=== PATIENT | female | born 1955 | race American Indian/Alaskan Native ===

== ENCOUNTER 2020-07-18 18:51 | Observation (INO) | payer MEDICARE ==
--- NOTE | 2020-07-18 21:24 | Emergency Department Report ---
HPI - General Time Seen by Provider: 07/18/20 21:20 - HPI HPI: This is a 64-year-old -[place] female presents to the emergency department via EMS from her [facility] facility with the complaint of generalized weakness and altered mental status. EMS says that [facility] has concerned that she has a urinary tract infection. The patient has a past medical history listed of hypertension, GERD, uro-vfwqqrk-hecrxdmox diabetes, encephalopathy, previous CVA with residual right-sided hemiplegia, and has a left BKA. Patient is currently nonverbal, although EMS says that she was talking a lot when they picked her up, and she is a poor historian. She does not appear to have been at our facility previously. The patient has a right upper extremity PICC in place for which the patient is getting 1 g of Rocephin every 24 hours for a recently diagnosed UTI. ED Review of Systems ROS: Stated complaint: AMS/POSSIBLE UTI Other details as noted in HPI Comment: Unobtainable due to pts medical conditions Physical Exam - Physical Exam Physical Exam: GENERAL: The patient is ill-appearing. HENT: Normocephalic. Atraumatic. Patient has moist mucous membranes. EYES: Extraocular motions are intact. NECK: Supple. Trachea is midline. CHEST/LUNGS: Clear to auscultation. There is no respiratory distress noted. HEART/CARDIOVASCULAR: Regular. There is no tachycardia. There is no murmur. ABDOMEN: Abdomen is soft, nontender. Patient has normal bowel sounds. SKIN: Skin is warm and dry. NEURO: The patient is awake but nonverbal. Follows some, but not all, commands. MUSCULOSKELETAL: There is no tenderness or deformity. Left BKA. ED Medical Decision Making - Lab Data Result diagrams: 07/18/20 21:31 07/18/20 21:31 Lab Results 07/18/20 07/18/20 07/18/20 Range/Units 21:31 21:31 21:31 WBC 12.0 H (4.5-11.0) K/mm3 RBC 3.17 L (3.65-5.03) M/mm3 Hgb 8.9 L (10.1-14.3) gm/dl Hct 26.8 L (30.3-42.9) % MCV 85 (79-97) fl MCH 28 (28-32) pg MCHC 33 (30-34) % RDW 17.1 H (13.2-15.2) % Plt Count 369 (140-440) K/mm3 Lymph % (Auto) 16.8 (13.4-35.0) % [place] % (Auto) 7.5 H (0.0-7.3) % Eos % (Auto) 0.9 (0.0-4.3) % Baso % (Auto) 1.0 (0.0-1.8) % Lymph # (Auto) 2.0 (1.2-5.4) K/mm3 [place] # (Auto) 0.9 H (0.0-0.8) K/mm3 Eos # (Auto) 0.1 (0.0-0.4) K/mm3 Baso # (Auto) 0.1 (0.0-0.1) K/mm3 Seg Neutrophils % 73.8 H (40.0-70.0) % Seg Neutrophils # 8.8 H (1.8-7.7) K/mm3 PT 14.8 (12.2-14.9) Sec. INR 1.16 H (0.87-1.13) Sodium 134 L (137-145) mmol/L Potassium 3.9 (3.6-5.0) mmol/L Chloride 92.7 L (98-107) mmol/L Carbon Dioxide 28 (22-30) mmol/L Anion Gap 17 mmol/L BUN 29 H (7-17) mg/dL Creatinine 1.8 H (0.6-1.2) mg/dL Estimated GFR 34 ml/min BUN/Creatinine Ratio 16 % Glucose 172 H (65-100) mg/dL Calcium 8.3 L (8.4-10.2) mg/dL Total Bilirubin 0.30 (0.1-1.2) mg/dL AST 18 (5-40) units/L ALT 10 (7-56) units/L Alkaline Phosphatase 111 (35-129) units/L Ammonia (25-60) umol/L Troponin T < 0.010 (0.00-0.029) ng/mL Total Protein 7.9 (6.3-8.2) g/dL Albumin 3.2 L (3.9-5) g/dL Albumin/Globulin Ratio 0.7 % TSH (0.270-4.200) mlU/mL 03/02/21 03/02/21 Range/Units 21:31 21:31 WBC (4.5-11.0) K/mm3 RBC (3.65-5.03) M/mm3 Hgb (10.1-14.3) gm/dl Hct (30.3-42.9) % MCV (79-97) fl MCH (28-32) pg MCHC (30-34) % RDW (13.2-15.2) % Plt Count (140-440) K/mm3 Lymph % (Auto) (13.4-35.0) % [place] % (Auto) (0.0-7.3) % Eos % (Auto) (0.0-4.3) % Baso % (Auto) (0.0-1.8) % Lymph # (Auto) (1.2-5.4) K/mm3 [place] # (Auto) (0.0-0.8) K/mm3 Eos # (Auto) (0.0-0.4) K/mm3 Baso # (Auto) (0.0-0.1) K/mm3 Seg Neutrophils % (40.0-70.0) % Seg Neutrophils # (1.8-7.7) K/mm3 PT (12.2-14.9) Sec. INR (0.87-1.13) Sodium (137-145) mmol/L Potassium (3.6-5.0) mmol/L Chloride (98-107) mmol/L Carbon Dioxide (22-30) mmol/L Anion Gap mmol/L BUN (7-17) mg/dL Creatinine (0.6-1.2) mg/dL Estimated GFR ml/min BUN/Creatinine Ratio % Glucose (65-100) mg/dL Calcium (8.4-10.2) mg/dL Total Bilirubin (0.1-1.2) mg/dL AST (5-40) units/L ALT (7-56) units/L Alkaline Phosphatase (35-129) units/L Ammonia 23.0 L (25-60) umol/L Troponin T (0.00-0.029) ng/mL Total Protein (6.3-8.2) g/dL Albumin (3.9-5) g/dL Albumin/Globulin Ratio % TSH 4.340 H (0.270-4.200) mlU/mL - EKG Data -: EKG Interpreted by Me EKG shows normal: sinus rhythm, axis, intervals, QRS complexes, ST-T waves Rate: normal - EKG Data When compared to previous EKG there are: previous EKG unavailable Interpretation: normal EKG - Radiology Data Radiology results: report reviewed CT HEAD WITHOUT CONTRAST INDICATION / CLINICAL INFORMATION: Altered Mental Status. TECHNIQUE: All CT scans at this location are performed using CT dose reduction for ALARA by means of automated exposure control. COMPARISON: 09/26/2019 FINDINGS: HEMORRHAGE: None. EXTRA-AXIAL SPACES: Normal in size and morphology for the patient's age. VENTRICULAR SYSTEM: Mild ex vacuo dilatation of the ventricular system stable since prior exam. CEREBRAL PARENCHYMA: Old lacunar infarct left basal ganglia is stable since prior exam. Chronic microvascular changes in the periventricular subcortical white matter are similar. No large territory acute infarction is noted. MIDLINE SHIFT OR HERNIATION: None. CEREBELLUM / BRAINSTEM: Previously noted old infarctions in the right cerebellum and silvia are unchanged from prior exam. ORBITS: Bilateral intraocular lens replacement are noted. SOFT TISSUES of HEAD: No significant abnormality. CALVARIUM: No significant abnormality. PARANASAL SINUSES / MASTOID AIR CELLS: Normal as visualized. ADDITIONAL FINDINGS: Vascular calcifications of the vertebrobasilar system again noted IMPRESSION: 1. No acute intracranial abnormality. No significant interval change since 09/26/2019. 2. Previously noted old lacunar infarct left basal ganglia as well as scattered areas of old infarction in the right cerebellum and silvia have not significantly changed - Medical Decision Making This patient was sent in from her [facility] facility with the complaint of altered mental status. At the time of my examination the patient is mostly nonverbal. Sometimes she will mouth something but it is not audible. She follows some, but not all, commands. CT scan of the head did not show any hemorrhage, large vessel occlusion, or any other acute process. Her vital signs have been reassuring thus far including being afebrile. Labs shows renal insufficiency with a GFR of about 35, and the patient has a significant urinary tract infection with some hematuria. I spoke to the patient's daughter who says that she does not have any history of any renal insufficiency. This may be secondary to some recent decreased oral intake and/or dehydration. Urine cultures has been sent and the patient has been started on IV antibiotics. She will be admitted to the hospital for further evaluation and treatment and was accepted for admission by the hospitalist, Dr. Monge. Critical Care Time: No Critical care attestation.: If time is entered above; I have spent that time in minutes in the direct care of this critically ill patient, excluding procedure time. ED Disposition Clinical Impression: Encephalopathy Acute renal failure (ARF) Qualifiers: Acute renal failure type: unspecified Qualified Code(s): N17.9 - Acute kidney failure, unspecified UTI (urinary tract infection) Qualifiers: Urinary tract infection type: acute cystitis Hematuria presence: with hematuria Qualified Code(s): N30.01 - Acute cystitis with hematuria Disposition: OP ADMIT IP TO THIS HOSP Is pt being admited?: Yes Condition: Serious Time of Disposition: 00:10
[2020-07-18 21:43] LABS: Basophils # (Auto) 0.1 K/mm3 (0.0-0.1); Eosinophils # (Auto) 0.1 K/mm3 (0.0-0.4); Eosinophils % (Auto) 0.9 % (0.0-4.3); Hematocrit 26.8 % (30.3-42.9); Hemoglobin 8.9 gm/dl (10.1-14.3); Lymphocytes % (Auto) 16.8 % (13.4-35.0); Mean Corpuscular HGB Conc 33 % (30-34); Mean Corpuscular Volume 85 fl (79-97); Monocytes # (Auto) 0.9 K/mm3 (0.0-0.8); Monocytes % (Auto) 7.5 % (0.0-7.3); Platelet Count 369 K/mm3 (140-440); Red Blood Count 3.17 M/mm3 (3.65-5.03); Red Cell Distribution Width 17.1 % (13.2-15.2)
[2020-07-18 21:58] LABS: INR 1.16 (0.87-1.13)
[2020-07-18 22:14] LABS: Alanine Aminotransferase 10 units/L (7-56); Albumin 3.2 g/dL (3.9-5); BUN/Creatinine Ratio 16; Blood Urea Nitrogen 29 mg/dL (7-17); Calcium 8.3 mg/dL (8.4-10.2); Hemolysis Index 4
--- NOTE | 2020-07-18 22:50 | Cat Scan Report ---
CT HEAD WITHOUT CONTRAST INDICATION / CLINICAL INFORMATION: Altered Mental Status. TECHNIQUE: All CT scans at this location are performed using CT dose reduction for ALARA by means of automated e xposure control. COMPARISON: 09/26/2019 FINDINGS: HEMORRHAGE: None. EXTRA-AXIAL SPACES: Normal in size and morphology for the patient's age. VENTRICULAR SYSTEM: Mild ex vacuo dilatation of the ventricular system stable since prior exam. CEREBRAL PARENCHYMA: Old lacunar infarct left basal ganglia is stable since prior exam. Chronic micro vascular changes in the periventricular subcortical white matter are similar. No large territory acut e infarction is noted. MIDLINE SHIFT OR HERNIATION: None. CEREBELLUM / BRAINSTEM: Previously noted old infarctions in the right cerebellum and silvia are unchang ed from prior exam. ORBITS: Bilateral intraocular lens replacement are noted. SOFT TISSUES of HEAD: No significant abnormality. CALVARIUM: No significant abnormality. PARANASAL SINUSES / MASTOID AIR CELLS: Normal as visualized. ADDITIONAL FINDINGS: Vascular calcifications of the vertebrobasilar system again noted IMPRESSION: 1. No acute intracranial abnormality. No significant interval change since 09/26/2019. 2. Previously noted old lacunar infarct left basal ganglia as well as scattered areas of old infarcti on in the right cerebellum and silvia have not significantly changed Signer Name: Wiley King MD Signed: 07/18/2020 10:45 PM Workstation Name: [id number]
[2020-07-18] MEDS ORDERED: SODIUM CHLORIDE 0.9% 1000 ML 1,000 ML IV ONE (23:21)
[2020-07-19 01:27] LABS: Bacteria,Urine 4+ /HPF (Negative)
[2020-07-19 01:31] LABS: Bilirubin,Urine NEG (Negative); Blood,Urine MOD (Negative); Color,Urine Yellow (Yellow); Urobilinogen,Urine < 2.0 mg/dL (<2.0)
[2020-07-19 01:34] LABS: WBC,Urine > 182.0 /HPF (0.0-6.0)
[2020-07-19] MEDS ORDERED: cefTRIAXone/NS 1 GM/50 ML 1 GM/50 ML BAG IV ONE ×2 (01:38→10:00)
[2020-07-19] MEDS ORDERED: MAGNESIUM HYDROXIDE (MOM) ORAL LIQD UDC PO PRN (02:07)
[2020-07-19] MEDS ORDERED: ACETAMINOPHEN 325 MG TAB PO PRN (02:07)
[2020-07-19] MEDS ORDERED: MORPHINE 2 MG/1 ML INJ IV PRN (02:07)
[2020-07-19] MEDS ORDERED: ONDANSETRON 4 MG/2 ML INJ IV PRN (02:07)
--- NOTE | 2020-07-19 02:21 | History and Physical Report ---
History of Present Illness Date of examination: 07/19/20 Date of admission: 07/19/20 00:10 Chief complaint: Altered mental Status Generalized weakness History of present illness: 64-year-old -Italian female with known history of CVA, diabetes mellitus, hypertension GERD and left AKA Resident of [facility] sent to the emergency room today with complaints of generalized weakness and altered mental status. [facility] were concerned that patient may have had a UTI. She was recently diagnosed with UTI and has been on IV Rocephin every 24 hours through a PICC line which is in place. Patient is currently nonverbal and most of the history was gotten from the ER staff. Work-up in the emergency room today reveals WBC of 12., Chemistry was significant for elevated BUN and creatinine. Urinalysis was significant for UTI. Patient admitted with encephalopathy, acute kidney injury and UTI. Past History Past Medical History: renal failure Past Surgical History: Other (Left AKA) Social history: other (Resident of a Longterm) Medications and Allergies Allergies Allergy/AdvReac Type Severity Reaction Status Date / Time Unable to Assess Allergy Unverified 07/19/20 00:47 Active Meds: Active Medications Acetaminophen (Acetaminophen 325 Mg Tab) 650 mg PO Q4H PRN PRN Reason: Pain MILD(1-3)/Fever >100.5/SMALLS Sodium Chloride (Nacl 0.9% 1000 Ml) 1,000 mls @ 125 mls/hr IV ONCE ONE Stop: 07/19/20 07:20 Last Admin: 07/19/20 00:58 Dose: 125 mls/hr Documented by: Sodium Chloride (Nacl 0.9% 1000 Ml) 1,000 mls @ 125 mls/hr IV DIRECT ADOLFO Magnesium Hydroxide (Magnesium Hydroxide (Mom) Oral Liqd Udc) 30 ml PO Q4H PRN PRN Reason: Constipation Morphine Sulfate (Morphine 2 Mg/1 Ml Inj) 2 mg IV Q4H PRN PRN Reason: Pain, Moderate (4-6) Ondansetron HCl (Ondansetron 4 Mg/2 Ml Inj) 4 mg IV Q8H PRN PRN Reason: Nausea And Vomiting Sodium Chloride (Sodium Chloride 0.9% 10 Ml Flush Syringe) 10 ml IV BID ADOLFO Sodium Chloride (Sodium Chloride 0.9% 10 Ml Flush Syringe) 10 ml IV PRN PRN PRN Reason: LINE FLUSH Review of Systems ROS unobtainable: due to mental status Exam - Constitutional Vitals: Temp Pulse Resp BP Pulse Ox 98.1 F 81 18 120/68 100 07/18/20 21:25 07/19/20 01:30 07/19/20 01:30 07/19/20 01:30 07/19/20 01:30 General appearance: Present: no acute distress, well-nourished - EENT Eyes: Present: PERRL, EOM intact. Absent: scleral icterus ENT: hearing intact, clear oral mucosa, dentition normal - Neck Neck: Present: supple, normal ROM - Respiratory Respiratory effort: normal Respiratory: bilateral: CTA - Cardiovascular Rhythm: regular Heart Sounds: Present: S1 & S2. Absent: gallop, systolic murmur, diastolic murmur, rub, click - Extremities Extremities: no ischemia, pulses intact, pulses symmetrical, No edema, normal temperature, normal color, Full ROM Extremity abnormal: other (Left AKA) Peripheral Pulses: within normal limits - Abdominal General gastrointestinal: Present: soft, non-tender, non-distended, normal bowel sounds. Absent: mass - Integumentary Integumentary: Present: clear, warm, dry. Absent: rash - Musculoskeletal Musculoskeletal: strength equal bilaterally - Psychiatric Psychiatric: cooperative - Neurologic Neurologic: CNII-XII intact, no focal deficits, moves all extremities HEART Score - HEART Score Troponin: Troponin T < 0.010 ng/mL (0.00-0.029) 07/18/20 21:31 Results - Labs CBC & Chem 7: 07/18/20 21:31 07/18/20 21:31 Labs: Abnormal lab results 07/18/20 07/18/20 07/18/20 Range/Units 21:31 21:31 21:31 WBC 12.0 H (4.5-11.0) K/mm3 RBC 3.17 L (3.65-5.03) M/mm3 Hgb 8.9 L (10.1-14.3) gm/dl Hct 26.8 L (30.3-42.9) % RDW 17.1 H (13.2-15.2) % [place] % (Auto) 7.5 H (0.0-7.3) % [place] # (Auto) 0.9 H (0.0-0.8) K/mm3 Seg Neutrophils % 73.8 H (40.0-70.0) % Seg Neutrophils # 8.8 H (1.8-7.7) K/mm3 INR 1.16 H (0.87-1.13) Sodium 134 L (137-145) mmol/L Chloride 92.7 L (98-107) mmol/L BUN 29 H (7-17) mg/dL Creatinine 1.8 H (0.6-1.2) mg/dL Glucose 172 H (65-100) mg/dL Calcium 8.3 L (8.4-10.2) mg/dL Ammonia (25-60) umol/L Albumin 3.2 L (3.9-5) g/dL TSH (0.270-4.200) mlU/mL Urine WBC (Auto) (0.0-6.0) /HPF U Epithel Cells (Auto) (0-13.0) /HPF 07/18/20 07/18/20 07/19/20 Range/Units 21:31 21:31 00:43 WBC (4.5-11.0) K/mm3 RBC (3.65-5.03) M/mm3 Hgb (10.1-14.3) gm/dl Hct (30.3-42.9) % RDW (13.2-15.2) % [place] % (Auto) (0.0-7.3) % [place] # (Auto) (0.0-0.8) K/mm3 Seg Neutrophils % (40.0-70.0) % Seg Neutrophils # (1.8-7.7) K/mm3 INR (0.87-1.13) Sodium (137-145) mmol/L Chloride (98-107) mmol/L BUN (7-17) mg/dL Creatinine (0.6-1.2) mg/dL Glucose (65-100) mg/dL Calcium (8.4-10.2) mg/dL Ammonia 23.0 L (25-60) umol/L Albumin (3.9-5) g/dL TSH 4.340 H (0.270-4.200) mlU/mL Urine WBC (Auto) > 182.0 H (0.0-6.0) /HPF U Epithel Cells (Auto) 22.0 H (0-13.0) /HPF Assessment and Plan - Patient Problems (1) Encephalopathy Current Visit: Yes Status: Acute Plan to address problem: Possibly secondary to the underlying infection and MAILE. We will continue to monitor mental status. (2) UTI (urinary tract infection) Current Visit: Yes Status: Acute Qualifiers: Urinary tract infection type: acute cystitis Hematuria presence: with hematuria Qualified Code(s): N30.01 - Acute cystitis with hematuria Plan to address problem: Patient placed on empiric IV antibiotics. Will await culture results. (3) Acute renal failure (ARF) Current Visit: Yes Status: Acute Qualifiers: Acute renal failure type: unspecified Qualified Code(s): N17.9 - Acute kidney failure, unspecified Plan to address problem: Patient placed on IV fluid. Will monitor BUN and creatinine. Consult placed to nephrology for evaluation. (4) DVT prophylaxis Current Visit: Yes Status: Acute Plan to address problem: Patient on subcutaneous heparin. (5) Full code status Current Visit: Yes Status: Acute Plan to address problem: Patient is a full code.
--- NOTE | 2020-07-19 08:41 | Consultation ---
History of Present Illness - History of Present Illness Thank you for the consultation Patient was evaluated today My assessment and plan are as follows #Renal failure in a patient who 64-year-old with multiple risk factors for underlying chronic kidney disease however there is no documented history of prior chronic kidney disease, likely this could be acute kidney injury resulting from volume depletion, rule out urinary tract infection rule out obstruction etc. we will monitor for recovery of renal function, all renal ultrasonogram as well as basic labs currently she is being treated for urinary tract infection There is no acute or urgent indication for renal placement therapy Continue gentle hydration follow-up on renal function, #Leukocytosis and concerns have been raised about urinary tract infection currently she is on antibiotic, will do a bladder ultrasonogram as well as a renal ultrasonogram for now #Mild hyponatremia present on admission sodium was around 134 in the setting of volume depletion we will check osmolality as well as uric acid to guide the fluid therapy #anemia this could be multifactorial at this time #Multiple comorbidities for underlying chronic kidney disease, including diabetes hypertension, prior history of CVA, below-knee amputation which also makes her high risk for renovascular disease underlying #Possible urinary tract infection urine appears to have more than 182 white blood cells 54 red blood cells moderate amount of blood 100 mg protein and 3+ WBC and 4+ bacteria, Roulette pyelonephritis Overall renal prognosis remains guarded at this time Author: Art Wooten M.D. [facility], [facility], [address] [place] [address] Tel; [phone] Source of information: From the current chart History of present illness Patient is a 4-year-old female who was brought in from the [facility] with generalized weakness and altered mental status. She has multiple complex health issues including but not limited to diabetes mellitus type 2, prior history of CVA with residual hemiplegia left BKA gastroesophageal reflux disorder as well as hypertension. It has been noted to the patient is a very poor historian there is some concern about possible urinary tract infection Upon evaluation in the ER patient's creatinine was 1.8 with a BUN of [address] scan obtained did not show any evidence of acute p rocess, urinalysis showed evidence of hematuria. It has been noted that patient was eating and drinking poorly Past medical history: CVA Diabetes Hypertension Gastroesophageal reflux disorder Above knee amputation Hemiplegia Current allergies: Reviewed from the current chart Social history: Reviewed from the current chart Family history: Reviewed from the current chart Review of system: Limited as patient was admitted with encephalopathy And does have history of prior CVA with residual hemiplegia All other review of systems negative Physical examination Vitals: Reviewed General: No acute distress HEENT: Oral mucosa dry no pallor or icterus Neck: Supple without any JVD thyromegaly or nodular mass Chest: Clear to auscultation Heart: Regular rate and rhythm S1-S2 heard no S3-S4 Abdomen: Soft nontender, bowel sounds present no renal bruit no suprapubic masses no CVA tenderness noted Extremity: Minimal edema dry skin no peripheral cyanosis Above knee amputation skin turgor appears to be reduced Endocrine: Thyroid not enlarged Psychiatric: No agitation and aggression noted Musculoskeletal: No joint effusion noted Labs and x-rays: Reviewed from this admission Past History Past Medical History: renal failure Past Surgical History: Other (Left AKA) Social history: other (Resident of a Detention) Medications and Allergies Allergies Allergy/AdvReac Type Severity Reaction Status Date / Time Unable to Assess Allergy Unverified 07/19/20 00:47 Active Meds: Active Medications Acetaminophen (Acetaminophen 325 Mg Tab) 650 mg PO Q4H PRN PRN Reason: Pain MILD(1-3)/Fever >100.5/SMALLS Sodium Chloride (Nacl 0.9% 1000 Ml) 1,000 mls @ 125 mls/hr IV DIRECT ADOLFO Magnesium Hydroxide (Magnesium Hydroxide (Mom) Oral Liqd Udc) 30 ml PO Q4H PRN PRN Reason: Constipation Morphine Sulfate (Morphine 2 Mg/1 Ml Inj) 2 mg IV Q4H PRN PRN Reason: Pain, Moderate (4-6) Ondansetron HCl (Ondansetron 4 Mg/2 Ml Inj) 4 mg IV Q8H PRN PRN Reason: Nausea And Vomiting Sodium Chloride (Sodium Chloride 0.9% 10 Ml Flush Syringe) 10 ml IV BID ADOLFO Sodium Chloride (Sodium Chloride 0.9% 10 Ml Flush Syringe) 10 ml IV PRN PRN PRN Reason: LINE FLUSH Exam - Vital Signs Vital signs: Vital Signs Temp Pulse Resp BP Pulse Ox 98.1 F 86 20 130/69 100 07/18/20 21:25 07/18/20 21:25 07/18/20 21:25 07/18/20 21:25 07/18/20 21:25 Results - Lab Results 07/18/20 21:31 07/18/20 21:31 Most recent lab results Calcium 8.3 mg/dL (8.4-10.2) L 07/18/20 21:31
--- NOTE | 2020-07-19 09:56 | Event Note ---
Date: 07/19/20 Patient seen and examined resting comfortably. Mental status improving. Will await urine culture continue antibiotic therapy. Patient has a left AKA will need continued fall precaution, oral hygiene. Nephrology input is noted and appreciated. We will request home medication list to be able to reconcile.
[2020-07-19] MEDS: SODIUM CHLORIDE 0.9% 1000 ML 1,000 ML IV SCH ×2 (10:04→17:30)
[2020-07-19] MEDS: cefTRIAXone/NS 1 GM/50 ML 1 GM/50 ML BAG IV SCH (22:29)
[2020-07-20] MEDS: SODIUM CHLORIDE 0.9% 1000 ML 1,000 ML IV SCH ×2 (05:18→22:35)
[2020-07-20 06:00] LABS: Basophils # (Auto) 0.1 K/mm3 (0.0-0.1); Basophils % (Auto) 0.8 % (0.0-1.8); Eosinophils # (Auto) 0.3 K/mm3 (0.0-0.4); Eosinophils % (Auto) 2.9 % (0.0-4.3); Hematocrit 25.9 % (30.3-42.9); Hemoglobin 8.4 gm/dl (10.1-14.3); Lymphocytes # (Auto) 2.5 K/mm3 (1.2-5.4); Lymphocytes % (Auto) 22.8 % (13.4-35.0); Mean Corpuscular HGB Conc 32 % (30-34); Mean Corpuscular Volume 82 fl (79-97); Monocytes # (Auto) 0.8 K/mm3 (0.0-0.8); Monocytes % (Auto) 6.9 % (0.0-7.3); Platelet Count 421 K/mm3 (140-440); Red Blood Count 3.15 M/mm3 (3.65-5.03); Red Cell Distribution Width 16.6 % (13.2-15.2)
[2020-07-20 06:11] LABS: INR 1.15 (0.87-1.13)
[2020-07-20 06:16] LABS: Calcium 8.4 mg/dL (8.4-10.2)
--- NOTE | 2020-07-20 08:47 | Progress Note ---
Subjective Interval history: Patient was seen today for follow-up of multiple renal related issues No complaints of any chest pain pressure or shortness of breath she is resting comfortably Mentation-kevin she appears to be slightly better today Interdisciplinary notes that also reviewed Events of 24 hours vitals labs intake output medications were reviewed Past medical history: Reviewed Family history: Reviewed Social history: Reviewed Allergies: Reviewed Physical examination: Vitals: Reviewed HEENT: No pallor or icterus oral mucosa moist Neck: Supple no JVD no thyromegaly Chest: Bilateral clear to auscultation anteriorly Heart: Regular rate and rhythm S1-S2 heard no S3-S4 Abdomen: Soft nontender no voluntary guarding rigidity rebound Extremity: Dry skin no swelling Psychiatric: No evidence of agitation and aggression noted Dermatology: No petechial rashes Labs and x-rays: Reviewed from today Assessment and plan #Acute kidney injury, patient is creatinine has markedly improved with hydration alone hence appears to be prerenal there is no evidence to suggest acute tubular necrosis #Mild hyponatremia: Appears to have improved current sodium is 141 #Significant pyuria and hematuria likely due to urinary tract infection, she needs urine culture currently on empiric antibiotic #Mild alkalosis which could be due to volume issues will need to monitor and follow #Overall patient is doing much better from renal standpoint #Altered mental status, with prior history of CVA, patient may have underlying cognitive impairment, her encephalopathy appears to be slightly better today #custodial resident with many comorbidities including CVA diabetes hypertension left above-knee amputation currently a resident of [facility] All questions were answered and simple Cymraes We'll continue to follow and make recommendation for renal standpoint Objective - Vital Signs Vital signs: Vital Signs - 12hr 07/20/20 07/20/20 07/20/20 00:34 04:50 07:44 Temperature 97.8 F 98.2 F 98.4 F Pulse Rate 69 74 78 Respiratory 18 18 18 Rate Blood Pressure 117/62 115/68 178/83 O2 Sat by Pulse 99 99 100 Oximetry - Lab 07/20/20 05:29 07/20/20 05:29 Most recent lab results Calcium 8.4 mg/dL (8.4-10.2) 07/20/20 05:29 Medications & Allergies - Medications Allergies/Adverse Reactions: Allergies Unable to Assess Allergy (Unverified 07/19/20 00:47) UNABLE TO OBTAIN Active Medications: Generic Name Dose Route Start Last Admin Trade Name Freq PRN Reason Stop Dose Admin Acetaminophen 650 mg 07/19/20 02:07 Acetaminophen 325 Mg Tab PO Q4H PRN Pain MILD(1-3)/Fever >100.5/SMALLS Sodium Chloride 1,000 mls @ 125 mls/hr 07/19/20 02:15 07/20/20 05:18 Nacl 0.9% 1000 Ml IV 125 mls/hr DIRECT ADOLFO Administration Ceftriaxone Sodium 1 gm in 50 mls @ 100 mls/hr 07/19/20 22:00 07/19/20 22:29 Rocephin/Ns 1 Gm/50 Ml IV 100 mls/hr Q24HR@2200 ADOLFO Administration Protocol Magnesium Hydroxide 30 ml 07/19/20 02:07 Magnesium Hydroxide (Mom) Oral Liqd Udc PO Q4H PRN Constipation Morphine Sulfate 2 mg 07/19/20 02:07 Morphine 2 Mg/1 Ml Inj IV Q4H PRN Pain, Moderate (4-6) Ondansetron HCl 4 mg 07/19/20 02:07 Ondansetron 4 Mg/2 Ml Inj IV Q8H PRN Nausea And Vomiting Sodium Chloride 10 ml 07/19/20 10:00 07/19/20 22:30 Sodium Chloride 0.9% 10 Ml Flush Syringe IV 10 ml BID ADOLFO Administration Sodium Chloride 10 ml 07/19/20 02:07 Sodium Chloride 0.9% 10 Ml Flush Syringe IV PRN PRN LINE FLUSH
--- NOTE | 2020-07-20 11:11 | Progress Note ---
Assessment and Plan Assessment and plan: 64-year-old -Togolese female with known history of CVA, diabetes mellitus, hypertension GERD and left AKA Resident of [facility] sent to the emergency room today with complaints of generalized weakness and altered mental status. Staff at the care home were concerned that patient may have had a UTI. She was recently diagnosed with UTI and has been on IV Rocephin every 24 hours through a PICC line which is in place. Patient is currently nonverbal and most of the history was gotten from the ER staff. Work-up in the emergency room today reveals WBC of 12., Chemistry was signif icant for elevated BUN and creatinine. Urinalysis was significant for UTI. Patient admitted with encephalopathy, acute kidney injury and UTI. 3/4: Continue supportive care patient improving with the treatment of acute urinary tract infection. Renal function is improved. Will await for culture r esults and anticipate discharge in a.m. Continue fall precaution. Replace K. Will obtain a predischarge Covid test (1) Encephalopathy Current Visit: Yes Status: Acute Metabolic Plan to address problem: Possibly secondary to the underlying infection and MAILE. We will continue to monitor mental status. (2) Acute Cystitis Current Visit: Yes Status: Acute Qualifiers: Urinary tract infection type: acute cystitis Hematuria presence: with hematuria Qualified Code(s): N30.01 - Acute cystitis with hematuria Plan to address problem: Patient placed on empiric IV antibiotics. Will await culture results. (3) Acute renal failure (ARF) secondary to vasomotor nephropathy Current Visit: Yes Status: Acute Qualifiers: Acute renal failure type: unspecified Qualified Code(s): N17.9 - Acute kidney failure, unspecified Plan to address problem: Patient placed on IV fluid. Will monitor BUN and creatinine. Consult placed to nephrology for evaluation. (4) mild hyponatremia (5) Mild alkalosis (6) Left AKA (7) Anemia of chronic disease (8) Hypokalemia (9) residential resident DVT prophylaxis Current Visit: Yes Status: Acute Plan to address problem: Patient on subcutaneous heparin. (10) Full code status Current Visit: Yes Status: Acute Plan to address problem: Patient is a full code. History Interval history: Patient seen and examined this morning resting comfortably no new complaints. While she is verbal this morning she did not speak but nodded to questions which she also did yesterday apart from that and when she spoke briefly. Hospitalist Physical - Physical exam Narrative exam: VITAL SIGNS: Reviewed. GENERAL: The patient appears normally developed, Vital signs as documented. HEAD: No signs of head trauma. EYES: Pupils are equal. Extraocular motions intact. EARS: Hearing grossly intact. MOUTH: Oropharynx is normal. NECK: No adenopathy, no JVD. CHEST: Chest with clear breath sounds bilaterally. No wheezes, rales, or rhonchi. CARDIAC: Regular rate and rhythm. S1 and S2, without murmurs, gallops, or rubs. VASCULAR: No Edema. Peripheral pulses normal and equal in all extremities. ABDOMEN: Soft, non tender and non distended. No rebound or guarding, and no masses palpated. Bowel Sounds normal. MUSCULOSKELETAL: left AKA NEUROLOGIC EXAM: awake, still some lethargy and oriented x 3 No focal sensory or strength deficits. Follows commands. PSYCHIATRIC: Mood normal. SKIN: detail exam as documented in skin assessment - Constitutional Vitals: Temp Pulse Resp BP Pulse Ox 98.4 F 78 18 178/83 100 07/20/20 07:44 07/20/20 07:44 07/20/20 07:44 07/20/20 07:44 07/20/20 07:44 General appearance: Present: no acute distress, well-nourished HEART Score - HEART Score Troponin: Troponin T < 0.010 ng/mL (0.00-0.029) 07/18/20 21:31 Results - Labs CBC & Chem 7: 07/20/20 05:29 07/20/20 05:29 Labs: Laboratory Last Values WBC 11.0 K/mm3 (4.5-11.0) 07/20/20 05:29 RBC 3.15 M/mm3 (3.65-5.03) L 07/20/20 05:29 Hgb 8.4 gm/dl (10.1-14.3) L 07/20/20 05:29 Hct 25.9 % (30.3-42.9) L 07/20/20 05:29 MCV 82 fl (79-97) 07/20/20 05:29 MCH 27 pg (28-32) L 07/20/20 05: MCHC 32 % (30-34) 07/20/20 05:29 RDW 16.6 % (13.2-15.2) H 07/20/20 05:29 Plt Count 421 K/mm3 (140-440) 07/20/20 05:29 Lymph % (Auto) 22.8 % (13.4-35.0) 07/20/20 05:29 [place] % (Auto) 6.9 % (0.0-7.3) 07/20/20 05:29 Eos % (Auto) 2.9 % (0.0-4.3) 07/20/20 05:29 Baso % (Auto) 0.8 % (0.0-1.8) 07/20/20 05:29 Lymph # (Auto) 2.5 K/mm3 (1.2-5.4) 07/20/20 05:29 [place] # (Auto) 0.8 K/mm3 (0.0-0.8) 07/20/20 05:29 Eos # (Auto) 0.3 K/mm3 (0.0-0.4) 07/20/20 05:29 Baso # (Auto) 0.1 K/mm3 (0.0-0.1) 07/20/20 05:29 Seg Neutrophils % 66.6 % (40.0-70.0) 07/20/20 05:29 Seg Neutrophils # 7.4 K/mm3 (1.8-7.7) 07/20/20 05:29 PT 14.7 Sec. (12.2-14.9) 07/20/20 05:29 INR 1.15 (0.87-1.13) H 07/20/20 05:29 Sodium 141 mmol/L (137-145) D 07/20/20 05:29 Potassium 3.5 mmol/L (3.6-5.0) L 07/20/20 05:29 Chloride 103.1 mmol/L (98-107) 07/20/20 05:29 Carbon Dioxide 31 mmol/L (22-30) H 07/20/20 05:29 Anion Gap 10 mmol/L 07/20/20 05:29 BUN 22 mg/dL (7-17) H 07/20/20 05:29 Creatinine 1.2 mg/dL (0.6-1.2) 07/20/20 05:29 Estimated GFR 55 ml/min 07/20/20 05:29 BUN/Creatinine Ratio 18 % 07/20/20 05:29 Glucose 171 mg/dL (65-100) H 07/20/20 05:29 POC Glucose 147 mg/dL (70-105) H 07/20/20 07:43 Calcium 8.4 mg/dL (8.4-10.2) 07/20/20 05:29 Total Bilirubin 0.30 mg/dL (0.1-1.2) 07/18/20 21:31 AST 18 units/L (5-40) 07/18/20 21:31 ALT 10 units/L (7-56) 07/18/20 21:31 Alkaline Phosphatase 111 units/L (35-129) 07/18/20 21:31 Ammonia 23.0 umol/L (25-60) L 07/18/20 21:31 Troponin T < 0.010 ng/mL (0.00-0.029) 07/18/20 21:31 Total Protein 7.9 g/dL (6.3-8.2) 07/18/20 21:31 Albumin 3.2 g/dL (3.9-5) L 07/18/20 21:31 Albumin/Globulin Ratio 0.7 % 07/18/20 21:31 TSH 4.340 mlU/mL (0.270-4.200) H 07/18/20 21:31 Urine Color Yellow (Yellow) 07/19/20 00:43 Urine Turbidity Turbid (Clear) 07/19/20 00:43 Urine pH 5.0 (5.0-7.0) 07/19/20 00:43 Ur Specific [place] 1.012 (1.003-1.030) 07/19/20 00:43 Urine Protein 100 mg/dl mg/dL (Negative) 07/19/20 00:43 Urine Glucose (UA) Neg mg/dL (Negative) 07/19/20 00:43 Urine Ketones Tr mg/dL (Negative) 07/19/20 00:43 Urine Blood Mod (Negative) 07/19/20 00:43 Urine Nitrite Neg (Negative) 07/19/20 00:43 Urine Bilirubin Neg (Negative) 07/19/20 00:43 Urine Urobilinogen < 2.0 mg/dL (<2.0) 07/19/20 00:43 Ur Leukocyte Esterase Mod (Negative) 07/19/20 00:43 Urine WBC (Auto) > 182.0 /HPF (0.0-6.0) H 07/19/20 00:43 Urine RBC (Auto) 54.0 /HPF (0.0-6.0) 07/19/20 00:43 U Epithel Cells (Auto) 22.0 /HPF (0-13.0) H 07/19/20 00:43 Urine Bacteria (Auto) 4+ /HPF (Negative) 07/19/20 00:43 Urine WBC Clumps 3+ /HPF 07/19/20 00:43 [place]cl[place]/IV: Voiding Method Diaper Active Medications - Current Medications Current Medications: Generic Name Dose Route Start Last Admin Trade Name Freq PRN Reason Stop Dose Admin Acetaminophen 650 mg 07/19/20 02:07 Acetaminophen 325 Mg Tab PO Q4H PRN Pain MILD(1-3)/Fever >100.5/SMALLS Sodium Chloride 1,000 mls @ 125 mls/hr 07/19/20 02:15 07/20/20 05:18 Nacl 0.9% 1000 Ml IV 125 mls/hr DIRECT ADOLFO Administration Ceftriaxone Sodium 1 gm in 50 mls @ 100 mls/hr 07/19/20 22:00 07/19/20 22:29 Rocephin/Ns 1 Gm/50 Ml IV 100 mls/hr Q24HR@2200 ADOLFO Administration Protocol Magnesium Hydroxide 30 ml 07/19/20 02:07 Magnesium Hydroxide (Mom) Oral Liqd Udc PO Q4H PRN Constipation Morphine Sulfate 2 mg 07/19/20 02:07 Morphine 2 Mg/1 Ml Inj IV Q4H PRN Pain, Moderate (4-6) Ondansetron HCl 4 mg 07/19/20 02:07 Ondansetron 4 Mg/2 Ml Inj IV Q8H PRN Nausea And Vomiting Sodium Chloride 10 ml 07/19/20 10:00 07/19/20 22:30 Sodium Chloride 0.9% 10 Ml Flush Syringe IV 10 ml BID ADOLFO Administration Sodium Chloride 10 ml 07/19/20 02:07 Sodium Chloride 0.9% 10 Ml Flush Syringe IV PRN PRN LINE FLUSH
[2020-07-20] MEDS: cefTRIAXone/NS 1 GM/50 ML 1 GM/50 ML BAG IV SCH (22:30)
[2020-07-21] MEDS: hydrALAZINE 20 MG/1 ML INJ IV PRN (02:46)
[2020-07-21] MEDS: SODIUM CHLORIDE 0.9% 1000 ML 1,000 ML IV SCH ×2 (07:34→22:43)
--- NOTE | 2020-07-21 08:35 | Progress Note ---
Subjective Interval history: Patient was seen today for follow-up of multiple renal related issues she is resting comfortably in bed no acute distress Remarkable improvement in kidney function Interdisciplinary notes that also reviewed Events of 24 hours vitals labs intake output medications were reviewed Past medical history: Reviewed Family history: Reviewed Social history: Reviewed Allergies: Reviewed Physical examination: Vitals: Reviewed HEENT: No pallor or icterus oral mucosa moist Neck: Supple no JVD no thyromegaly Chest: Bilateral clear to auscultation anteriorly Heart: Regular rate and rhythm S1-S2 heard no S3-S4 Abdomen: Soft nontender no voluntary guarding rigidity rebound Extremity: Dry skin no swelling Psychiatric: No evidence of agitation and aggression noted Dermatology: No petechial rashes Labs and x-rays: Reviewed from today Assessment and plan #Acute kidney injury, patient is creatinine has markedly improved with hydration alone hence appears to be prerenal there is no evidence to suggest acute tubular necrosis, renal function markedly improved, please give her potassium replacement for at least 3-5 days 20 [place] every each day she will need a follow- up 1 basic metabolic profile next week #Mild hyponatremia: Appears to have improved current sodium is 141 #Significant pyuria and hematuria likely due to urinary tract infection, being followed by hospital medicine #Mild alkalosis doing much better #Overall patient is doing much better from renal standpoint #Altered mental status, with prior history of CVA, patient may have underlying cognitive impairment, her encephalopathy appears to be slightly better today #care home resident with many comorbidities including CVA diabetes hypertension left above-knee amputation currently a resident of [facility] overall stable for discharge from renal standpoint She can follow-up in the office in approximately 4-6 weeks Objective - Vital Signs Vital signs: Vital Signs - 12hr 07/21/20 07/21/20 07/21/20 00:45 04:03 07:00 Temperature 97.6 F 97.6 F 98 F Pulse Rate 74 76 75 Respiratory 18 18 20 Rate Blood Pressure 163/89 Blood Pressure 146/88 136/72 [Left] O2 Sat by Pulse 99 100 99 Oximetry - Lab 07/20/20 05:29 07/20/20 05:29 Most recent lab results Calcium 8.4 mg/dL (8.4-10.2) 07/20/20 05:29 Medications & Allergies - Medications Allergies/Adverse Reactions: Allergies Unable to Assess Allergy (Unverified 07/19/20 00:47) UNABLE TO OBTAIN Home Medications: Home Medications Medication Instructions Recorded Confirmed Last Taken Type Acetaminophen [Aphen] 325 mg PO Q4H PRN 07/21/20 07/21/20 Unknown History Aspirin [Adult Aspirin] 81 mg PO DAILY 07/21/20 07/21/20 Unknown History AtorvaSTATin [Lipitor] 40 mg PO DAILY 07/21/20 07/21/20 Unknown History Citalopram [Celexa] 20 mg PO DAILY 07/21/20 07/21/20 Unknown History Docusate Sodium [Colace CAP] 100 mg PO BID 07/21/20 07/21/20 Unknown History Insulin Aspart (Nf) [NovoLOG 100 0 unit SQ AC 07/21/20 07/21/20 Unknown History UNITS/ML VIAL] Insulin Glargine [Lantus VIAL] 20 units SQ BID 07/21/20 07/21/20 Unknown History Insulin Lispro [Admelog] 5 unit SQ ACHS 07/21/20 07/21/20 Unknown History Multivitamin [One-Daily 1 tab PO DAILY 07/21/20 07/21/20 Unknown History Multi-Vitamin] Norvasc 10 mg PO DAILY 07/21/20 07/21/20 Unknown History Nystatin [Nystatin SUSP] 100,000 ml PO QID 07/21/20 07/21/20 Unknown History Ondansetron HCl [Zofran] 4 mg PO Q8H 07/21/20 07/21/20 Unknown History Oxybutynin [Ditropan] 5 mg PO DAILY 07/21/20 07/21/20 Unknown History Pantoprazole [Protonix TAB] 40 mg PO QDAY 07/21/20 07/21/20 Unknown History Potassium 10 meq PO QAM 07/21/20 07/21/20 Unknown History Sennosides [Senna] 1 tab PO BID 07/21/20 07/21/20 Unknown History bisacodyL [Dulcolax suppos] 10 mg LA DAILY 07/21/20 07/21/20 Unknown History cephALEXin [Keflex] 250 mg PO Q6HR #10 capsule 07/21/20 Unknown Rx diphenhydrAMINE [Benadryl CAP] 25 mg PO Q6H PRN 07/21/20 07/21/20 Unknown History Active Medications: Generic Name Dose Route Start Last Admin Trade Name Zainab PRN Reason Stop Dose Admin Acetaminophen 650 mg 07/19/20 02:07 Acetaminophen 325 Mg Tab PO Q4H PRN Pain MILD(1-3)/Fever >100.5/SMALLS Hydralazine HCl 10 mg 07/21/20 02:30 07/21/20 02:46 Hydralazine 20 Mg/1 Ml Inj IV 10 mg Q6H PRN Administration SBP greater than 160 Sodium Chloride 1,000 mls @ 125 mls/hr 07/19/20 02:15 07/21/20 07:34 Nacl 0.9% 1000 Ml IV 125 mls/hr DIRECT ADOLFO Administration Ceftriaxone Sodium 1 gm in 50 mls @ 100 mls/hr 07/19/20 22:00 07/20/20 22:30 Rocephin/Ns 1 Gm/50 Ml IV 100 mls/hr Q24HR@2200 ADOLFO Administration Protocol Magnesium Hydroxide 30 ml 07/19/20 02:07 Magnesium Hydroxide (Mom) Oral Liqd Udc PO Q4H PRN Constipation Morphine Sulfate 2 mg 07/19/20 02:07 Morphine 2 Mg/1 Ml Inj IV Q4H PRN Pain, Moderate (4-6) Ondansetron HCl 4 mg 07/19/20 02:07 Ondansetron 4 Mg/2 Ml Inj IV Q8H PRN Nausea And Vomiting Sodium Chloride 10 ml 07/19/20 10:00 07/20/20 22:31 Sodium Chloride 0.9% 10 Ml Flush Syringe IV 10 ml BID ADOLFO Administration Sodium Chloride 10 ml 07/19/20 02:07 Sodium Chloride 0.9% 10 Ml Flush Syringe IV PRN PRN LINE FLUSH
--- NOTE | 2020-07-21 09:37 | Discharge Summary ---
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 Staff at the assisted were concerned that patient may have had a UTI. She was recently diagnosed with UTI and has been on IV Rocephin every 24 hours through a PICC line which is in place. Patient is currently nonverbal and most of the history was gotten from the ER staff. Work-up in the emergency room today reveals WBC of 12., Chemistry was significant for elevated BUN and creatinine. Urinalysis was significant for UTI. Patient admitted with encephalopathy, acute kidney injury and UTI. 3: Continue supportive care patient improving with the treatment of acute urinary tract infection. Renal function is improved. Will await for culture results and anticipate discharge in a.m. Continue fall precaution. Replace K. Will obtain a predischarge Covid test 5: Patient clinically stable, tolerating diet, mental status improved. stable for discharge. unsure why urine culture was never sent. Renal function improved. No evidence of sepsis (1) Encephalopathy Current Visit: Yes Status: Acute Metabolic Plan to address problem: Possibly secondary to the underlying infection and MAILE. We will continue to monitor mental status. (2) Acute Cystitis Current Visit: Yes Status: Acute Qualifiers: Urinary tract infection type: acute cystitis Hematuria presence: with hematuria Qualified Code(s): N30.01 - Acute cystitis with hematuria Plan to address problem: Patient placed on empiric IV antibiotics. Will await culture results. (3) Acute renal failure (ARF) secondary to vasomotor nephropathy Current Visit: Yes Status: Acute Qualifiers: Acute renal failure type: unspecified Qualified Code(s): N17.9 - Acute kidney failure, unspecified Plan to address problem: Patient placed on IV fluid. Will monitor BUN and creatinine. Consult placed to nephrology for evaluation. (4) mild hyponatremia (5) Mild alkalosis (6) Left AKA (7) Anemia of chronic disease (8) Hypokalemia (9) residential resident Disposition: [place]-03 SNF [facility] C[facility] Time spent for discharge: 35 MINS Core Measure Documentation - Palliative Care Palliative Care/ Comfort Measures: Not Applicable - Core Measures Any of the following diagnoses?: none Exam - Physical Exam Narrative exam: VITAL SIGNS: Reviewed. GENERAL: The patient appears normally developed, Vital signs as documented. HEAD: No signs of head trauma. EYES: Pupils are equal. Extraocular motions intact. EARS: Hearing grossly intact. MOUTH: Oropharynx is normal. NECK: No adenopathy, no JVD. CHEST: Chest with clear breath sounds bilaterally. No wheezes, rales, or rhonchi. CARDIAC: Regular rate and rhythm. S1 and S2, without murmurs, gallops, or rubs. VASCULAR: No Edema. Peripheral pulses normal and equal in all extremities. ABDOMEN: Soft, non tender and non distended. No rebound or guarding, and no masses palpated. Bowel Sounds normal. MUSCULOSKELETAL: left AKA NEUROLOGIC EXAM: awake, still some lethargy and oriented x 3 No focal sensory or strength deficits. Follows commands. PSYCHIATRIC: Mood normal. SKIN: detail exam as documented in skin assessment - Constitutional Vitals: Temp Pulse Resp BP Pulse Ox 98 F 75 20 136/72 99 07/21/20 07:00 07/21/20 07:00 07/21/20 07:00 07/21/20 07:00 07/21/20 07:00 Plan Activity: advance as tolerated, fall precautions Diet: per dietitian instruction Special Instructions: record daily BP diary, record blood sugar diary Follow up with: PRIMARY CARE, [Primary Care Provider] - 7 Days Prescriptions: cephALEXin [Keflex] 250 mg PO Q6HR #10 capsule
[2020-07-21] MEDS: cefTRIAXone/NS 1 GM/50 ML 1 GM/50 ML BAG IV SCH (22:39)
[2020-07-22] MEDS: SODIUM CHLORIDE 0.9% 1000 ML 1,000 ML IV SCH ×2 (10:37→21:32)
--- NOTE | 2020-07-22 12:01 | Discharge Summary ---
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 Hospitalization Reason for admission: ams Condition: Serious Hospital course: GNR on urine culture Original Note: 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 Staff at the [facility] were concerned that patient may have had a UTI. She was recently diagnosed with UTI and has been on IV Rocephin every 24 hours through a PICC line which is in place. Patient is currently nonverbal and most of the history was gotten from the ER staff. Work-up in the emergency room today reveals WBC of 12., Chemistry was significant for elevated BUN and creatinine. Urinalysis was significant for UTI. Patient admitted with encephalopathy, acute kidney injury and UTI. 07/20: Continue supportive care patient improving with the treatment of acute urinary tract infection. Renal function is improved. Will await for culture results and anticipate discharge in a.m. Continue fall precaution. Replace K. Will obtain a predischarge Covid test 07/21: Patient clinically stable, tolerating diet, mental status improved. stable for discharge. unsure why urine culture was never sent. Renal function improved. No evidence of sepsis 07/22: Covid test INCONCLUSIVE resulting in patient staying an extra day. Repeat testing today, Patient with poor po intake and according to daughter was on Tube feeds in the past but now out, the other day the nurse reported the patient ate. Will add appetite stimulant. No contact info to call and discuss with daughter. Nurse will inform daughter when she calls again of recommendation to be evaluate to replacement PEG outpatient. (1) Encephalopathy Current Visit: Yes Status: Acute Metabolic Plan to address problem: Possibly secondary to the underlying infection and MAILE. We will continue to monitor mental status. (2) Acute Cystitis Current Visit: Yes Status: Acute Qualifiers: Urinary tract infection type: acute cystitis Hematuria presence: with hematuria Qualified Code(s): N30.01 - Acute cystitis with hematuria Plan to address problem: Patient placed on empiric IV antibiotics. GNR (3) Acute renal failure (ARF) secondary to vasomotor nephropathy Current Visit: Yes Status: Acute Qualifiers: Acute renal failure type: unspecified Qualified Code(s): N17.9 - Acute kidney failure, unspecified Plan to address problem: Patient placed on IV fluid. Will monitor BUN and creatinine. Consult placed to nephrology for evaluation. (4) mild hyponatremia (5) Mild alkalosis (6) Left AKA (7) Anemia of chronic disease (8) Hypokalemia (9) alf resident Disposition: [place]-03 SNF [facility] CERT Time spent for discharge: 35 Core Measure Documentation - Palliative Care Palliative Care/ Comfort Measures: Not Applicable - Core Measures Any of the following diagnoses?: none Exam - Physical Exam Narrative exam: VITAL SIGNS: Reviewed. GENERAL: The patient appears normally developed, Vital signs as documented. HEAD: No signs of head trauma. EYES: Pupils are equal. Extraocular motions intact. EARS: Hearing grossly intact. MOUTH: Oropharynx is normal. NECK: No adenopathy, no JVD. CHEST: Chest with clear breath sounds bilaterally. No wheezes, rales, or rhonchi. CARDIAC: Regular rate and rhythm. S1 and S2, without murmurs, gallops, or rubs. VASCULAR: No Edema. Peripheral pulses normal and equal in all extremities. ABDOMEN: Soft, non tender and non distended. No rebound or guarding, and no masses palpated. Bowel Sounds normal. MUSCULOSKELETAL: left AKA NEUROLOGIC EXAM: awake, still some lethargy and oriented x 3 No focal sensory or strength deficits. Follows commands. PSYCHIATRIC: Mood normal. SKIN: detail exam as documented in skin assessment - Constitutional Vitals: Temp Pulse Resp BP Pulse Ox 98.6 F 80 18 148/84 100 07/22/20 05:25 07/22/20 05:25 07/22/20 05:25 07/22/20 05:25 07/22/20 05:25 Plan Activity: advance as tolerated, fall precautions Diet: low fat Special Instructions: record daily weights, record daily BP diary Additional Instructions: IF POOR PO INTAKE PERSIST AND IF OK WITH FAMILY, THEN FOLLOW WITH ANIMAL ECOLOGIST FOR PEG PLACEMENT Follow up with: PRIMARY CAREMD [Primary Care Provider] - 7 Days KALEN RUIZ MD [Staff Physician] - 7 Days Prescriptions: cephALEXin [Keflex] 250 mg PO Q6HR #10 capsule megestroL [Megace] 40 mg PO DAILY #30 tablet
[2020-07-22] MEDS: cefTRIAXone/NS 1 GM/50 ML 1 GM/50 ML BAG IV SCH (21:32)
[2020-07-23] MEDS: SODIUM CHLORIDE 0.9% 1000 ML 1,000 ML IV SCH (05:57)
[2020-07-23] MEDS: hydrALAZINE 20 MG/1 ML INJ IV PRN (08:01)
--- NOTE | 2020-07-23 12:20 | Progress Note ---
Assessment and Plan Assessment and plan: [id number] -[place] female with known history of CVA, diabetes mellitus, hypertension GERD and left AKA Resident of [facility] sent to the emergency room today with complaints of generalized weakness and altered mental status. Staff at the care home were concerned that patient may have had a UTI. She was recently diagnosed with UTI and has been on IV Rocephin every 24 hours through a PICC line which is in place. Patient is currently nonverbal and most of the history was gotten from the ER staff. Work-up in the emergency room today reveals WBC of 12., Chemistry was signi ficant for elevated BUN and creatinine. Urinalysis was significant for UTI. Patient admitted with encephalopathy, acute kidney injury and UTI. 07/20: Continue supportive care patient improving with the treatment of acute urinary tract infection. Renal function is improved. Will await for culture results and anticipate discharge in a.m. Continue fall precaution. Replace K. Will obtain a predischarge Covid test 07/21: Patient clinically stable, tolerating diet, mental status improved. stable for discharge. unsure why urine culture was never sent. Renal function improved. No evidence of sepsis 07/22: Covid test INCONCLUSIVE resulting in patient staying an extra day. Repeat testing today, Patient with poor po intake and according to daughter was on Tube feeds in the past but now out, the other day the nurse reported the patient ate. Will add appetite stimulant. No contact info to call and discuss with daughter. Nurse will inform daughter when she calls again of recommendation to be evaluate to replacement PEG outpatient. 07/23: Patient remains in the hospital due to awaiting authorization for placement back to the care home. Will start Megace while still in house. Mental status is improved back to baseline. Anticipate discharge in a.m. plan discussed with nursing staff (1) Encephalopathy Current Visit: Yes Status: Acute Metabolic Plan to address problem: Possibly secondary to the underlying infection and MAILE. We will continue to monitor mental status. (2) Acute Cystitis Current Visit: Yes Status: Acute Qualifiers: Urinary tract infection type: acute cystitis Hematuria presence: with hematuria Qualified Code(s): N30.01 - Acute cystitis with hematuria Plan to address problem: Patient placed on empiric IV antibiotics. GNR (3) Acute renal failure (ARF) secondary to vasomotor nephropathy Current Visit: Yes Status: Acute Qualifiers: Acute renal failure type: unspecified Qualified Code(s): N17.9 - Acute kidney failure, unspecified Plan to address problem: Patient placed on IV fluid. Will monitor BUN and creatinine. Consult placed to nephrology for evaluation. (4) mild hyponatremia (5) Mild alkalosis (6) Left AKA (7) Anemia of chronic disease (8) Hypokalemia (9) [facility] resident History Interval history: Patient seen and examined this morning resting comfortably no new complaints. Hospitalist Physical - Physical exam Narrative exam: VITAL SIGNS: Reviewed. GENERAL: The patient appears normally developed, Vital signs as documented. HEAD: No signs of head trauma. EYES: Pupils are equal. Extraocular motions intact. EARS: Hearing grossly intact. MOUTH: Oropharynx is normal. NECK: No adenopathy, no JVD. CHEST: Chest with clear breath sounds bilaterally. No wheezes, rales, or rhonchi. CARDIAC: Regular rate and rhythm. S1 and S2, without murmurs, gallops, or rubs. VASCULAR: No Edema. Peripheral pulses normal and equal in all extremities. ABDOMEN: Soft, non tender and non distended. No rebound or guarding, and no masses palpated. Bowel Sounds normal. MUSCULOSKELETAL: left AKA NEUROLOGIC EXAM: awake, still some lethargy and oriented x 3 No focal sensory or strength deficits. Follows commands. PSYCHIATRIC: Mood normal. SKIN: detail exam as documented in skin assessment - Constitutional Vitals: Temp Pulse Resp BP Pulse Ox 98.9 F 90 18 179/96 100 07/23/20 03:41 07/23/20 08:01 07/23/20 10:22 07/23/20 08:01 07/23/20 03:41 General appearance: Present: no acute distress, well-nourished HEART Score - HEART Score Troponin: Troponin T < 0.010 ng/mL (0.00-0.029) 07/18/20 21:31 Results - Labs CBC & Chem 7: 07/20/20 05:29 07/20/20 05:29 Labs: Laboratory Last Values WBC 11.0 K/mm3 (4.5-11.0) 07/20/20 05:29 RBC 3.15 M/mm3 (3.65-5.03) L 07/20/20 05:29 Hgb 8.4 gm/dl (10.1-14.3) L 07/20/20 05:29 Hct 25.9 % (30.3-42.9) L 07/20/20 05:29 MCV 82 fl (79-97) 07/20/20 05:29 MCH 27 pg (28-32) L 07/20/20 05:29 MCHC 32 % (30-34) 07/20/20 05:29 RDW 16.6 % (13.2-15.2) H 07/20/20 05:29 Plt Count 421 K/mm3 (140-440) 07/20/20 05:29 Lymph % (Auto) 22.8 % (13.4-35.0) 07/20/20 05:29 [place] % (Auto) 6.9 % (0.0-7.3) 07/20/20 05:29 Eos % (Auto) 2.9 % (0.0-4.3) 07/20/20 05:29 Baso % (Auto) 0.8 % (0.0-1.8) 07/20/20 05:29 Lymph # (Auto) 2.5 K/mm3 (1.2-5.4) 07/20/20 05:29 [place] # (Auto) 0.8 K/mm3 (0.0-0.8) 07/20/20 05:29 Eos # (Auto) 0.3 K/mm3 (0.0-0.4) 07/20/20 05:29 Baso # (Auto) 0.1 K/mm3 (0.0-0.1) 07/20/20 05:29 Seg Neutrophils % 66.6 % (40.0-70.0) 07/20/20 05:29 Seg Neutrophils # 7.4 K/mm3 (1.8-7.7) 07/20/20 05:29 PT 14.7 Sec. (12.2-14.9) 07/20/20 05:29 INR 1.15 (0.87-1.13) H 07/20/20 05:29 Sodium 141 mmol/L (137-145) D 07/20/20 05:29 Potassium 3.5 mmol/L (3.6-5.0) L 07/20/20 05:29 Chloride 103.1 mmol/L (98-107) 07/20/20 05:29 Carbon Dioxide 31 mmol/L (22-30) H 07/20/20 05:29 Anion Gap 10 mmol/L 07/20/20 05:29 BUN 22 mg/dL (7-17) H 07/20/20 05:29 Creatinine 1.2 mg/dL (0.6-1.2) 07/20/20 05:29 Estimated GFR 55 ml/min 07/20/20 05:29 BUN/Creatinine Ratio 18 % 07/20/20 05:29 Glucose 171 mg/dL (65-100) H 07/20/20 05:29 POC Glucose 170 mg/dL (70-105) H 07/23/20 11:10 Calcium 8.4 mg/dL (8.4-10.2) 07/20/20 05:29 Total Bilirubin 0.30 mg/dL (0.1-1.2) 07/18/20 21:31 AST 18 units/L (5-40) 07/18/20 21:31 ALT 10 units/L (7-56) 07/18/20 21:31 Alkaline Phosphatase 111 units/L (35-129) 07/18/20 21:31 Ammonia 23.0 umol/L (25-60) L 07/18/20 21:31 Troponin T < 0.010 ng/mL (0.00-0.029) 07/18/20 21:31 Total Protein 7.9 g/dL (6.3-8.2) 07/18/20 21:31 Albumin 3.2 g/dL (3.9-5) L 07/18/20 21:31 Albumin/Globulin Ratio 0.7 % 07/18/20 21:31 TSH 4.340 mlU/mL (0.270-4.200) H 07/18/20 21:31 Urine Color Yellow (Yellow) 07/19/20 00:43 Urine Turbidity Turbid (Clear) 07/19/20 00:43 Urine pH 5.0 (5.0-7.0) 07/19/20 00:43 Ur Specific [place] 1.012 (1.003-1.030) 07/19/20 00:43 Urine Protein 100 mg/dl mg/dL (Negative) 07/19/20 00:43 Urine Glucose (UA) Neg mg/dL (Negative) 07/19/20 00:43 Urine Ketones Tr mg/dL (Negative) 07/19/20 00:43 Urine Blood Mod (Negative) 07/19/20 00:43 Urine Nitrite Neg (Negative) 07/19/20 00:43 Urine Bilirubin Neg (Negative) 07/19/20 00:43 Urine Urobilinogen < 2.0 mg/dL (<2.0) 07/19/20 00:43 Ur Leukocyte Esterase Mod (Negative) 07/19/20 00:43 Urine WBC (Auto) > 182.0 /HPF (0.0-6.0) H 07/19/20 00:43 Urine RBC (Auto) 54.0 /HPF (0.0-6.0) 07/19/20 00:43 U Epithel Cells (Auto) 22.0 /HPF (0-13.0) H 07/19/20 00:43 Urine Bacteria (Auto) 4+ /HPF (Negative) 07/19/20 00:43 Urine WBC Clumps 3+ /HPF 07/19/20 00:43 Coronavirus (PCR) Negative (Negative) 07/21/20 Unknown Microbiology: Microbiology 07/19/20 01:53 Urine,Catheterized - Straight Catheter Urine Culture - Final Klebsiella Pneumoniae Mcclure/IV: Voiding Method External Female Catheter Active Medications - Current Medications Current Medications: Generic Name Dose Route Start Last Admin Trade Name Freq PRN Reason Stop Dose Admin Acetaminophen 650 mg 07/19/20 02:07 Acetaminophen 325 Mg Tab PO Q4H PRN Pain MILD(1-3)/Fever >100.5/SMALLS Hydralazine HCl 10 mg 07/21/20 02:30 07/23/20 08:01 Hydralazine 20 Mg/1 Ml Inj IV 10 mg Q6H PRN Administration SBP greater than 160 Sodium Chloride 1,000 mls @ 125 mls/hr 07/19/20 02:15 07/23/20 05:57 Nacl 0.9% 1000 Ml IV 125 mls/hr DIRECT ADOLFO Administration Ceftriaxone Sodium 1 gm in 50 mls @ 100 mls/hr 07/19/20 22:00 07/22/20 21:32 Rocephin/Ns 1 Gm/50 Ml IV 07/25/20 22:29 100 mls/hr Q24HR@2200 ADOLFO Administration Protocol Magnesium Hydroxide 30 ml 07/19/20 02:07 Magnesium Hydroxide (Mom) Oral Liqd Udc PO Q4H PRN Constipation Megestrol Acetate 400 mg 07/23/20 11:00 Megestrol 400 Mg/10 Ml Oral Liqd PO QDAY ADOLFO Morphine Sulfate 2 mg 07/19/20 02:07 Morphine 2 Mg/1 Ml Inj IV Q4H PRN Pain, Moderate (4-6) Ondansetron HCl 4 mg 07/19/20 02:07 Ondansetron 4 Mg/2 Ml Inj IV Q8H PRN Nausea And Vomiting Sodium Chloride 10 ml 07/19/20 10:00 07/23/20 09:26 Sodium Chloride 0.9% 10 Ml Flush Syringe IV 10 ml BID ADOLFO Administration Sodium Chloride 10 ml 07/19/20 02:07 Sodium Chloride 0.9% 10 Ml Flush Syringe IV PRN PRN LINE FLUSH Nutrition/Malnutrition Assess - Dietary Evaluation Nutrition/Malnutrition Findings: Nutrition Notes Start: 07/20/20 13:57 Freq: Status: Active Protocol: Document 07/20/20 13:57 AL (Rec: 07/20/20 14:09 AL [id number]) Co-Sign 07/20/20 13:57 LP Nutrition Notes Need for 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 Pt has AMS and unable to answer questions. Pt needs feeding assistance and tolerated 25% of Cardiac diet meals. Diet recently downgraded to pureed Cardiac/ Consistent CHO. 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 No Is Patient Ambulatory and/or Out of Bed No REE-([facility]-confined to bed) 1291.224 Kcal/Kg value to use for calculation 25 Approximate Energy Requirements Using 1500 kcal/Kg Calculation Used for Recommendations Kcal/kg Additional Notes Protein 72-90 g (1.2-1.5 g/kg) Fluid: 1 ml/kcal Nutrition Intervention Change Diet Order: Current diet as ordered Add Supplement/Snack (indicate name/kcal Glucerna BID /protein ) Provides kCal: 440 Provides Protein (gm) 20 Goal #1 Meet at least 75% estimated energy needs via PO Goal #2 ONS tolerance Anticipated Discharge Needs: Pureed Cardiac/Consistent CHO diet Follow-Up By: 07/24/20 Additional Comments FU for intakes and ONS tolerance
[2020-07-23] MEDS: MEGESTROL 400 MG/10 ML ORAL LIQD PO SCH (13:43)
[2020-07-23] MEDS: cefTRIAXone/NS 1 GM/50 ML 1 GM/50 ML BAG IV SCH (21:44)
[2020-07-24] MEDS ORDERED: DEXTROSE 50% IN WATER (25GM) 50 ML SYRINGE IV PRN (00:04)
[2020-07-24] MEDS: SODIUM CHLORIDE 0.9% 1000 ML 1,000 ML IV SCH (04:09)
[2020-07-24] MEDS: INSULIN LISPRO 100 UNIT/ML SUB-Q SCH ×3 (08:00→17:00)
--- NOTE | 2020-07-24 11:22 | Progress Note ---
Assessment and Plan Assessment and plan: [id number] -[place] female with known history of CVA, diabetes mellitus, hypertension GERD and left AKA Resident of [facility] sent to the emergency room today with complaints of generalized weakness and altered mental status. Staff at the [facility] were concerned that patient may have had a UTI. She was recently diagnosed with UTI and has been on IV Rocephin every 24 hours through a PICC line which is in place. Patient is currently nonverbal and most of the history was gotten from the ER staff. Work-up in the emergency room today reveals WBC of 12., Chemistry was signi ficant for elevated BUN and creatinine. Urinalysis was significant for UTI. Patient admitted with encephalopathy, acute kidney injury and UTI. 07/20: Continue supportive care patient improving with the treatment of acute urinary tract infection. Renal function is improved. Will await for culture results and anticipate discharge in a.m. Continue fall precaution. Replace K. Will obtain a predischarge Covid test 07/21: Patient clinically stable, tolerating diet, mental status improved. stable for discharge. unsure why urine culture was never sent. Renal function improved. No evidence of sepsis 07/22: Covid test INCONCLUSIVE resulting in patient staying an extra day. Repeat testing today, Patient with poor po intake and according to daughter was on Tube feeds in the past but now out, the other day the nurse reported the patient ate. Will add appetite stimulant. No contact info to call and discuss with daughter. Nurse will inform daughter when she calls again of recommendation to be evaluate to replacement PEG outpatient. 07/23: Patient remains in the hospital due to awaiting authorization for [facility] to the [facility]. Will start Megace while still in house. Mental status is improved back to baseline. Anticipate discharge in a.m. plan discussed with nursing staff 07/24: Discussed with daughter to ensure continued monitoring her diet, Urine cultures, reported noted, will transition to oral antibiotics and continue to monitor at the [facility]. (1) Encephalopathy Current Visit: Yes Status: Acute Metabolic Plan to address problem: Possibly secondary to the underlying infection and MAILE. We will continue to monitor mental status. (2) Acute Cystitis Current Visit: Yes Status: Acute Qualifiers: Urinary tract infection type: acute cystitis Hematuria presence: with hematuria Qualified Code(s): N30.01 - Acute cystitis with hematuria Plan to address problem: Patient placed on empiric IV antibiotics. GNR-KPneumonia- meza sensitivity (3) Acute renal failure (ARF) secondary to vasomotor nephropathy Current Visit: Yes Status: Acute Qualifiers: Acute renal failure type: unspecified Qualified Code(s): N17.9 - Acute kidney failure, unspecified Plan to address problem: Patient placed on IV fluid. Will monitor BUN and creatinine. Consult placed to nephrology for evaluation. (4) mild hyponatremia (5) Mild alkalosis (6) Left AKA (7) Anemia of chronic disease (8) Hypokalemia (9) [facility] resident History Interval history: Patient seen and examined this morning resting comfortably no new complaints. Hospitalist Physical - Physical exam Narrative exam: VITAL SIGNS: Reviewed. GENERAL: The patient appears normally developed, Vital signs as documented. HEAD: No signs of head trauma. EYES: Pupils are equal. Extraocular motions intact. EARS: Hearing grossly intact. MOUTH: Oropharynx is normal. NECK: No adenopathy, no JVD. CHEST: Chest with clear breath sounds bilaterally. No wheezes, rales, or rhonchi. CARDIAC: Regular rate and rhythm. S1 and S2, without murmurs, gallops, or rubs. VASCULAR: No Edema. Peripheral pulses normal and equal in all extremities. ABDOMEN: Soft, non tender and non distended. No rebound or guarding, and no masses palpated. Bowel Sounds normal. MUSCULOSKELETAL: left AKA NEUROLOGIC EXAM: awake, still some lethargy and oriented x 3 No focal sensory or strength deficits. Follows commands. PSYCHIATRIC: Mood normal. SKIN: detail exam as documented in skin assessment - Constitutional Vitals: Temp Pulse Resp BP Pulse Ox 98.1 F 79 18 167/93 100 07/24/20 07:57 07/24/20 07:57 07/24/20 07:57 07/24/20 07:57 07/24/20 07:57 General appearance: Present: no acute distress, well-nourished HEART Score - HEART Score Troponin: Troponin T < 0.010 ng/mL (0.00-0.029) 07/18/20 21:31 Results - Labs CBC & Chem 7: 07/20/20 05:29 07/20/20 05:29 Labs: Laboratory Last Values WBC 11.0 K/mm3 (4.5-11.0) 07/20/20 05:29 RBC 3.15 M/mm3 (3.65-5.03) L 07/20/20 05:29 Hgb 8.4 gm/dl (10.1-14.3) L 07/20/20 05:29 Hct 25.9 % (30.3-42.9) L 07/20/20 05:29 MCV 82 fl (79-97) 07/20/20 05:29 MCH 27 pg (28-32) L 07/20/20 05:29 MCHC 32 % (30-34) 07/20/20 05:29 RDW 16.6 % (13.2-15.2) H 07/20/20 05:29 Plt Count 421 K/mm3 (140-440) 07/20/20 05:29 Lymph % (Auto) 22.8 % (13.4-35.0) 07/20/20 05:29 [place] % (Auto) 6.9 % (0.0-7.3) 07/20/20 05:29 Eos % (Auto) 2.9 % (0.0-4.3) 07/20/20 05:29 Baso % (Auto) 0.8 % (0.0-1.8) 07/20/20 05:29 Lymph # (Auto) 2.5 K/mm3 (1.2-5.4) 07/20/20 05:29 [place] # (Auto) 0.8 K/mm3 (0.0-0.8) 07/20/20 05:29 Eos # (Auto) 0.3 K/mm3 (0.0-0.4) 07/20/20 05:29 Baso # (Auto) 0.1 K/mm3 (0.0-0.1) 07/20/20 05:29 Seg Neutrophils % 66.6 % (40.0-70.0) 07/20/20 05:29 Seg Neutrophils # 7.4 K/mm3 (1.8-7.7) 07/20/20 05:29 PT 14.7 Sec. (12.2-14.9) 07/20/20 05:29 INR 1.15 (0.87-1.13) H 07/20/20 05:29 Sodium 141 mmol/L (137-145) D 07/20/20 05:29 Potassium 3.5 mmol/L (3.6-5.0) L 07/20/20 05:29 Chloride 103.1 mmol/L (98-107) 07/20/20 05:29 Carbon Dioxide 31 mmol/L (22-30) H 07/20/20 05:29 Anion Gap 10 mmol/L 07/20/20 05:29 BUN 22 mg/dL (7-17) H 07/20/20 05:29 Creatinine 1.2 mg/dL (0.6-1.2) 07/20/20 05:29 Estimated GFR 55 ml/min 07/20/20 05:29 BUN/Creatinine Ratio 18 % 07/20/20 05:29 Glucose 171 mg/dL (65-100) H 07/20/20 05:29 POC Glucose 198 mg/dL (70-105) H 07/24/20 07:58 Calcium 8.4 mg/dL (8.4-10.2) 07/20/20 05:29 Total Bilirubin 0.30 mg/dL (0.1-1.2) 07/18/20 21:31 AST 18 units/L (5-40) 07/18/20 21:31 ALT 10 units/L (7-56) 07/18/20 21:31 Alkaline Phosphatase 111 units/L (35-129) 07/18/20 21:31 Ammonia 23.0 umol/L (25-60) L 07/18/20 21:31 Troponin T < 0.010 ng/mL (0.00-0.029) 07/18/20 21:31 Total Protein 7.9 g/dL (6.3-8.2) 07/18/20 21:31 Albumin 3.2 g/dL (3.9-5) L 07/18/20 21:31 Albumin/Globulin Ratio 0.7 % 07/18/20 21:31 TSH 4.340 mlU/mL (0.270-4.200) H 07/18/20 21:31 Urine Color Yellow (Yellow) 07/19/20 00:43 Urine Turbidity Turbid (Clear) 07/19/20 00:43 Urine pH 5.0 (5.0-7.0) 07/19/20 00:43 Ur Specific [place] 1.012 (1.003-1.030) 07/19/20 00:43 Urine Protein 100 mg/dl mg/dL (Negative) 07/19/20 00:43 Urine Glucose (UA) Neg mg/dL (Negative) 07/19/20 00:43 Urine Ketones Tr mg/dL (Negative) 07/19/20 00:43 Urine Blood Mod (Negative) 07/19/20 00:43 Urine Nitrite Neg (Negative) 07/19/20 00:43 Urine Bilirubin Neg (Negative) 07/19/20 00:43 Urine Urobilinogen < 2.0 mg/dL (<2.0) 07/19/20 00:43 Ur Leukocyte Esterase Mod (Negative) 07/19/20 00:43 Urine WBC (Auto) > 182.0 /HPF (0.0-6.0) H 07/19/20 00:43 Urine RBC (Auto) 54.0 /HPF (0.0-6.0) 07/19/20 00:43 U Epithel Cells (Auto) 22.0 /HPF (0-13.0) H 07/19/20 00:43 Urine Bacteria (Auto) 4+ /HPF (Negative) 07/19/20 00:43 Urine WBC Clumps 3+ /HPF 07/19/20 00:43 Coronavirus (PCR) Negative (Negative) 07/21/20 Unknown Mcclure/IV: Voiding Method External Female Catheter Active Medications - Current Medications Current Medications: Generic Name Dose Route Start Last Admin Trade Name Freq PRN Reason Stop Dose Admin Acetaminophen 650 mg 07/19/20 02:07 Acetaminophen 325 Mg Tab PO Q4H PRN Pain MILD(1-3)/Fever >100.5/SMALLS Dextrose 0 ml 07/24/20 00:04 Dextrose 50% In Water (25gm) 50 Ml Syringe IV Q30MIN PRN Hypoglycemia Protocol Hydralazine HCl 10 mg 07/21/20 02:30 07/23/20 08:01 Hydralazine 20 Mg/1 Ml Inj IV 10 mg Q6H PRN Administration SBP greater than 160 Sodium Chloride 1,000 mls @ 125 mls/hr 07/19/20 02:15 07/24/20 04:09 Nacl 0.9% 1000 Ml IV 125 mls/hr DIRECT ADOLFO Administration Ceftriaxone Sodium 1 gm in 50 mls @ 100 mls/hr 07/19/20 22:00 07/23/20 21:44 Rocephin/Ns 1 Gm/50 Ml IV 07/25/20 22:29 100 mls/hr Q24HR@2200 ADOLFO Administration Protocol Insulin Human Lispro 0 unit 07/24/20 07:30 Insulin Lispro 100 Unit/Ml SUB-Q ACHS [facility] Protocol Magnesium Hydroxide 30 ml 07/19/20 02:07 Magnesium Hydroxide (Mom) Oral Liqd Udc PO Q4H PRN Constipation Megestrol Acetate 400 mg 07/23/20 11:00 07/23/20 13:43 Megestrol 400 Mg/10 Ml Oral Liqd PO 400 mg QDAY ADOLFO Administration Morphine Sulfate 2 mg 07/19/20 02:07 Morphine 2 Mg/1 Ml Inj IV Q4H PRN Pain, Moderate (4-6) Ondansetron HCl 4 mg 07/19/20 02:07 Ondansetron 4 Mg/2 Ml Inj IV Q8H PRN Nausea And Vomiting Sodium Chloride 10 ml 07/19/20 10:00 07/23/20 21:46 Sodium Chloride 0.9% 10 Ml Flush Syringe IV 10 ml BID ADOLFO Administration Sodium Chloride 10 ml 07/19/20 02:07 Sodium Chloride 0.9% 10 Ml Flush Syringe IV PRN PRN LINE FLUSH Nutrition/Malnutrition Assess - Dietary Evaluation Nutrition/Malnutrition Findings: Nutrition Notes Start: 07/20/20 13:57 Freq: Status: Active Protocol: Document 07/20/20 13:57 AL (Rec: 07/20/20 14:09 AL [id number]) Co-Sign 07/20/20 13:57 LP Nutrition Notes 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 Pt has AMS and unable to answer questions. Pt needs feeding assistance and tolerated 25% of Cardiac diet meals. Diet recently downgraded to pureed Cardiac/ Consistent CHO. 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 No Is Patient Ambulatory and/or Out of Bed No REE-([facility]-confined to bed) 1291.224 Kcal/Kg value to use for calculation 25 Approximate Energy Requirements Using 1500 kcal/Kg Calculation Used for Recommendations Kcal/kg Additional Notes Protein 72-90 g (1.2-1.5 g/kg) Fluid: 1 ml/kcal Nutrition Intervention Change Diet Order: Current diet as ordered Add Supplement/Snack (indicate name/kcal Glucerna BID /protein ) Provides kCal: 440 Provides Protein (gm) 20 Goal #1 Meet at least 75% estimated energy needs via PO Goal #2 ONS tolerance Anticipated Discharge Needs: Pureed Cardiac/Consistent CHO diet Follow-Up By: 07/24/20 Additional Comments FU for intakes and ONS tolerance
--- NOTE | 2020-07-24 11:40 | Discharge Summary ---
Providers - Providers Date of Admission: 07/19/20 00:10 Attending physician: RUBIO CHANDRA MD 07/19/20 02:07 Consult to Physician [CONS] Routine Comment: Consulting Provider: MARCY JENNINGS Physician Instructions: Reason For Exam: ARF 07/20/20 00:30 Consult to Dietitian/Nutrition [CONS] Routine Physician Instructions: Reason For Exam: Reason for Consult: Malnutrition Occupational Therapy Evaluate and Treat [CONS] Routine Comment: Reason For Exam: evaluation Speech Therapy Evaluation and Treat [CONS] Routine Reason For Exam: evaluation 07/24/20 10:28 Physical Therapy Evaluation and Treat [CONS] Routine Comment: Reason For Exam: Debility Primary care physician: [employer] Hospitalization Reason for admission: ENCEPHALOPATHY Condition: Serious Hospital course: 64-year-old -Thai female with known history of CVA, diabetes mellitus, hypertension GERD and left AKA Resident of [facility] sent to the emergency room today with complaints of generalized weakness and altered mental status. Staff at the longterm were concerned that patient may have had a UTI. She was recently diagnosed with UTI and has been on IV Rocephin every 24 hours through a PICC line which is in place. Patient is currently nonverbal and most of the history was gotten from the ER staff. Work-up in the emergency room today reveals WBC of 12., Chemistry was significant for elevated BUN and creatinine. Urinalysis was significant for UTI. Patient admitted with encephalopathy, acute kidney injury and UTI. 07/20: Continue supportive care patient improving with the treatment of acute urinary tract infection. Renal function is improved. Will await for culture results and anticipate discharge in a.m. Continue fall precaution. Replace K. Will obtain a predischarge Covid test 07/21: Patient clinically stable, tolerating diet, mental status improved. stable for discharge. unsure why urine culture was never sent. Renal function improved. No evidence of sepsis 07/22: Covid test INCONCLUSIVE resulting in patient staying an extra day. Repeat testing today, Patient with poor po intake and according to daughter was on Tube feeds in the past but now out, the other day the nurse reported the patient ate. Will add appetite stimulant. No contact info to call and discuss with daughter. Nurse will inform daughter when she calls again of recommendation to be evaluate to replacement PEG outpatient. 07/23: Patient remains in the hospital due to awaiting authorization for placement back to the longterm. Will start Megace while still in house. Mental status is improved back to baseline. Anticipate discharge in a.m. plan discussed with nursing staff 07/24: Discussed with daughter to ensure continued monitoring her diet, Urine cultures, reported noted, will transition to oral antibiotics and continue to monitor at the longterm. (1) Encephalopathy Current Visit: Yes Status: Acute Metabolic Plan to address problem: Possibly secondary to the underlying infection and MAILE. We will continue to monitor mental status. (2) Acute Cystitis Current Visit: Yes Status: Acute Qualifiers: Urinary tract infection type: acute cystitis Hematuria presence: with hematuria Qualified Code(s): N30.01 - Acute cystitis with hematuria Plan to address problem: Patient placed on empiric IV antibiotics. GNR-KPneumonia- meza sensitivity (3) Acute renal failure (ARF) secondary to vasomotor nephropathy Current Visit: Yes Status: Acute Qualifiers: Acute renal failure type: unspecified Qualified Code(s): N17.9 - Acute kidney failure, unspecified Plan to address problem: Patient placed on IV fluid. Will monitor BUN and creatinine. Consult placed to nephrology for evaluation. (4) mild hyponatremia (5) Mild alkalosis (6) Left AKA (7) Anemia of chronic disease (8) Hypokalemia (9) [facility] resident Disposition: DC/[place]-[facility] Time spent for discharge: 35 MINS Core Measure Documentation - Palliative Care Palliative Care/ Comfort Measures: Not Applicable - Core Measures Any of the following diagnoses?: none Exam - Physical Exam Narrative exam: VITAL SIGNS: Reviewed. GENERAL: The patient appears normally developed, Vital signs as documented. HEAD: No signs of head trauma. EYES: Pupils are equal. Extraocular motions intact. EARS: Hearing grossly intact. MOUTH: Oropharynx is normal. NECK: No adenopathy, no JVD. CHEST: Chest with clear breath sounds bilaterally. No wheezes, rales, or rhonchi. CARDIAC: Regular rate and rhythm. S1 and S2, without murmurs, gallops, or rubs. VASCULAR: No Edema. Peripheral pulses normal and equal in all extremities. ABDOMEN: Soft, non tender and non distended. No rebound or guarding, and no masses palpated. Bowel Sounds normal. MUSCULOSKELETAL: left AKA NEUROLOGIC EXAM: awake, still some lethargy and oriented x 3 No focal sensory or strength deficits. Follows commands. PSYCHIATRIC: Mood normal. SKIN: detail exam as documented in skin assessment - Constitutional Vitals: Temp Pulse Resp BP Pulse Ox 98.1 F 79 18 167/93 100 07/24/20 07:57 07/24/20 07:57 07/24/20 07:57 07/24/20 07:57 07/24/20 07:57 Plan Activity: advance as tolerated, fall precautions Diet: low fat Special Instructions: record daily weights, record daily BP diary Follow up with: KALEN RUIZ MD [Staff Physician] - 7 Days PRIMARY CARE, [Primary Care Provider] - 7 Days Prescriptions: cephALEXin [Keflex] 250 mg PO Q6HR #10 capsule megestroL [Megace] 40 mg PO DAILY #30 tablet
[2020-07-24] MEDS: MEGESTROL 400 MG/10 ML ORAL LIQD PO SCH (12:00)
[2020-07-24 17:35] VITALS: BP 133/91
== END 2020-07-24 18:20 ==
LOC: ED 18:51 → 3B-SURG 07-19 00:10 → MERGE 07-19 00:10
PROVIDERS: ADMIT Internal Medicine Geriatric Medicine; ATTEND Internal Medicine
DX: N17.0 Acute kidney failure with tubular necrosis (principal); Z20.822 Contact with and (suspected) exposure to COVID-19; G93.40 Encephalopathy, unspecified; N30.00 Acute cystitis without hematuria; D72.829 Elevated white blood cell count, unspecified; I10 Essential (primary) hypertension; E11.9 Type 2 diabetes mellitus without complications; K21.9 Gastro-esophageal reflux disease without esophagitis; E87.1 Hypo-osmolality and hyponatremia; D64.9 Anemia, unspecified; G81.90 Hemiplegia, unspecified affecting unspecified side; E87.3 Alkalosis; D63.1 Anemia in chronic kidney disease; R41.82 Altered mental status, unspecified; Z98.890 Other specified postprocedural states; Z86.73 Personal history of transient ischemic attack (TIA), and cerebral infarction without residual deficits; Z79.4 Long term (current) use of insulin; Z79.82 Long term (current) use of aspirin; Z79.899 Other long term (current) drug therapy
CPT/HCPCS: 36415; 70450; 80048; 80053; 81001; 82140; 82962; 84443; 84484; 85025; 85610; 87076; 87086; 87186; 92610; 93005; 96361; 96365; 96366; 96375; 96376; 97162; 97165; 99285; G0378; J0360; J0696; J7030; U0003; J1815

== ENCOUNTER 2020-12-01 22:10 | Inpatient (IN) | payer MEDICARE ==
[2020-12-01] MEDS ORDERED: CEFEPIME/NS 2 GM/100 ML 2 GM/100 ML BAG IV ONE (22:20)
[2020-12-01] MEDS ORDERED: SODIUM CHLORIDE 0.9% 1000 ML 1,000 ML IV ONE (22:21)
--- NOTE | 2020-12-01 22:21 | Emergency Department Report ---
ED General Adult HPI - General Chief complaint: Recheck/Abnormal Lab/Rx Stated complaint: SEPSIS Time Seen by Provider: 12/01/20 22:16 Source: EMS Mode of arrival: Stretcher Limitations: Altered Mental Status, Physical Limitation - History of Present Illness Initial comments: Patient is a 65-year-old female she with abnormal blood pressure and heart rate and warm to touch. Patient brought in by EMS from a local [facility], [facility]. EMS was called. Patient had abnormal vital signs of hypotension and tachycardia. Patient was also warm to touch so the staff at the [facility] called EMS to bring the patient to the hospital to be evaluated. Patient has history of CVA and per EMS the patient is at her neurologic baseline. Patient patient was given 500 cc of fluids because EMS found the patient have a blood pressure of 80/50. Patient blood pressure improved to 109 patient heart rate was 130 and is now 120. -: Sudden Consistency: constant Improves with: none Worsens with: none - Related Data Home Medications Medication Instructions Recorded Confirmed Last Taken Acetaminophen [Aphen] 325 mg PO Q4H PRN 07/21/20 07/21/20 Unknown Aspirin [Adult Aspirin] 81 mg PO DAILY 07/21/20 07/21/20 Unknown AtorvaSTATin [Lipitor] 40 mg PO DAILY 07/21/20 07/21/20 Unknown Citalopram [Celexa] 20 mg PO DAILY 07/21/20 07/21/20 Unknown Docusate Sodium [Colace CAP] 100 mg PO BID 07/21/20 07/21/20 Unknown Insulin Aspart (Nf) [NovoLOG 100 0 unit SQ AC 07/21/20 07/21/20 Unknown UNITS/ML VIAL] Insulin Glargine [Lantus VIAL] 20 units SQ BID 07/21/20 07/21/20 Unknown Insulin Lispro [Admelog] 5 unit SQ ACHS 07/21/20 07/21/20 Unknown Multivitamin [One-Daily 1 tab PO DAILY 07/21/20 07/21/20 Unknown Multi-Vitamin] Norvasc 10 mg PO DAILY 07/21/20 07/21/20 Unknown Nystatin [Nystatin SUSP] 100,000 ml PO QID 07/21/20 07/21/20 Unknown Ondansetron HCl [Zofran] 4 mg PO Q8H 07/21/20 07/21/20 Unknown Oxybutynin [Ditropan] 5 mg PO DAILY 07/21/20 07/21/20 Unknown Pantoprazole [Protonix TAB] 40 mg PO QDAY 07/21/20 07/21/20 Unknown Potassium 10 meq PO QAM 07/21/20 07/21/20 Unknown Sennosides [Senna] 1 tab PO BID 07/21/20 07/21/20 Unknown bisacodyL [Dulcolax suppos] 10 mg [place] DAILY 07/21/20 07/21/20 Unknown diphenhydrAMINE [Benadryl CAP] 25 mg PO Q6H PRN 07/21/20 07/21/20 Unknown Previous Rx's Medication Instructions Recorded Last Taken Type Oxybutynin [Ditropan] 5 mg PO BID #60 tablet 09/28/19 Unknown Rx levoFLOXacin [Levaquin TAB] 500 mg PO QDAY #5 tablet 09/28/19 Unknown Rx cephALEXin [Keflex] 250 mg PO Q6HR #10 capsule 07/21/20 Unknown Rx megestroL [Megace] 40 mg PO DAILY #30 tablet 07/22/20 Unknown Rx Allergies Allergy/AdvReac Type Severity Reaction Status Date / Time No Known Allergies Allergy Unverified 07/23/20 12:16 ED Review of Systems ROS: Stated complaint: SEPSIS Other details as noted in HPI Comment: Unobtainable due to pts medical conditions ED Past Medical Hx - Past Medical History Previous Medical History?: Yes Hx Hypertension: Yes Hx CVA: Yes Hx Heart Attack/AMI: No Hx Congestive Heart Failure: No Hx Diabetes: Yes Hx Pulmonary Embolism: No Hx Liver Disease: No Hx Renal Disease: No Hx Arthritis: No Hx Kidney Stones: No Hx Psychiatric Treatment: Yes (Major depressive disorder) Hx Asthma: No Hx COPD: No Hx Dementia: Yes (vascular dementia) Additional medical history: GERD, encephalopathy - Surgical History Past Surgical History?: Yes Hx Coronary Stent: No Hx Pacemaker: No Additional Surgical History: AKA - Family History Family history: no significant - Social History Smoking Status: Never Smoker Substance Use Type: None - Medications Home Medications: Home Medications Medication Instructions Recorded Confirmed Last Taken Type Oxybutynin [Ditropan] 5 mg PO BID #60 tablet 09/28/19 Unknown Rx levoFLOXacin [Levaquin TAB] 500 mg PO QDAY #5 tablet 09/28/19 Unknown Rx Acetaminophen [Aphen] 325 mg PO Q4H PRN 07/21/20 07/21/20 Unknown History Aspirin [Adult Aspirin] 81 mg PO DAILY 07/21/20 07/21/20 Unknown History AtorvaSTATin [Lipitor] 40 mg PO DAILY 07/21/20 07/21/20 Unknown History Citalopram [Celexa] 20 mg PO DAILY 07/21/20 07/21/20 Unknown History Docusate Sodium [Colace CAP] 100 mg PO BID 07/21/20 07/21/20 Unknown History Insulin Aspart (Nf) [NovoLOG 100 0 unit SQ AC 07/21/20 07/21/20 Unknown History UNITS/ML VIAL] Insulin Glargine [Lantus VIAL] 20 units SQ BID 07/21/20 07/21/20 Unknown History Insulin Lispro [Admelog] 5 unit SQ ACHS 07/21/20 07/21/20 Unknown History Multivitamin [One-Daily 1 tab PO DAILY 07/21/20 07/21/20 Unknown History Multi-Vitamin] Norvasc 10 mg PO DAILY 07/21/20 07/21/20 Unknown History Nystatin [Nystatin SUSP] 100,000 ml PO QID 07/21/20 07/21/20 Unknown History Ondansetron HCl [Zofran] 4 mg PO Q8H 07/21/20 07/21/20 Unknown History Oxybutynin [Ditropan] 5 mg PO DAILY 07/21/20 07/21/20 Unknown History Pantoprazole [Protonix TAB] 40 mg PO QDAY 07/21/20 07/21/20 Unknown History Potassium 10 meq PO QAM 07/21/20 07/21/20 Unknown History Sennosides [Senna] 1 tab PO BID 07/21/20 07/21/20 Unknown History bisacodyL [Dulcolax suppos] 10 mg [place] DAILY 07/21/20 07/21/20 Unknown History cephALEXin [Keflex] 250 mg PO Q6HR #10 capsule 07/21/20 Unknown Rx diphenhydrAMINE [Benadryl CAP] 25 mg PO Q6H PRN 07/21/20 07/21/20 Unknown History megestroL [Megace] 40 mg PO DAILY #30 tablet 07/22/20 Unknown Rx ED Physical Exam - General Limitations: Altered Mental Status, Physical Limitation General appearance: in no apparent distress, obtunded - Head Head exam: Present: atraumatic, normocephalic - Eye Eye exam: Present: normal appearance, PERRL Pupils: Present: normal accommodation - ENT ENT exam: Present: mucous membranes dry - Neck Neck exam: Present: normal inspection - Respiratory Respiratory exam: Present: normal lung sounds bilaterally. Absent: respiratory distress, wheezes, rales - Cardiovascular Cardiovascular Exam: Present: regular rate, normal rhythm, tachycardia, normal heart sounds. Absent: systolic murmur, diastolic murmur, rubs, gallop - GI/Abdominal GI/Abdominal exam: Present: soft, normal bowel sounds. Absent: distended, tenderness, guarding - Extremities Exam Extremities exam: Present: normal inspection - Back Exam Back exam: Present: normal inspection - Neurological Exam Neurological exam: Present: altered (Patient is oriented x1.) - Skin Skin exam: Present: warm, dry, intact, normal color. Absent: rash ED Course Vital Signs 12/01/20 12/01/20 12/01/20 22:23 22:30 22:46 Temperature Pulse Rate 103 H 103 H Respiratory 22 21 Rate Blood Pressure 132/70 110/62 O2 Sat by Pulse 87 99 Oximetry 12/01/20 22:50 Temperature 99.6 F Pulse Rate Respiratory Rate Blood Pressure O2 Sat by Pulse Oximetry - Reevaluation(s) Reevaluation #1: Patient connected to the heart monitor. Patient's blood pressure is much better. Patient heart rate is improving. Patient with the receiving fluids. Patient have a Mcclure placed. Patient will continue to have a sepsis work-up done. 12/01/20 22:59 Reevaluation #2: Patient's blood pressure is stable. Patient heart rate is improving. 12/02/20 00:10 Reevaluation #3: Vital signs are improving. Patient to be admitted to the hospital service. Patient will have a trans-vaginal ultrasound done. 12/02/20 02:03 - Consultations Consultation #1: Hospitalist consulted for admission. Hospitalist to admit patient. 12/02/20 02:03 ED Medical Decision Making - Lab Data Result diagrams: 12/01/20 22:52 12/01/20 22:52 - Radiology Data Radiology results: report reviewed, image reviewed interpreted by me: Chest x-ray: No pneumonia, no pneumothorax, no foreign body, no osseous findings, no acute findings CHEST 1 VIEW 12/01/2020 10:17 PM INDICATION / CLINICAL INFORMATION: hypotension. COMPARISON: 09/26/2019 FINDINGS: Patient is rotated. SUPPORT DEVICES: None. HEART / MEDIASTINUM: No significant abnormality. LUNGS / PLEURA: No significant pulmonary or pleural abnormality. No pneumothorax. ADDITIONAL FINDINGS: No significant additional findings. IMPRESSION: 1. No acute findings. ULTRASOUND PELVIS INDICATION / CLINICAL INFORMATION: vaginal bleeding. TECHNIQUE: Transabdominal. Duplex Color Doppler used: Yes. COMPARISON: 09/27/2019 FINDINGS: UTERUS: Uterus measures 10 cm in length. Endometrial stripe is 1.3 mm. RIGHT ADNEXA: Ovary is not visualized. No adnexal masses seen. LEFT ADNEXA: Ovary is not visualized. No adnexal masses seen. URINARY BLADDER: There appears to be a mass in the posterior aspect of the urinary bladder. FREE FLUID: None. ADDITIONAL FINDINGS: None. IMPRESSION: 1. There appears to be a mass in the posterior aspect of the urinary bladder. This is concerning for a bladder neoplasm. 2. Uterus is unremarkable. Neither ovary is visualized. - Medical Decision Making Patient is a 65-year-old female that presents emergency room with hypotension and tachycardia. Patient was warm to touch. Patient has a history of sepsis due to UTI. Patient received fluids from EMS and after approximately 500 mils of fluid the patient's blood pressure normalized and the heart rate started to improve. Patient had continued normal saline boluses. Patient given early antibiotics. Patient also found to have vaginal bleeding. Patient had labs done which were significant for anemia, renal failure. Patient did not make any urine while in the ER. Patient had Mcclure placed. Patient given continued IV hydration ordered to try to get urine to verify the location of the infection. Patient had a chest x-ray which was negative for acute findings and showed no pneumonia. I personally reviewed the chest x-ray. Patient will have an ultrasound done. Patient admitted to the hospital service for further evaluation treatment. Patient was also typed and screened. Critical care time documented due to the multiple reassessments, prolonged time at the bedside, interpretation of diagnostics and labs. - Differential Diagnosis Sepsis, hypotension, vaginal bleeding, UTI, Critical Care Time: Yes Critical care time in (mins) excluding proc time.: 35 Critical care attestation.: If time is entered above; I have spent that time in minutes in the direct care of this critically ill patient, excluding procedure time. Critical Care Time: 35 minutes ED Disposition Clinical Impression: Encephalopathy, Vaginal bleeding Sepsis Qualifiers: Sepsis type: sepsis due to unspecified organism Sepsis acute organ dysfunction status: with acute organ dysfunction Severe sepsis acute organ dysfunction type: acute renal failure Acute renal failure type: unspecified Severe sepsis shock status: with septic shock Qualified Code(s): A41.9 - Sepsis, unspecified organism; R65.21 - Severe sepsis with septic shock; N17.9 - Acute kidney failure, unspecified Hypotension Qualifiers: Hypotension type: unspecified hypotension type Qualified Code(s): I95.9 - Hypotension, unspecified Acute renal failure (ARF) Qualifiers: Acute renal failure type: unspecified Qualified Code(s): N17.9 - Acute kidney failure, unspecified Anemia Qualifiers: Anemia type: unspecified type Qualified Code(s): D64.9 - Anemia, unspecified Urinary tract infection Qualifiers: Urinary tract infection type: acute cystitis Hematuria presence: with hematuria Qualified Code(s): N30.01 - Acute cystitis with hematuria Disposition: 09 OP ADMIT IP TO THIS HOSP Is pt being admited?: Yes Does the pt Need Aspirin: No Condition: Critical Time of Disposition: 02:03
[2020-12-01] MEDS: SODIUM CHLORIDE 0.9% 1000 ML 1,000 ML IV ONE (23:19)
[2020-12-01 23:23] LABS: Basophils # (Auto) 0.1 K/mm3 (0.0-0.1); Basophils % (Auto) 0.6 % (0.0-1.8); Eosinophils % (Auto) 0.1 % (0.0-4.3); Hemoglobin 7.8 gm/dl (10.1-14.3); Lymphocytes # (Auto) 1.7 K/mm3 (1.2-5.4); Lymphocytes % (Auto) 12.2 % (13.4-35.0); Mean Corpuscular HGB Conc 33 % (30-34); Mean Corpuscular Volume 83 fl (79-97); Monocytes # (Auto) 0.9 K/mm3 (0.0-0.8); Monocytes % (Auto) 6.3 % (0.0-7.3); Platelet Count 369 K/mm3 (140-440)
--- NOTE | 2020-12-01 23:28 | XRay Report ---
CHEST 1 VIEW 12/01/2020 10:17 PM INDICATION / CLINICAL INFORMATION: hypotension. COMPARISON: 09/26/2019 FINDINGS: Patient is rotated. SUPPORT DEVICES: None. HEART / MEDIASTINUM: No significant abnormality. LUNGS / PLEURA: No significant pulmonary or pleural abnormality. No pneumothorax. ADDITIONAL FINDINGS: No significant additional findings. IMPRESSION: 1. No acute findings. Signer Name: Mikhail Sellers MD Signed: 12/01/2020 11:23 PM Workstation Name: [id number]
[2020-12-01 23:33] LABS: BUN/Creatinine Ratio 19; Blood Urea Nitrogen 38 mg/dL (7-17); Calcium 7.8 mg/dL (8.4-10.2); Hemolysis Index 0
[2020-12-01 23:36] LABS: Alanine Aminotransferase < 5 units/L (7-56)
[2020-12-02] MEDS ORDERED: SODIUM CHLORIDE 0.9% 1000 ML 1,000 ML IV ONE ×2 (01:27→05:13)
[2020-12-02 03:27] LABS: INR 1.16 (0.87-1.13)
[2020-12-02 03:28] LABS: Partial Thromboplastin Time 37.7 Sec. (24.2-36.6)
--- NOTE | 2020-12-02 03:35 | Ultrasound Report ---
ULTRASOUND PELVIS INDICATION / CLINICAL INFORMATION: vaginal bleeding. TECHNIQUE: Transabdominal. Duplex Color Doppler used: Yes. COMPARISON: 09/27/2019 FINDINGS: UTERUS: Uterus measures 10 cm in length. Endometrial stripe is 1.3 mm. RIGHT ADNEXA: Ovary is not visualized. No adnexal masses seen. LEFT ADNEXA: Ovary is not visualized. No adnexal masses seen. URINARY BLADDER: There appears to be a mass in the posterior aspect of the urinary bladder. FREE FLUID: None. ADDITIONAL FINDINGS: None. IMPRESSION: 1. There appears to be a mass in the posterior aspect of the urinary bladder. This is concerning for a bladder neoplasm. 2. Uterus is unremarkable. Neither ovary is visualized. Signer Name: Mikhail Sellers MD Signed: 12/02/2020 3:30 AM Workstation Name: [id number]
[2020-12-02 04:15] LABS: Bacteria,Urine 1+ /HPF (Negative); Bilirubin,Urine NEG (Negative); Blood,Urine LG (Negative); Color,Urine Yellow (Yellow); RBC,Urine > 182.0 /HPF (0.0-6.0); Urobilinogen,Urine < 2.0 mg/dL (<2.0); WBC,Urine > 182.0 /HPF (0.0-6.0)
[2020-12-02] MEDS ORDERED: ONDANSETRON 4 MG/2 ML INJ IV PRN (05:24)
[2020-12-02] MEDS ORDERED: HYDROmorphone 1 MG/1 ML INJ IV PRN (05:24)
[2020-12-02] MEDS ORDERED: ALBUTEROL 2.5 MG/3 ML NEBU IH PRN (05:24)
--- NOTE | 2020-12-02 05:38 | History and Physical Report ---
History of Present Illness Date of examination: 12/02/20 Date of admission: 12/02/20 02:06 Chief complaint: Hypertension Tachycardia History of present illness: 65-year-old female with past medical history of hypertension, CVA, diabetes, dementia was brought to the emergency room because of hypotension and tachycardia. Patient blood pressure was 80/50 ,patient was warm to touch. Patient has a history of sepsis due to UTI. Patient received fluids from EMS and after approximately 500 mils of fluid the patient's blood pressure normalized and the heart rate started to improve. Patient had continued normal saline boluses. Patient given early antibiotics. Patient also found to have vaginal bleeding. In the emergency room patient is found to have hypotension, hemoglobin is 7.8 hematocrit 24.2, BUN of 38 creatinine 2.2 Past History Past Medical History: diabetes, GERD, hypertension, stroke, other (Depression, dementia GERD and supple of) Medications and Allergies Allergies Allergy/AdvReac Type Severity Reaction Status Date / Time No Known Allergies Allergy Unverified 07/23/20 12:16 Home Medications Medication Instructions Recorded Confirmed Last Taken Type Oxybutynin [Ditropan] 5 mg PO BID #60 tablet 09/28/19 Unknown Rx levoFLOXacin [Levaquin TAB] 500 mg PO QDAY #5 tablet 09/28/19 Unknown Rx Acetaminophen [Aphen] 325 mg PO Q4H PRN 07/21/20 07/21/20 Unknown History Aspirin [Adult Aspirin] 81 mg PO DAILY 07/21/20 07/21/20 Unknown History AtorvaSTATin [Lipitor] 40 mg PO DAILY 07/21/20 07/21/20 Unknown History Citalopram [Celexa] 20 mg PO DAILY 07/21/20 07/21/20 Unknown History Docusate Sodium [Colace CAP] 100 mg PO BID 07/21/20 07/21/20 Unknown History Insulin Aspart (Nf) [NovoLOG 100 0 unit SQ AC 07/21/20 07/21/20 Unknown History UNITS/ML VIAL] Insulin Glargine [Lantus VIAL] 20 units SQ BID 07/21/20 07/21/20 Unknown History Insulin Lispro [Admelog] 5 unit SQ ACHS 07/21/20 07/21/20 Unknown History Multivitamin [One-Daily 1 tab PO DAILY 07/21/20 07/21/20 Unknown History Multi-Vitamin] Norvasc 10 mg PO DAILY 07/21/20 07/21/20 Unknown History Nystatin [Nystatin SUSP] 100,000 ml PO QID 07/21/20 07/21/20 Unknown History Ondansetron HCl [Zofran] 4 mg PO Q8H 07/21/20 07/21/20 Unknown History Oxybutynin [Ditropan] 5 mg PO DAILY 07/21/20 07/21/20 Unknown History Pantoprazole [Protonix TAB] 40 mg PO QDAY 07/21/20 07/21/20 Unknown History Potassium 10 meq PO QAM 07/21/20 07/21/20 Unknown History Sennosides [Senna] 1 tab PO BID 07/21/20 07/21/20 Unknown History bisacodyL [Dulcolax suppos] 10 mg [place] DAILY 07/21/20 07/21/20 Unknown History cephALEXin [Keflex] 250 mg PO Q6HR #10 capsule 07/21/20 Unknown Rx diphenhydrAMINE [Benadryl CAP] 25 mg PO Q6H PRN 07/21/20 07/21/20 Unknown History megestroL [Megace] 40 mg PO DAILY #30 tablet 07/22/20 Unknown Rx Active Meds: Active Medications Acetaminophen (Acetaminophen 325 Mg Tab) 650 mg PO Q4H PRN PRN Reason: Pain MILD(1-3)/Fever >100.5/SMALLS Albuterol (Albuterol 2.5 Mg/3 Ml Nebu) 2.5 mg IH Q4HRT PRN PRN Reason: Shortness Of Breath Atorvastatin Calcium (Atorvastatin 40 Mg Tab) 40 mg PO DAILY [facility] Bisacodyl (Bisacodyl 10 Mg Rect Supp) 10 mg MD DAILY [facility] Citalopram Hydrobromide (Citalopram 20 Mg Tab) 20 mg PO DAILY [facility] Docusate Sodium (Docusate Sodium 100 Mg Cap) 100 mg PO BID [facility] Famotidine (Famotidine 20 Mg/2 Ml Inj) 20 mg IV BID [facility] Hydromorphone HCl (Hydromorphone 1 Mg/1 Ml Inj) 0.5 mg IV Q3H PRN PRN Reason: Pain , Severe (7-10) Sodium Chloride (Nacl 0.9% 1000 Ml) 1,000 mls @ 250 mls/hr IV ONCE ONE Stop: 12/02/20 09:12 Sodium Chloride (Nacl 0.9% 1000 Ml) 1,000 mls @ 125 mls/hr IV DIRECT [facility] Cefepime HCl (Cefepime/Ns 1 Gm/100 Ml) 1 gm in 100 mls @ 200 mls/hr IV Q8H AD[facility]; Protocol Insulin Glargine (Insulin Glargine 100 Units/Ml) 20 units SUB-Q BID [facility] Megestrol Acetate (Megestrol 20 Mg Tab) 40 mg PO DAILY [facility] Miscellaneous Medication (Multivitamin [One-Daily Multi-Vitamin]) 1 tab PO DAILY [facility] Miscellaneous Medication (Norvasc) 10 mg PO DAILY [facility] Nystatin (Nystatin 500,000 Unit/5 Ml Oral Liqd) unit PO QID [facility] Ondansetron HCl (Ondansetron 4 Mg/2 Ml Inj) 4 mg IV Q8H PRN PRN Reason: Nausea And Vomiting Sodium Chloride (Sodium Chloride 0.9% 10 Ml Flush Syringe) 10 ml IV BID [facility]OLFO Sodium Chloride (Sodium Chloride 0.9% 10 Ml Flush Syringe) 10 ml IV PRN PRN PRN Reason: LINE FLUSH Review of Systems Constitutional: other (Hypertension and warm to touch) Exam - Constitutional Vitals: Temp Pulse Resp BP Pulse Ox 99.6 F 103 H 21 110/62 99 12/01/20 22:50 12/01/20 22:46 12/01/20 22:46 12/01/20 22:46 12/01/20 22:30 General appearance: Present: mild distress, well-nourished - EENT Eyes: Present: PERRL ENT: hearing intact, clear oral mucosa - Neck Neck: Present: supple, normal ROM - Respiratory Respiratory effort: normal Respiratory: bilateral: diminished - Cardiovascular Heart Sounds: Present: S1 & S2. Absent: rub, click - Extremities Extremities: pulses symmetrical, No edema Peripheral Pulses: within normal limits - Abdominal General gastrointestinal: Present: soft, non-tender, non-distended, normal bowel sounds Female genitourinary: Present: normal - Integumentary Integumentary: Present: clear, warm, dry - Musculoskeletal Musculoskeletal: gait normal, strength equal bilaterally - Psychiatric Psychiatric: other (Patient is demented) - Neurologic Neurologic: CNII-XII intact, moves all extremities, other (Dementia) Results - Labs CBC & Chem 7: 12/01/20 22:52 12/01/20 22:52 Labs: Laboratory Last Values WBC 13.8 K/mm3 (4.5-11.0) H 12/01/20 22:52 RBC 2.90 M/mm3 (3.65-5.03) L 12/01/20 22:52 Hgb 7.8 gm/dl (10.1-14.3) L 12/01/20 22:52 Hct 24.0 % (30.3-42.9) L 12/01/20 22:52 MCV 83 fl (79-97) 12/01/20 22:52 MCH 27 pg (28-32) L 12/01/20 22:52 MCHC 33 % (30-34) 12/01/20 22:52 RDW 19.0 % (13.2-15.2) H 12/01/20 22:52 Plt Count 369 K/mm3 (140-440) 12/01/20 22:52 Lymph % (Auto) 12.2 % (13.4-35.0) L 12/01/20 22:52 [place] % (Auto) 6.3 % (0.0-7.3) 12/01/20 22:52 Eos % (Auto) 0.1 % (0.0-4.3) 12/01/20 22:52 Baso % (Auto) 0.6 % (0.0-1.8) 12/01/20 22:52 Lymph # (Auto) 1.7 K/mm3 (1.2-5.4) 12/01/20 22:52 [place] # (Auto) 0.9 K/mm3 (0.0-0.8) H 12/01/20 22:52 Eos # (Auto) 0.0 K/mm3 (0.0-0.4) 12/01/20 22:52 Baso # (Auto) 0.1 K/mm3 (0.0-0.1) 12/01/20 22:52 Seg Neutrophils % 80.8 % (40.0-70.0) H 12/01/20 22:52 Seg Neutrophils # 11.1 K/mm3 (1.8-7.7) H 12/01/20 22:52 PT 15.3 Sec. (12.2-14.9) H 12/02/20 02:53 INR 1.16 (0.87-1.13) H 12/02/20 02:53 APTT 37.7 Sec. (24.2-36.6) H 12/02/20 02:53 Sodium 135 mmol/L (137-145) L 12/01/20 22:52 Potassium 3.8 mmol/L (3.6-5.0) 12/01/20 22:52 Chloride 98.9 mmol/L (98-107) 12/01/20 22:52 Carbon Dioxide 24 mmol/L (22-30) 12/01/20 22:52 Anion Gap 16 mmol/L 12/01/20 22:52 BUN 38 mg/dL (7-17) H 12/01/20 22:52 Creatinine 2.0 mg/dL (0.6-1.2) H 12/01/20 22:52 Estimated GFR 30 ml/min 12/01/20 22:52 BUN/Creatinine Ratio 19 % 12/01/20 22:52 Glucose 196 mg/dL (65-100) H 12/01/20 22:52 Lactic Acid 0.60 mmol/L (0.7-2.0) L 12/02/20 01:30 Calcium 7.8 mg/dL (8.4-10.2) L 12/01/20 22:52 Total Bilirubin 0.20 mg/dL (0.1-1.2) 12/01/20 22:52 AST 11 units/L (5-40) 12/01/20 22:52 ALT < 5 units/L (7-56) L 12/01/20 22:52 Alkaline Phosphatase 99 units/L (35-129) 12/01/20 22:52 Total Protein 7.5 g/dL (6.3-8.2) 12/01/20 22:52 Albumin 3.0 g/dL (3.9-5) L 12/01/20 22:52 Albumin/Globulin Ratio 0.7 % 12/01/20 22:52 Urine Color Yellow (Yellow) 12/02/20 03:50 Urine Turbidity Turbid (Clear) 12/02/20 03:50 Urine pH 6.0 (5.0-7.0) 12/02/20 03:50 Ur Specific [place] 1.008 (1.003-1.030) 12/02/20 03:50 Urine Protein 100 mg/dl mg/dL (Negative) 12/02/20 03:50 Urine Glucose (UA) Neg mg/dL (Negative) 12/02/20 03:50 Urine Ketones Neg mg/dL (Negative) 12/02/20 03:50 Urine Blood Lg (Negative) 12/02/20 03:50 Urine Nitrite Neg (Negative) 12/02/20 03:50 Urine Bilirubin Neg (Negative) 12/02/20 03:50 Urine Urobilinogen < 2.0 mg/dL (<2.0) 12/02/20 03:50 Ur Leukocyte Esterase Lg (Negative) 12/02/20 03:50 Urine WBC (Auto) > 182.0 /HPF (0.0-6.0) H 12/02/20 03:50 Urine RBC (Auto) > 182.0 /HPF (0.0-6.0) 12/02/20 03:50 U Epithel Cells (Auto) 6.0 /HPF (0-13.0) 12/02/20 03:50 Urine Bacteria (Auto) 1+ /HPF (Negative) 12/02/20 03:50 Urine WBC Clumps 3+ /HPF 12/02/20 03:50 Blood Type O POSITIVE 12/02/20 02:05 Antibody Screen Negative 12/02/20 02:05 Microbiology: Microbiology 12/01/20 22:52 Peripheral/Venous Blood Culture - Preliminary Culture in Progress 12/01/20 23:35 Peripheral/Venous Blood Culture - Preliminary Culture in Progress - Imaging and Cardiology Chest x-ray: report reviewed Assessment and Plan VTE prophylaxis?: Mechanical Plan of care discussed with patient/family: Yes - Patient Problems (1) Sepsis Current Visit: Yes Status: Acute Qualifiers: Sepsis type: sepsis due to unspecified organism Sepsis acute organ dysfunction status: with acute organ dysfunction Severe sepsis acute organ dysfunction type: acute renal failure Acute renal failure type: unspecified Severe sepsis shock status: with septic shock Qualified Code(s): A41.9 - Sepsis, unspecified organism; R65.21 - Severe sepsis with septic shock; N17.9 - Acute kidney failure, unspecified Plan to address problem: Admit the patient to the IMCU. IV fluid normal saline at the rate of 125 cc/h. Cefepime 1 g IV every 8 hours. We do the blood culture urine culture. We recheck CBC CMP in the morning. We will consult critical care (2) Acute renal failure (ARF) Current Visit: Yes Status: Acute Qualifiers: Acute renal failure type: unspecified Qualified Code(s): N17.9 - Acute kidney failure, unspecified Plan to address problem: Avoid nephrotoxic drug. Normal saline at the rate of 125 cc/h. Renally dose medication. Nephrology consult. (3) Hypotension Current Visit: Yes Status: Acute Qualifiers: Hypotension type: unspecified hypotension type Qualified Code(s): I95.9 - Hypotension, unspecified Plan to address problem: Normal saline at the rate of 125 cc/h. We will monitor the blood pressure closely. (4) UTI (urinary tract infection) Current Visit: Yes Status: Acute Qualifiers: Urinary tract infection type: acute cystitis Hematuria presence: with hematuria Qualified Code(s): N30.01 - Acute cystitis with hematuria Plan to address problem: Cefepime 1 g IV every 8 hours. We will do the blood culture urine culture (5) Vaginal bleeding Current Visit: Yes Status: Acute Plan to address problem: We will consult NURSING INFORMATICS SPECIALIST for evaluation and further treatment recheck CBC in the morning (6) T2DM (type 2 diabetes mellitus) Current Visit: No Status: Chronic Qualifiers: Diabetes mellitus penitentiary insulin use: unspecified mail clerk insulin use status Plan to address problem: Insulin sliding scale Humalog coverage Accu-Chek before meals and at bedtime. Diabetic education. We will continue the home Lantus (7) DVT prophylaxis Current Visit: Yes Status: Acute Plan to address problem: SCD for DVT prophylaxis for vaginal bleeding. Pepcid 20 mg IV twice daily for GI prophylaxis. Patient is a full code
[2020-12-02] MEDS ORDERED: CEFEPIME/NS 1 GM/100 ML 1 GM/100 ML BAG IV SCH ×2 (06:00→22:00)
--- NOTE | 2020-12-02 07:18 | Event Note ---
Date: 12/02/20 Order for consult noted however I was not on ED call yesterday and not property utilization officer today. Dr. Everett mcginnis.
--- NOTE | 2020-12-02 09:27 | Consultation ---
History of Present Illness - Reason for Consult Consult date: 12/02/20 acute renal failure - History of Present Illness 65-year-old woman with past medical history of hypertension, CVA, diabetes, dementia brought to the emergency room because of hypotension and tachycardia. Noted to have blood pressure was 80/50. Patient given early antibiotics. Patient unable to provide more history due to medical condition. No known kidney disease from chart review Past History Past Medical History: diabetes, GERD, hypertension, stroke, other (Depression, dementia GERD and supple of) Medications and Allergies Allergies Allergy/AdvReac Type Severity Reaction Status Date / Time No Known Allergies Allergy Verified 12/02/20 16:58 Home Medications Medication Instructions Recorded Confirmed Last Taken Type Oxybutynin [Ditropan] 5 mg PO BID #60 tablet 09/28/19 12/02/20 Unknown Rx levoFLOXacin [Levaquin TAB] 500 mg PO QDAY #5 tablet 09/28/19 12/02/20 Unknown Rx Acetaminophen [Aphen] 325 mg PO Q4H PRN 07/21/20 12/02/20 Unknown History Aspirin [Adult Aspirin] 81 mg PO DAILY 07/21/20 12/02/20 Unknown History AtorvaSTATin [Lipitor] 40 mg PO DAILY 07/21/20 12/02/20 Unknown History Citalopram [Celexa] 20 mg PO DAILY 07/21/20 12/02/20 Unknown History Docusate Sodium [Colace CAP] 100 mg PO BID 07/21/20 12/02/20 Unknown History Insulin Aspart (Nf) [NovoLOG 100 0 unit SQ AC 07/21/20 12/02/20 Unknown History UNITS/ML VIAL] Insulin Glargine [Lantus VIAL] 20 units SQ BID 07/21/20 12/02/20 Unknown History Insulin Lispro [Admelog] 5 unit SQ ACHS 07/21/20 12/02/20 Unknown History Multivitamin [One-Daily 1 tab PO DAILY 07/21/20 12/02/20 Unknown History Multi-Vitamin] Norvasc 10 mg PO DAILY 07/21/20 12/02/20 Unknown History Nystatin [Nystatin SUSP] 100,000 ml PO QID 07/21/20 12/02/20 Unknown History Ondansetron HCl [Zofran] 4 mg PO Q8H 07/21/20 12/02/20 Unknown History Oxybutynin [Ditropan] 5 mg PO DAILY 07/21/20 12/02/20 Unknown History Pantoprazole [Protonix TAB] 40 mg PO QDAY 07/21/20 12/02/20 Unknown History Potassium 10 meq PO QAM 07/21/20 12/02/20 Unknown History Sennosides [Senna] 1 tab PO BID 07/21/20 12/02/20 Unknown History bisacodyL [Dulcolax suppos] 10 mg [place] DAILY 07/21/20 12/02/20 Unknown History cephALEXin [Keflex] 250 mg PO Q6HR #10 capsule 07/21/20 12/02/20 Unknown Rx diphenhydrAMINE [Benadryl CAP] 25 mg PO Q6H PRN 07/21/20 12/02/20 Unknown History megestroL [Megace] 40 mg PO DAILY #30 tablet 07/22/20 12/02/20 Unknown Rx Active Meds: Active Medications Acetaminophen (Acetaminophen 325 Mg Tab) 650 mg PO Q4H PRN PRN Reason: Pain MILD(1-3)/Fever >100.5/SMALLS Albuterol (Albuterol 2.5 Mg/3 Ml Nebu) 2.5 mg IH Q4HRT PRN PRN Reason: Shortness Of Breath Amlodipine Besylate (Amlodipine 10 Mg Tab) 10 mg PO DAILY [facility] Atorvastatin Calcium (Atorvastatin 40 Mg Tab) 40 mg PO DAILY [facility] Bisacodyl (Bisacodyl 10 Mg Rect Supp) 10 mg [place] DAILY [facility] Citalopram Hydrobromide (Citalopram 20 Mg Tab) 20 mg PO DAILY [facility] Docusate Sodium (Docusate Sodium 100 Mg Cap) 100 mg PO BID [facility] Famotidine (Famotidine 20 Mg/2 Ml Inj) 20 mg IV DAILY [facility] Hydromorphone HCl (Hydromorphone 1 Mg/1 Ml Inj) 0.5 mg IV Q3H PRN PRN Reason: Pain , Severe (7-10) Sodium Chloride (Nacl 0.9% 1000 Ml) 1,000 mls @ 125 mls/hr IV DIRECT [facility]OL[facility] Cefepime HCl (Cefepime/Ns 1 Gm/100 Ml) 1 gm in 100 mls @ 200 mls/hr IV Q24H ADOLFO; Protocol Insulin Glargine (Insulin Glargine 100 Units/Ml) 20 units SUB-Q BID [facility] Megestrol Acetate (Megestrol 40 Mg Tab) 40 mg PO DAILY [facility] Multivitamins (Multivitamins ,Therapeutic Tab) 1 each PO DAILY [facility] Nystatin (Nystatin 500,000 Unit/5 Ml Oral Liqd) 500,000 unit PO QID [facility] Ondansetron HCl (Ondansetron 4 Mg/2 Ml Inj) 4 mg IV Q8H PRN PRN Reason: Nausea And Vomiting Sodium Chloride (Sodium Chloride 0.9% 10 Ml Flush Syringe) 10 ml IV BID [facility] Sodium Chloride (Sodium Chloride 0.9% 10 Ml Flush Syringe) 10 ml IV PRN PRN PRN Reason: LINE FLUSH Review of Systems ROS unobtainable: due to mental status Exam - Vital Signs Vital signs: Vital Signs Pulse Ox 87 12/01/20 22:23 - Physical Exam Narrative exam: General appearance: Present: mild distress - EENT Eyes: Present: PERRL ENT: hearing intact, clear oral mucosa - Neck Neck: Present: supple, normal ROM - Respiratory Respiratory effort: normal Respiratory: bilateral: diminished - Cardiovascular Heart Sounds: Present: S1 & S2. Absent: rub, click - Extremities Extremities: pulses symmetrical, No edema Peripheral Pulses: within normal limits - Abdominal General gastrointestinal: Present: soft, non-tender, non-distended, normal bowel sounds Female genitourinary: Present: normal - Integumentary Integumentary: Present: clear, warm, dry - Musculoskeletal Musculoskeletal: gait normal, strength equal bilaterally - Psychiatric Psychiatric: confused - Neurologic Neurologic: CNII-XII intact, moves all extremities, other (Dementia) Results - Lab Results 12/01/20 22:52 12/01/20 22:52 Most recent lab results Calcium 7.8 mg/dL (8.4-10.2) L 12/01/20 22:52 Assessment and Plan # Acute Kidney Injury: last creatinine in 07/2020 was 1.2, 2.0 on arrival here. Suspect MAILE pre-renal + tubular injury in setting of sepsis, hypotension - aggressive IVF and supportive measures - maintain MAP >65 - urinalysis reviewed, more consistent with UTI - imaging reviewed-> bladder mass noted, also likely cause of hematuria, consider urology consult - defer further MAILE workup at this time unless function not improving with above - avoid nephrotoxins - renally dose meds - strict Is/Os # Sepsis, UTI, Hypotension: management per primary, cultures pending # Vaginal Bleeding: reviewed ultrasound, concern for bladder lesion as noted # DM
[2020-12-02] MEDS: SODIUM CHLORIDE 0.9% 1000 ML 1,000 ML IV SCH ×2 (09:41→16:19)
[2020-12-02] MEDS ORDERED: INSULIN GLARGINE 100 UNITS/ML SUB-Q SCH (10:00)
[2020-12-02] MEDS ORDERED: MULTIVITAMIN PO SCH (10:00)
[2020-12-02] MEDS ORDERED: amLODIPine 10 MG TAB PO SCH (10:00)
[2020-12-02] MEDS ORDERED: FAMOTIDINE 20 MG/2 ML INJ IV SCH (10:00)
[2020-12-02] MEDS ORDERED: NON-FORMULARY EACH (Norvasc 10 MG) PO SCH (10:00)
[2020-12-02] MEDS: CITALOPRAM 20 MG TAB PO SCH (11:03)
[2020-12-02] MEDS: DOCUSATE SODIUM 100 MG CAP PO SCH ×2 (11:04→22:32)
[2020-12-02] MEDS: MEGESTROL 40 MG TAB PO SCH (11:04)
[2020-12-02] MEDS: NYSTATIN 500,000 UNIT/5 ML ORAL LIQD PO SCH ×4 (11:04→22:33)
[2020-12-02] MEDS: MULTIVITAMINS ,THERAPEUTIC TAB PO SCH (11:05)
[2020-12-02] MEDS: FAMOTIDINE 20 MG/2 ML INJ IV SCH (11:10)
[2020-12-02] MEDS ORDERED: DEXTROSE 50% IN WATER (25GM) 50 ML SYRINGE IV PRN (11:18)
[2020-12-02] MEDS: INSULIN LISPRO 100 UNIT/ML SUB-Q SCH ×3 (13:23→22:32)
[2020-12-02] MEDS: SODIUM CHLORIDE 0.9% 1000 ML 1,000 ML IV ONE (13:23)
--- NOTE | 2020-12-02 17:46 | Event Note ---
History reviewed and patient examined. Labs and diagnostic data reviewed. 64-year-old female with PMH of dementia, CVA, left hemiplegia, DM, left AKA, dysphagia, hypokalemia, anemia, CKD 2, urine retention needing chronic indwelling Mcclure catheter was brought to ED for evaluation of AMS and possible vaginal bleeding. Patient was noted to be in septic shock with BP 80/60 and pyuria and hematuria. Mcclure catheter was exchanged in the. Patient was administered IV fluid boluses with improvement of hypotension and started on antibiotics after cultures. According to ED notes patient was given Dilaudid as she was moaning. Currently patient is is drowsy but arousable. She is nonverbal. Pupils normal. Face fairly symmetrical.. Neck supple. No JVD. No apparent respiratory distress but auscultation shows diffuse wheezes with expiratory rhonchi. Regular cardiac rhythm. Abdomen soft and nontender. Bowel sounds present. Indwelling Mcclure shows pinkish urine. On inspection, no vaginal bleeding noted. No edema in the right lower extremity with poor pedal pulses. Skin dry. No decubitus ulcers noted. Assessment: Septic shock, obvious etiology UTI with cannot rule out aspiration pneumonitis. Lactic acid normal. Chest x-ray no acute process. Pyuria with some hematuria. Pelvic ultrasound shows bladder mass. Currently material is mild with pinkish urine. History of urinary retention with indwelling chronic Mcclure catheter. Altered mental status likely from shock as well as from Dilaudid with history of dementia of unclear baseline mental status. History of CVA, left hemiparesis and dysphagia. Obviously patient taking p.o. meds and food intake. MAILE likely from shock with history of CKD stage II. No metabolic acidosis. Hypokalemia and potassium supplements Anemia with history of anemia Diabetes mellitus on insulin therapy Plan: Continue volume expansion with normal saline at 150 mL/h at present Monitor symptoms closely. Keep n.p.o. with aspiration precautions. Nephrology consulted and evaluating. Continue empiric antibiotic therapy pending cultures. Monitor hemoglobin Consider neurology consultation Attempted to call daughter CODE STATUS was to be sent in. Discussed with the ED nurse as well as IMCU nurse.
[2020-12-03 07:56] LABS: Basophils # (Auto) 0.1 K/mm3 (0.0-0.1); Basophils % (Auto) 0.6 % (0.0-1.8); Eosinophils # (Auto) 0.1 K/mm3 (0.0-0.4); Eosinophils % (Auto) 0.7 % (0.0-4.3); Hematocrit 20.8 % (30.3-42.9); Hemoglobin 6.8 gm/dl (10.1-14.3); Lymphocytes # (Auto) 2.5 K/mm3 (1.2-5.4); Lymphocytes % (Auto) 15.9 % (13.4-35.0); Mean Corpuscular HGB Conc 33 % (30-34); Mean Corpuscular Volume 84 fl (79-97); Monocytes % (Auto) 6.3 % (0.0-7.3); Platelet Count 324 K/mm3 (140-440); Red Cell Distribution Width 19.5 % (13.2-15.2)
[2020-12-03 08:12] LABS: BUN/Creatinine Ratio 17; Blood Urea Nitrogen 17 mg/dL (7-17); Calcium 8.4 mg/dL (8.4-10.2); Hemolysis Index 0
[2020-12-03] MEDS: SODIUM CHLORIDE 0.9% 1000 ML 1,000 ML IV SCH (08:45)
--- NOTE | 2020-12-03 09:28 | Progress Note ---
Assessment and Plan # Acute Kidney Injury: last creatinine in 07/2020 was 1.2, 2.0 on arrival here, now improved to 1.0 with IVF. Suspect MAILE pre-renal + tubular injury in setting of sepsis, hypotension - aggressive IVF prn and supportive measures - maintain MAP >65 - urinalysis reviewed, more consistent with UTI - imaging reviewed-> bladder mass noted, also likely cause of hematuria, consider urology consult - defer further MAILE workup at this time unless function not improving with above - avoid nephrotoxins - renally dose meds - strict Is/Os - replete K prn # Sepsis, UTI, Hypotension: management per primary, cultures NGTD # Vaginal Bleeding: reviewed ultrasound, concern for bladder lesion as noted # DM Nephrology will follow peripherally Subjective Date of service: 12/03/20 Interval history: Remains altered in IMCU Objective - Exam Narrative Exam: General appearance: Present: mild distress - EENT Eyes: Present: PERRL ENT: hearing intact, clear oral mucosa - Neck Neck: Present: supple, normal ROM - Respiratory Respiratory effort: normal Respiratory: bilateral: diminished - Cardiovascular Heart Sounds: Present: S1 & S2. Absent: rub, click - Extremities Extremities: pulses symmetrical, No edema Peripheral Pulses: within normal limits - Abdominal General gastrointestinal: Present: soft, non-tender, non-distended, normal bowel sounds Female genitourinary: Present: normal - Integumentary Integumentary: Present: clear, warm, dry - Musculoskeletal Musculoskeletal: gait normal, strength equal bilaterally - Psychiatric Psychiatric: confused - Neurologic Neurologic: CNII-XII intact, moves all extremities, other (Dementia) - Vital Signs Vital signs: Vital Signs - 12hr 12/02/20 12/03/20 23:45 03:36 Temperature 98.4 F 100.6 F H - Lab 12/03/20 07:15 12/03/20 07:15 Most recent lab results Calcium 8.4 mg/dL (8.4-10.2) 12/03/20 07:15 Medications & Allergies - Medications Allergies/Adverse Reactions: Allergies No Known Allergies Allergy (Verified 12/02/20 16:58) Home Medications: Home Medications Medication Instructions Recorded Confirmed Last Taken Type Oxybutynin [Ditropan] 5 mg PO BID #60 tablet 09/28/19 12/02/20 Unknown Rx levoFLOXacin [Levaquin TAB] 500 mg PO QDAY #5 tablet 09/28/19 12/02/20 Unknown Rx Acetaminophen [Aphen] 325 mg PO Q4H PRN 07/21/20 12/02/20 Unknown History Aspirin [Adult Aspirin] 81 mg PO DAILY 07/21/20 12/02/20 Unknown History AtorvaSTATin [Lipitor] 40 mg PO DAILY 07/21/20 12/02/20 Unknown History Citalopram [Celexa] 20 mg PO DAILY 07/21/20 12/02/20 Unknown History Docusate Sodium [Colace CAP] 100 mg PO BID 07/21/20 12/02/20 Unknown History Insulin Aspart (Nf) [NovoLOG 100 0 unit SQ AC 07/21/20 12/02/20 Unknown History UNITS/ML VIAL] Insulin Glargine [Lantus VIAL] 20 units SQ BID 07/21/20 12/02/20 Unknown History Insulin Lispro [Admelog] 5 unit SQ ACHS 07/21/20 12/02/20 Unknown History Multivitamin [One-Daily 1 tab PO DAILY 07/21/20 12/02/20 Unknown History Multi-Vitamin] Norvasc 10 mg PO DAILY 07/21/20 12/02/20 Unknown History Nystatin [Nystatin SUSP] 100,000 ml PO QID 07/21/20 12/02/20 Unknown History Ondansetron HCl [Zofran] 4 mg PO Q8H 07/21/20 12/02/20 Unknown History Oxybutynin [Ditropan] 5 mg PO DAILY 07/21/20 12/02/20 Unknown History Pantoprazole [Protonix TAB] 40 mg PO QDAY 07/21/20 12/02/20 Unknown History Potassium 10 meq PO QAM 07/21/20 12/02/20 Unknown History Sennosides [Senna] 1 tab PO BID 07/21/20 12/02/20 Unknown History bisacodyL [Dulcolax suppos] 10 mg [place] DAILY 07/21/20 12/02/20 Unknown History cephALEXin [Keflex] 250 mg PO Q6HR #10 capsule 07/21/20 12/02/20 Unknown Rx diphenhydrAMINE [Benadryl CAP] 25 mg PO Q6H PRN 07/21/20 12/02/20 Unknown History megestroL [Megace] 40 mg PO DAILY #30 tablet 07/22/20 12/02/20 Unknown Rx Active Medications: Generic Name Dose Route Start Last Admin Trade Name Zainab PRN Reason Stop Dose Admin Acetaminophen 650 mg 12/02/20 05:24 Acetaminophen 325 Mg Tab PO Q4H PRN Pain MILD(1-3)/Fever >100.5/SMALLS Albuterol 2.5 mg 12/02/20 05:24 Albuterol 2.5 Mg/3 Ml Nebu IH Q4HRT PRN Shortness Of Breath Atorvastatin Calcium 40 mg 12/02/20 10:00 12/02/20 11:04 Atorvastatin 40 Mg Tab PO Not Given DAILY ADOLFO Citalopram Hydrobromide 20 mg 12/02/20 10:00 12/02/20 11:03 Citalopram 20 Mg Tab PO Not Given DAILY ADOLFO Dextrose 50 ml 12/02/20 11:18 Dextrose 50% In Water (25gm) 50 Ml Syringe IV Q30MIN PRN Hypoglycemia Protocol Docusate Sodium 100 mg 12/02/20 10:00 12/02/20 22:32 Docusate Sodium 100 Mg Cap PO Not Given BID ADOLFO Famotidine 20 mg 12/02/20 10:00 12/02/20 11:10 Famotidine 20 Mg/2 Ml Inj IV 20 mg DAILY ADOLFO Administration Sodium Chloride 1,000 mls @ 125 mls/hr 12/02/20 05:30 12/03/20 08:45 Nacl 0.9% 1000 Ml IV 125 mls/hr DIRECT ADOLFO Administration Cefepime HCl 1 gm in 100 mls @ 200 mls/hr 12/02/20 22:00 12/02/20 22:33 Cefepime/Ns 1 Gm/100 Ml IV 200 mls/hr Q24H ADOLFO Administration Protocol Insulin Human Lispro 0 unit 12/02/20 11:30 12/02/20 22:32 Insulin Lispro 100 Unit/Ml SUB-Q Not Given ACHS ADOLFO Protocol Megestrol Acetate 40 mg 12/02/20 10:00 12/02/20 11:04 Megestrol 40 Mg Tab PO Not Given DAILY ADOLFO Multivitamins 1 each 12/02/20 10:00 12/02/20 11:05 Multivitamins ,Therapeutic Tab PO Not Given DAILY [facility] Nystatin 500,000 unit 12/02/20 10:00 12/02/20 22:33 Nystatin 500,000 Unit/5 Ml Oral Liqd PO 500,000 unit QID ADOLFO Administration Ondansetron HCl 4 mg 12/02/20 05:24 Ondansetron 4 Mg/2 Ml Inj IV Q8H PRN Nausea And Vomiting Sodium Chloride 10 ml 12/02/20 10:00 12/02/20 22:33 Sodium Chloride 0.9% 10 Ml Flush Syringe IV 10 ml BID ADOLFO Administration Sodium Chloride 10 ml 12/02/20 05:24 Sodium Chloride 0.9% 10 Ml Flush Syringe IV PRN PRN LINE FLUSH
[2020-12-03] MEDS ORDERED: SODIUM BICARBONATE 325 MG TAB FEEDTUBE PRN ×2 (10:22→11:51)
[2020-12-03] MEDS ORDERED: LIPASE 10,500/PROTEASE 25,000/AMYLASE 43,750 (UNITS) DR CAP FEEDTUBE PRN ×2 (10:22→11:51)
[2020-12-03] MEDS ORDERED: SIMPLE SYRUP 15 ML FEEDTUBE PRN ×4 (10:22→11:51)
[2020-12-03] MEDS: POTASSIUM CHLORIDE 10 MEQ 10 MEQ/100 ML BAG IV SCH ×4 (10:56→14:27)
[2020-12-03] MEDS: NACL 0.9%/KCL 40 MEQ 40 MEQ/1,000 ML BAG IV SCH (10:58)
[2020-12-03] MEDS ORDERED: SODIUM CHLORIDE 0.9% 500 ML 500 ML IV ONE (11:00)
[2020-12-03] MEDS: CEFEPIME/NS 2 GM/100 ML 2 GM/100 ML BAG IV SCH ×2 (12:21→23:09)
[2020-12-03] MEDS: INSULIN LISPRO 100 UNIT/ML SUB-Q SCH ×2 (13:21→18:23)
[2020-12-03] MEDS: FAMOTIDINE 20 MG/2 ML INJ IV SCH (13:23)
[2020-12-03] MEDS: NYSTATIN 500,000 UNIT/5 ML ORAL LIQD PO SCH ×4 (13:24→22:57)
--- NOTE | 2020-12-03 13:35 | XRay Report ---
Abdomen single view INDICATION: Abdominal pain IMPRESSION: The esophagogastric tube terminates within the distal stomach region. Signer Name: Bradly Weston MD Signed: 12/03/2020 1:30 PM Workstation Name: [id number]
[2020-12-03] MEDS: MEGESTROL 40 MG TAB PO SCH (14:26)
[2020-12-03] MEDS: CITALOPRAM 20 MG TAB PO SCH (14:26)
[2020-12-03] MEDS: MULTIVITAMINS ,THERAPEUTIC TAB PO SCH (14:27)
[2020-12-03] MEDS: DOCUSATE SODIUM 100 MG CAP PO SCH ×2 (14:27→22:57)
--- NOTE | 2020-12-03 16:06 | Progress Note ---
Assessment and Plan Assessment and plan: 64-year-old female with PMH of dementia, CVA, left hemiplegia, DM, left AKA, dysphagia, hypokalemia, anemia, CKD 2, urine retention needing chronic indwelling Mcclure catheter was brought to ED for evaluation of AMS and possible vaginal bleeding. Patient was noted to be in septic shock with BP 80/60 and pyuria and hematuria. Mcclure catheter was exchanged in the. Patient was administered IV fluid boluses with improvement of hypotension and started on antibiotics after cultures. According to ED notes patient was given Dilaudid as she was moaning. Currently patient is is drowsy but arousable. She is nonverbal. Pupils normal. Face fairly symmetrical.. Neck supple. No JVD. No apparent respiratory distress but auscultation shows diffuse wheezes with expiratory rhonchi. Regular cardiac rhythm. Abdomen soft and nontender. Bowel sounds present. Indwelling Mcclure shows pinkish urine. On inspection, no vaginal bleeding noted. No edema in the right lower extremity with poor pedal pulses. Skin dry. No decubitus ulcers noted. Assessment: Septic shock, obvious etiology UTI with cannot rule out aspiration pneumonitis. Lactic acid normal. Shock state resolved. Chest x-ray no acute process. Pyuria with some hematuria. Pelvic ultrasound shows bladder mass. Currently pinkish urine. History of urinary retention with chronic indwelling chronic Mcclure catheter. Altered mental status likely from shock as well as from Dilaudid with history of dementia of unclear baseline mental status. History of CVA, left hemiparesis and dysphagia. Obviously patient taking p.o. meds and food intake. MAILE likely from shock with history of CKD stage II. No metabolic acidosis. Resolved with hydration Hypokalemia and potassium supplements Anemia with history of anemia Diabetes mellitus on insulin therapy Plan: Shock state resolved. MAILE resolved. Mental status much improved. Poorly verbal likely from dementia. Continue to avoid narcotics. Patient has a low-grade fever, 100.6, leukocytosis slightly worse today 15, on cefepime Likely aspirated, scheduled nebs 3 times daily Reduce normal saline fusion 100 mL per hour. Start Glucerna tube feeds via NG tube, continue aspiration precautions. Nephrology consulted and evaluating. Continue empiric antibiotic therapy pending cultures. Hemoglobin dropped from 7.8-6.8, possibly just dilutional. Hematuria resolved, no vaginal bleeding. Will transfuse PRBC Consider urology consultation for evaluation of possible bladder tumor CODE STATUS full code Critical care time spent 35 minutes. History Interval history: Patient has now stable vital signs and hypertension resolved. Receiving normal saline 125 mill per hour. She spiked a fever of 100.6 today. Hemoglobin dropped to 6.8 and ordered PRBC transfusion. Hematuria actually resolved. No vaginal bleeding. Mental status improved, she is now awake awake but minimally verbalizes. She can occasionally give her name. She just mumbles. Not in acute distress. Large urine output and MAILE resolved. Hospitalist Physical - Constitutional Vitals: Temp Pulse Resp BP Pulse Ox 99 F 89 14 148/80 99 12/03/20 15:31 12/03/20 15:31 12/03/20 15:31 12/03/20 15:31 12/03/20 15:31 General appearance: Present: no acute distress, other (Debilitated) - EENT Eyes: Present: PERRL, EOM intact. Absent: scleral icterus ENT: other (Oral mucosa still somewhat dry. Face symmetrical.) - Neck Neck: Present: supple, other (No JVD) - Respiratory Respiratory effort: normal Respiratory: bilateral: diminished - Cardiovascular Rhythm: regular - Extremities Extremities: No edema Extremity abnormal: other (Right upper extremity flaccid. Left upper extremity is stiff from the previous stroke. Left AKA. Does not move right lower extremity freely.) - Abdominal General gastrointestinal: soft, non-tender, non-distended, normal bowel sounds - Integumentary Integumentary: Absent: rash - Psychiatric Psychiatric: other (No agitation.) - Neurologic Neurologic: other (More alert today. Awake. Minimally verbalizes. Left arm still from previous stroke. Right arm flaccid. Does not move right lower extremity freely. History of dementia.) Results - Labs CBC & Chem 7: 12/03/20 07:15 12/03/20 07:15 Labs: Laboratory Last Values WBC 15.5 K/mm3 (4.5-11.0) H 12/03/20 07:15 RBC 2.50 M/mm3 (3.65-5.03) L 12/03/20 07:15 Hgb 6.8 gm/dl (10.1-14.3) L 12/03/20 07:15 Hct 20.8 % (30.3-42.9) L 12/03/20 07:15 MCV 84 fl (79-97) 12/03/20 07:15 MCH 27 pg (28-32) L 12/03/20 07:15 MCHC 33 % (30-34) 12/03/20 07:15 RDW 19.5 % (13.2-15.2) H 12/03/20 07:15 Plt Count 324 K/mm3 (140-440) 12/03/20 07:15 Lymph % (Auto) 15.9 % (13.4-35.0) 12/03/20 07:15 Tripp % (Auto) 6.3 % (0.0-7.3) 12/03/20 07:15 Eos % (Auto) 0.7 % (0.0-4.3) 12/03/20 07:15 Baso % (Auto) 0.6 % (0.0-1.8) 12/03/20 07:15 Lymph # (Auto) 2.5 K/mm3 (1.2-5.4) 12/03/20 07:15 Tripp # (Auto) 1.0 K/mm3 (0.0-0.8) H 12/03/20 07:15 Eos # (Auto) 0.1 K/mm3 (0.0-0.4) 12/03/20 07:15 Baso # (Auto) 0.1 K/mm3 (0.0-0.1) 12/03/20 07:15 Seg Neutrophils % 76.5 % (40.0-70.0) H 12/03/20 07:15 Seg Neutrophils # 11.9 K/mm3 (1.8-7.7) H 12/03/20 07:15 PT 15.3 Sec. (12.2-14.9) H 12/02/20 02:53 INR 1.16 (0.87-1.13) H 12/02/20 02:53 APTT 37.7 Sec. (24.2-36.6) H 12/02/20 02:53 Sodium 143 mmol/L (137-145) D 12/03/20 07:15 Potassium 3.1 mmol/L (3.6-5.0) L 12/03/20 07:15 Chloride 109.5 mmol/L (98-107) H 12/03/20 07:15 Carbon Dioxide 26 mmol/L (22-30) 12/03/20 07:15 Anion Gap 11 mmol/L 12/03/20 07:15 BUN 17 mg/dL (7-17) 12/03/20 07:15 Creatinine 1.0 mg/dL (0.6-1.2) 12/03/20 07:15 Estimated GFR > 60 ml/min 12/03/20 07:15 BUN/Creatinine Ratio 17 % 12/03/20 07:15 Glucose 98 mg/dL (65-100) 12/03/20 07:15 POC Glucose 98 mg/dL (70-105) 12/03/20 12:01 Hemoglobin A1c 7.4 % (4-6) H 12/02/20 Unknown Lactic Acid 0.60 mmol/L (0.7-2.0) L 12/02/20 01:30 Calcium 8.4 mg/dL (8.4-10.2) 12/03/20 07:15 Total Bilirubin 0.20 mg/dL (0.1-1.2) 12/01/20 22:52 AST 11 units/L (5-40) 12/01/20 22:52 ALT < 5 units/L (7-56) L 12/01/20 22:52 Alkaline Phosphatase 99 units/L (35-129) 12/01/20 22:52 Total Protein 7.5 g/dL (6.3-8.2) 12/01/20 22:52 Albumin 3.0 g/dL (3.9-5) L 12/01/20 22:52 Albumin/Globulin Ratio 0.7 % 12/01/20 22:52 Urine Color Yellow (Yellow) 12/02/20 03:50 Urine Turbidity Turbid (Clear) 12/02/20 03:50 Urine pH 6.0 (5.0-7.0) 12/02/20 03:50 Ur Specific [place] 1.008 (1.003-1.030) 12/02/20 03:50 Urine Protein 100 mg/dl mg/dL (Negative) 12/02/20 03:50 Urine Glucose (UA) Neg mg/dL (Negative) 12/02/20 03:50 Urine Ketones Neg mg/dL (Negative) 12/02/20 03:50 Urine Blood Lg (Negative) 12/02/20 03:50 Urine Nitrite Neg (Negative) 12/02/20 03:50 Urine Bilirubin Neg (Negative) 12/02/20 03:50 Urine Urobilinogen < 2.0 mg/dL (<2.0) 12/02/20 03:50 Ur Leukocyte Esterase Lg (Negative) 12/02/20 03:50 Urine WBC (Auto) > 182.0 /HPF (0.0-6.0) H 12/02/20 03:50 Urine RBC (Auto) > 182.0 /HPF (0.0-6.0) 12/02/20 03:50 U Epithel Cells (Auto) 6.0 /HPF (0-13.0) 12/02/20 03:50 Urine Bacteria (Auto) 1+ /HPF (Negative) 12/02/20 03:50 Urine WBC Clumps 3+ /HPF 12/02/20 03:50 Blood Type O POSITIVE 12/02/20 02:05 Antibody Screen Negative 12/02/20 02:05 Crossmatch See Detail 12/02/20 02:05 Microbiology: Microbiology 12/01/20 22:52 Peripheral/Venous Blood Culture - Preliminary NO GROWTH AFTER 24 HOURS 12/01/20 23:35 Peripheral/Venous Blood Culture - Preliminary NO GROWTH AFTER 24 HOURS Mcclure/IV: Voiding Method Indwelling Catheter Active Medications - Current Medications Current Medications: Generic Name Dose Route Start Last Admin Trade Name Freq PRN Reason Stop Dose Admin Acetaminophen 650 mg 12/02/20 05:24 Acetaminophen 325 Mg Tab PO Q4H PRN Pain MILD(1-3)/Fever >100.5/SMALLS Albuterol 2.5 mg 12/02/20 05:24 12/03/20 15:11 Albuterol 2.5 Mg/3 Ml Nebu IH 2.5 mg Q4HRT PRN Administration Shortness Of Breath Albuterol 2.5 mg 12/03/20 20:00 Albuterol 2.5 Mg/3 Ml Nebu IH TIDRT ADOLFO Lipase/Protease/Amylase 1 each 12/03/20 10:22 Lipase 10,500/Protease 25,000/Amylase 43,750 (Units) Dr Blount FEEDTUBE PRN PRN For Clogged Feeding Tube Atorvastatin Calcium 40 mg 12/02/20 10:00 12/03/20 14:26 Atorvastatin 40 Mg Tab PO 40 mg DAILY ADOLFO Administration Citalopram Hydrobromide 20 mg 12/02/20 10:00 12/03/20 14:26 Citalopram 20 Mg Tab PO 20 mg DAILY ADOLFO Administration Dextrose 50 ml 12/02/20 11:18 Dextrose 50% In Water (25gm) 50 Ml Syringe IV Q30MIN PRN Hypoglycemia Protocol Docusate Sodium 100 mg 12/02/20 10:00 12/03/20 14:27 Docusate Sodium 100 Mg Cap PO 100 mg BID ADOLFO Administration Famotidine 20 mg 12/02/20 10:00 12/03/20 13:23 Famotidine 20 Mg/2 Ml Inj IV 20 mg DAILY ADOLFO Administration Potassium Chloride/Sodium Chloride 40 meq in 1,000 mls @ 100 mls/hr 12/03/20 11:30 12/03/20 10:58 Ns/Kcl 40meq IV 100 mls/hr DIRECT ADOLFO Administration Cefepime HCl 2 gm in 100 mls @ 200 mls/hr 12/03/20 12:00 12/03/20 12:21 Cefepime/Ns 2 Gm/100 Ml IV 200 mls/hr Q12H ADOLFO Administration Insulin Human Lispro 0 unit 12/02/20 11:30 12/03/20 13:21 Insulin Lispro 100 Unit/Ml SUB-Q Not Given ACHS ADOLFO Protocol Megestrol Acetate 40 mg 12/02/20 10:00 12/03/20 14:26 Megestrol 40 Mg Tab PO 40 mg DAILY ADOLFO Administration Multivitamins 1 each 12/02/20 10:00 12/03/20 14:27 Multivitamins ,Therapeutic Tab PO 1 each DAILY ADOLFO Administration Nystatin 500,000 unit 12/02/20 10:00 12/03/20 13:24 Nystatin 500,000 Unit/5 Ml Oral Liqd PO 500,000 unit QID ADOLFO Administration Ondansetron HCl 4 mg 12/02/20 05:24 Ondansetron 4 Mg/2 Ml Inj IV Q8H PRN Nausea And Vomiting Simple Syrup 15 ml 12/03/20 10:22 Simple Syrup 15 Ml FEEDTUBE PRN PRN Hypoglycemia Simple Syrup 30 ml 12/03/20 10:22 Simple Syrup 15 Ml FEEDTUBE PRN PRN Hypoglycemia Sodium Bicarbonate 325 mg 12/03/20 10:22 Sodium Bicarbonate 325 Mg Tab FEEDTUBE PRN PRN For Clogged Feeding Tube Sodium Chloride 10 ml 12/02/20 10:00 12/03/20 13:27 Sodium Chloride 0.9% 10 Ml Flush Syringe IV 10 ml BID ADOLFO Administration Sodium Chloride 10 ml 12/02/20 05:24 Sodium Chloride 0.9% 10 Ml Flush Syringe IV PRN PRN LINE FLUSH Nutrition/Malnutrition Assess - Dietary Evaluation Nutrition/Malnutrition Findings: Nutrition Notes Start: 12/03/20 11:43 Freq: Status: Active Protocol: Document 12/03/20 11:43 LOVE (Rec: 12/03/20 11:51 NHALL [id number]) Nutrition Notes Need for Assessment generated from: MD Order,auto damage adjuster,MST Initial or Follow up Assessment Current Diagnosis Diabetes,Sepsis,Hypertension, Stroke Other Pertinent Diagnosis Hypotension, UTI, ARF, Vaginal bleeding, Dementia, Dysphagia , (L) AKA Current Diet NPO (MD ordered Glucerna 1.2 a 50ml/hr) Labs/Tests K 3.1 A1C 7.4 Pertinent Medications Colace, MVI, Megace, 10mEq KCl at 100ml/hr x 4 bags, NS+ 40mEq KCl at 100ml/hr Height 5 ft Weight 58.6 kg [place] Body Weight (kg) 45.45 BMI 25.2 Weight change and time frame AdjBW for (L) AKA: 65.2kg Adj BMI for (L) AKA: 28 Weight Status Appropriate Subjective/Other Information RD consulted for TF; pt also screened for malnutrition risk . Burn Absent Trauma Absent Minimum of two criteria No #1 Nutrition Diagnosis Inadequate oral intake Etiology dysphagia, dementia As Evidenced by Signs and Symptoms pt NPO and requires EN support to meet nutrient needs Is patient on ventilator? No Is Patient Ambulatory and/or Out of Bed No REE-([facility]-confined to bed) 0745.365 Calculation Used for Recommendations [facility] Additional Notes Pro needs 1-1.2g/k-70g/ day Fluid needs 1ml/kcal Nutrition Intervention Nutrition Support: Glucerna 1.2 at 45ml/hr with 75ml water flush q4h. Kcal 1,296 Protein (gm) 65 Carbohydrates (gm) 124 Fat (gm) 65 Fluid (mL) 869 Fiber (gm) 17 Goal #1 TF tolerance Goal #2 TF to meet at least 75% energy and pro needs Anticipated Discharge Needs: Continue EN support to meet nutrient needs Follow-Up By: 12/05/20 Additional Comments F/U: new TF
[2020-12-03] MEDS: ALBUTEROL 2.5 MG/3 ML NEBU IH SCH (20:19)
[2020-12-04] MEDS: INSULIN LISPRO 100 UNIT/ML SUB-Q SCH ×4 (00:16→18:00)
[2020-12-04] MEDS: NACL 0.9%/KCL 40 MEQ 40 MEQ/1,000 ML BAG IV SCH (00:16)
[2020-12-04] MEDS: ACETAMINOPHEN 325 MG TAB PO PRN ×2 (07:00→23:27)
[2020-12-04 07:46] LABS: Hematocrit 32.8 % (30.3-42.9); Hemoglobin 10.6 gm/dl (10.1-14.3)
[2020-12-04] MEDS: ALBUTEROL 2.5 MG/3 ML NEBU IH SCH ×3 (09:00→21:10)
[2020-12-04 10:06] LABS: Basophils # (Auto) 0.2 K/mm3 (0.0-0.1); Basophils % (Auto) 1.3 % (0.0-1.8); Eosinophils # (Auto) 0.2 K/mm3 (0.0-0.4); Hematocrit 32.3 % (30.3-42.9); Hemoglobin 10.5 gm/dl (10.1-14.3); Lymphocytes # (Auto) 3.6 K/mm3 (1.2-5.4); Lymphocytes % (Auto) 22.9 % (13.4-35.0); Mean Corpuscular HGB Conc 32 % (30-34); Mean Corpuscular Volume 84 fl (79-97); Monocytes # (Auto) 0.8 K/mm3 (0.0-0.8); Monocytes % (Auto) 4.8 % (0.0-7.3); Platelet Count 342 K/mm3 (140-440); Red Blood Count 3.84 M/mm3 (3.65-5.03); Red Cell Distribution Width 18.4 % (13.2-15.2)
[2020-12-04 10:22] LABS: Alanine Aminotransferase 6 units/L (7-56); Albumin 2.8 g/dL (3.9-5); BUN/Creatinine Ratio 14; Blood Urea Nitrogen 11 mg/dL (7-17); Calcium 8.7 mg/dL (8.4-10.2); Hemolysis Index 5
[2020-12-04] MEDS: FAMOTIDINE 20 MG TAB PO SCH (10:38)
[2020-12-04] MEDS: NYSTATIN 500,000 UNIT/5 ML ORAL LIQD PO SCH ×4 (10:38→23:27)
[2020-12-04] MEDS: DOCUSATE SODIUM 100 MG/10 ML ORAL LIQD FEEDTUBE SCH ×2 (10:38→23:27)
[2020-12-04] MEDS: CITALOPRAM 20 MG TAB PO SCH (10:38)
[2020-12-04] MEDS: MEGESTROL 40 MG TAB PO SCH (10:38)
[2020-12-04] MEDS: CEFEPIME/NS 2 GM/100 ML 2 GM/100 ML BAG IV SCH ×2 (12:12→23:29)
[2020-12-04] MEDS: MULTIVITAMINS 5 ML ORAL LIQUID PO SCH (12:17)
--- NOTE | 2020-12-04 17:55 | Progress Note ---
Assessment and Plan Assessment and plan: 64-year-old female with PMH of dementia, CVA, left hemiplegia, DM, left AKA, dysphagia, hypokalemia, anemia, CKD 2, urine retention needing chronic indwelling Mcclure catheter was brought to ED for evaluation of AMS and possible vaginal bleeding. Patient was noted to be in septic shock with BP 80/60 and pyuria and hematuria. Mcclure catheter was exchanged in ED. Patient was administered IV fluid boluses with improvement of hypotension and started on antibiotics after cultures. According to ED notes patient was given Dilaudid as she was moaning. Currently patient is is drowsy but arousable. She is nonverbal. Pupils normal. Face fairly symmetrical.. Neck supple. No JVD. No apparent respiratory distress but auscultation shows diffuse wheezes with expiratory rhonchi. Regular cardiac rhythm. Abdomen soft and nontender. Bowel sounds present. Indwelling Mcclure shows pinkish urine. On inspection, no vaginal bleeding noted. No edema in the right lower extremity with poor pedal pulses. Skin dry. No decubitus ulcers noted. Assessment: Septic shock, obvious etiology UTI with cannot rule out aspiration pneumonitis. Lactic acid normal. Shock state resolved. Chest x-ray no acute process. Pyuria with some hematuria. Pelvic ultrasound shows bladder mass. Currently pinkish urine. History of urinary retention with chronic indwelling chronic Mcclure catheter. Altered mental status likely from shock as well as sepsis and dementia . Does not verbalize much at baseline. History of CVA, left hemiparesis and dysphagia. Obviously patient taking p.o. meds and eating. Daughter reports significant cognitive decline since 07/2020 admission for UTI. She is concerned about a possible new stroke. Right-sided weakness which is recent according to daughter, will obtain MRI brain when more stable MAILE likely from shock with history of CKD stage II. No metabolic acidosis. Resolved with hydration Chronic hypokalemia and on potassium supplements Acute on chronic anemia, etiology unclear Diabetes mellitus on insulin therapy Plan: Shock state resolved. MAILE resolved. Mental status much improved. Follows commands but poorly verbal likely from dementia. Continue to avoid narcotics. Patient has a low-grade fever, leukocytosis , on cefepime, cultures pending Likely aspirated, scheduled nebs 3 times daily, wheezing improved Discontinue normal saline Started Glucerna tube feeds via NG tube, continue aspiration precautions. Ordered swallowing evaluation. Continue empiric antibiotic therapy pending cultures. Hemoglobin dropped from 7.8-6.8, possibly just dilutional. Hematuria resolved, no vaginal bleeding. Will transfuse PRBC Consider urology consultation for evaluation of possible bladder tumor when more stable Daughter reports significant cognitive decline since 07/2020 admission for UTI. Right-sided weakness is new according to daughter. Will order MRI brain when more stable. CODE STATUS full code Discussed with the daughter extensively. Critical care time spent 35 minutes. History Interval history: Patient has stable vital signs and hypertension resolved. Receiving normal saline 125 mill per hour. Has low-grade fever. On IV antibiotics. Hemoglobin dropped to 6.8 and ordered PRBC transfusion. Hematuria actually resolved. No vaginal bleeding. Mental status improved, she is now awake, responds but minimally verbalizes. She can occasionally give her name. She just mumbles. Not in acute distress. Large urine output and MAILE resolved. On Glucerna tube feeds. Hospitalist Physical - Constitutional Vitals: Temp Pulse Resp BP Pulse Ox 98.1 F 110 H 20 145/85 98 12/04/20 16:00 12/04/20 15:30 12/04/20 15:30 12/04/20 15:30 12/04/20 10:30 General appearance: Present: no acute distress, other (Debilitated, alert but fully verbal) - EENT Eyes: Present: PERRL, EOM intact. Absent: scleral icterus ENT: clear oral mucosa - Neck Neck: Present: supple, other (No JVD) - Respiratory Respiratory effort: normal Respiratory: bilateral: diminished, wheezing (Much improved with nebs) - Cardiovascular Rhythm: regular - Extremities Extremities: No edema Extremity abnormal: other (Left AKA) Peripheral Pulses: abnormal (Diminished in lower extremities) - Abdominal General gastrointestinal: soft, non-tender, non-distended - Integumentary Integumentary: Absent: rash - Psychiatric Psychiatric: other (Calm) - Neurologic Neurologic: other (Patient is alert and follows commands. Minimally verbal. No significant facial symmetry. Left upper extremity stiff/free from previous stroke. Right upper extremity flaccid and does not move much. Right lower extremity does not move much.) Results - Labs CBC & Chem 7: 12/04/20 09:51 12/04/20 09:51 Labs: Laboratory Last Values WBC 15.9 K/mm3 (4.5-11.0) H 12/04/20 09:51 RBC 3.84 M/mm3 (3.65-5.03) 12/04/20 09:51 Hgb 10.5 gm/dl (10.1-14.3) 12/04/20 09:51 Hct 32.3 % (30.3-42.9) 12/04/20 09:51 MCV 84 fl (79-97) 12/04/20 09:51 MCH 27 pg (28-32) L 12/04/20 09:51 MCHC 32 % (30-34) 12/04/20 09:51 RDW 18.4 % (13.2-15.2) H 12/04/20 09:51 Plt Count 342 K/mm3 (140-440) 12/04/20 09:51 Lymph % (Auto) 22.9 % (13.4-35.0) 12/04/20 09:51 [place] % (Auto) 4.8 % (0.0-7.3) 12/04/20 09:51 Eos % (Auto) 1.0 % (0.0-4.3) 12/04/20 09:51 Baso % (Auto) 1.3 % (0.0-1.8) 12/04/20 09:51 Lymph # (Auto) 3.6 K/mm3 (1.2-5.4) 12/04/20 09:51 [place] # (Auto) 0.8 K/mm3 (0.0-0.8) 12/04/20 09:51 Eos # (Auto) 0.2 K/mm3 (0.0-0.4) 12/04/20 09:51 Baso # (Auto) 0.2 K/mm3 (0.0-0.1) H 12/04/20 09:51 Seg Neutrophils % 70.0 % (40.0-70.0) 12/04/20 09:51 Seg Neutrophils # 11.1 K/mm3 (1.8-7.7) H 12/04/20 09:51 PT 15.3 Sec. (12.2-14.9) H 12/02/20 02:53 INR 1.16 (0.87-1.13) H 12/02/20 02:53 APTT 37.7 Sec. (24.2-36.6) H 12/02/20 02:53 Sodium 141 mmol/L (137-145) 12/04/20 09:51 Potassium 4.3 mmol/L (3.6-5.0) D 12/04/20 09:51 Chloride 106.6 mmol/L (98-107) 12/04/20 09:51 Carbon Dioxide 28 mmol/L (22-30) 12/04/20 09:51 Anion Gap 11 mmol/L 12/04/20 09:51 BUN 11 mg/dL (7-17) 12/04/20 09:51 Creatinine 0.8 mg/dL (0.6-1.2) 12/04/20 09:51 Estimated GFR > 60 ml/min 12/04/20 09:51 BUN/Creatinine Ratio 14 % 12/04/20 09:51 Glucose 242 mg/dL (65-100) H 12/04/20 09:51 POC Glucose 282 mg/dL (70-105) H 12/04/20 17:35 Hemoglobin A1c 7.4 % (4-6) H 12/02/20 Unknown Lactic Acid 0.60 mmol/L (0.7-2.0) L 12/02/20 01:30 Calcium 8.7 mg/dL (8.4-10.2) 12/04/20 09:51 Magnesium 1.50 mg/dL (1.7-2.3) L 12/04/20 09:51 Total Bilirubin 0.30 mg/dL (0.1-1.2) 12/04/20 09:51 AST 14 units/L (5-40) 12/04/20 09:51 ALT 6 units/L (7-56) L 12/04/20 09:51 Alkaline Phosphatase 106 units/L (35-129) 12/04/20 09:51 Total Protein 7.8 g/dL (6.3-8.2) 12/04/20 09:51 Albumin 2.8 g/dL (3.9-5) L 12/04/20 09:51 Albumin/Globulin Ratio 0.6 % 12/04/20 09:51 Urine Color Yellow (Yellow) 12/02/20 03:50 Urine Turbidity Turbid (Clear) 12/02/20 03:50 Urine pH 6.0 (5.0-7.0) 12/02/20 03:50 Ur Specific [place] 1.008 (1.003-1.030) 12/02/20 03:50 Urine Protein 100 mg/dl mg/dL (Negative) 12/02/20 03:50 Urine Glucose (UA) Neg mg/dL (Negative) 12/02/20 03:50 Urine Ketones Neg mg/dL (Negative) 12/02/20 03:50 Urine Blood Lg (Negative) 12/02/20 03:50 Urine Nitrite Neg (Negative) 12/02/20 03:50 Urine Bilirubin Neg (Negative) 12/02/20 03:50 Urine Urobilinogen < 2.0 mg/dL (<2.0) 12/02/20 03:50 Ur Leukocyte Esterase Lg (Negative) 12/02/20 03:50 Urine WBC (Auto) > 182.0 /HPF (0.0-6.0) H 12/02/20 03:50 Urine RBC (Auto) > 182.0 /HPF (0.0-6.0) 12/02/20 03:50 U Epithel Cells (Auto) 6.0 /HPF (0-13.0) 12/02/20 03:50 Urine Bacteria (Auto) 1+ /HPF (Negative) 12/02/20 03:50 Urine WBC Clumps 3+ /HPF 12/02/20 03:50 Blood Type O POSITIVE 12/02/20 02:05 Antibody Screen Negative 12/02/20 02:05 Crossmatch See Detail 12/02/20 02:05 Microbiology: Microbiology 12/04/20 Unknown Urine,Catheterized - Indwelling Catheter Urine Culture - Preliminary 12/01/20 22:52 Peripheral/Venous Blood Culture - Preliminary NO GROWTH AFTER 48 HOURS 12/01/20 23:35 Peripheral/Venous Blood Culture - Preliminary NO GROWTH AFTER 48 HOURS Mcclure/IV: Voiding Method Indwelling Catheter Active Medications - Current Medications Current Medications: Generic Name Dose Route Start Last Admin Trade Name Freq PRN Reason Stop Dose Admin Acetaminophen 650 mg 12/02/20 05:24 12/04/20 07:00 Acetaminophen 325 Mg Tab PO 650 mg Q4H PRN Administration Pain MILD(1-3)/Fever >100.5/SMALLS Albuterol 2.5 mg 12/02/20 05:24 12/03/20 15:11 Albuterol 2.5 Mg/3 Ml Nebu IH 2.5 mg Q4HRT PRN Administration Shortness Of Breath Albuterol 2.5 mg 12/03/20 20:00 12/04/20 13:22 Albuterol 2.5 Mg/3 Ml Nebu IH 2.5 mg TIDRT ADOLFO Administration Lipase/Protease/Amylase 1 each 12/03/20 10:22 Lipase 10,500/Protease 25,000/Amylase 43,750 (Units) Dr Blount FEEDTUBE PRN PRN For Clogged Feeding Tube Atorvastatin Calcium 40 mg 12/02/20 10:00 12/04/20 10:38 Atorvastatin 40 Mg Tab PO 40 mg DAILY ADOLFO Administration Citalopram Hydrobromide 20 mg 12/02/20 10:00 12/04/20 10:38 Citalopram 20 Mg Tab PO 20 mg DAILY ADOLFO Administration Dextrose 50 ml 12/02/20 11:18 Dextrose 50% In Water (25gm) 50 Ml Syringe IV Q30MIN PRN Hypoglycemia Protocol Docusate Sodium 100 mg 12/04/20 10:00 12/04/20 10:38 Docusate Sodium 100 Mg/10 Ml Oral Liqd FEEDTUBE 100 mg BID ADOLOF Administration Famotidine 20 mg 12/04/20 10:00 12/04/20 10:38 Famotidine 20 Mg Tab PO 20 mg DAILY ADOLFO Administration Cefepime HCl 2 gm in 100 mls @ 200 mls/hr 12/03/20 12:00 12/04/20 12:12 Cefepime/Ns 2 Gm/100 Ml IV 200 mls/hr Q12H ADOLFO Administration Insulin Human Lispro 0 unit 12/04/20 00:00 12/04/20 12:13 Insulin Lispro 100 Unit/Ml SUB-Q 2 unit Q6HR ADOLFO Administration Protocol Megestrol Acetate 40 mg 12/02/20 10:00 12/04/20 10:38 Megestrol 40 Mg Tab PO 40 mg DAILY ADOLFO Administration Multivitamins 5 ml 12/04/20 10:00 12/04/20 12:17 Multivitamins 5 Ml Oral Liquid PO Not Given QDAY ADOLFO Nystatin 500,000 unit 12/02/20 10:00 12/04/20 14:18 Nystatin 500,000 Unit/5 Ml Oral Liqd PO 500,000 unit QID ADOLFO Administration Ondansetron HCl 4 mg 12/02/20 05:24 Ondansetron 4 Mg/2 Ml Inj IV Q8H PRN Nausea And Vomiting Simple Syrup 15 ml 12/03/20 10:22 Simple Syrup 15 Ml FEEDTUBE PRN PRN Hypoglycemia Simple Syrup 30 ml 12/03/20 10:22 Simple Syrup 15 Ml FEEDTUBE PRN PRN Hypoglycemia Sodium Bicarbonate 325 mg 12/03/20 10:22 Sodium Bicarbonate 325 Mg Tab FEEDTUBE PRN PRN For Clogged Feeding Tube Sodium Chloride 10 ml 12/02/20 10:00 12/04/20 10:39 Sodium Chloride 0.9% 10 Ml Flush Syringe IV 10 ml BID ADOLFO Administration Sodium Chloride 10 ml 12/02/20 05:24 Sodium Chloride 0.9% 10 Ml Flush Syringe IV PRN PRN LINE FLUSH Nutrition/Malnutrition Assess - Dietary Evaluation Nutrition/Malnutrition Findings: Nutrition Notes Start: 12/03/20 11:43 Freq: Status: Active Protocol: Document 12/03/20 11:43 LOVE (Rec: 12/03/20 11:51 [email or web address] [id number]) Nutrition Notes Need for Assessment generated from: MD Order,nursery attendant,MST Initial or Follow up Assessment Current Diagnosis Diabetes,Sepsis,Hypertension, Stroke Other Pertinent Diagnosis Hypotension, UTI, ARF, Vaginal bleeding, Dementia, Dysphagia , (L) AKA Current Diet NPO (MD ordered Glucerna 1.2 a 50ml/hr) Labs/Tests K 3.1 A1C 7.4 Pertinent Medications Colace, MVI, Megace, 10mEq KCl at 100ml/hr x 4 bags, NS+ 40mEq KCl at 100ml/hr Height 5 ft Weight 58.6 kg [place] Body Weight (kg) 45.45 BMI 25.2 Weight change and time frame AdjBW for (L) AKA: 65.2kg Adj BMI for (L) AKA: 28 Weight Status Appropriate Subjective/Other Information RD consulted for TF; pt also screened for malnutrition risk . Burn Absent Trauma Absent Minimum of two criteria No #1 Nutrition Diagnosis Inadequate oral intake Etiology dysphagia, dementia As Evidenced by Signs and Symptoms pt NPO and requires EN support to meet nutrient needs Is patient on ventilator? No Is Patient Ambulatory and/or Out of Bed No [facility] [phone] Calculation Used for Recommendations Eyal Felton Additional Notes Pro needs 1-1.2g/k-70g/ day Fluid needs 1ml/kcal Nutrition Intervention Nutrition Support: Glucerna 1.2 at 45ml/hr with 75ml water flush q4h. Kcal 1,296 Protein (gm) 65 Carbohydrates (gm) 124 Fat (gm) 65 Fluid (mL) 869 Fiber (gm) 17 Goal #1 TF tolerance Goal #2 TF to meet at least 75% energy and pro needs Anticipated Discharge Needs: Continue EN support to meet nutrient needs Follow-Up By: 12/05/20 Additional Comments F/U: new TF
[2020-12-05] MEDS: INSULIN LISPRO 100 UNIT/ML SUB-Q SCH ×4 (01:49→17:31)
[2020-12-05] MEDS ORDERED: MAGNESIUM SULFATE 2 GM/50 ML BAG IV ONE (04:23)
[2020-12-05 05:57] LABS: Basophils # (Auto) 0.1 K/mm3 (0.0-0.1); Basophils % (Auto) 0.6 % (0.0-1.8); Eosinophils # (Auto) 0.1 K/mm3 (0.0-0.4); Eosinophils % (Auto) 0.6 % (0.0-4.3); Hematocrit 33.2 % (30.3-42.9); Hemoglobin 11.1 gm/dl (10.1-14.3); Lymphocytes # (Auto) 2.1 K/mm3 (1.2-5.4); Lymphocytes % (Auto) 17.5 % (13.4-35.0); Mean Corpuscular HGB Conc 33 % (30-34); Mean Corpuscular Volume 85 fl (79-97); Monocytes # (Auto) 0.7 K/mm3 (0.0-0.8); Monocytes % (Auto) 5.4 % (0.0-7.3); Platelet Count 315 K/mm3 (140-440); Red Cell Distribution Width 17.9 % (13.2-15.2)
[2020-12-05 06:13] LABS: Alanine Aminotransferase 7 units/L (7-56); Albumin 2.8 g/dL (3.9-5); BUN/Creatinine Ratio 18; Blood Urea Nitrogen 16 mg/dL (7-17); Calcium 9.1 mg/dL (8.4-10.2); Hemolysis Index 11
[2020-12-05] MEDS: ACETAMINOPHEN 325 MG TAB PO PRN ×3 (06:21→18:34)
--- NOTE | 2020-12-05 10:12 | Progress Note ---
Assessment and Plan Assessment and plan: 64-year-old female with PMH of dementia, CVA, left hemiplegia, DM, left AKA, dysphagia, hypokalemia, anemia, CKD 2, urine retention needing chronic indwelling Mcclure catheter was brought to ED for evaluation of AMS and possible vaginal bleeding. Patient was noted to be in septic shock with BP 80/60 and pyuria and hematuria. Mcclure catheter was exchanged in ED. Patient was administered IV fluid boluses with improvement of hypotension and started on antibiotics after cultures. Sepsis. Patient previously with septic shock. UTI. Toxic metabolic encephalopathy. History of CVA, left hemiparesis, aphasic and dysphagia. (2008,2015) Left AKA 2016 New right-sided weakness. Acute kidney injury on CKD stage II. Resolved. Hypokalemia Diabetes mellitus type 2. Anemia 12/03/2020. Patient has now stable vital signs and hypertension resolved. Receiving normal saline 125 mill per hour. She spiked a fever of 100.6 today. Hemoglobin dropped to 6.8 and ordered PRBC transfusion. Hematuria actually resolved. No vaginal bleeding. Mental status improved, she is now awake awake but minimally verbalizes. She can occasionally give her name. She just mumbles. Not in acute distress. Large urine output and MAILE resolved. 12/04/2020. Shock state resolved. MAILE resolved. Mental status much improved. Follows commands but poorly verbal likely from dementia. Continue to avoid narcotics. Patient has a low-grade fever, leukocytosis , on cefepime, cultures pending. Discontinue normal saline. Started Glucerna tube feeds via NG tube, continue aspiration precautions. Ordered swallowing evaluation. Hemoglobin dropped from 7.8-6.8, possibly just dilutional. Hematuria resolved, no vaginal bleeding. Will transfuse PRBC. Consider urology consultation for evaluation of possible bladder tumor when more stable. Daughter reports significant cognitive decline since 07/2020 admission for UTI. Right-sided weakness is new according to daughter. Will order MRI brain when more stable. 12/05/2020. Patient is nonverbal and ocasional tracking with eyes on my exam this morning. Baseline mental status per daughter can follow commands and able to communicate but with sloww speech. Also, reports ability to feed herself. MRI brain ordered to rule out new CVA. Continue IV antibiotics for UTI. Await speech therapy evaluation for dysphagia. Continue NG tube for tube feedings. I d/w daughter POC [phone]. History Interval history: No new issues overnight. Hospitalist Physical - Constitutional Vitals: Temp Pulse Resp BP Pulse Ox 100.3 F H 115 H 19 165/102 97 12/05/20 08:06 12/05/20 08:06 12/05/20 08:06 12/05/20 08:06 12/05/20 08:06 General appearance: Present: no acute distress, other (Debilitated, alert but fully verbal) - EENT Eyes: Present: PERRL, EOM intact ENT: hearing intact, clear oral mucosa, dentition normal - Neck Neck: Present: supple, normal ROM - Respiratory Respiratory effort: normal Respiratory: bilateral: CTA - Cardiovascular Rhythm: regular Heart Sounds: Present: S1 & S2. Absent: gallop, rub - Extremities Extremities: no ischemia, No edema, Full ROM - Abdominal General gastrointestinal: soft, non-tender, non-distended, normal bowel sounds - Integumentary Integumentary: Present: clear, warm, dry - Neurologic Neurologic: CNII-XII intact, moves all extremities Results - Labs CBC & Chem 7: 12/05/20 05:04 12/05/20 05:04 Labs: Laboratory Last Values WBC 12.2 K/mm3 (4.5-11.0) H 12/05/20 05:04 RBC 3.90 M/mm3 (3.65-5.03) 12/05/20 05:04 Hgb 11.1 gm/dl (10.1-14.3) 12/05/20 05:04 Hct 33.2 % (30.3-42.9) 12/05/20 05:04 MCV 85 fl (79-97) 12/05/20 05:04 MCH 28 pg (28-32) 12/05/20 05:04 MCHC 33 % (30-34) 12/05/20 05:04 RDW 17.9 % (13.2-15.2) H 12/05/20 05:04 Plt Count 315 K/mm3 (140-440) 12/05/20 05:04 Lymph % (Auto) 17.5 % (13.4-35.0) 12/05/20 05:04 [place] % (Auto) 5.4 % (0.0-7.3) 12/05/20 05:04 Eos % (Auto) 0.6 % (0.0-4.3) 12/05/20 05:04 Baso % (Auto) 0.6 % (0.0-1.8) 12/05/20 05:04 Lymph # (Auto) 2.1 K/mm3 (1.2-5.4) 12/05/20 05:04 [place] # (Auto) 0.7 K/mm3 (0.0-0.8) 12/05/20 05:04 Eos # (Auto) 0.1 K/mm3 (0.0-0.4) 12/05/20 05:04 Baso # (Auto) 0.1 K/mm3 (0.0-0.1) 12/05/20 05:04 Seg Neutrophils % 75.9 % (40.0-70.0) H 12/05/20 05:04 Seg Neutrophils # 9.3 K/mm3 (1.8-7.7) H 12/05/20 05:04 PT 15.3 Sec. (12.2-14.9) H 12/02/20 02:53 INR 1.16 (0.87-1.13) H 12/02/20 02:53 APTT 37.7 Sec. (24.2-36.6) H 12/02/20 02:53 Sodium 141 mmol/L (137-145) 12/05/20 05:04 Potassium 4.2 mmol/L (3.6-5.0) 12/05/20 05:04 Chloride 103.7 mmol/L (98-107) 12/05/20 05:04 Carbon Dioxide 27 mmol/L (22-30) 12/05/20 05:04 Anion Gap 15 mmol/L 12/05/20 05:04 BUN 16 mg/dL (7-17) 12/05/20 05:04 Creatinine 0.9 mg/dL (0.6-1.2) 12/05/20 05:04 Estimated GFR > 60 ml/min 12/05/20 05:04 BUN/Creatinine Ratio 18 % 12/05/20 05:04 Glucose 339 mg/dL (65-100) H 12/05/20 05:04 POC Glucose 309 mg/dL (70-105) H 12/05/20 05:10 Hemoglobin A1c 7.4 % (4-6) H 12/02/20 Unknown Lactic Acid 0.60 mmol/L (0.7-2.0) L 12/02/20 01:30 Calcium 9.1 mg/dL (8.4-10.2) 12/05/20 05:04 Magnesium 1.50 mg/dL (1.7-2.3) L 12/04/20 09:51 Total Bilirubin 0.20 mg/dL (0.1-1.2) 12/05/20 05:04 AST 15 units/L (5-40) 12/05/20 05:04 ALT 7 units/L (7-56) 12/05/20 05:04 Alkaline Phosphatase 112 units/L (35-129) 12/05/20 05:04 Total Protein 8.4 g/dL (6.3-8.2) H 12/05/20 05:04 Albumin 2.8 g/dL (3.9-5) L 12/05/20 05:04 Albumin/Globulin Ratio 0.5 % 12/05/20 05:04 Urine Color Yellow (Yellow) 12/02/20 03:50 Urine Turbidity Turbid (Clear) 12/02/20 03:50 Urine pH 6.0 (5.0-7.0) 12/02/20 03:50 Ur Specific [place] 1.008 (1.003-1.030) 12/02/20 03:50 Urine Protein 100 mg/dl mg/dL (Negative) 12/02/20 03:50 Urine Glucose (UA) Neg mg/dL (Negative) 12/02/20 03:50 Urine Ketones Neg mg/dL (Negative) 12/02/20 03:50 Urine Blood Lg (Negative) 12/02/20 03:50 Urine Nitrite Neg (Negative) 12/02/20 03:50 Urine Bilirubin Neg (Negative) 12/02/20 03:50 Urine Urobilinogen < 2.0 mg/dL (<2.0) 12/02/20 03:50 Ur Leukocyte Esterase Lg (Negative) 12/02/20 03:50 Urine WBC (Auto) > 182.0 /HPF (0.0-6.0) H 12/02/20 03:50 Urine RBC (Auto) > 182.0 /HPF (0.0-6.0) 12/02/20 03:50 U Epithel Cells (Auto) 6.0 /HPF (0-13.0) 12/02/20 03:50 Urine Bacteria (Auto) 1+ /HPF (Negative) 12/02/20 03:50 Urine WBC Clumps 3+ /HPF 12/02/20 03:50 Blood Type O POSITIVE 12/02/20 02:05 Antibody Screen Negative 12/02/20 02:05 Crossmatch See Detail 12/02/20 02:05 Microbiology: Microbiology 12/04/20 Unknown Urine,Catheterized - Indwelling Catheter Urine Culture - Preliminary 12/01/20 22:52 Peripheral/Venous Blood Culture - Preliminary NO GROWTH AFTER 72 HOURS 12/01/20 23:35 Peripheral/Venous Blood Culture - Preliminary NO GROWTH AFTER 72 HOURS Mcclure/IV: Voiding Method Indwelling Catheter Active Medications - Current Medications Current Medications: Generic Name Dose Route Start Last Admin Trade Name Freq PRN Reason Stop Dose Admin Acetaminophen 650 mg 12/02/20 05:24 12/05/20 06:21 Acetaminophen 325 Mg Tab PO 650 mg Q4H PRN Administration Pain MILD(1-3)/Fever >100.5/SMALLS Albuterol 2.5 mg 12/02/20 05:24 12/03/20 15:11 Albuterol 2.5 Mg/3 Ml Nebu IH 2.5 mg Q4HRT PRN Administration Shortness Of Breath Albuterol 2.5 mg 12/03/20 20:00 12/04/20 21:10 Albuterol 2.5 Mg/3 Ml Nebu IH 2.5 mg TIDRT ADOLFO Administration Lipase/Protease/Amylase 1 each 12/03/20 10:22 Lipase 10,500/Protease 25,000/Amylase 43,750 (Units) Dr Blount FEEDTUBE PRN PRN For Clogged Feeding Tube Atorvastatin Calcium 40 mg 12/02/20 10:00 12/04/20 10:38 Atorvastatin 40 Mg Tab PO 40 mg DAILY ADOLFO Administration Citalopram Hydrobromide 20 mg 12/02/20 10:00 12/04/20 10:38 Citalopram 20 Mg Tab PO 20 mg DAILY ADOLFO Administration Dextrose 50 ml 12/02/20 11:18 Dextrose 50% In Water (25gm) 50 Ml Syringe IV Q30MIN PRN Hypoglycemia Protocol Docusate Sodium 100 mg 12/04/20 10:00 12/04/20 23:27 Docusate Sodium 100 Mg/10 Ml Oral Liqd FEEDTUBE 100 mg BID ADOLFO Administration Famotidine 20 mg 12/04/20 10:00 12/04/20 10:38 Famotidine 20 Mg Tab PO 20 mg DAILY ADOLFO Administration Cefepime HCl 2 gm in 100 mls @ 200 mls/hr 12/03/20 12:00 12/04/20 23:29 Cefepime/Ns 2 Gm/100 Ml IV 200 mls/hr Q12H ADOLFO Administration Insulin Glargine 10 units 12/05/20 08:00 Insulin Glargine 100 Units/Ml SUB-Q QAMDIAB ADOFLO Insulin Human Lispro 0 unit 12/04/20 00:00 12/05/20 06:20 Insulin Lispro 100 Unit/Ml SUB-Q 4 unit Q6HR ADOLFO Administration Protocol Multivitamins 5 ml 12/04/20 10:00 12/04/20 12:17 Multivitamins 5 Ml Oral Liquid PO Not Given QDAY [facility] Nystatin 500,000 unit 12/02/20 10:00 12/04/20 23:27 Nystatin 500,000 Unit/5 Ml Oral Liqd PO 500,000 unit QID ADOLFO Administration Ondansetron HCl 4 mg 12/02/20 05:24 Ondansetron 4 Mg/2 Ml Inj IV Q8H PRN Nausea And Vomiting Simple Syrup 15 ml 12/03/20 10:22 Simple Syrup 15 Ml FEEDTUBE PRN PRN Hypoglycemia Simple Syrup 30 ml 12/03/20 10:22 Simple Syrup 15 Ml FEEDTUBE PRN PRN Hypoglycemia Sodium Bicarbonate 325 mg 12/03/20 10:22 Sodium Bicarbonate 325 Mg Tab FEEDTUBE PRN PRN For Clogged Feeding Tube Sodium Chloride 10 ml 12/02/20 10:00 12/04/20 23:46 Sodium Chloride 0.9% 10 Ml Flush Syringe IV 10 ml BID ADOLFO Administration Sodium Chloride 10 ml 12/02/20 05:24 Sodium Chloride 0.9% 10 Ml Flush Syringe IV PRN PRN LINE FLUSH Nutrition/Malnutrition Assess - Dietary Evaluation Nutrition/Malnutrition Findings: Nutrition Notes Start: 12/03/20 11:43 Freq: Status: Active Protocol: Document 12/03/20 11:43 NHALL (Rec: 12/03/20 11:51 LOVE [id number]) Nutrition Notes Need for Assessment generated from: MD Order,trail construction worker,MST Initial or Follow up Assessment Current Diagnosis Diabetes,Sepsis,Hypertension, Stroke Other Pertinent Diagnosis Hypotension, UTI, ARF, Vaginal bleeding, Dementia, Dysphagia , (L) AKA Current Diet NPO (MD ordered Glucerna 1.2 a 50ml/hr) Labs/Tests K 3.1 A1C 7.4 Pertinent Medications Colace, MVI, Megace, 10mEq KCl at 100ml/hr x 4 bags, NS+ 40mEq KCl at 100ml/hr Height 5 ft Weight 58.6 kg [place] Body Weight (kg) 45.45 BMI 25.2 Weight change and time frame AdjBW for (L) AKA: 65.2kg Adj BMI for (L) AKA: 28 Weight Status Appropriate Subjective/Other Information RD consulted for TF; pt also screened for malnutrition risk . Burn Absent Trauma Absent Minimum of two criteria No #1 Nutrition Diagnosis Inadequate oral intake Etiology dysphagia, dementia As Evidenced by Signs and Symptoms pt NPO and requires EN support to meet nutrient needs Is patient on ventilator? No Is Patient Ambulatory and/or Out of Bed No REE-([place]-confined to bed) [phone] Calculation Used for Recommendations [facility] Additional Notes Pro needs 1-1.2g/k-70g/ day Fluid needs 1ml/kcal Nutrition Intervention Nutrition Support: Glucerna 1.2 at 45ml/hr with 75ml water flush q4h. Kcal 1,296 Protein (gm) 65 Carbohydrates (gm) 124 Fat (gm) 65 Fluid (mL) 869 Fiber (gm) 17 Goal #1 TF tolerance Goal #2 TF to meet at least 75% energy and pro needs Anticipated Discharge Needs: Continue EN support to meet nutrient needs Follow-Up By: 12/05/20 Additional Comments F/U: new TF
--- NOTE | 2020-12-05 11:04 | Magnetic Resonance Report ---
MRI BRAIN 12/05/2020 INDICATION / CLINICAL INFORMATION: Recent right-sided weakness, rule out new CVA. TECHNIQUE: Multiplanar, multisequence MR images of the brain were obtained. COMPARISON: None available. FINDINGS: BRAIN / INTRACRANIAL CONTENTS: Unenhanced MR images of the brain were obtained. There are extensive chronic changes. There is prominent encephalomalacia of the central silvia, consistent with prominent chronic brainstem ischemic injury. Prominent diffuse cerebral atrophy is present. There is also prominent diffuse cerebellar atrophy. There is moderate chronic T2 weighted signal change in the periventricular and deep white matter of c erebral hemispheres, most prominently in the left frontal and right parietal lobes. There is also T2- weighted signal change in the left splenium of the corpus callosum. This is associated with some T2 s maggi through on the diffusion-weighted images, without evidence of true restricted diffusion. On the diffusion-weighted images, there is a small focus of increased signal in the left silvia. This m ay be associated with some ADC signal change, although because this area is impacted by the prominent encephalomalacia described above, is somewhat difficult to confirm that this is true restricted diff usion. This may also be T2 shine through from subacute or chronic ischemic change. On the gradient echo images, some punctate hyperintensities are present, consistent with scattered mi crohemorrhages. There is no evidence of acute hemorrhage. There are no abnormal extra-axial fluid collections. EXTRACRANIAL: Unremarkable CRANIOCERVICAL JUNCTION: No significant abnormality. VASCULAR FLOW-VOIDS: No significant abnormality. IMPRESSION: Extensive chronic changes as detailed above. Signer Name: Evans Escalante MD Signed: 12/05/2020 10:59 AM Workstation Name: [id number]
[2020-12-05] MEDS: ALBUTEROL 2.5 MG/3 ML NEBU IH SCH ×3 (11:17→20:31)
[2020-12-05] MEDS ORDERED: ACETAMINOPHEN 650 MG RECT SUPP PR NR (12:24)
--- NOTE | 2020-12-05 12:28 | XRay Report ---
CHEST 1 VIEW INDICATION: verify tube placement. COMPARISON: 12/01/2020 FINDINGS: Support devices: None. Heart: Within normal limits. Lungs/Pleura: No acute air space or interstitial disease. Additional findings: None. IMPRESSION: No acute findings. ABDOMEN 1 VIEW(S) INDICATION / CLINICAL INFORMATION: verify tube placement. COMPARISON: 12/03/2020 FINDINGS: TUBES / LINES: Nasogastric tube terminates in the distal stomach. BOWEL GAS PATTERN: No significant abnormality. FREE AIR / EXTRALUMINAL GAS: None seen. ADDITIONAL FINDINGS: No significant additional findings. IMPRESSION: No significant abnormality. Nasogastric tube is in good position. Signer Name: David Arita Jr, MD Signed: 12/05/2020 12:23 PM Workstation Name: [id number]
[2020-12-05] MEDS: CITALOPRAM 20 MG TAB PO SCH (12:56)
[2020-12-05] MEDS: DOCUSATE SODIUM 100 MG/10 ML ORAL LIQD FEEDTUBE SCH ×2 (12:56→22:37)
[2020-12-05] MEDS: NYSTATIN 500,000 UNIT/5 ML ORAL LIQD PO SCH ×4 (12:56→22:37)
[2020-12-05] MEDS: FAMOTIDINE 20 MG TAB PO SCH (12:56)
[2020-12-05] MEDS: INSULIN GLARGINE 100 UNITS/ML SUB-Q SCH (13:30)
[2020-12-05] MEDS: CEFEPIME/NS 2 GM/100 ML 2 GM/100 ML BAG IV SCH (13:42)
[2020-12-05] MEDS: MULTIVITAMINS 5 ML ORAL LIQUID PO SCH (16:30)
[2020-12-05] MEDS: MULTIVITAMIN / MINERAL ORAL LIQUID 15 ML PO SCH (17:28)
[2020-12-06] MEDS: INSULIN LISPRO 100 UNIT/ML SUB-Q SCH ×5 (00:40→20:50)
[2020-12-06] MEDS: CEFEPIME/NS 2 GM/100 ML 2 GM/100 ML BAG IV SCH ×2 (00:43→13:12)
[2020-12-06] MEDS: ACETAMINOPHEN 325 MG TAB PO PRN ×3 (05:37→20:43)
--- NOTE | 2020-12-06 08:09 | Progress Note ---
Assessment and Plan Assessment and plan: 64-year-old female with PMH of dementia, CVA, left hemiplegia, DM, left AKA, dysphagia, hypokalemia, anemia, CKD 2, urine retention needing chronic indwelling Mcclure catheter was brought to ED for evaluation of AMS and possible vaginal bleeding. Patient was noted to be in septic shock with BP 80/60 and pyuria and hematuria. Mcclure catheter was exchanged in ED. Patient was administered IV fluid boluses with improvement of hypotension and started on antibiotics after cultures. Sepsis. Patient previously with septic shock. UTI. Toxic metabolic encephalopathy. History of CVA, left hemiparesis, aphasic and dysphagia. (2008,2015) Left AKA 2016 New right-sided weakness. Acute kidney injury on CKD stage II. Resolved. Hypokalemia Diabetes mellitus type 2. Anemia 12/03/2020. Patient has now stable vital signs and hypertension resolved. Receiving normal saline 125 mill per hour. She spiked a fever of 100.6 today. Hemoglobin dropped to 6.8 and ordered PRBC transfusion. Hematuria actually resolved. No vaginal bleeding. Mental status improved, she is now awake awake but minimally verbalizes. She can occasionally give her name. She just mumbles. Not in acute distress. Large urine output and MAILE resolved. 12/04/2020. Shock state resolved. MAILE resolved. Mental status much improved. Follows commands but poorly verbal likely from dementia. Continue to avoid narcotics. Patient has a low-grade fever, leukocytosis , on cefepime, cultures pending. Discontinue normal saline. Started Glucerna tube feeds via NG tube, continue aspiration precautions. Ordered swallowing evaluation. Hemoglobin dropped from 7.8-6.8, possibly just dilutional. Hematuria resolved, no vaginal bleeding. Will transfuse PRBC. Consider urology consultation for evaluation of possible bladder tumor when more stable. Daughter reports significant cognitive decline since 07/2020 admission for UTI. Right-sided weakness is new according to daughter. Will order MRI brain when more stable. 12/05/2020. Patient is nonverbal and occasional tracking with eyes on my exam this morning. Baseline mental status per daughter can follow commands and able to communicate but with slow speech. Also, reports ability to feed herself. MRI brain ordered to rule out new CVA. Continue IV antibiotics for UTI. Await speech therapy evaluation for dysphagia. Continue NG tube for tube feedings. I d/w daughter POC [phone]. 12/06/2020. Brain MRI shows no acute findings only extensive chronic changes. Neurology consultation. Altered mentation may be secondary to toxic metabolic encephalopathy from sepsis/UTI. Continue IV antibiotics. Consider ID consultation. Acute kidney injury resolved. Still awaiting speech therapy evaluation History Interval history: No new issues overnight. Hospitalist Physical - Constitutional Vitals: Temp Pulse Resp BP Pulse Ox 99.9 F H 114 H 18 158/103 96 12/06/20 05:12 12/06/20 05:12 12/06/20 05:37 12/06/20 05:12 12/06/20 05:12 General appearance: Present: no acute distress, other (Debilitated, alert but fully verbal) - EENT Eyes: Present: PERRL, EOM intact ENT: hearing intact, clear oral mucosa, dentition normal - Neck Neck: Present: supple, normal ROM - Respiratory Respiratory effort: normal Respiratory: bilateral: CTA - Cardiovascular Rhythm: regular Heart Sounds: Present: S1 & S2. Absent: gallop, rub - Extremities Extremities: no ischemia, No edema, Full ROM - Abdominal General gastrointestinal: soft, non-tender, non-distended, normal bowel sounds - Integumentary Integumentary: Present: clear, warm, dry - Neurologic Neurologic: CNII-XII intact, moves all extremities Results - Labs CBC & Chem 7: 12/05/20 05:04 12/05/20 05:04 Labs: Laboratory Last Values WBC 12.2 K/mm3 (4.5-11.0) H 12/05/20 05:04 RBC 3.90 M/mm3 (3.65-5.03) 12/05/20 05:04 Hgb 11.1 gm/dl (10.1-14.3) 12/05/20 05:04 Hct 33.2 % (30.3-42.9) 12/05/20 05:04 MCV 85 fl (79-97) 12/05/20 05:04 MCH 28 pg (28-32) 12/05/20 05:04 MCHC 33 % (30-34) 12/05/20 05:04 RDW 17.9 % (13.2-15.2) H 12/05/20 05:04 Plt Count 315 K/mm3 (140-440) 12/05/20 05:04 Lymph % (Auto) 17.5 % (13.4-35.0) 12/05/20 05:04 [place] % (Auto) 5.4 % (0.0-7.3) 12/05/20 05:04 Eos % (Auto) 0.6 % (0.0-4.3) 12/05/20 05:04 Baso % (Auto) 0.6 % (0.0-1.8) 12/05/20 05:04 Lymph # (Auto) 2.1 K/mm3 (1.2-5.4) 12/05/20 05:04 [place] # (Auto) 0.7 K/mm3 (0.0-0.8) 12/05/20 05:04 Eos # (Auto) 0.1 K/mm3 (0.0-0.4) 12/05/20 05:04 Baso # (Auto) 0.1 K/mm3 (0.0-0.1) 12/05/20 05:04 Seg Neutrophils % 75.9 % (40.0-70.0) H 12/05/20 05:04 Seg Neutrophils # 9.3 K/mm3 (1.8-7.7) H 12/05/20 05:04 PT 15.3 Sec. (12.2-14.9) H 12/02/20 02:53 INR 1.16 (0.87-1.13) H 12/02/20 02:53 APTT 37.7 Sec. (24.2-36.6) H 12/02/20 02:53 Sodium 141 mmol/L (137-145) 12/05/20 05:04 Potassium 4.2 mmol/L (3.6-5.0) 12/05/20 05:04 Chloride 103.7 mmol/L (98-107) 12/05/20 05:04 Carbon Dioxide 27 mmol/L (22-30) 12/05/20 05:04 Anion Gap 15 mmol/L 12/05/20 05:04 BUN 16 mg/dL (7-17) 12/05/20 05:04 Creatinine 0.9 mg/dL (0.6-1.2) 12/05/20 05:04 Estimated GFR > 60 ml/min 12/05/20 05:04 BUN/Creatinine Ratio 18 % 07/20/21 05:04 Glucose 339 mg/dL (65-100) H 12/05/20 05:04 POC Glucose 340 mg/dL (70-105) H 12/06/20 06:29 Hemoglobin A1c 7.4 % (4-6) H 12/02/20 Unknown Lactic Acid 0.60 mmol/L (0.7-2.0) L 12/02/20 01:30 Calcium 9.1 mg/dL (8.4-10.2) 12/05/20 05:04 Magnesium 1.50 mg/dL (1.7-2.3) L 12/04/20 09:51 Total Bilirubin 0.20 mg/dL (0.1-1.2) 12/05/20 05:04 AST 15 units/L (5-40) 12/05/20 05:04 ALT 7 units/L (7-56) 12/05/20 05:04 Alkaline Phosphatase 112 units/L (35-129) 12/05/20 05:04 Total Protein 8.4 g/dL (6.3-8.2) H 12/05/20 05:04 Albumin 2.8 g/dL (3.9-5) L 12/05/20 05:04 Albumin/Globulin Ratio 0.5 % 12/05/20 05:04 Urine Color Yellow (Yellow) 12/02/20 03:50 Urine Turbidity Turbid (Clear) 12/02/20 03:50 Urine pH 6.0 (5.0-7.0) 12/02/20 03:50 Ur Specific [place] 1.008 (1.003-1.030) 12/02/20 03:50 Urine Protein 100 mg/dl mg/dL (Negative) 12/02/20 03:50 Urine Glucose (UA) Neg mg/dL (Negative) 12/02/20 03:50 Urine Ketones Neg mg/dL (Negative) 12/02/20 03:50 Urine Blood Lg (Negative) 12/02/20 03:50 Urine Nitrite Neg (Negative) 12/02/20 03:50 Urine Bilirubin Neg (Negative) 12/02/20 03:50 Urine Urobilinogen < 2.0 mg/dL (<2.0) 12/02/20 03:50 Ur Leukocyte Esterase Lg (Negative) 12/02/20 03:50 Urine WBC (Auto) > 182.0 /HPF (0.0-6.0) H 12/02/20 03:50 Urine RBC (Auto) > 182.0 /HPF (0.0-6.0) 12/02/20 03:50 U Epithel Cells (Auto) 6.0 /HPF (0-13.0) 12/02/20 03:50 Urine Bacteria (Auto) 1+ /HPF (Negative) 12/02/20 03:50 Urine WBC Clumps 3+ /HPF 12/02/20 03:50 Coronavirus (PCR) Negative (Negative) 12/05/20 Unknown Blood Type O POSITIVE 12/02/20 02:05 Antibody Screen Negative 12/02/20 02:05 Crossmatch See Detail 12/02/20 02:05 Microbiology: Microbiology 12/01/20 23:35 Peripheral/Venous Blood Culture - Preliminary NO GROWTH AFTER 4 DAYS 12/01/20 22:52 Peripheral/Venous Blood Culture - Preliminary NO GROWTH AFTER 4 DAYS 12/04/20 Unknown Urine,Catheterized - Indwelling Catheter Urine Culture - Final Mcclure/IV: Voiding Method Indwelling Catheter Active Medications - Current Medications Current Medications: Generic Name Dose Route Start Last Admin Trade Name Freq PRN Reason Stop Dose Admin Acetaminophen 650 mg 12/02/20 05:24 12/06/20 05:37 Acetaminophen 325 Mg Tab PO 650 mg Q4H PRN Administration Pain MILD(1-3)/Fever >100.5/SMALLS Albuterol 2.5 mg 12/02/20 05:24 12/03/20 15:11 Albuterol 2.5 Mg/3 Ml Nebu IH 2.5 mg Q4HRT PRN Administration Shortness Of Breath Lipase/Protease/Amylase 1 each 12/03/20 10:22 Lipase 10,500/Protease 25,000/Amylase 43,750 (Units) Dr Blount FEEDTUBE PRN PRN For Clogged Feeding Tube Atorvastatin Calcium 40 mg 12/02/20 10:00 12/05/20 16:36 Atorvastatin 40 Mg Tab PO 40 mg DAILY ADOLFO Administration Citalopram Hydrobromide 20 mg 12/02/20 10:00 12/05/20 12:56 Citalopram 20 Mg Tab PO Not Given DAILY ADOLFO Dextrose 50 ml 12/02/20 11:18 Dextrose 50% In Water (25gm) 50 Ml Syringe IV Q30MIN PRN Hypoglycemia Protocol Docusate Sodium 100 mg 12/04/20 10:00 12/05/20 22:37 Docusate Sodium 100 Mg/10 Ml Oral Liqd FEEDTUBE 100 mg BID ADOLFO Administration Famotidine 20 mg 12/04/20 10:00 12/05/20 12:56 Famotidine 20 Mg Tab PO 20 mg DAILY ADOLFO Administration Cefepime HCl 2 gm in 100 mls @ 200 mls/hr 12/03/20 12:00 12/06/20 00:43 Cefepime/Ns 2 Gm/100 Ml IV 12/08/20 00:29 200 mls/hr Q12H ADOLFO Administration Insulin Glargine 10 units 12/05/20 08:00 12/05/20 13:30 Insulin Glargine 100 Units/Ml SUB-Q 10 units QAMDIAB ADOLFO Administration Insulin Human Lispro 0 unit 12/04/20 00:00 12/06/20 06:31 Insulin Lispro 100 Unit/Ml SUB-Q 4 unit Q6HR ADOLFO Administration Protocol Nystatin 500,000 unit 12/02/20 10:00 12/05/20 22:37 Nystatin 500,000 Unit/5 Ml Oral Liqd PO 500,000 unit QID ADOLFO Administration Ondansetron HCl 4 mg 12/02/20 05:24 12/05/20 22:37 Ondansetron 4 Mg/2 Ml Inj IV 4 mg Q8H PRN Administration Nausea And Vomiting Simple Syrup 15 ml 12/03/20 10:22 Simple Syrup 15 Ml FEEDTUBE PRN PRN Hypoglycemia Simple Syrup 30 ml 12/03/20 10:22 Simple Syrup 15 Ml FEEDTUBE PRN PRN Hypoglycemia Sodium Bicarbonate 325 mg 12/03/20 10:22 Sodium Bicarbonate 325 Mg Tab FEEDTUBE PRN PRN For Clogged Feeding Tube Sodium Chloride 10 ml 12/02/20 10:00 12/05/20 22:39 Sodium Chloride 0.9% 10 Ml Flush Syringe IV 10 ml BID ADOLFO Administration Sodium Chloride 10 ml 12/02/20 05:24 Sodium Chloride 0.9% 10 Ml Flush Syringe IV PRN PRN LINE FLUSH Nutrition/Malnutrition Assess - Dietary Evaluation Nutrition/Malnutrition Findings: Nutrition Notes Start: 12/03/20 11:43 Freq: Status: Active Protocol: Document 12/05/20 10:18 LOVE (Rec: 12/05/20 10:20 LOVE [id number]) Nutrition Notes Initial or Follow up Brief Note Current Diet TF - Glucerna 1.2 at 45ml/hr Labs/Tests BG 339 Pertinent Medications Lantus (10 units) Subjective/Other Information Per RN, pt tolerating TF at goal rate. Per [employer] eval yesterday, pt at risk for aspiration and should remain on EN support. Nutrition Intervention Follow-Up By: 12/12/20 Additional Comments F/U: stable TF, wt
--- NOTE | 2020-12-06 08:55 | Consultation ---
History of Present Illness Consult date: 12/06/20 Reason for Consult: AMS Chief complaint: AMS History of present illness: 65 yo female with pontine cva, dm, dementia, dysphagia, left hemiplegia, left aka, ckdx, anemia, urinary retention w/ indwelling kerr presented to the ED with encephalopathy w/ possible vaginal bleeding but noted with septic shock with a BP of 80/60 w/ noted pyruia/hematuria. During the hospital course, noted with continued mental regression from her baseline. Past History Past Medical History: diabetes, GERD, hypertension, stroke, other (Depression, dementia GERD and supple of) Medications and Allergies Allergies Allergy/AdvReac Type Severity Reaction Status Date / Time No Known Allergies Allergy Verified 12/02/20 16:58 Home Medications Medication Instructions Recorded Confirmed Last Taken Type Oxybutynin [Ditropan] 5 mg PO BID #60 tablet 09/28/19 12/02/20 Unknown Rx levoFLOXacin [Levaquin TAB] 500 mg PO QDAY #5 tablet 09/28/19 12/02/20 Unknown Rx Acetaminophen [Aphen] 325 mg PO Q4H PRN 07/21/20 12/02/20 Unknown History Aspirin [Adult Aspirin] 81 mg PO DAILY 07/21/20 12/02/20 Unknown History AtorvaSTATin [Lipitor] 40 mg PO DAILY 07/21/20 12/02/20 Unknown History Citalopram [Celexa] 20 mg PO DAILY 07/21/20 12/02/20 Unknown History Docusate Sodium [Colace CAP] 100 mg PO BID 07/21/20 12/02/20 Unknown History Insulin Aspart (Nf) [NovoLOG 100 0 unit SQ AC 07/21/20 12/02/20 Unknown History UNITS/ML VIAL] Insulin Glargine [Lantus VIAL] 20 units SQ BID 07/21/20 12/02/20 Unknown History Insulin Lispro [Admelog] 5 unit SQ ACHS 07/21/20 12/02/20 Unknown History Multivitamin [One-Daily 1 tab PO DAILY 07/21/20 12/02/20 Unknown History Multi-Vitamin] Norvasc 10 mg PO DAILY 07/21/20 12/02/20 Unknown History Nystatin [Nystatin SUSP] 100,000 ml PO QID 07/21/20 12/02/20 Unknown History Ondansetron HCl [Zofran] 4 mg PO Q8H 07/21/20 12/02/20 Unknown History Oxybutynin [Ditropan] 5 mg PO DAILY 07/21/20 12/02/20 Unknown History Pantoprazole [Protonix TAB] 40 mg PO QDAY 07/21/20 12/02/20 Unknown History Potassium 10 meq PO QAM 07/21/20 12/02/20 Unknown History Sennosides [Senna] 1 tab PO BID 07/21/20 12/02/20 Unknown History bisacodyL [Dulcolax suppos] 10 mg IN DAILY 07/21/20 12/02/20 Unknown History cephALEXin [Keflex] 250 mg PO Q6HR #10 capsule 07/21/20 12/02/20 Unknown Rx diphenhydrAMINE [Benadryl CAP] 25 mg PO Q6H PRN 07/21/20 12/02/20 Unknown History megestroL [Megace] 40 mg PO DAILY #30 tablet 07/22/20 12/02/20 Unknown Rx Active Meds: Active Medications Acetaminophen (Acetaminophen 325 Mg Tab) 650 mg PO Q4H PRN PRN Reason: Pain MILD(1-3)/Fever >100.5/SMALLS Last Admin: 12/06/20 05:37 Dose: 650 mg Documented by: Albuterol (Albuterol 2.5 Mg/3 Ml Nebu) 2.5 mg IH Q4HRT PRN PRN Reason: Shortness Of Breath Last Admin: 12/03/20 15:11 Dose: 2.5 mg Documented by: Lipase/Protease/Amylase (Lipase 10,500/Protease 25,000/Amylase 43,750 (Units) Dr Blount) 1 each FEEDTUBE PRN PRN PRN Reason: For Clogged Feeding Tube Atorvastatin Calcium (Atorvastatin 40 Mg Tab) 40 mg PO DAILY [facility] Last Admin: 12/05/20 16:36 Dose: 40 mg Documented by: Citalopram Hydrobromide (Citalopram 20 Mg Tab) 20 mg PO DAILY [facility] Last Admin: 12/05/20 12:56 Dose: Not Given Documented by: Dextrose (Dextrose 50% In Water (25gm) 50 Ml Syringe) 50 ml IV Q30MIN PRN; Protocol PRN Reason: Hypoglycemia Docusate Sodium (Docusate Sodium 100 Mg/10 Ml Oral Liqd) 100 mg FEEDTUBE BID [facility] Last Admin: 12/05/20 22:37 Dose: 100 mg Documented by: Famotidine (Famotidine 20 Mg Tab) 20 mg PO DAILY [facility] Last Admin: 12/05/20 12:56 Dose: 20 mg Documented by: Cefepime HCl (Cefepime/Ns 2 Gm/100 Ml) 2 gm in 100 mls @ 200 mls/hr IV Q12H [facility] Stop: 12/08/20 00:29 Last Admin: 12/06/20 00:43 Dose: 200 mls/hr Documented by: Insulin Glargine (Insulin Glargine 100 Units/Ml) 10 units SUB-Q QAMDIAB [facility] Last Admin: 12/05/20 13:30 Dose: 10 units Documented by: Insulin Human Lispro (Insulin Lispro 100 Unit/Ml) 0 unit SUB-Q Q6HR [facility]; Protocol Last Admin: 12/06/20 06:31 Dose: 4 unit Documented by: Nystatin (Nystatin 500,000 Unit/5 Ml Oral Liqd) 500,000 unit PO QID [facility] Last Admin: 12/05/20 22:37 Dose: 500,000 unit Documented by: Ondansetron HCl (Ondansetron 4 Mg/2 Ml Inj) 4 mg IV Q8H PRN PRN Reason: Nausea And Vomiting Last Admin: 12/05/20 22:37 Dose: 4 mg Documented by: Simple Syrup (Simple Syrup 15 Ml) 15 ml FEEDTUBE PRN PRN PRN Reason: Hypoglycemia Simple Syrup (Simple Syrup 15 Ml) 30 ml FEEDTUBE PRN PRN PRN Reason: Hypoglycemia Sodium Bicarbonate (Sodium Bicarbonate 325 Mg Tab) 325 mg FEEDTUBE PRN PRN PRN Reason: For Clogged Feeding Tube Sodium Chloride (Sodium Chloride 0.9% 10 Ml Flush Syringe) 10 ml IV BID [facility] Last Admin: 12/05/20 22:39 Dose: 10 ml Documented by: Sodium Chloride (Sodium Chloride 0.9% 10 Ml Flush Syringe) 10 ml IV PRN PRN PRN Reason: LINE FLUSH Review of Systems ROS unobtainable: due to mental status Physical Examination - Vital Signs Vital Signs: Vital Signs Pulse Ox 87 12/01/20 22:23 - Physical Exam Narrative exam: Gen: nad, well-nourished; Head: normocephalic; Eyes: no gaze deviation; no ptosis; ENT: no vocalization; CVS: warm and well-perfused; Pulm: no respiratory distress; GI: appears non-distended; Ext: no cyanosis at distal extremities; Skin: no acute rash at distal extremities; Heme: no pathologic ecchymosis at distal extremities; Neuro: somnolent, aphasic; CN 2 - PERRL, visual iraheta - no blink to stimuli; CN 3, 4, 6 - no gaze deviation; CN 5/7 - opens/closes eyes spontaneously; CN 8 - pt cannot cooperate, CN 9, 10, 11, 12 - pt cannot cooperate due to aphasia; Motor - 0/5 at all extremities; Sensory - no movement to tactile stimuli; Cerebellar - noncooperative due to loc/aphasia, Gait - deferred secondary to fall risk; NIHSS>25 Results - Laboratory Findings CBC and BMP: 12/05/20 05:04 12/05/20 05:04 Abnormal Lab Findings: Abnormal Labs 12/01/20 12/01/20 12/02/20 22:52 22:52 01:30 WBC 13.8 H RBC 2.90 L Hgb 7.8 L Hct 24.0 L MCH 27 L RDW 19.0 H Lymph % (Auto) 12.2 L [place] # (Auto) 0.9 H Baso # (Auto) Seg Neutrophils % 80.8 H Seg Neutrophils # 11.1 H PT INR APTT Sodium 135 L Potassium Chloride BUN 38 H Creatinine 2.0 H Glucose 196 H POC Glucose Hemoglobin A1c Lactic Acid 0.60 L Calcium 7.8 L Magnesium ALT < 5 L Total Protein Albumin 3.0 L Urine WBC (Auto) Crossmatch 12/02/20 12/02/20 12/02/20 02:05 02:53 03:50 WBC RBC Hgb Hct MCH RDW Lymph % (Auto) [place] # (Auto) Baso # (Auto) Seg Neutrophils % Seg Neutrophils # PT 15.3 H INR 1.16 H APTT 37.7 H Sodium Potassium Chloride BUN Creatinine Glucose POC Glucose Hemoglobin A1c Lactic Acid Calcium Magnesium ALT Total Protein Albumin Urine WBC (Auto) > 182.0 H Crossmatch See Detail 12/02/20 12/02/20 12/02/20 09:49 12:47 17:10 WBC RBC Hgb Hct MCH RDW Lymph % (Auto) [place] # (Auto) Baso # (Auto) Seg Neutrophils % Seg Neutrophils # PT INR APTT Sodium Potassium Chloride BUN Creatinine Glucose POC Glucose 175 H 155 H 147 H Hemoglobin A1c Lactic Acid Calcium Magnesium ALT Total Protein Albumin Urine WBC (Auto) Crossmatch 12/02/20 12/02/20 12/03/20 21:29 Unknown 07:15 WBC 15.5 H RBC 2.50 L Hgb 6.8 L Hct 20.8 L MCH 27 L RDW 19.5 H Lymph % (Auto) [place] # (Auto) 1.0 H Baso # (Auto) Seg Neutrophils % 76.5 H Seg Neutrophils # 11.9 H PT INR APTT Sodium Potassium Chloride BUN Creatinine Glucose POC Glucose 121 H Hemoglobin A1c 7.4 H Lactic Acid Calcium Magnesium ALT Total Protein Albumin Urine WBC (Auto) Crossmatch 12/03/20 12/03/20 12/03/20 07:15 16:51 23:52 WBC RBC Hgb Hct MCH RDW Lymph % (Auto) [place] # (Auto) Baso # (Auto) Seg Neutrophils % Seg Neutrophils # PT INR APTT Sodium Potassium 3.1 L [place] 109.5 H BUN Creatinine Glucose POC Glucose 119 H 163 H Hemoglobin A1c Lactic Acid Calcium Magnesium ALT Total Protein Albumin Urine WBC (Auto) Crossmatch 12/04/20 12/04/20 12/04/20 05:43 09:51 09:51 WBC 15.9 H RBC Hgb Hct MCH 27 L RDW 18.4 H Lymph % (Auto) [place] # (Auto) Baso # (Auto) 0.2 H Seg Neutrophils % Seg Neutrophils # 11.1 H PT INR APTT Sodium Potassium Chloride BUN Creatinine Glucose 242 H POC Glucose 200 H Hemoglobin A1c Lactic Acid Calcium Magnesium 1.50 L ALT 6 L Total Protein Albumin 2.8 L Urine WBC (Auto) Crossmatch 12/04/20 12/04/20 12/05/20 11:30 17:35 00:07 WBC RBC Hgb Hct MCH RDW Lymph % (Auto) [place] # (Auto) Baso # (Auto) Seg Neutrophils % Seg Neutrophils # PT INR APTT Sodium Potassium Chloride BUN Creatinine Glucose POC Glucose 236 H 282 H 287 H Hemoglobin A1c Lactic Acid Calcium Magnesium ALT Total Protein Albumin Urine WBC (Auto) Crossmatch 12/05/20 12/05/20 12/05/20 05:04 05:04 05:10 WBC 12.2 H RBC Hgb Hct MCH RDW 17.9 H Lymph % (Auto) [place] # (Auto) Baso # (Auto) Seg Neutrophils % 75.9 H Seg Neutrophils # 9.3 H PT INR APTT Sodium Potassium Chloride BUN Creatinine Glucose 339 H POC Glucose 309 H Hemoglobin A1c Lactic Acid Calcium Magnesium ALT Total Protein 8.4 H Albumin 2.8 L Urine WBC (Auto) Crossmatch 12/05/20 12/05/20 12/06/20 10:57 16:42 00:32 WBC RBC Hgb Hct MCH RDW Lymph % (Auto) [place] # (Auto) Baso # (Auto) Seg Neutrophils % Seg Neutrophils # PT INR APTT Sodium Potassium Chloride BUN Creatinine Glucose POC Glucose 297 H 302 H 330 H Hemoglobin A1c Lactic Acid Calcium Magnesium ALT Total Protein Albumin Urine WBC (Auto) Crossmatch 12/06/20 06:29 WBC RBC Hgb Hct MCH RDW Lymph % (Auto) [place] # (Auto) Baso # (Auto) Seg Neutrophils % Seg Neutrophils # PT INR APTT Sodium Potassium Chloride BUN Creatinine Glucose POC Glucose 340 H Hemoglobin A1c Lactic Acid Calcium Magnesium ALT Total Protein Albumin Urine WBC (Auto) Crossmatch Assessment and Plan 65 yo female with pontine cva, dm, dementia, dysphagia, left hemiplegia, left aka, ckdx, anemia, urinary retention w/ indwelling kerr presented to the ED with encephalopathy w/ possible vaginal bleeding but noted with septic shock with a BP of 80/60 w/ noted pyruia/hematuria. During the hospital course, noted with continued mental regression from her baseline. 1. Hypoxic Encephalopathy - concern is raised based on clinical history and exam findings; consider repeat MR Brain. 2. Acute Ischemic Stroke - extension of previous pontine infarction is raised by radiologist on MR Brain (images are not available to me). 3. Metabolic Encephalopathy - workup per primary team. 4. DM - maintain eunatremia. 5. Hx of CVA - antiplatelet/statin therapy if confirmed ischemic stroke in the past. 6. Symptomatic Anemia - can mimic recrudescence. 7. Subclincial Seizure - recommend EEG and if not available at this facility, transfer to a facility with EEG and EEG monitoring. Fosphenytoin 1 gram IV x 1 dose ordered. Bernardo Fregoso MD Neurology [id number]
[2020-12-06] MEDS: FAMOTIDINE 20 MG TAB PO SCH (10:53)
[2020-12-06] MEDS: CITALOPRAM 20 MG TAB PO SCH (10:53)
[2020-12-06] MEDS: NYSTATIN 500,000 UNIT/5 ML ORAL LIQD PO SCH ×5 (10:54→22:52)
[2020-12-06] MEDS: DOCUSATE SODIUM 100 MG/10 ML ORAL LIQD FEEDTUBE SCH ×3 (10:54→22:51)
[2020-12-06] MEDS ORDERED: FOSPHENYTOIN 1,000 MG.PE in SODIUM CHLORIDE 0.9% 100 ML IV ONE (11:00)
[2020-12-06] MEDS: INSULIN GLARGINE 100 UNITS/ML SUB-Q SCH (13:47)
[2020-12-06] MEDS: MULTIVITAMIN / MINERAL ORAL LIQUID 15 ML PO SCH (13:47)
[2020-12-06] MEDS: PHENYTOIN 100 MG/2 ML VIAL IV SCH ×2 (20:42→22:51)
[2020-12-07] MEDS: CEFEPIME/NS 2 GM/100 ML 2 GM/100 ML BAG IV SCH ×2 (02:07→16:00)
[2020-12-07] MEDS: ACETAMINOPHEN 325 MG TAB PO PRN ×3 (04:07→22:07)
[2020-12-07] MEDS: PHENYTOIN 100 MG/2 ML VIAL IV SCH (05:16)
[2020-12-07] MEDS: INSULIN LISPRO 100 UNIT/ML SUB-Q SCH ×4 (05:31→17:50)
[2020-12-07] MEDS: INSULIN GLARGINE 100 UNITS/ML SUB-Q SCH (09:33)
--- NOTE | 2020-12-07 10:06 | Progress Note ---
Assessment and Plan Assessment and plan: 64-year-old female with PMH of dementia, CVA, left hemiplegia, DM, left AKA, dysphagia, hypokalemia, anemia, CKD 2, urine retention needing chronic indwelling Mcclure catheter was brought to ED for evaluation of AMS and possible vaginal bleeding. Patient was noted to be in septic shock with BP 80/60 and pyuria and hematuria. Mcclure catheter was exchanged in ED. Patient was administered IV fluid boluses with improvement of hypotension and started on antibiotics after cultures. Sepsis. Patient previously with septic shock. UTI. Toxic metabolic encephalopathy. History of CVA, left hemiparesis, aphasic and dysphagia. (2008,2015) Left AKA 2016 New right-sided weakness. Acute kidney injury on CKD stage II. Resolved. Hypokalemia Diabetes mellitus type 2. Anemia 12/03/2020. Patient has now stable vital signs and hypertension resolved. Receiving normal saline 125 mill per hour. She spiked a fever of 100.6 today. Hemoglobin dropped to 6.8 and ordered PRBC transfusion. Hematuria actually resolved. No vaginal bleeding. Mental status improved, she is now awake awake but minimally verbalizes. She can occasionally give her name. She just mumbles. Not in acute distress. Large urine output and MAILE resolved. 12/04/2020. Shock state resolved. MAILE resolved. Mental status much improved. Follows commands but poorly verbal likely from dementia. Continue to avoid narcotics. Patient has a low-grade fever, leukocytosis , on cefepime, cultures pending. Discontinue normal saline. Started Glucerna tube feeds via NG tube, continue aspiration precautions. Ordered swallowing evaluation. Hemoglobin dropped from 7.8-6.8, possibly just dilutional. Hematuria resolved, no vaginal bleeding. Will transfuse PRBC. Consider urology consultation for evaluation of possible bladder tumor when more stable. Daughter reports significant cognitive decline since 07/2020 admission for UTI. Right-sided weakness is new according to daughter. Will order MRI brain when more stable. 12/05/2020. Patient is nonverbal and occasional tracking with eyes on my exam this morning. Baseline mental status per daughter can follow commands and able to communicate but with slow speech. Also, reports ability to feed herself. MRI brain ordered to rule out new CVA. Continue IV antibiotics for UTI. Await speech therapy evaluation for dysphagia. Continue NG tube for tube feedings. I d/w daughter POC [phone]. 12/06/2020. Brain MRI shows no acute findings only extensive chronic changes. Neurology consultation. Altered mentation may be secondary to toxic metabolic encephalopathy from sepsis/UTI. Continue IV antibiotics. Consider ID consultation. Acute kidney injury resolved. Still awaiting speech therapy evaluation 12/07/2020. Neurology evaluated the patient and recommends EEG to rule out subclinical seizures. Patient may need repeat MRI. Continue IV antibiotics for sepsis/UTI. Patient has underlying toxic metabolic encephalopathy as well. Blood cultures negative x5 days. Urine culture also negative. However, patient with significant fever since last night. Repeat blood cultures, check lactic acid and obtain ID consultation History Interval history: No new issues overnight. Hospitalist Physical - Constitutional Vitals: Temp Pulse Resp BP Pulse Ox 102.6 F H 127 H 18 141/91 95 12/07/20 08:03 12/07/20 08:03 12/07/20 08:03 12/07/20 08:03 12/07/20 08:03 General appearance: Present: no acute distress, other (Debilitated, alert but fully verbal) - EENT Eyes: Present: PERRL, EOM intact ENT: hearing intact, clear oral mucosa, dentition normal - Neck Neck: Present: supple, normal ROM - Respiratory Respiratory effort: normal Respiratory: bilateral: CTA - Cardiovascular Rhythm: regular Heart Sounds: Present: S1 & S2. Absent: gallop, rub - Extremities Extremities: no ischemia, No edema, Full ROM - Abdominal General gastrointestinal: soft, non-tender, non-distended, normal bowel sounds - Integumentary Integumentary: Present: clear, warm, dry - Neurologic Neurologic: CNII-XII intact, moves all extremities Results - Labs CBC & Chem 7: 12/05/20 05:04 12/05/20 05:04 Labs: Laboratory Last Values WBC 12.2 K/mm3 (4.5-11.0) H 12/05/20 05:04 RBC 3.90 M/mm3 (3.65-5.03) 12/05/20 05:04 Hgb 11.1 gm/dl (10.1-14.3) 12/05/20 05:04 Hct 33.2 % (30.3-42.9) 12/05/20 05:04 MCV 85 fl (79-97) 12/05/20 05:04 MCH 28 pg (28-32) 12/05/20 05:04 MCHC 33 % (30-34) 12/05/20 05:04 RDW 17.9 % (13.2-15.2) H 12/05/20 05:04 Plt Count 315 K/mm3 (140-440) 12/05/20 05:04 Lymph % (Auto) 17.5 % (13.4-35.0) 12/05/20 05:04 [place] % (Auto) 5.4 % (0.0-7.3) 12/05/20 05:04 Eos % (Auto) 0.6 % (0.0-4.3) 12/05/20 05:04 Baso % (Auto) 0.6 % (0.0-1.8) 12/05/20 05:04 Lymph # (Auto) 2.1 K/mm3 (1.2-5.4) 12/05/20 05:04 [place] # (Auto) 0.7 K/mm3 (0.0-0.8) 12/05/20 05:04 Eos # (Auto) 0.1 K/mm3 (0.0-0.4) 12/05/20 05:04 Baso # (Auto) 0.1 K/mm3 (0.0-0.1) 12/05/20 05:04 Seg Neutrophils % 75.9 % (40.0-70.0) H 12/05/20 05:04 Seg Neutrophils # 9.3 K/mm3 (1.8-7.7) H 12/05/20 05:04 PT 15.3 Sec. (12.2-14.9) H 12/02/20 02:53 INR 1.16 (0.87-1.13) H 12/02/20 02:53 APTT 37.7 Sec. (24.2-36.6) H 12/02/20 02:53 Sodium 141 mmol/L (137-145) 12/05/20 05:04 Potassium 4.2 mmol/L (3.6-5.0) 12/05/20 05:04 Chloride 103.7 mmol/L (98-107) 12/05/20 05:04 Carbon Dioxide 27 mmol/L (22-30) 12/05/20 05:04 Anion Gap 15 mmol/L 12/05/20 05:04 BUN 16 mg/dL (7-17) 12/05/20 05:04 Creatinine 0.9 mg/dL (0.6-1.2) 12/05/20 05:04 Estimated GFR > 60 ml/min 12/05/20 05:04 BUN/Creatinine Ratio 18 % 12/05/20 05:04 Glucose 339 mg/dL (65-100) H 12/05/20 05:04 POC Glucose 325 mg/dL (70-105) H 12/07/20 06:07 Hemoglobin A1c 7.4 % (4-6) H 12/02/20 Unknown Lactic Acid 0.60 mmol/L (0.7-2.0) L 12/02/20 01:30 Calcium 9.1 mg/dL (8.4-10.2) 12/05/20 05:04 Magnesium 1.50 mg/dL (1.7-2.3) L 12/04/20 09:51 Total Bilirubin 0.20 mg/dL (0.1-1.2) 12/05/20 05:04 AST 15 units/L (5-40) 12/05/20 05:04 ALT 7 units/L (7-56) 12/05/20 05:04 Alkaline Phosphatase 112 units/L (35-129) 12/05/20 05:04 Total Protein 8.4 g/dL (6.3-8.2) H 12/05/20 05:04 Albumin 2.8 g/dL (3.9-5) L 12/05/20 05:04 Albumin/Globulin Ratio 0.5 % 12/05/20 05:04 Urine Color Yellow (Yellow) 12/02/20 03:50 Urine Turbidity Turbid (Clear) 12/02/20 03:50 Urine pH 6.0 (5.0-7.0) 12/02/20 03:50 Ur Specific [place] 1.008 (1.003-1.030) 12/02/20 03:50 Urine Protein 100 mg/dl mg/dL (Negative) 12/02/20 03:50 Urine Glucose (UA) Neg mg/dL (Negative) 12/02/20 03:50 Urine Ketones Neg mg/dL (Negative) 12/02/20 03:50 Urine Blood Lg (Negative) 12/02/20 03:50 Urine Nitrite Neg (Negative) 12/02/20 03:50 Urine Bilirubin Neg (Negative) 12/02/20 03:50 Urine Urobilinogen < 2.0 mg/dL (<2.0) 12/02/20 03:50 Ur Leukocyte Esterase Lg (Negative) 12/02/20 03:50 Urine WBC (Auto) > 182.0 /HPF (0.0-6.0) H 12/02/20 03:50 Urine RBC (Auto) > 182.0 /HPF (0.0-6.0) 12/02/20 03:50 U Epithel Cells (Auto) 6.0 /HPF (0-13.0) 12/02/20 03:50 Urine Bacteria (Auto) 1+ /HPF (Negative) 12/02/20 03:50 Urine WBC Clumps 3+ /HPF 12/02/20 03:50 Phenytoin 12.9 ug/mL (10.0-20.0) 12/07/20 04:52 Coronavirus (PCR) Negative (Negative) 12/05/20 Unknown Blood Type O POSITIVE 12/02/20 02:05 Antibody Screen Negative 12/02/20 02:05 Crossmatch See Detail 12/02/20 02:05 Microbiology: Microbiology 12/01/20 22:52 Peripheral/Venous Blood Culture - Final NO GROWTH AFTER 5 DAYS 12/01/20 23:35 Peripheral/Venous Blood Culture - Final NO GROWTH AFTER 5 DAYS Mcclure/IV: Voiding Method Indwelling Catheter Active Medications - Current Medications Current Medications: Generic Name Dose Route Start Last Admin Trade Name Freq PRN Reason Stop Dose Admin Acetaminophen 650 mg 12/02/20 05:24 12/07/20 04:07 Acetaminophen 325 Mg Tab PO 650 mg Q4H PRN Administration Pain MILD(1-3)/Fever >100.5/SMALLS Albuterol 2.5 mg 12/02/20 05:24 12/03/20 15:11 Albuterol 2.5 Mg/3 Ml Nebu IH 2.5 mg Q4HRT PRN Administration Shortness Of Breath Lipase/Protease/Amylase 1 each 12/03/20 10:22 Lipase 10,500/Protease 25,000/Amylase 43,750 (Units) Dr Blount FEEDTUBE PRN PRN For Clogged Feeding Tube Atorvastatin Calcium 40 mg 12/02/20 10:00 12/06/20 10:53 Atorvastatin 40 Mg Tab PO 40 mg DAILY ADOLFO Administration Citalopram Hydrobromide 20 mg 12/02/20 10:00 12/06/20 10:53 Citalopram 20 Mg Tab PO 20 mg DAILY ADOLFO Administration Dextrose 50 ml 12/02/20 11:18 Dextrose 50% In Water (25gm) 50 Ml Syringe IV Q30MIN PRN Hypoglycemia Protocol Docusate Sodium 100 mg 12/04/20 10:00 12/06/20 22:51 Docusate Sodium 100 Mg/10 Ml Oral Liqd FEEDTUBE Not Given BID ADOLFO Famotidine 20 mg 12/04/20 10:00 12/06/20 10:53 Famotidine 20 Mg Tab PO 20 mg DAILY ADOLFO Administration Cefepime HCl 2 gm in 100 mls @ 200 mls/hr 12/03/20 12:00 12/07/20 02:07 Cefepime/Ns 2 Gm/100 Ml IV 12/08/20 00:29 200 mls/hr Q12H ADOLFO Administration Insulin Glargine 10 units 12/05/20 08:00 12/06/20 13:47 Insulin Glargine 100 Units/Ml SUB-Q 10 units QAMDIAB ADOLFO Administration Insulin Human Lispro 0 unit 12/04/20 00:00 12/07/20 06:37 Insulin Lispro 100 Unit/Ml SUB-Q 4 unit Q6HR ADOLFO Administration Protocol Nystatin 500,000 unit 12/02/20 10:00 12/06/20 22:52 Nystatin 500,000 Unit/5 Ml Oral Liqd PO Not Given QID ADOLFO Ondansetron HCl 4 mg 12/02/20 05:24 12/05/20 22:37 Ondansetron 4 Mg/2 Ml Inj IV 4 mg Q8H PRN Administration Nausea And Vomiting Phenytoin 100 mg 12/06/20 15:00 12/07/20 05:16 Phenytoin 100 Mg/2 Ml Vial IV 100 mg Q8HR ADOLFO Administration Simple Syrup 15 ml 12/03/20 10:22 Simple Syrup 15 Ml FEEDTUBE PRN PRN Hypoglycemia Simple Syrup 30 ml 12/03/20 10:22 Simple Syrup 15 Ml FEEDTUBE PRN PRN Hypoglycemia Sodium Bicarbonate 325 mg 12/03/20 10:22 Sodium Bicarbonate 325 Mg Tab FEEDTUBE PRN PRN For Clogged Feeding Tube Sodium Chloride 10 ml 12/02/20 10:00 12/06/20 22:52 Sodium Chloride 0.9% 10 Ml Flush Syringe IV Not Given BID ADOLFO Sodium Chloride 10 ml 12/02/20 05:24 12/07/20 05:16 Sodium Chloride 0.9% 10 Ml Flush Syringe IV 10 ml PRN PRN Administration LINE FLUSH Nutrition/Malnutrition Assess - Dietary Evaluation Nutrition/Malnutrition Findings: Nutrition Notes Start: 12/03/20 11:43 Freq: Status: Active Protocol: Document 12/05/20 10:18 [facility] (Rec: 12/05/20 10:20 [facility] [id number]) Nutrition Notes Initial or Follow up Brief Note Current Diet TF - Glucerna 1.2 at 45ml/hr Labs/Tests BG 339 Pertinent Medications Lantus (10 units) Subjective/Other Information Per RN, pt tolerating TF at goal rate. Per TEAM LEAD eval yesterday, pt at risk for aspiration and should remain on EN support. Nutrition Intervention Follow-Up By: 12/12/20 Additional Comments F/U: stable TF, wt
[2020-12-07] MEDS: NYSTATIN 500,000 UNIT/5 ML ORAL LIQD PO SCH ×3 (10:24→22:11)
[2020-12-07] MEDS: DOCUSATE SODIUM 100 MG/10 ML ORAL LIQD FEEDTUBE SCH ×2 (11:24→22:11)
[2020-12-07] MEDS: CITALOPRAM 20 MG TAB PO SCH (11:24)
[2020-12-07] MEDS: FAMOTIDINE 20 MG TAB PO SCH (11:25)
[2020-12-07] MEDS: MULTIVITAMIN / MINERAL ORAL LIQUID 15 ML PO SCH (11:47)
[2020-12-07] MEDS: PHENYTOIN 100 MG in SODIUM CHLORIDE 0.9% 100 ML IV SCH ×2 (15:00→22:50)
--- NOTE | 2020-12-07 15:59 | Consultation ---
History of Present Illness - Reason for Consult Consult date: 12/07/20 Sepsis Requesting physician: ROLY HICKMAN - History of Present Illness 65-year-old female with history of hypertension, previous CVA, diabetes mellitus, dementia, chronic outlet obstruction with bilateral hydroureteronephrosis, previous UTI, uterine fibroids, s/p left AKA, admitted on 12/01/2020 secondary to be found hot, hypotensive and tachycardic. EMS noted blood pressure 80 over 50s. Of note, patient underwent cystogram in July 2020 which was unremarkable. Evaluated by urology. On arrival, patient was noted to have vaginal bleeding. Mcclure catheter was placed in the ED. Initial t emperature 99.6, HR 103, RR 22, O2 sats 87%, BP 132/70. Noted fever initially 100 and then 101 and 103.8 on 12/07/2020. Initial WBC 13.8, went up to 15. Initial hemoglobin 7.9. Platelets 369. Creatinine 2. Glucose 175. Urinalysis with 182 WBCs and large leukocyte esterase. Blood culture 12/01/2020 no growth today. Blood culture 12/07/2020 pending. Urine cultures 12/04/2020 <10,[address] of the pelvis show a posterior urinary bladder mass. Review of Systems: Unable to obtain due to altered mental status Past History Past Medical History: diabetes, GERD, hypertension, stroke, other (Depression, dementia GERD and supple of) Medications and Allergies Allergies Allergy/AdvReac Type Severity Reaction Status Date / Time No Known Allergies Allergy Verified 12/02/20 16:58 Home Medications Medication Instructions Recorded Confirmed Last Taken Type Oxybutynin [Ditropan] 5 mg PO BID #60 tablet 09/28/19 12/02/20 Unknown Rx levoFLOXacin [Levaquin TAB] 500 mg PO QDAY #5 tablet 09/28/19 12/02/20 Unknown Rx Acetaminophen [Aphen] 325 mg PO Q4H PRN 07/21/20 12/02/20 Unknown History Aspirin [Adult Aspirin] 81 mg PO DAILY 07/21/20 12/02/20 Unknown History AtorvaSTATin [Lipitor] 40 mg PO DAILY 07/21/20 12/02/20 Unknown History Citalopram [Celexa] 20 mg PO DAILY 07/21/20 12/02/20 Unknown History Docusate Sodium [Colace CAP] 100 mg PO BID 07/21/20 12/02/20 Unknown History Insulin Aspart (Nf) [NovoLOG 100 0 unit SQ AC 07/21/20 12/02/20 Unknown History UNITS/ML VIAL] Insulin Glargine [Lantus VIAL] 20 units SQ BID 07/21/20 12/02/20 Unknown History Insulin Lispro [Admelog] 5 unit SQ ACHS 07/21/20 12/02/20 Unknown History Multivitamin [One-Daily 1 tab PO DAILY 07/21/20 12/02/20 Unknown History Multi-Vitamin] Norvasc 10 mg PO DAILY 07/21/20 12/02/20 Unknown History Nystatin [Nystatin SUSP] 100,000 ml PO QID 07/21/20 12/02/20 Unknown History Ondansetron HCl [Zofran] 4 mg PO Q8H 07/21/20 12/02/20 Unknown History Oxybutynin [Ditropan] 5 mg PO DAILY 07/21/20 12/02/20 Unknown History Pantoprazole [Protonix TAB] 40 mg PO QDAY 07/21/20 12/02/20 Unknown History Potassium 10 meq PO QAM 07/21/20 12/02/20 Unknown History Sennosides [Senna] 1 tab PO BID 07/21/20 12/02/20 Unknown History bisacodyL [Dulcolax suppos] 10 mg DC DAILY 07/21/20 12/02/20 Unknown History cephALEXin [Keflex] 250 mg PO Q6HR #10 capsule 07/21/20 12/02/20 Unknown Rx diphenhydrAMINE [Benadryl CAP] 25 mg PO Q6H PRN 07/21/20 12/02/20 Unknown History megestroL [Megace] 40 mg PO DAILY #30 tablet 07/22/20 12/02/20 Unknown Rx Active Meds: Active Medications Acetaminophen (Acetaminophen 325 Mg Tab) 650 mg PO Q4H PRN PRN Reason: Pain MILD(1-3)/Fever >100.5/SMALLS Last Admin: 12/07/20 12:25 Dose: 650 mg Documented by: Albuterol (Albuterol 2.5 Mg/3 Ml Nebu) 2.5 mg IH Q4HRT PRN PRN Reason: Shortness Of Breath Last Admin: 12/03/20 15:11 Dose: 2.5 mg Documented by: Lipase/Protease/Amylase (Lipase 10,500/Protease 25,000/Amylase 43,750 (Units) Dr Blount) 1 each FEEDTUBE PRN PRN PRN Reason: For Clogged Feeding Tube Atorvastatin Calcium (Atorvastatin 40 Mg Tab) 40 mg PO DAILY [facility] Last Admin: 12/07/20 11:26 Dose: 40 mg Documented by: Citalopram Hydrobromide (Citalopram 20 Mg Tab) 20 mg PO DAILY [facility] Last Admin: 12/07/20 11:24 Dose: 20 mg Documented by: Dextrose (Dextrose 50% In Water (25gm) 50 Ml Syringe) 50 ml IV Q30MIN PRN; Protocol PRN Reason: Hypoglycemia Docusate Sodium (Docusate Sodium 100 Mg/10 Ml Oral Liqd) 100 mg FEEDTUBE BID [facility] Last Admin: 12/07/20 11:24 Dose: 100 mg Documented by: Famotidine (Famotidine 20 Mg Tab) 20 mg PO DAILY [facility] Last Admin: 12/07/20 11:25 Dose: 20 mg Documented by: Cefepime HCl (Cefepime/Ns 2 Gm/100 Ml) 2 gm in 100 mls @ 200 mls/hr IV Q12H [facility] Stop: 12/08/20 00:29 Last Admin: 12/07/20 02:07 Dose: 200 mls/hr Documented by: Phenytoin 100 mg/ Sodium (Chloride) 102 mls @ 204 mls/hr IV Q8HR [facility] Insulin Glargine (Insulin Glargine 100 Units/Ml) 10 units SUB-Q QAMDIAB [facility] Last Admin: 12/07/20 09:33 Dose: 10 units Documented by: Insulin Human Lispro (Insulin Lispro 100 Unit/Ml) 0 unit SUB-Q Q6HR [facility]; Protocol Last Admin: 12/07/20 06:37 Dose: 4 unit Documented by: Nystatin (Nystatin 500,000 Unit/5 Ml Oral Liqd) 500,000 unit PO QID [facility] Last Admin: 12/07/20 14:25 Dose: 500,000 unit Documented by: Ondansetron HCl (Ondansetron 4 Mg/2 Ml Inj) 4 mg IV Q8H PRN PRN Reason: Nausea And Vomiting Last Admin: 12/05/20 22:37 Dose: 4 mg Documented by: Simple Syrup (Simple Syrup 15 Ml) 15 ml FEEDTUBE PRN PRN PRN Reason: Hypoglycemia Simple Syrup (Simple Syrup 15 Ml) 30 ml FEEDTUBE PRN PRN PRN Reason: Hypoglycemia Sodium Bicarbonate (Sodium Bicarbonate 325 Mg Tab) 325 mg FEEDTUBE PRN PRN PRN Reason: For Clogged Feeding Tube Sodium Chloride (Sodium Chloride 0.9% 10 Ml Flush Syringe) 10 ml IV BID ADOLFO Last Admin: 12/07/20 14:26 Dose: 10 ml Documented by: Sodium Chloride (Sodium Chloride 0.9% 10 Ml Flush Syringe) 10 ml IV PRN PRN PRN Reason: LINE FLUSH Last Admin: 12/07/20 05:16 Dose: 10 ml Documented by: Physical Examination - Physical Exam Narrative exam: General appearance: Somnolent, nonverbal, in no acute distress, hot to touch Eyes: anicteric sclerae, moist conjunctivae; no lid-lag; PERRLA HENT: Normocephalic, Atraumatic; normal external ears, nares open, oropharynx limited Neck: supple, tracheal midline, no JVD Lungs: Bilateral rhonchi CV: RRR no murmur Abdomen: Soft, nontender Extremities: Right [id number] amputation Skin: No rash. Psych: Somnolent Neuro: Somnolent Mcclure in place - Constitutional Vitals: Vital Signs Temp Pulse Resp BP Pulse Ox 102.6 F H 127 H 18 141/91 95 12/07/20 08:03 12/07/20 08:03 12/07/20 08:03 12/07/20 08:03 12/07/20 08:03 Temperature -Last 24 Hours Temperature 102.6 F Temperature 100.1 F Temperature 103.8 F Temperature 102.4 F Temperature 100.6 F Results - Labs CBC & Chem 7: 12/05/20 05:04 12/05/20 05:04 Labs: Abnormal lab results 12/06/20 12/07/20 12/07/20 Range/Units 20:40 06:07 11:54 POC Glucose 297 H 325 H 253 H (70-105) mg/dL Assessment and Plan Cultures: Blood culture 12/01/2020 no growth today. Blood culture 12/07/2020 pending. Urine cultures 12/04/2020 <10,000 colonies. Assessment: 65-year-old female with history of hypertension, previous CVA, diabetes mellitus, dementia, chronic outlet obstruction with bilateral hydro ureteronephrosis, previous UTI, uterine fibroids, s/p left AKA, admitted on 12/01/2020 secondary to be found hot, hypotensive and tachycardic: #Sepsis: Present on admission with low-grade fever, leukocytosis, fever worsening, last temperature 103.2. Etiology likely complicated UTI. #Complicated UTI: History of chronic outlet obstruction with previous bilateral hydroureteral nephrosis, previous UTI due to Klebsiella in July 2020. Initial urinalysis with 182 WBCs and large leukocyte esterase. CT of the pelvis with posterior urinary bladder mass. Urine culture taken 3 days after admission with <10,000 mixed colonies. On cefepime IV for 4 days not responding. Mcclure catheter placed on admission. #Acute kidney disease: Renally adjust antibiotics. #Encephalopathy: Likely toxic metabolic due to sepsis. Noted new right-sided weakness. Brain MRI with extensive chronic changes. Recommendations: - Obtain CT of chest, abdomen - Agree with repeat blood cultures - Continue cefepime IV renally adjusted - Add vancomycin IV renally adjusted - Urology consult - CRP Will follow. Lucero Peter MD Infectious Diseases [employer] [facility] M [phone] O [phone]
[2020-12-07] MEDS ORDERED: VANCOMYCIN/NS 1 GM/250 ML 1 GM/250 ML BAG IV ONE (17:00)
[2020-12-07] MEDS ORDERED: VANCOMYCIN PHARMACY TO DOSE IV SCH (17:00)
--- NOTE | 2020-12-07 18:15 | Cat Scan Report ---
CT OF THE CHEST, ABDOMEN AND PELVIS WITHOUT CONTRAST INDICATION / CLINICAL INFORMATION: Severe sepsis and persistent fever. TECHNIQUE: All CT scans at this location are performed using CT dose reduction for ALARA by means of automated exposure control. COMPARISON: None available. FINDINGS: CHEST: The tracheobronchial tree is normal. There is mild bibasilar dependent atelectasis. The lungs are otherwise clear. I see no evidence of consolidation. There is no evidence of adenopathy or effusi on. The heart size is normal. Moderate coronary artery calcification is present. ABDOMEN: There is a nasogastric tube with the tip overlying the distal stomach. The liver, spleen, ga llbladder, bile ducts, pancreas, and adrenal glands demonstrate no significant abnormality. There is no evidence of bowel obstruction or free air. There is mild perinephric soft tissue stranding bilaterally. There is mild prominence of the right pe lvicalyceal system and ureter compared to the left. No renal calculus is seen. PELVIS: There is a Mcclure catheter in the urinary bladder which is collapsed. The bladder wall still m ay be diffusely thickened. A few bubbles of gas in the urinary bladder are most commonly related to t he catheter. There is unusual curvilinear gas in the periphery of the cecum which may be in the bowel wall. The william wel wall appears mildly thickened in this region. No pericolonic soft tissue stranding is present. A normal appendix is present. There is no evidence of diverticulitis. The uterus and adnexal regions are unremarkable. I do not identify a hernia. No acute osseous abnormality is seen. IMPRESSION: 1. Possible pneumatosis involving the cecum raises the possibility of bowel ischemia. 2. Mild bilateral perinephric soft tissue stranding. Mild right pelvocaliectasis and ureterectasis co mpared to the left. The possibility of bilateral acute pyelonephritis should be considered. 3. The bladder wall appears diffusely thickened which may be partially related to its collapsed state . Acute cystitis is also possible. Signer Name: Junior Fregoso MD Signed: 12/07/2020 6:11 PM Workstation Name: [id number]
[2020-12-08] MEDS: CEFEPIME/NS 2 GM/100 ML 2 GM/100 ML BAG IV SCH (00:50)
[2020-12-08] MEDS: INSULIN LISPRO 100 UNIT/ML SUB-Q SCH ×5 (00:59→23:55)
[2020-12-08] MEDS: ACETAMINOPHEN 325 MG TAB PO PRN ×3 (06:03→23:49)
[2020-12-08] MEDS: PHENYTOIN 100 MG in SODIUM CHLORIDE 0.9% 100 ML IV SCH ×3 (06:04→22:12)
[2020-12-08] MEDS: NYSTATIN 500,000 UNIT/5 ML ORAL LIQD PO SCH ×5 (08:15→21:56)
[2020-12-08] MEDS: PHENYTOIN 100 MG/2 ML VIAL IV SCH (08:16)
--- NOTE | 2020-12-08 08:55 | Progress Note ---
Assessment and Plan Assessment and plan: 64-year-old female with PMH of dementia, CVA, left hemiplegia, DM, left AKA, dysphagia, hypokalemia, anemia, CKD 2, urine retention needing chronic indwelling Mcclure catheter was brought to ED for evaluation of AMS and possible vaginal bleeding. Patient was noted to be in septic shock with BP 80/60 and pyuria and hematuria. Mcclure catheter was exchanged in ED. Patient was administered IV fluid boluses with improvement of hypotension and started on antibiotics after cultures. Sepsis. Patient previously with septic shock. Complicated UTI. Toxic metabolic encephalopathy. History of CVA, left hemiparesis, aphasic and dysphagia. (2008,2015) Left AKA 2016 New right-sided weakness. Acute kidney injury on CKD stage II. Resolved. Hypokalemia Diabetes mellitus type 2. Anemia 12/03/2020. Patient has now stable vital signs and hypertension resolved. Receiving normal saline 125 mill per hour. She spiked a fever of 100.6 today. Hemoglobin dropped to 6.8 and ordered PRBC transfusion. Hematuria actually resolved. No vaginal bleeding. Mental status improved, she is now awake awake but minimally verbalizes. She can occasionally give her name. She just mumbles. Not in acute distress. Large urine output and MAILE resolved. 12/04/2020. Shock state resolved. MAILE resolved. Mental status much improved. Follows commands but poorly verbal likely from dementia. Continue to avoid narcotics. Patient has a low-grade fever, leukocytosis , on cefepime, cultures pending. Discontinue normal saline. Started Glucerna tube feeds via NG tube, continue aspiration precautions. Ordered swallowing evaluation. Hemoglobin dropped from 7.8-6.8, possibly just dilutional. Hematuria resolved, no vaginal bleeding. Will transfuse PRBC. Consider urology consultation for evaluation of possible bladder tumor when more stable. Daughter reports significant cognitive decline since 07/2020 admission for UTI. Right-sided weakness is new according to daughter. Will order MRI brain when more stable. 12/05/2020. Patient is nonverbal and occasional tracking with eyes on my exam this morning. Baseline mental status per daughter can follow commands and able to communicate but with slow speech. Also, reports ability to feed herself. MRI brain ordered to rule out new CVA. Continue IV antibiotics for UTI. Await speech therapy evaluation for dysphagia. Continue NG tube for tube feedings. I d/w daughter POC [phone]. 12/06/2020. Brain MRI shows no acute findings only extensive chronic changes. Neurology consultation. Altered mentation may be secondary to toxic metabolic e ncephalopathy from sepsis/UTI. Continue IV antibiotics. Consider ID consultation. Acute kidney injury resolved. Still awaiting speech therapy evaluation 12/07/2020. Neurology evaluated the patient and recommends EEG to rule out subclinical seizures. Patient may need repeat MRI. Continue IV antibiotics for sepsis/UTI. Patient has underlying toxic metabolic encephalopathy as well. Blood cultures negative x5 days. Urine culture also negative. However, patient with significant fever since last night. Repeat blood cultures, check lactic acid and obtain ID consultation 12/08/2020. CT scan suggestive of bilateral acute pyelonephritis and bowel ischemia. Vancomycin added by ID. Appreciate ID help. Vascular surgery for bowel ischemia. Follow-up repeat blood cultures. Lactic acid level normal. History Interval history: No new issues overnight. Hospitalist Physical - Constitutional Vitals: Temp Pulse Resp BP Pulse Ox 102.8 F H 80 20 130/75 90 12/08/20 07:48 12/08/20 07:48 12/08/20 07:48 12/08/20 07:48 12/08/20 07:48 General appearance: Present: no acute distress, other (Debilitated, alert but fully verbal) - EENT Eyes: Present: PERRL, EOM intact ENT: hearing intact, clear oral mucosa, dentition normal - Neck Neck: Present: supple, normal ROM - Respiratory Respiratory effort: normal Respiratory: bilateral: CTA - Cardiovascular Rhythm: regular Heart Sounds: Present: S1 & S2. Absent: gallop, rub - Extremities Extremities: no ischemia, No edema, Full ROM - Abdominal General gastrointestinal: soft, non-tender, non-distended, normal bowel sounds - Integumentary Integumentary: Present: clear, warm, dry - Neurologic Neurologic: CNII-XII intact, moves all extremities Results - Labs CBC & Chem 7: 12/05/20 05:04 12/05/20 05:04 Labs: Laboratory Last Values WBC 12.2 K/mm3 (4.5-11.0) H 12/05/20 05:04 RBC 3.90 M/mm3 (3.65-5.03) 12/05/20 05:04 Hgb 11.1 gm/dl (10.1-14.3) 12/05/20 05:04 Hct 33.2 % (30.3-42.9) 12/05/20 05:04 MCV 85 fl (79-97) 12/05/20 05:04 MCH 28 pg (28-32) 12/05/20 05:04 MCHC 33 % (30-34) 12/05/20 05:04 RDW 17.9 % (13.2-15.2) H 12/05/20 05:04 Plt Count 315 K/mm3 (140-440) 12/05/20 05:04 Lymph % (Auto) 17.5 % (13.4-35.0) 12/05/20 05:04 [place] % (Auto) 5.4 % (0.0-7.3) 12/05/20 05:04 Eos % (Auto) 0.6 % (0.0-4.3) 12/05/20 05:04 Baso % (Auto) 0.6 % (0.0-1.8) 12/05/20 05:04 Lymph # (Auto) 2.1 K/mm3 (1.2-5.4) 12/05/20 05:04 [place] # (Auto) 0.7 K/mm3 (0.0-0.8) 12/05/20 05:04 Eos # (Auto) 0.1 K/mm3 (0.0-0.4) 12/05/20 05:04 Baso # (Auto) 0.1 K/mm3 (0.0-0.1) 12/05/20 05:04 Seg Neutrophils % 75.9 % (40.0-70.0) H 12/05/20 05:04 Seg Neutrophils # 9.3 K/mm3 (1.8-7.7) H 12/05/20 05:04 PT 15.3 Sec. (12.2-14.9) H 12/02/20 02:53 INR 1.16 (0.87-1.13) H 12/02/20 02:53 APTT 37.7 Sec. (24.2-36.6) H 12/02/20 02:53 Sodium 141 mmol/L (137-145) 12/05/20 05:04 Potassium 4.2 mmol/L (3.6-5.0) 12/05/20 05:04 Chloride 103.7 mmol/L (98-107) 12/05/20 05:04 Carbon Dioxide 27 mmol/L (22-30) 12/05/20 05:04 Anion Gap 15 mmol/L 12/05/20 05:04 BUN 16 mg/dL (7-17) 12/05/20 05:04 Creatinine 0.9 mg/dL (0.6-1.2) 12/05/20 05:04 Estimated GFR > 60 ml/min 12/05/20 05:04 BUN/Creatinine Ratio 18 % 12/05/20 05:04 Glucose 339 mg/dL (65-100) H 12/05/20 05:04 POC Glucose 336 mg/dL (70-105) H 12/08/20 06:02 Hemoglobin A1c 7.4 % (4-6) H 12/02/20 Unknown Lactic Acid 1.70 mmol/L (0.7-2.0) 12/07/20 11:08 Calcium 9.1 mg/dL (8.4-10.2) 12/05/20 05:04 Magnesium 1.50 mg/dL (1.7-2.3) L 12/04/20 09:51 Total Bilirubin 0.20 mg/dL (0.1-1.2) 12/05/20 05:04 AST 15 units/L (5-40) 12/05/20 05:04 ALT 7 units/L (7-56) 12/05/20 05:04 Alkaline Phosphatase 112 units/L (35-129) 12/05/20 05:04 C-Reactive Protein 1.30 mg/dL (0.00-1.30) 12/07/20 17:04 Total Protein 8.4 g/dL (6.3-8.2) H 12/05/20 05:04 Albumin 2.8 g/dL (3.9-5) L 12/05/20 05:04 Albumin/Globulin Ratio 0.5 % 12/05/20 05:04 Urine Color Yellow (Yellow) 12/02/20 03:50 Urine Turbidity Turbid (Clear) 12/02/20 03:50 Urine pH 6.0 (5.0-7.0) 12/02/20 03:50 Ur Specific [place] 1.008 (1.003-1.030) 12/02/20 03:50 Urine Protein 100 mg/dl mg/dL (Negative) 12/02/20 03:50 Urine Glucose (UA) Neg mg/dL (Negative) 12/02/20 03:50 Urine Ketones Neg mg/dL (Negative) 12/02/20 03:50 Urine Blood Lg (Negative) 12/02/20 03:50 Urine Nitrite Neg (Negative) 12/02/20 03:50 Urine Bilirubin Neg (Negative) 12/02/20 03:50 Urine Urobilinogen < 2.0 mg/dL (<2.0) 12/02/20 03:50 Ur Leukocyte Esterase Lg (Negative) 12/02/20 03:50 Urine WBC (Auto) > 182.0 /HPF (0.0-6.0) H 12/02/20 03:50 Urine RBC (Auto) > 182.0 /HPF (0.0-6.0) 12/02/20 03:50 U Epithel Cells (Auto) 6.0 /HPF (0-13.0) 12/02/20 03:50 Urine Bacteria (Auto) 1+ /HPF (Negative) 12/02/20 03:50 Urine WBC Clumps 3+ /HPF 12/02/20 03:50 Phenytoin 12.9 ug/mL (10.0-20.0) 12/07/20 04:52 Coronavirus (PCR) Negative (Negative) 12/05/20 Unknown Blood Type O POSITIVE 12/02/20 02:05 Antibody Screen Negative 12/02/20 02:05 Crossmatch See Detail 12/02/20 02:05 Microbiology: Microbiology 12/07/20 11:08 Peripheral/Venous Blood Culture - Preliminary Culture in Progress 12/07/20 11:08 Peripheral/Venous Blood Culture - Preliminary Culture in Progress Mcclure/IV: Voiding Method Indwelling Catheter Active Medications - Current Medications Current Medications: Generic Name Dose Route Start Last Admin Trade Name Freq PRN Reason Stop Dose Admin Acetaminophen 650 mg 12/02/20 05:24 12/08/20 06:03 Acetaminophen 325 Mg Tab PO 650 mg Q4H PRN Administration Pain MILD(1-3)/Fever >100.5/SMALLS Albuterol 2.5 mg 12/02/20 05:24 12/03/20 15:11 Albuterol 2.5 Mg/3 Ml Nebu IH 2.5 mg Q4HRT PRN Administration Shortness Of Breath Lipase/Protease/Amylase 1 each 12/03/20 10:22 Lipase 10,500/Protease 25,000/Amylase 43,750 (Units) Dr Blount FEEDTUBE PRN PRN For Clogged Feeding Tube Atorvastatin Calcium 40 mg 12/02/20 10:00 12/07/20 11:26 Atorvastatin 40 Mg Tab PO 40 mg DAILY ADOLFO Administration Citalopram Hydrobromide 20 mg 12/02/20 10:00 12/07/20 11:24 Citalopram 20 Mg Tab PO 20 mg DAILY ADOLFO Administration Dextrose 50 ml 12/02/20 11:18 Dextrose 50% In Water (25gm) 50 Ml Syringe IV Q30MIN PRN Hypoglycemia Protocol Docusate Sodium 100 mg 12/04/20 10:00 12/07/20 22:11 Docusate Sodium 100 Mg/10 Ml Oral Liqd FEEDTUBE 100 mg BID ADOLFO Administration Famotidine 20 mg 12/04/20 10:00 12/07/20 11:25 Famotidine 20 Mg Tab PO 20 mg DAILY ADOLFO Administration Phenytoin 100 mg/ Sodium 102 mls @ 204 mls/hr 12/07/20 14:00 12/08/20 06:04 Chloride IV 204 mls/hr Q8HR ADOLFO Administration Cefepime HCl 2 gm in 100 mls @ 200 mls/hr 12/08/20 10:00 Cefepime/Ns 2 Gm/100 Ml IV Q12H ADOLFO Vancomycin HCl 1 gm in 250 mls @ 167.007 mls/hr 12/08/20 17:00 Vancomycin/Ns 1 Gm/250 Ml IV Q24H ADOLFO Insulin Glargine 10 units 12/05/20 08:00 12/07/20 09:33 Insulin Glargine 100 Units/Ml SUB-Q 10 units QAMDIAB ADOLFO Administration Insulin Human Lispro 0 unit 12/04/20 00:00 12/08/20 06:50 Insulin Lispro 100 Unit/Ml SUB-Q 4 unit Q6HR ADOLFO Administration Protocol Nystatin 500,000 unit 12/02/20 10:00 12/08/20 08:15 Nystatin 500,000 Unit/5 Ml Oral Liqd PO Not Given QID ADOLFO Ondansetron HCl 4 mg 12/02/20 05:24 12/05/20 22:37 Ondansetron 4 Mg/2 Ml Inj IV 4 mg Q8H PRN Administration Nausea And Vomiting Simple Syrup 15 ml 12/03/20 10:22 Simple Syrup 15 Ml FEEDTUBE PRN PRN Hypoglycemia Simple Syrup 30 ml 12/03/20 10:22 Simple Syrup 15 Ml FEEDTUBE PRN PRN Hypoglycemia Sodium Bicarbonate 325 mg 12/03/20 10:22 Sodium Bicarbonate 325 Mg Tab FEEDTUBE PRN PRN For Clogged Feeding Tube Sodium Chloride 10 ml 12/02/20 10:00 12/07/20 22:12 Sodium Chloride 0.9% 10 Ml Flush Syringe IV 10 ml BID ADOLFO Administration Sodium Chloride 10 ml 12/02/20 05:24 12/07/20 05:16 Sodium Chloride 0.9% 10 Ml Flush Syringe IV 10 ml PRN PRN Administration LINE FLUSH Nutrition/Malnutrition Assess - Dietary Evaluation Nutrition/Malnutrition Findings: Nutrition Notes Start: 12/03/20 11:43 Freq: Status: Active Protocol: Document 12/05/20 10:18 LOVE (Rec: 12/05/20 10:20 [email or web address]) Nutrition Notes Initial or Follow up Brief Note Current Diet TF - Glucerna 1.2 at 45ml/hr Labs/Tests BG 339 Pertinent Medications Lantus (10 units) Subjective/Other Information Per RN, pt tolerating TF at goal rate. Per [employer]IOR MANAGER eval yesterday, pt at risk for aspiration and should remain on EN support. Nutrition Intervention Follow-Up By: 12/12/20 Additional Comments F/U: stable TF, wt
[2020-12-08] MEDS: FAMOTIDINE 20 MG TAB PO SCH (09:55)
[2020-12-08] MEDS: INSULIN GLARGINE 100 UNITS/ML SUB-Q SCH (09:55)
[2020-12-08] MEDS: MULTIVITAMIN / MINERAL ORAL LIQUID 15 ML PO SCH (09:55)
[2020-12-08] MEDS: CITALOPRAM 20 MG TAB PO SCH (09:55)
[2020-12-08] MEDS: DOCUSATE SODIUM 100 MG/10 ML ORAL LIQD FEEDTUBE SCH ×2 (09:56→21:56)
[2020-12-08] MEDS ORDERED: CEFEPIME/NS 2 GM/100 ML 2 GM/100 ML BAG IV SCH (10:00)
[2020-12-08 12:21] LABS: Hematocrit 34.2 % (30.3-42.9); Hemoglobin 11.1 gm/dl (10.1-14.3); Mean Corpuscular HGB Conc 33 % (30-34); Mean Corpuscular Volume 87 fl (79-97); Platelet Count 261 K/mm3 (140-440); Red Blood Count 3.93 M/mm3 (3.65-5.03); Red Cell Distribution Width 18.9 % (13.2-15.2)
--- NOTE | 2020-12-08 13:12 | Event Note ---
Date: 12/08/20 Consulted to see patient for ischemic bowel. I have reviewd the CT Scan of the abdomen/pelvis and agree there is possible pneumatosis of the cecum however there are multiple causes of pneumatosis other than vascular occlusive/embolic disease. The patient requires a CTA of the A/P to evaluate the arterial anatomy and rule this in as a cause of the pneumatosis. Additionally the patient needs a general surgery, and likely and GI consult. Full consult to follow.
[2020-12-08 14:57] LABS: Total Cells Counted 100
[2020-12-08 14:58] LABS: Anisocytosis 1+; Platelet Estimate Consistent w Auto; Stomatocytes 1+
[2020-12-08] MEDS ORDERED: VANCOMYCIN/NS 1 GM/250 ML 1 GM/250 ML BAG IV SCH (17:00)
[2020-12-08] MEDS ORDERED: VANCOMYCIN 750 MG in SODIUM CHLORIDE 0.9% 250ML 250 ML IV SCH (17:00)
[2020-12-09 05:10] LABS: Calcium 8.4 mg/dL (8.4-10.2)
[2020-12-09] MEDS: PHENYTOIN 100 MG in SODIUM CHLORIDE 0.9% 100 ML IV SCH ×3 (05:24→21:09)
[2020-12-09] MEDS: ACETAMINOPHEN 325 MG TAB PO PRN (05:37)
[2020-12-09] MEDS: INSULIN LISPRO 100 UNIT/ML SUB-Q SCH ×3 (06:44→17:54)
--- NOTE | 2020-12-09 08:46 | Progress Note ---
Assessment and Plan Cultures: Blood culture 12/01/2020 no growth today. Blood culture 12/07/2020 no growth today. Urine cultures 12/04/2020 <10,000 colonies. Assessment: 65-year-old female with history of hypertension, previous CVA, diabetes mellitus, dementia, chronic outlet obstruction with bilateral hydroureteronephrosis, previous UTI, uterine fibroids, s/p left AKA, admitted on 12/01/2020 secondary to be found hot, hypotensive and tachycardic: #Sepsis: worsening leukocytosis and fever. Etiology likely complicated UTI +/- bowel ischemia. CRP 1.3. 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 #Complicated UTI: History of chronic outlet obstruction with previous bilateral hydroureteral nephrosis, previous UTI due to Klebsiella in July 2020. Initial urinalysis with 182 WBCs and large leukocyte esterase. CT of the pelvis with posterior urinary bladder mass. Urine culture taken 3 days after admission with <10,000 mixed colonies. On cefepime IV for 6 days not responding. Mcclure catheter placed on admission. CT abdomen with bilateral pyelonephritis #Acute kidney disease: Renally adjust antibiotics. #Encephalopathy: Likely toxic metabolic due to sepsis. Noted new right-sided weakness. Brain MRI with extensive chronic changes. Recommendations: - Vascular evaluation ongoing - Stop cefepime IV renally adjusted - Stop vancomycin IV renally adjusted - Start meropenem - Procal Will follow. Lucero Peter MD Infectious Diseases [facility]ator [facility] ([facility]) M [phone] O [phone] Subjective Date of service: 12/09/20 Interval history: Patient is nonverbal. Open eyes. Remains with fever 102.4 Objective - Exam Narrative Exam: General appearance: Somnolent, nonverbal, in no acute distress, hot to touch Eyes: anicteric sclerae, moist conjunctivae; no lid-lag; PERRLA HENT: Normocephalic, Atraumatic; normal external ears, nares open, oropharynx limited, lips with ulcers, NG tube in place Neck: supple, tracheal midline, no JVD Lungs: Bilateral rhonchi CV: RRR no murmur Abdomen: Soft, nontender Extremities: Right [id number] amputation Skin: No rash. Psych: Somnolent Neuro: Somnolent Mcclure in place - Constitutional Vitals: Vital Signs Temp Pulse Resp BP Pulse Ox 99.0 F 102 H 18 126/67 98 12/09/20 07:37 12/09/20 07:37 12/09/20 07:37 12/09/20 07:37 12/09/20 07:37 Temperature -Last 24 Hours Temperature 99.0 F Temperature 100.7 F Temperature 102.4 F Temperature 101.8 F Temperature 102.8 F Temperature 103.6 F Temperature 98.3 F - Labs CBC & Chem 7: 12/08/20 11:47 12/09/20 04:14 Labs: Abnormal lab results 12/08/20 12/08/20 12/08/20 Range/Units 11:47 11:47 17:00 WBC 22.4 H (4.5-11.0) K/mm3 RDW 18.9 H (13.2-15.2) % Seg Neuts % (Manual) 72.0 H (40.0-70.0) % Seg Neutrophils # Man 16.1 H (1.8-7.7) K/mm3 Monocytes # (Manual) 0.9 H (0.0-0.8) K/mm3 BUN 41 H (7-17) mg/dL Glucose 329 H (65-100) mg/dL POC Glucose 286 H (70-105) mg/dL Calcium 8.0 L (8.4-10.2) mg/dL 12/08/20 12/09/20 12/09/20 Range/Units 23:32 04:14 06:36 WBC (4.5-11.0) K/mm3 RDW (13.2-15.2) % Seg Neuts % (Manual) (40.0-70.0) % Seg Neutrophils # Man (1.8-7.7) K/mm3 Monocytes # (Manual) (0.0-0.8) K/mm3 BUN 50 H (7-17) mg/dL Glucose 324 H (65-100) mg/dL POC Glucose 276 H 342 H (70-105) mg/dL Calcium (8.4-10.2) mg/dL
--- NOTE | 2020-12-09 09:48 | Progress Note ---
Assessment and Plan Assessment and plan: 64-year-old female with PMH of dementia, CVA, left hemiplegia, DM, left AKA, dysphagia, hypokalemia, anemia, CKD 2, urine retention needing chronic indwelling Mcclure catheter was brought to ED for evaluation of AMS and possible vaginal bleeding. Patient was noted to be in septic shock with BP 80/60 and pyuria and hematuria. Mcclure catheter was exchanged in ED. Patient was administered IV fluid boluses with improvement of hypotension and started on antibiotics after cultures. Sepsis. Patient previously with septic shock. Bilateral pyelonephritis/complicated UTI. Toxic metabolic encephalopathy. History of CVA, left hemiparesis, aphasic and dysphagia. (2008,2015) Left AKA 2016 New right-sided weakness. Acute kidney injury on CKD stage II. Resolved. Hypokalemia Diabetes mellitus type 2. Anemia 12/03/2020. Patient has now stable vital signs and hypertension resolved. Receiving normal saline 125 mill per hour. She spiked a fever of 100.6 today. Hemoglobin dropped to 6.8 and ordered PRBC transfusion. Hematuria actually resolved. No vaginal bleeding. Mental status improved, she is now awake awake but minimally verbalizes. She can occasionally give her name. She just m umbles. Not in acute distress. Large urine output and MAILE resolved. 12/04/2020. Shock state resolved. MAILE resolved. Mental status much improved. Follows commands but poorly verbal likely from dementia. Continue to avoid narcotics. Patient has a low-grade fever, leukocytosis , on cefepime, cultures pending. Discontinue normal saline. Started Glucerna tube feeds via NG tube, continue aspiration precautions. Ordered swallowing evaluation. Hemoglobin dropped from 7.8-6.8, possibly just dilutional. Hematuria resolved, no vaginal bleeding. Will transfuse PRBC. Consider urology consultation for evaluation of possible bladder tumor when more stable. Daughter reports significant cognitive decline since 07/2020 admission for UTI. Right-sided weakness is new according to daughter. Will order MRI brain when more stable. 12/05/2020. Patient is nonverbal and occasional tracking with eyes on my exam this morning. Baseline mental status per daughter can follow commands and able to communicate but with slow speech. Also, reports ability to feed herself. MRI brain ordered to rule out new CVA. Continue IV antibiotics for UTI. Await speech therapy evaluation for dysphagia. Continue NG tube for tube feedings. I d/w daughter POC [phone]. 12/06/2020. Brain MRI shows no acute findings only extensive chronic changes. Neurology consultation. Altered mentation may be secondary to toxic metabolic encephalopathy from sepsis/UTI. Continue IV antibiotics. Consider ID consu ltation. Acute kidney injury resolved. Still awaiting speech therapy evaluation 12/07/2020. Neurology evaluated the patient and recommends EEG to rule out subclinical seizures. Patient may need repeat MRI. Continue IV antibiotics for sepsis/UTI. Patient has underlying toxic metabolic encephalopathy as well. Blood cultures negative x5 days. Urine culture also negative. However, patient with significant fever since last night. Repeat blood cultures, check lactic acid and obtain ID consultation 12/08/2020. CT scan suggestive of bilateral acute pyelonephritis and bowel ischemia. Vancomycin added by ID. Appreciate ID help. Vascular surgery for bowel ischemia. Follow-up repeat blood cultures. Lactic acid level normal. 12/09/2020. Consult GI and surgery for presumed bowel ischemia and cecum pneumatosis per vascular surgery recommendation. Continue IV antibiotics per ID recommendations. Cefepime and vancomycin discontinued and meropenem started. CT of abdomen with bilateral pyelonephritis. Urology evaluation for urinary bladder mass once cecum pneumatosis and presumed bowel ischemia addressed. Nurse reports patient with vomiting this a.m. Hold tube feedings and change NG tube to LIS. Check KUB rule out ileus. Consider Reglan. History Interval history: No new issues overnight. Hospitalist Physical - Constitutional Vitals: Temp Pulse Resp BP Pulse Ox 99.0 F 102 H 18 126/67 98 12/09/20 07:37 12/09/20 07:37 12/09/20 07:37 12/09/20 07:37 12/09/20 07:37 General appearance: Present: no acute distress, other (Debilitated, alert but fully verbal) - EENT Eyes: Present: PERRL, EOM intact ENT: hearing intact, clear oral mucosa, dentition normal - Neck Neck: Present: supple, normal ROM - Respiratory Respiratory effort: normal Respiratory: bilateral: CTA - Cardiovascular Rhythm: regular Heart Sounds: Present: S1 & S2. Absent: gallop, rub - Extremities Extremities: no ischemia, No edema, Full ROM - Abdominal General gastrointestinal: soft, non-tender, non-distended, normal bowel sounds - Integumentary Integumentary: Present: clear, warm, dry - Neurologic Neurologic: CNII-XII intact, moves all extremities Results - Labs CBC & Chem 7: 12/08/20 11:47 12/09/20 04:14 Labs: Laboratory Last Values WBC 22.4 K/mm3 (4.5-11.0) H 12/08/20 11:47 RBC 3.93 M/mm3 (3.65-5.03) 12/08/20 11:47 Hgb 11.1 gm/dl (10.1-14.3) 12/08/20 11:47 Hct 34.2 % (30.3-42.9) 12/08/20 11:47 MCV 87 fl (79-97) 12/08/20 11:47 MCH 28 pg (28-32) 12/08/20 11:47 MCHC 33 % (30-34) 12/08/20 11:47 RDW 18.9 % (13.2-15.2) H 12/08/20 11:47 Plt Count 261 K/mm3 (140-440) 12/08/20 11:47 Lymph % (Auto) 17.5 % (13.4-35.0) 12/05/20 05:04 Gordon % (Auto) 5.4 % (0.0-7.3) 12/05/20 05:04 Eos % (Auto) 0.6 % (0.0-4.3) 12/05/20 05:04 Baso % (Auto) 0.6 % (0.0-1.8) 12/05/20 05:04 Lymph # (Auto) Fermenting Cellar Dropper 12/08/20 11:47 Gordon # (Auto) 0.7 K/mm3 (0.0-0.8) 12/05/20 05:04 Eos # (Auto) 0.1 K/mm3 (0.0-0.4) 12/05/20 05:04 Baso # (Auto) 0.1 K/mm3 (0.0-0.1) 12/05/20 05:04 Add Manual Diff Complete 12/08/20 11:47 Total Counted 100 12/08/20 11:47 Seg Neutrophils % 75.9 % (40.0-70.0) H 12/05/20 05:04 Seg Neuts % (Manual) 72.0 % (40.0-70.0) H 12/08/20 11:47 Lymphocytes % (Manual) 24.0 % (13.4-35.0) 12/08/20 11:47 Monocytes % (Manual) 4.0 % (0.0-7.3) 12/08/20 11:47 Nucleated RBC % Not Reportable 12/08/20 11:47 Seg Neutrophils # 9.3 K/mm3 (1.8-7.7) H 12/05/20 05:04 Seg Neutrophils # Man 16.1 K/mm3 (1.8-7.7) H 12/08/20 11:47 Band Neutrophils # 0.0 K/mm3 12/08/20 11:47 Lymphocytes # (Manual) 5.4 K/mm3 (1.2-5.4) 12/08/20 11:47 Abs React Lymphs (Man) 0.0 K/mm3 12/08/20 11:47 Monocytes # (Manual) 0.9 K/mm3 (0.0-0.8) H 12/08/20 11:47 Eosinophils # (Manual) 0.0 K/mm3 (0.0-0.4) 12/08/20 11:47 Basophils # (Manual) 0.0 K/mm3 (0.0-0.1) 12/08/20 11:47 Metamyelocytes # 0.0 K/mm3 12/08/20 11:47 Myelocytes # 0.0 K/mm3 12/08/20 11:47 Promyelocytes # 0.0 K/mm3 12/08/20 11:47 Blast Cells # 0.0 K/mm3 12/08/20 11:47 WBC Morphology Not Reportable 12/08/20 11:47 Hypersegmented Neuts Not Reportable 12/08/20 11:47 Hyposegmented Neuts Not Reportable 12/08/20 11:47 Hypogranular Neuts Not Reportable 12/08/20 11:47 Smudge Cells Not Reportable 12/08/20 11:47 Toxic Granulation Not Reportable 12/08/20 11:47 Toxic Vacuolation Not Reportable 12/08/20 11:47 Dohle Bodies Not Reportable 12/08/20 11:47 Pelger-Huet Anomaly Not Reportable 12/08/20 11:47 Israel Rods Not Reportable 12/08/20 11:47 Platelet Estimate Consistent w auto 12/08/20 11:47 Clumped Platelets Not Reportable 12/08/20 11:47 Plt Clumps, EDTA Not Reportable 12/08/20 11:47 Large Platelets Not Reportable 12/08/20 11:47 Giant Platelets Not Reportable 12/08/20 11:47 Platelet Satelliting Not Reportable 12/08/20 11:47 Plt Morphology Comment Not Reportable 12/08/20 11:47 RBC Morphology Not Reportable 12/08/20 11:47 Dimorphic RBCs Not Reportable 12/08/20 11:47 Polychromasia Not Reportable 12/08/20 11:47 Hypochromasia Not Reportable 12/08/20 11:47 Poikilocytosis Not Reportable 12/08/20 11:47 Anisocytosis 1+ 12/08/20 11:47 Microcytosis Not Reportable 12/08/20 11:47 Macrocytosis Not Reportable 12/08/20 11:47 Spherocytes Not Reportable 12/08/20 11:47 Pappenheimer Bodies Not Reportable 12/08/20 11:47 Sickle Cells Not Reportable 12/08/20 11:47 Target Cells Not Reportable 12/08/20 11:47 Tear Drop Cells Not Reportable 12/08/20 11:47 Ovalocytes Not Reportable 12/08/20 11:47 Stomatocytes 1+ 12/08/20 11:47 Helmet Cells Not Reportable 12/08/20 11:47 [place] Bodies Not Reportable 12/08/20 11:47 [place] Rings Not Reportable 12/08/20 11:47 [place] Cells Not Reportable 12/08/20 11:47 Bite Cells Not Reportable 12/08/20 11:47 Crenated Cell Not Reportable 12/08/20 11:47 Elliptocytes Not Reportable 12/08/20 11:47 Acanthocytes (Spur) Not Reportable 12/08/20 11:47 Rouleaux Not Reportable 12/08/20 11:47 Hemoglobin C Crystals Not Reportable 12/08/20 11:47 Schistocytes Not Reportable 12/08/20 11:47 Malaria parasites Not Reportable 12/08/20 11:47 [place]let Bodies Not Reportable 12/08/20 11:47 Hem Pathologist Commnt No 12/08/20 11:47 PT 15.3 Sec. (12.2-14.9) H 12/02/20 02:53 INR 1.16 (0.87-1.13) H 12/02/20 02:53 APTT 37.7 Sec. (24.2-36.6) H 12/02/20 02:53 Sodium 137 mmol/L (137-145) 12/09/20 04:14 Potassium 4.2 mmol/L (3.6-5.0) 12/09/20 04:14 Chloride 100.1 mmol/L (98-107) 12/09/20 04:14 Carbon Dioxide 26 mmol/L (22-30) 12/09/20 04:14 Anion Gap 15 mmol/L 12/09/20 04:14 BUN 50 mg/dL (7-17) H 12/09/20 04:14 Creatinine 1.2 mg/dL (0.6-1.2) 12/09/20 04:14 Estimated GFR 55 ml/min 12/09/20 04:14 BUN/Creatinine Ratio 42 % 12/09/20 04:14 Glucose 324 mg/dL (65-100) H 12/09/20 04:14 POC Glucose 342 mg/dL (70-105) H 12/09/20 06:36 Hemoglobin A1c 7.4 % (4-6) H 12/02/20 Unknown Lactic Acid 1.70 mmol/L (0.7-2.0) 12/08/20 11:47 Calcium 8.4 mg/dL (8.4-10.2) 12/09/20 04:14 Magnesium 1.50 mg/dL (1.7-2.3) L 12/04/20 09:51 Total Bilirubin 0.20 mg/dL (0.1-1.2) 12/05/20 05:04 AST 15 units/L (5-40) 12/05/20 05:04 ALT 7 units/L (7-56) 12/05/20 05:04 Alkaline Phosphatase 112 units/L (35-129) 12/05/20 05:04 C-Reactive Protein 1.30 mg/dL (0.00-1.30) 12/07/20 17:04 Total Protein 8.4 g/dL (6.3-8.2) H 12/05/20 05:04 Albumin 2.8 g/dL (3.9-5) L 12/05/20 05:04 Albumin/Globulin Ratio 0.5 % 12/05/20 05:04 Urine Color Yellow (Yellow) 12/02/20 03:50 Urine Turbidity Turbid (Clear) 12/02/20 03:50 Urine pH 6.0 (5.0-7.0) 12/02/20 03:50 Ur Specific Salters 1.008 (1.003-1.030) 12/02/20 03:50 Urine Protein 100 mg/dl mg/dL (Negative) 12/02/20 03:50 Urine Glucose (UA) Neg mg/dL (Negative) 12/02/20 03:50 Urine Ketones Neg mg/dL (Negative) 12/02/20 03:50 Urine Blood Lg (Negative) 12/02/20 03:50 Urine Nitrite Neg (Negative) 12/02/20 03:50 Urine Bilirubin Neg (Negative) 12/02/20 03:50 Urine Urobilinogen < 2.0 mg/dL (<2.0) 12/02/20 03:50 Ur Leukocyte Esterase Lg (Negative) 12/02/20 03:50 Urine WBC (Auto) > 182.0 /HPF (0.0-6.0) H 12/02/20 03:50 Urine RBC (Auto) > 182.0 /HPF (0.0-6.0) 12/02/20 03:50 U Epithel Cells (Auto) 6.0 /HPF (0-13.0) 12/02/20 03:50 Urine Bacteria (Auto) 1+ /HPF (Negative) 12/02/20 03:50 Urine WBC Clumps 3+ /HPF 12/02/20 03:50 Phenytoin 12.9 ug/mL (10.0-20.0) 12/07/20 04:52 Coronavirus (PCR) Negative (Negative) 12/05/20 Unknown Blood Type O POSITIVE 12/02/20 02:05 Antibody Screen Negative 12/02/20 02:05 Crossmatch See Detail 12/02/20 02:05 Microbiology: Microbiology 12/07/20 11:08 Peripheral/Venous Blood Culture - Preliminary NO GROWTH AFTER 24 HOURS 12/07/20 11:08 Peripheral/Venous Blood Culture - Preliminary NO GROWTH AFTER 24 HOURS Mcclure/IV: Voiding Method Indwelling Catheter Active Medications - Current Medications Current Medications: Generic Name Dose Route Start Last Admin Trade Name Freq PRN Reason Stop Dose Admin Acetaminophen 650 mg 12/02/20 05:24 12/09/20 05:37 Acetaminophen 325 Mg Tab PO 650 mg Q4H PRN Administration Pain MILD(1-3)/Fever >100.5/SMALLS Albuterol 2.5 mg 12/02/20 05:24 12/03/20 15:11 Albuterol 2.5 Mg/3 Ml Nebu IH 2.5 mg Q4HRT PRN Administration Shortness Of Breath Lipase/Protease/Amylase 1 each 12/03/20 10:22 Lipase 10,500/Protease 25,000/Amylase 43,750 (Units) Dr Blount FEEDTUBE PRN PRN For Clogged Feeding Tube Atorvastatin Calcium 40 mg 12/02/20 10:00 12/08/20 09:55 Atorvastatin 40 Mg Tab PO 40 mg DAILY ADOLFO Administration Citalopram Hydrobromide 20 mg 12/02/20 10:00 12/08/20 09:55 Citalopram 20 Mg Tab PO 20 mg DAILY ADOLFO Administration Dextrose 50 ml 12/02/20 11:18 Dextrose 50% In Water (25gm) 50 Ml Syringe IV Q30MIN PRN Hypoglycemia Protocol Docusate Sodium 100 mg 12/04/20 10:00 12/08/20 21:56 Docusate Sodium 100 Mg/10 Ml Oral Liqd FEEDTUBE 100 mg BID ADOLFO Administration Famotidine 20 mg 12/04/20 10:00 12/08/20 09:55 Famotidine 20 Mg Tab PO 20 mg DAILY ADOLFO Administration Phenytoin 100 mg/ Sodium 102 mls @ 204 mls/hr 12/07/20 14:00 12/09/20 05:24 Chloride IV 204 mls/hr Q8HR ADOLFO Administration Meropenem 1,000 mg/ Sodium 100 mls @ 100 mls/hr 12/09/20 09:00 Chloride IV Q8HR ADOLFO Protocol Insulin Glargine 10 units 12/05/20 08:00 12/08/20 09:55 Insulin Glargine 100 Units/Ml SUB-Q 10 units QAMDIAB ADOLFO Administration Insulin Human Lispro 0 unit 12/04/20 00:00 12/09/20 06:44 Insulin Lispro 100 Unit/Ml SUB-Q 4 unit Q6HR ADOLFO Administration Protocol Nystatin 500,000 unit 12/02/20 10:00 12/08/20 21:56 Nystatin 500,000 Unit/5 Ml Oral Liqd PO 500,000 unit QID ADOLFO Administration Ondansetron HCl 4 mg 12/02/20 05:24 12/05/20 22:37 Ondansetron 4 Mg/2 Ml Inj IV 4 mg Q8H PRN Administration Nausea And Vomiting Simple Syrup 15 ml 12/03/20 10:22 Simple Syrup 15 Ml FEEDTUBE PRN PRN Hypoglycemia Simple Syrup 30 ml 12/03/20 10:22 Simple Syrup 15 Ml FEEDTUBE PRN PRN Hypoglycemia Sodium Bicarbonate 325 mg 12/03/20 10:22 Sodium Bicarbonate 325 Mg Tab FEEDTUBE PRN PRN For Clogged Feeding Tube Sodium Chloride 10 ml 12/02/20 10:00 12/08/20 21:57 Sodium Chloride 0.9% 10 Ml Flush Syringe IV 10 ml BID ADOLFO Administration Sodium Chloride 10 ml 12/02/20 05:24 12/07/20 05:16 Sodium Chloride 0.9% 10 Ml Flush Syringe IV 10 ml PRN PRN Administration LINE FLUSH Nutrition/Malnutrition Assess - Dietary Evaluation Nutrition/Malnutrition Findings: Nutrition Notes Start: 12/03/20 11:43 Freq: Status: Active Protocol: Document 12/05/20 10:18 [facility] (Rec: 12/05/20 10:20 [facility] [id number]) Nutrition Notes Initial or Follow up Brief Note Current Diet TF - Glucerna 1.2 at 45ml/hr Labs/Tests BG 339 Pertinent Medications Lantus (10 units) Subjective/Other Information Per RN, pt tolerating TF at goal rate. Per [employer]ICAL PROJECT MANAGER eval yesterday, pt at risk for aspiration and should remain on EN support. Nutrition Intervention Follow-Up By: 12/12/20 Additional Comments F/U: stable TF, wt
[2020-12-09] MEDS: INSULIN GLARGINE 100 UNITS/ML SUB-Q SCH (09:56)
[2020-12-09] MEDS: MEROPENEM 1,000 MG in SODIUM CHLORIDE 0.9% 100 ML IV SCH ×3 (09:56→21:08)
[2020-12-09] MEDS: DOCUSATE SODIUM 100 MG/10 ML ORAL LIQD FEEDTUBE SCH ×2 (09:57→21:10)
[2020-12-09] MEDS: CITALOPRAM 20 MG TAB PO SCH (09:57)
[2020-12-09] MEDS: MULTIVITAMIN / MINERAL ORAL LIQUID 15 ML PO SCH (09:57)
[2020-12-09] MEDS: NYSTATIN 500,000 UNIT/5 ML ORAL LIQD PO SCH ×4 (09:57→21:10)
[2020-12-09] MEDS: FAMOTIDINE 20 MG TAB PO SCH (09:58)
[2020-12-09] MEDS ORDERED: CEFEPIME/NS 2 GM/100 ML 2 GM/100 ML BAG IV SCH (10:00)
[2020-12-09] MEDS ORDERED: METOCLOPRAMIDE 10 MG/2 ML INJ IV PRN (10:31)
--- NOTE | 2020-12-09 11:29 | XRay Report ---
ABDOMEN AP SUPINE 1050 INDICATION: vomiting COMPARISON: 12/05/2020 FINDINGS: Nasogastric tube continues well into the distal stomach. Bowel gas pattern is unremarkable with no significant evidence of obstruction. Signer Name: Vipul Mckinnon MD Signed: 12/09/2020 11:24 AM Workstation Name: [id number]
[2020-12-09] MEDS ORDERED: SODIUM CHLORIDE 0.9% 1000 ML 1,000 ML IV ONE (12:39)
[2020-12-09] MEDS ORDERED: SODIUM CHLORIDE 0.9% 1000 ML 1,000 ML IV SCH (12:45)
--- NOTE | 2020-12-09 13:45 | Consultation ---
History of Present Illness Consult date: 12/09/20 Chief complaint: pneumatosis, bowel ischemia - History of present illness History of present illness: 65-year-old female with past medical history of hypertension, CVA, DM, dementia who presented to ER on 12/01/20 due to hypotension, tachycardia. Pt is nonverbal and all history is obtained from chart. Pt has been on TF with low residuals but had one episode of emesis, nonbloody/nonbilious this am. She had a BM 2 days ago. She has been febrile. Ct scan A/P was performed on 12/07/20 which showed cecal pneumatosis. Surgery consult requested today for evaluation. Past History Past Medical History: diabetes, GERD, hypertension, stroke, other (Depression, dementia GERD and supple of) Medications and Allergies Allergies Allergy/AdvReac Type Severity Reaction Status Date / Time No Known Allergies Allergy Verified 12/02/20 16:58 Home Medications Medication Instructions Recorded Confirmed Last Taken Type Oxybutynin [Ditropan] 5 mg PO BID #60 tablet 09/28/19 12/02/20 Unknown Rx levoFLOXacin [Levaquin TAB] 500 mg PO QDAY #5 tablet 09/28/19 12/02/20 Unknown Rx Acetaminophen [Aphen] 325 mg PO Q4H PRN 07/21/20 12/02/20 Unknown History Aspirin [Adult Aspirin] 81 mg PO DAILY 07/21/20 12/02/20 Unknown History AtorvaSTATin [Lipitor] 40 mg PO DAILY 07/21/20 12/02/20 Unknown History Citalopram [Celexa] 20 mg PO DAILY 07/21/20 12/02/20 Unknown History Docusate Sodium [Colace CAP] 100 mg PO BID 07/21/20 12/02/20 Unknown History Insulin Aspart (Nf) [NovoLOG 100 0 unit SQ AC 07/21/20 12/02/20 Unknown History UNITS/ML VIAL] Insulin Glargine [Lantus VIAL] 20 units SQ BID 07/21/20 12/02/20 Unknown History Insulin Lispro [Admelog] 5 unit SQ ACHS 07/21/20 12/02/20 Unknown History Multivitamin [One-Daily 1 tab PO DAILY 07/21/20 12/02/20 Unknown History Multi-Vitamin] Norvasc 10 mg PO DAILY 07/21/20 12/02/20 Unknown History Nystatin [Nystatin SUSP] 100,000 ml PO QID 07/21/20 12/02/20 Unknown History Ondansetron HCl [Zofran] 4 mg PO Q8H 07/21/20 12/02/20 Unknown History Oxybutynin [Ditropan] 5 mg PO DAILY 07/21/20 12/02/20 Unknown History Pantoprazole [Protonix TAB] 40 mg PO QDAY 07/21/20 12/02/20 Unknown History Potassium 10 meq PO QAM 07/21/20 12/02/20 Unknown History Sennosides [Senna] 1 tab PO BID 07/21/20 12/02/20 Unknown History bisacodyL [Dulcolax suppos] 10 mg SC DAILY 07/21/20 12/02/20 Unknown History cephALEXin [Keflex] 250 mg PO Q6HR #10 capsule 07/21/20 12/02/20 Unknown Rx diphenhydrAMINE [Benadryl CAP] 25 mg PO Q6H PRN 07/21/20 12/02/20 Unknown History megestroL [Megace] 40 mg PO DAILY #30 tablet 07/22/20 12/02/20 Unknown Rx Active Meds: Active Medications Acetaminophen (Acetaminophen 325 Mg Tab) 650 mg PO Q4H PRN PRN Reason: Pain MILD(1-3)/Fever >100.5/SMALLS Last Admin: 12/09/20 05:37 Dose: 650 mg Documented by: Albuterol (Albuterol 2.5 Mg/3 Ml Nebu) 2.5 mg IH Q4HRT PRN PRN Reason: Shortness Of Breath Last Admin: 12/03/20 15:11 Dose: 2.5 mg Documented by: Lipase/Protease/Amylase (Lipase 10,500/Protease 25,000/Amylase 43,750 (Units) Dr Blount) 1 each FEEDTUBE PRN PRN PRN Reason: For Clogged Feeding Tube Atorvastatin Calcium (Atorvastatin 40 Mg Tab) 40 mg PO DAILY [facility] Last Admin: 12/09/20 09:57 Dose: 40 mg Documented by: Citalopram Hydrobromide (Citalopram 20 Mg Tab) 20 mg PO DAILY [facility] Last Admin: 12/09/20 09:57 Dose: 20 mg Documented by: Dextrose (Dextrose 50% In Water (25gm) 50 Ml Syringe) 50 ml IV Q30MIN PRN; Protocol PRN Reason: Hypoglycemia Docusate Sodium (Docusate Sodium 100 Mg/10 Ml Oral Liqd) 100 mg FEEDTUBE BID [facility] Last Admin: 12/09/20 09:57 Dose: 100 mg Documented by: Famotidine (Famotidine 20 Mg Tab) 20 mg PO DAILY [facility] Last Admin: 12/09/20 09:58 Dose: 20 mg Documented by: Phenytoin 100 mg/ Sodium (Chloride) 102 mls @ 204 mls/hr IV Q8HR [facility] Last Admin: 12/09/20 05:24 Dose: 204 mls/hr Documented by: Meropenem 1,000 mg/ Sodium (Chloride) 100 mls @ 100 mls/hr IV Q8HR [facility]; Protocol Last Admin: 12/09/20 09:56 Dose: 100 mls/hr Documented by: Sodium Chloride (Nacl 0.9% 1000 Ml) 1,000 mls @ 125 mls/hr IV DIRECT [facility] Insulin Glargine (Insulin Glargine 100 Units/Ml) 10 units SUB-Q QAMDIAB [facility] Last Admin: 12/09/20 09:56 Dose: 10 units Documented by: Insulin Human Lispro (Insulin Lispro 100 Unit/Ml) 0 unit SUB-Q Q6HR [facility]; Protocol Last Admin: 12/09/20 06:44 Dose: 4 unit Documented by: Metoclopramide HCl (Metoclopramide 10 Mg/2 Ml Inj) 10 mg IV Q6H PRN PRN Reason: Nausea And Vomiting Nystatin (Nystatin 500,000 Unit/5 Ml Oral Liqd) 500,000 unit PO QID [facility] Last Admin: 12/09/20 09:57 Dose: 500,000 unit Documented by: Ondansetron HCl (Ondansetron 4 Mg/2 Ml Inj) 4 mg IV Q8H PRN PRN Reason: Nausea And Vomiting Last Admin: 12/05/20 22:37 Dose: 4 mg Documented by: Simple Syrup (Simple Syrup 15 Ml) 15 ml FEEDTUBE PRN PRN PRN Reason: Hypoglycemia Simple Syrup (Simple Syrup 15 Ml) 30 ml FEEDTUBE PRN PRN PRN Reason: Hypoglycemia Sodium Bicarbonate (Sodium Bicarbonate 325 Mg Tab) 325 mg FEEDTUBE PRN PRN PRN Reason: For Clogged Feeding Tube Sodium Chloride (Sodium Chloride 0.9% 10 Ml Flush Syringe) 10 ml IV BID ADOLFO Last Admin: 12/09/20 09:58 Dose: 10 ml Documented by: Sodium Chloride (Sodium Chloride 0.9% 10 Ml Flush Syringe) 10 ml IV PRN PRN PRN Reason: LINE FLUSH Last Admin: 12/07/20 05:16 Dose: 10 ml Documented by: Review of Systems ROS unobtainable: due to mental status Exam Vital Signs Pulse Ox 87 12/01/20 22:23 Narrative exam: Gen: AAOx3. NAD CV: s1, S2+ Resp: even and unlabored Abd: soft, NT, ND. Well healed LUQ scar Ext: no c/c/e Results - Labs 12/08/20 11:47 12/09/20 04:14 Abnormal lab results 12/08/20 12/08/20 12/08/20 Range/Units 11:47 17:00 23:32 Seg Neuts % (Manual) 72.0 H (40.0-70.0) % Seg Neutrophils # Man 16.1 H (1.8-7.7) K/mm3 Monocytes # (Manual) 0.9 H (0.0-0.8) K/mm3 BUN (7-17) mg/dL Glucose (65-100) mg/dL POC Glucose 286 H 276 H (70-105) mg/dL 12/09/20 12/09/20 12/09/20 Range/Units 04:14 06:36 11:00 Seg Neuts % (Manual) (40.0-70.0) % Seg Neutrophils # Man (1.8-7.7) K/mm3 Monocytes # (Manual) (0.0-0.8) K/mm3 BUN 50 H (7-17) mg/dL Glucose 324 H (65-100) mg/dL POC Glucose 342 H 292 H (70-105) mg/dL Diabetes panel 12/09/20 Range/Units 04:14 Sodium 137 (137-145) mmol/L Potassium 4.2 (3.6-5.0) mmol/L Chloride 100.1 (98-107) mmol/L Carbon Dioxide 26 (22-30) mmol/L BUN 50 H (7-17) mg/dL Creatinine 1.2 (0.6-1.2) mg/dL Glucose 324 H (65-100) mg/dL Calcium 8.4 (8.4-10.2) mg/dL Calcium panel 12/09/20 Range/Units 04:14 Calcium 8.4 (8.4-10.2) mg/dL Pituitary panel 12/09/20 Range/Units 04:14 Sodium 137 (137-145) mmol/L Potassium 4.2 (3.6-5.0) mmol/L Chloride 100.1 (98-107) mmol/L Carbon Dioxide 26 (22-30) mmol/L BUN 50 H (7-17) mg/dL Creatinine 1.2 (0.6-1.2) mg/dL Glucose 324 H (65-100) mg/dL Calcium 8.4 (8.4-10.2) mg/dL Adrenal panel 12/09/20 Range/Units 04:14 Sodium 137 (137-145) mmol/L Potassium 4.2 (3.6-5.0) mmol/L Chloride 100.1 (98-107) mmol/L Carbon Dioxide 26 (22-30) mmol/L BUN 50 H (7-17) mg/dL Creatinine 1.2 (0.6-1.2) mg/dL Glucose 324 H (65-100) mg/dL Calcium 8.4 (8.4-10.2) mg/dL - Imaging CT scan - abdomen: report reviewed, image reviewed CT scan - pelvis: report reviewed, image reviewed Assessment and Plan 65 yo F with pneumatosis of cecum on Ct scan A/P 12/07/20 CTA A/P 12/09/20 - images reviewed - resolution of cecal pneumatosis. Mesenteric vessels appear patent. Official read pending. Plan: 1. May resume TF as tolerated 2. Reglan Q12 3. abx per ID for UTI, sepsis 4. Pneumatosis likely transient from low flow state, sepsis. Appears to have resolved on repeat imaging. No acute surgical intervention at this time. Will s/o Thank you, please call with questions.
--- NOTE | 2020-12-09 13:52 | Cat Scan Report ---
CTA ABDOMEN AND PELVIS WITHOUT AND WITH IV CONTRAST INDICATION / CLINICAL INFORMATION: sepsis, pneumatosis OMNIPAQUE 350 100ML. TECHNIQUE: Axial CT images were obtained through the abdomen and pelvis before and after after injection of IV c ontrast. 3 plane MIP / 3D reconstructions were produced. All CT scans at this location are performed using CT dose reduction for ALARA by means of automated exposure control. COMPARISON: None available. FINDINGS: There is increased interstitial prominence in the lower lungs. Emphysematous changes also noted. Ther e is diffuse fatty infiltration the liver. Mild inflammation surrounding the kidneys. Prominence of t he right renal pelvis with some mild hydronephrosis bilaterally. Bilateral kidneys are heterogeneous in appearance. There is a cystic lesion near the pancreatic head and neck measuring 9 mm. Urinary hema dder appears normal. The bladder wall is severely thickened. Uterus is enlarged with uterine fibroids . The abnormal appearance seen previously within the cecum is not as well identified The celiac and SMA appear normal. SHERRY appears normal. Atherosclerotic changes seen in the lower abdom inal aorta at the iliac bifurcation. There is some significant stenosis in the proximal left superfic ial femoral artery Additional Findings: None. Skeletal Structures: No significant abnormality. IMPRESSION: 1. Abnormal appearance of bilateral kidneys with bilateral hydroureteronephrosis. Inflammatory change surrounding the renal pelvises and ureters. There is marked irregularity urinary bladder with bladde r wall thickening. Findings could represent a cystitis with additional infection involving bilateral ureters and kidneys. Pyelonephritis cannot be completely excluded. Clinical correlation urinalysis. 2. No severe stenosis in the celiac, SMA or SHERRY. Severe stenosis in left superficial femoral artery. 3. Fatty infiltration liver. 4. The abnormal appearance seen within the cecum on prior examination is not as apparent on today's e xam. There are several foci which approach the wall however these could be intraluminal. Clinical cor relation and follow-up recommended. 5. Increased interstitial prominence and densities in the lower lungs. Signer Name: Dar Haney MD Signed: 12/09/2020 1:47 PM Workstation Name: [id number]
--- NOTE | 2020-12-09 20:39 | Consultation ---
History of Present Illness - Reason for Consult Consult date: 12/09/20 Ischemic bowel Requesting physician: ROLY HICKMAN - History of Present Illness The patient is a 65-year-old patient who resides in a [facility] and has multiple medical problems. She was brought to the emergency department on12/01/2020 with hypotension and fevers. She is nonverbal so I am unable to obtain a history from the patient. The patient did undergo a CT scan of her chest and abdomen to work-up a source of her infection, causing her sepsis, and was found to have possible pneumatosis of her cecum. This was a noncontrast CT. there were no additional findings to suggest vascular compromise on the CT scan. Past History Past Medical History: diabetes, GERD, hypertension, stroke, other (Depression, dementia GERD and supple of) Medications and Allergies Allergies Allergy/AdvReac Type Severity Reaction Status Date / Time No Known Allergies Allergy Verified 12/02/20 16:58 Home Medications Medication Instructions Recorded Confirmed Last Taken Type Oxybutynin [Ditropan] 5 mg PO BID #60 tablet 09/28/19 12/02/20 Unknown Rx levoFLOXacin [Levaquin TAB] 500 mg PO QDAY #5 tablet 09/28/19 12/02/20 Unknown Rx Acetaminophen [Aphen] 325 mg PO Q4H PRN 07/21/20 12/02/20 Unknown History Aspirin [Adult Aspirin] 81 mg PO DAILY 07/21/20 12/02/20 Unknown History AtorvaSTATin [Lipitor] 40 mg PO DAILY 07/21/20 12/02/20 Unknown History Citalopram [Celexa] 20 mg PO DAILY 07/21/20 12/02/20 Unknown History Docusate Sodium [Colace CAP] 100 mg PO BID 07/21/20 12/02/20 Unknown History Insulin Aspart (Nf) [NovoLOG 100 0 unit SQ AC 07/21/20 12/02/20 Unknown History UNITS/ML VIAL] Insulin Glargine [Lantus VIAL] 20 units SQ BID 07/21/20 12/02/20 Unknown History Insulin Lispro [Admelog] 5 unit SQ ACHS 07/21/20 12/02/20 Unknown History Multivitamin [One-Daily 1 tab PO DAILY 07/21/20 12/02/20 Unknown History Multi-Vitamin] Norvasc 10 mg PO DAILY 07/21/20 12/02/20 Unknown History Nystatin [Nystatin SUSP] 100,000 ml PO QID 07/21/20 12/02/20 Unknown History Ondansetron HCl [Zofran] 4 mg PO Q8H 07/21/20 12/02/20 Unknown History Oxybutynin [Ditropan] 5 mg PO DAILY 07/21/20 12/02/20 Unknown History Pantoprazole [Protonix TAB] 40 mg PO QDAY 07/21/20 12/02/20 Unknown History Potassium 10 meq PO QAM 07/21/20 12/02/20 Unknown History Sennosides [Senna] 1 tab PO BID 07/21/20 12/02/20 Unknown History bisacodyL [Dulcolax suppos] 10 mg WA DAILY 07/21/20 12/02/20 Unknown History cephALEXin [Keflex] 250 mg PO Q6HR #10 capsule 07/21/20 12/02/20 Unknown Rx diphenhydrAMINE [Benadryl CAP] 25 mg PO Q6H PRN 07/21/20 12/02/20 Unknown History megestroL [Megace] 40 mg PO DAILY #30 tablet 07/22/20 12/02/20 Unknown Rx Active Meds: Active Medications Acetaminophen (Acetaminophen 325 Mg Tab) 650 mg PO Q4H PRN PRN Reason: Pain MILD(1-3)/Fever >100.5/SMALLS Last Admin: 12/09/20 05:37 Dose: 650 mg Documented by: Albuterol (Albuterol 2.5 Mg/3 Ml Nebu) 2.5 mg IH Q4HRT PRN PRN Reason: Shortness Of Breath Last Admin: 12/03/20 15:11 Dose: 2.5 mg Documented by: Lipase/Protease/Amylase (Lipase 10,500/Protease 25,000/Amylase 43,750 (Units) Dr Blount) 1 each FEEDTUBE PRN PRN PRN Reason: For Clogged Feeding Tube Atorvastatin Calcium (Atorvastatin 40 Mg Tab) 40 mg PO DAILY [facility] Last Admin: 12/09/20 09:57 Dose: 40 mg Documented by: Citalopram Hydrobromide (Citalopram 20 Mg Tab) 20 mg PO DAILY [facility] Last Admin: 12/09/20 09:57 Dose: 20 mg Documented by: Dextrose (Dextrose 50% In Water (25gm) 50 Ml Syringe) 50 ml IV Q30MIN PRN; Protocol PRN Reason: Hypoglycemia Docusate Sodium (Docusate Sodium 100 Mg/10 Ml Oral Liqd) 100 mg FEEDTUBE BID [facility] Last Admin: 12/09/20 09:57 Dose: 100 mg Documented by: Famotidine (Famotidine 20 Mg Tab) 20 mg PO DAILY [facility] Last Admin: 12/09/20 09:58 Dose: 20 mg Documented by: Phenytoin 100 mg/ Sodium (Chloride) 102 mls @ 204 mls/hr IV Q8HR [facility] Last Admin: 12/09/20 17:54 Dose: 204 mls/hr Documented by: Meropenem 1,000 mg/ Sodium (Chloride) 100 mls @ 100 mls/hr IV Q8HR [facility]; Protocol Last Admin: 12/09/20 17:53 Dose: 100 mls/hr Documented by: Sodium Chloride (Nacl 0.9% 1000 Ml) 1,000 mls @ 125 mls/hr IV DIRECT [facility] Insulin Glargine (Insulin Glargine 100 Units/Ml) 10 units SUB-Q QAMDIAB [facility] Last Admin: 12/09/20 09:56 Dose: 10 units Documented by: Insulin Human Lispro (Insulin Lispro 100 Unit/Ml) 0 unit SUB-Q Q6HR [facility]; Protocol Last Admin: 12/09/20 17:54 Dose: 2 unit Documented by: Metoclopramide HCl (Metoclopramide 10 Mg/2 Ml Inj) 10 mg IV Q6H PRN PRN Reason: Nausea And Vomiting Nystatin (Nystatin 500,000 Unit/5 Ml Oral Liqd) 500,000 unit PO QID [facility] Last Admin: 12/09/20 17:53 Dose: 500,000 unit Documented by: Ondansetron HCl (Ondansetron 4 Mg/2 Ml Inj) 4 mg IV Q8H PRN PRN Reason: Nausea And Vomiting Last Admin: 12/05/20 22:37 Dose: 4 mg Documented by: Simple Syrup (Simple Syrup 15 Ml) 15 ml FEEDTUBE PRN PRN PRN Reason: Hypoglycemia Simple Syrup (Simple Syrup 15 Ml) 30 ml FEEDTUBE PRN PRN PRN Reason: Hypoglycemia Sodium Bicarbonate (Sodium Bicarbonate 325 Mg Tab) 325 mg FEEDTUBE PRN PRN PRN Reason: For Clogged Feeding Tube Sodium Chloride (Sodium Chloride 0.9% 10 Ml Flush Syringe) 10 ml IV BID ADOLFO Last Admin: 12/09/20 09:58 Dose: 10 ml Documented by: Sodium Chloride (Sodium Chloride 0.9% 10 Ml Flush Syringe) 10 ml IV PRN PRN PRN Reason: LINE FLUSH Last Admin: 12/07/20 05:16 Dose: 10 ml Documented by: Review of Systems ROS unobtainable: due to mental status Exam - Constitutional Vitals: Temp Pulse Resp BP Pulse Ox 97.9 F 101 H 14 125/75 93 12/09/20 20:17 12/09/20 20:17 12/09/20 20:17 12/09/20 20:17 12/09/20 20:17 General appearance: Present: no acute distress, other (Nonverbal) - Respiratory Respiratory effort: normal - Extremities Extremities: no ischemia - Abdominal General gastrointestinal: Present: soft, non-distended Female genitourinary: Present: deferred - Rectal Rectal Exam: deferred Results - Labs CBC & Chem 7: 12/08/20 11:47 12/09/20 04:14 Labs: Abnormal lab results 12/08/20 12/09/20 12/09/20 Range/Units 23:32 04:14 06:36 BUN 50 H (7-17) mg/dL Glucose 324 H (65-100) mg/dL POC Glucose 276 H 342 H (70-105) mg/dL 12/09/20 12/09/20 Range/Units 11:00 15:41 BUN (7-17) mg/dL Glucose (65-100) mg/dL POC Glucose 292 H 239 H (70-105) mg/dL - Imaging and Cardiology CT scan - abdomen: image reviewed CT scan - chest: image reviewed Assessment and Plan The patient has had a CTA of her abdomen and pelvis and I have reviewed the films. There is no evidence of stenosis or embolic phenomenon to the visceral vessels. The previously noted area in the cecum, of pneumatosis, has resolved. There is no indication for vascular surgery intervention.
--- NOTE | 2020-12-09 22:42 | Consultation ---
DATE OF CONSULTATION: 12/09/2020 REFERRING PHYSICIAN: Dr. Jacobo Mckinnon. INDICATIONS: 1. Abnormal CT scan. 2. Abdominal pain. HISTORY OF PRESENT ILLNESS: The patient is a 65-year-old black female with history of hypertension, CVA, diabetes and dementia, brought in for hypertension and tachycardia. The patient had presented and was admitted on 12/02/2020 with hypertension, was noted to have low blood pressure. She was also noted to be in sepsis from UTI. She subsequently was admitted for those complaints. During hospital course, the patient had a CT scan, which raised the possibility of pneumatosis in the cecum. GI is consulted to aid in management for that. History is per chart and family. No other specific complaints. PAST MEDICAL HISTORY: 1. Reflux. 2. Diabetes. 3. Hypertension. 4. CVA. 5. Depression. MEDICATIONS: Reviewed and updated in chart. ALLERGIES: No known drug allergies. SOCIAL HISTORY: Reportedly, no alcohol or tobacco. FAMILY HISTORY: Negative for colon cancer. REVIEW OF SYSTEMS: GENERAL: Some weakness. HEENT: No visual complaints or tinnitus. PULMONARY: Some shortness of breath, chest pain. GASTROINTESTINAL: Reports no specific complaints. All points of 13-point review of systems otherwise negative. PHYSICAL EXAMINATION: VITAL SIGNS: Temperature of 98.9, pulse 100, respiratory rate 20, blood pressure 120/70. GENERAL: Fairly thin female with tube feeds in no acute distress. HEENT: Pupils round, reactive. PULMONARY: Rhonchi. CARDIOVASCULAR: Regular rate and rhythm, normal S1, S2. ABDOMEN: Positive bowel sounds, soft. SKIN: No obvious rashes. LABORATORY DATA: Pertinent for white count of 22, hemoglobin and hematocrit of 11.1 and 34.2, platelet count of 261. Chem-[address] abdomen and pelvis with contrast on 12/09/2020 showed no severe vascular stenosis and no obvious signs of cecal pneumatosis, which was previously seen on CT of 12/07/2020, which at that time showed possible pneumatosis in the cecum. ASSESSMENT: A 65-year-old female who presented with hypertension and sepsis, which most likely related to low flow state to the colon or small intestine, which may have led to signs of pneumatosis, which is seemingly not resolved on repeat CT scan. The patient is tolerating tube feeds. PLAN: 1. We will continue antibiotics as ordered. 2. Await surgery input. 3. No plans for colonoscopy or other GI interventions at this time. 4. We will sign off, call if needed. TID: [id number] RECEIPT: [id number] ELOY/KEVYN
[2020-12-10] MEDS: INSULIN LISPRO 100 UNIT/ML SUB-Q SCH ×4 (00:09→18:42)
[2020-12-10 06:05] LABS: Basophils # (Auto) 0.1 K/mm3 (0.0-0.1); Basophils % (Auto) 0.8 % (0.0-1.8); Eosinophils # (Auto) 0.9 K/mm3 (0.0-0.4); Eosinophils % (Auto) 5.2 % (0.0-4.3); Hematocrit 29.9 % (30.3-42.9); Hemoglobin 9.9 gm/dl (10.1-14.3); Lymphocytes % (Auto) 23.8 % (13.4-35.0); Mean Corpuscular HGB Conc 33 % (30-34); Mean Corpuscular Volume 85 fl (79-97); Monocytes # (Auto) 0.8 K/mm3 (0.0-0.8); Monocytes % (Auto) 4.6 % (0.0-7.3); Platelet Count 195 K/mm3 (140-440); Red Blood Count 3.52 M/mm3 (3.65-5.03); Red Cell Distribution Width 18.4 % (13.2-15.2)
[2020-12-10 06:14] LABS: BUN/Creatinine Ratio 48; Blood Urea Nitrogen 43 mg/dL (7-17); Calcium 8.5 mg/dL (8.4-10.2); Hemolysis Index 9
--- NOTE | 2020-12-10 08:16 | Progress Note ---
Assessment and Plan Assessment and plan: 64-year-old female with PMH of dementia, CVA, left hemiplegia, DM, left AKA, dysphagia, hypokalemia, anemia, CKD 2, urine retention needing chronic indwelling Mcclure catheter was brought to ED for evaluation of AMS and possible vaginal bleeding. Patient was noted to be in septic shock with BP 80/60 and pyuria and hematuria. Mcclure catheter was exchanged in ED. Patient was administered IV fluid boluses with improvement of hypotension and started on antibiotics after cultures. Sepsis. Patient previously with septic shock. Bilateral pyelonephritis/complicated UTI. Toxic metabolic encephalopathy. Cecum pneumatosis. Resolved History of CVA, left hemiparesis, aphasic and dysphagia. (2008,2015) Left AKA 2016 New right-sided weakness. Acute kidney injury on CKD stage II. Resolved. Hypokalemia Diabetes mellitus type 2. Anemia 12/03/2020. Patient has now stable vital signs and hypertension resolved. Receiving normal saline 125 mill per hour. She spiked a fever of 100.6 today. Hemoglobin dropped to 6.8 and ordered PRBC transfusion. Hematuria actually resolved. No vaginal bleeding. Mental status improved, she is now awake awake but minimally verbalizes. She can occasionally give her name. She just mumbles. Not in acute distress. Large urine output and MAILE resolved. 12/04/2020. Shock state resolved. MAILE resolved. Mental status much improved. Follows commands but poorly verbal likely from dementia. Continue to avoid narcotics. Patient has a low-grade fever, leukocytosis , on cefepime, cultures pending. Discontinue normal saline. Started Glucerna tube feeds via NG tube, continue aspiration precautions. Ordered swallowing evaluation. Hemoglobin dropped from 7.8-6.8, possibly just dilutional. Hematuria resolved, no vaginal bleeding. Will transfuse PRBC. Consider urology consultation for evaluation of possible bladder tumor when more stable. Daughter reports significant cognitive decline since 07/2020 admission for UTI. Right-sided weakness is new according to daughter. Will order MRI brain when more stable. 12/05/2020. Patient is nonverbal and occasional tracking with eyes on my exam this morning. Baseline mental status per daughter can follow commands and able to communicate but with slow speech. Also, reports ability to feed herself. MRI brain ordered to rule out new CVA. Continue IV antibiotics for UTI. Await speech therapy evaluation for dysphagia. Continue NG tube for tube feedings. I d/w daughter POC [phone]. 12/06/2020. Brain MRI shows no acute findings only extensive chronic changes. Neurology consultation. Altered mentation may be secondary to toxic metabolic encephalopathy from sepsis/UTI. Continue IV antibiotics. Consider ID consultation. Acute kidney injury resolved. Still awaiting speech therapy evaluation 12/07/2020. Neurology evaluated the patient and recommends EEG to rule out subclinical seizures. Patient may need repeat MRI. Continue IV antibiotics for sepsis/UTI. Patient has underlying toxic metabolic encephalopathy as well. Blood cultures negative x5 days. Urine culture also negative. However, patient with significant fever since last night. Repeat blood cultures, check lactic acid and obtain ID consultation 12/08/2020. CT scan suggestive of bilateral acute pyelonephritis and bowel ischemia. Vancomycin added by ID. Appreciate ID help. Vascular surgery for bowel ischemia. Follow-up repeat blood cultures. Lactic acid level normal. 12/09/2020. Consult GI and surgery for presumed bowel ischemia and cecum pneumatosis per vascular surgery recommendation. Continue IV antibiotics per ID recommendations. Cefepime and vancomycin discontinued and meropenem started. CT of abdomen with bilateral pyelonephritis. Urology evaluation for urinary bladder mass once cecum pneumatosis and presumed bowel ischemia addressed. Nurse reports patient with vomiting this a.m. Hold tube feedings and change NG tube to LIS. Check KUB rule out ileus. Consider Reglan. 12/10/2020. Vascular surgery reports CTA of abdomen and pelvis showed no evidence of stenosis or embolic phenomenon to the visceral vessels. Continue IV antibiotics per ID recommendations. CT scan reveals bilateral hydroureter nephrosis and bilateral pyelonephritis. Urology consultation. CT scan does not show any evidence of ileus. History Interval history: No new issues overnight. Hospitalist Physical - Constitutional Vitals: Temp Pulse Resp BP Pulse Ox 98.1 F 95 H 16 107/71 99 12/10/20 05:20 12/10/20 05:20 12/10/20 05:20 12/10/20 05:20 12/10/20 05:20 General appearance: Present: no acute distress, other (Nonverbal) - EENT Eyes: Present: PERRL, EOM intact ENT: hearing intact, clear oral mucosa, dentition normal - Neck Neck: Present: supple, normal ROM - Respiratory Respiratory effort: normal Respiratory: bilateral: CTA - Cardiovascular Rhythm: regular Heart Sounds: Present: S1 & S2. Absent: gallop, rub - Extremities Extremities: no ischemia, No edema, Full ROM - Abdominal General gastrointestinal: soft, non-tender, non-distended, normal bowel sounds - Integumentary Integumentary: Present: clear, warm, dry - Neurologic Neurologic: CNII-XII intact, moves all extremities Results - Labs CBC & Chem 7: 12/10/20 04:50 12/10/20 04:50 Labs: Laboratory Last Values WBC 17.0 K/mm3 (4.5-11.0) H 12/10/20 04:50 RBC 3.52 M/mm3 (3.65-5.03) L 12/10/20 04:50 Hgb 9.9 gm/dl (10.1-14.3) L 12/10/20 04:50 Hct 29.9 % (30.3-42.9) L 12/10/20 04:50 MCV 85 fl (79-97) 12/10/20 04:50 MCH 28 pg (28-32) 12/10/20 04:50 MCHC 33 % (30-34) 12/10/20 04:50 RDW 18.4 % (13.2-15.2) H 12/10/20 04:50 Plt Count 195 K/mm3 (140-440) 12/10/20 04:50 Lymph % (Auto) 23.8 % (13.4-35.0) 12/10/20 04:50 [place] % (Auto) 4.6 % (0.0-7.3) 12/10/20 04:50 Eos % (Auto) 5.2 % (0.0-4.3) H 12/10/20 04:50 Baso % (Auto) 0.8 % (0.0-1.8) 12/10/20 04:50 Lymph # (Auto) 4.0 K/mm3 (1.2-5.4) 12/10/20 04:50 [place] # (Auto) 0.8 K/mm3 (0.0-0.8) 12/10/20 04:50 Eos # (Auto) 0.9 K/mm3 (0.0-0.4) H 12/10/20 04:50 Baso # (Auto) 0.1 K/mm3 (0.0-0.1) 12/10/20 04:50 Add Manual Diff Complete 12/08/20 11:47 Total Counted 100 12/08/20 11:47 Seg Neutrophils % 65.6 % (40.0-70.0) 12/10/20 04:50 Seg Neuts % (Manual) 72.0 % (40.0-70.0) H 12/08/20 11:47 Lymphocytes % (Manual) 24.0 % (13.4-35.0) 12/08/20 11:47 Monocytes % (Manual) 4.0 % (0.0-7.3) 12/08/20 11:47 Nucleated RBC % Not Reportable 12/08/20 11:47 Seg Neutrophils # 11.1 K/mm3 (1.8-7.7) H 12/10/20 04:50 Seg Neutrophils # Man 16.1 K/mm3 (1.8-7.7) H 12/08/20 11:47 Band Neutrophils # 0.0 K/mm3 12/08/20 11:47 Lymphocytes # (Manual) 5.4 K/mm3 (1.2-5.4) 12/08/20 11:47 Abs React Lymphs (Man) 0.0 K/mm3 12/08/20 11:47 Monocytes # (Manual) 0.9 K/mm3 (0.0-0.8) H 12/08/20 11:47 Eosinophils # (Manual) 0.0 K/mm3 (0.0-0.4) 12/08/20 11:47 Basophils # (Manual) 0.0 K/mm3 (0.0-0.1) 12/08/20 11:47 Metamyelocytes # 0.0 K/mm3 12/08/20 11:47 Myelocytes # 0.0 K/mm3 12/08/20 11:47 Promyelocytes # 0.0 K/mm3 12/08/20 11:47 Blast Cells # 0.0 K/mm3 12/08/20 11:47 WBC Morphology Not Reportable 12/08/20 11:47 Hypersegmented Neuts Not Reportable 12/08/20 11:47 Hyposegmented Neuts Not Reportable 12/08/20 11:47 Hypogranular Neuts Not Reportable 12/08/20 11:47 Smudge Cells Not Reportable 12/08/20 11:47 Toxic Granulation Not Reportable 12/08/20 11:47 Toxic Vacuolation Not Reportable 12/08/20 11:47 Dohle Bodies Not Reportable 12/08/20 11:47 Pelger-Huet Anomaly Not Reportable 12/08/20 11:47 Israel Rods Not Reportable 12/08/20 11:47 Platelet Estimate Consistent w auto 12/08/20 11:47 Clumped Platelets Not Reportable 12/08/20 11:47 Plt Clumps, EDTA Not Reportable 12/08/20 11:47 Large Platelets Not Reportable 12/08/20 11:47 Giant Platelets Not Reportable 12/08/20 11:47 Platelet Satelliting Not Reportable 12/08/20 11:47 Plt Morphology Comment Not Reportable 12/08/20 11:47 RBC Morphology Not Reportable 12/08/20 11:47 Dimorphic RBCs Not Reportable 12/08/20 11:47 Polychromasia Not Reportable 12/08/20 11:47 Hypochromasia Not Reportable 12/08/20 11:47 Poikilocytosis Not Reportable 12/08/20 11:47 Anisocytosis 1+ 12/08/20 11:47 Microcytosis Not Reportable 12/08/20 11:47 Macrocytosis Not Reportable 12/08/20 11:47 Spherocytes Not Reportable 12/08/20 11:47 Pappenheimer Bodies Not Reportable 12/08/20 11:47 Sickle Cells Not Reportable 12/08/20 11:47 Target Cells Not Reportable 12/08/20 11:47 Tear Drop Cells Not Reportable 12/08/20 11:47 Ovalocytes Not Reportable 12/08/20 11:47 Stomatocytes 1+ 12/08/20 11:47 Helmet Cells Not Reportable 12/08/20 11:47 [place] Bodies Not Reportable 12/08/20 11:47 [place] Rings Not Reportable 12/08/20 11:47 [place] Cells Not Reportable 12/08/20 11:47 Bite Cells Not Reportable 12/08/20 11:47 Crenated Cell Not Reportable 12/08/20 11:47 Elliptocytes Not Reportable 12/08/20 11:47 Acanthocytes (Spur) Not Reportable 12/08/20 11:47 Rouleaux Not Reportable 12/08/20 11:47 Hemoglobin C Crystals Not Reportable 12/08/20 11:47 Schistocytes Not Reportable 12/08/20 11:47 Malaria parasites Not Reportable 12/08/20 11:47 [place] Bodies Not Reportable 12/08/20 11:47 Hem Pathologist Commnt No 12/08/20 11:47 PT 15.3 Sec. (12.2-14.9) H 12/02/20 02:53 INR 1.16 (0.87-1.13) H 12/02/20 02:53 APTT 37.7 Sec. (24.2-36.6) H 12/02/20 02:53 Sodium 141 mmol/L (137-145) 12/10/20 04:50 Potassium 4.3 mmol/L (3.6-5.0) 12/10/20 04:50 Chloride 103.3 mmol/L (98-107) 12/10/20 04:50 Carbon Dioxide 29 mmol/L (22-30) 12/10/20 04:50 Anion Gap 13 mmol/L 12/10/20 04:50 BUN 43 mg/dL (7-17) H 12/10/20 04:50 Creatinine 0.9 mg/dL (0.6-1.2) 12/10/20 04:50 Estimated GFR > 60 ml/min 12/10/20 04:50 BUN/Creatinine Ratio 48 % 12/10/20 04:50 Glucose 192 mg/dL (65-100) H 12/10/20 04:50 POC Glucose 200 mg/dL (70-105) H 12/10/20 06:01 Hemoglobin A1c 7.4 % (4-6) H 12/02/20 Unknown Lactic Acid 1.70 mmol/L (0.7-2.0) 12/08/20 11:47 Calcium 8.5 mg/dL (8.4-10.2) 12/10/20 04:50 Magnesium 1.50 mg/dL (1.7-2.3) L 12/04/20 09:51 Total Bilirubin 0.20 mg/dL (0.1-1.2) 12/05/20 05:04 AST 15 units/L (5-40) 12/05/20 05:04 ALT 7 units/L (7-56) 12/05/20 05:04 Alkaline Phosphatase 112 units/L (35-129) 12/05/20 05:04 C-Reactive Protein 1.30 mg/dL (0.00-1.30) 12/07/20 17:04 Total Protein 8.4 g/dL (6.3-8.2) H 12/05/20 05:04 Albumin 2.8 g/dL (3.9-5) L 12/05/20 05:04 Albumin/Globulin Ratio 0.5 % 12/05/20 05:04 Procalcitonin 0.27 ng/mL (<0.15) 12/09/20 12:37 Urine Color Yellow (Yellow) 12/02/20 03:50 Urine Turbidity Turbid (Clear) 12/02/20 03:50 Urine pH 6.0 (5.0-7.0) 12/02/20 03:50 Ur Specific Central 1.008 (1.003-1.030) 12/02/20 03:50 Urine Protein 100 mg/dl mg/dL (Negative) 12/02/20 03:50 Urine Glucose (UA) Neg mg/dL (Negative) 12/02/20 03:50 Urine Ketones Neg mg/dL (Negative) 12/02/20 03:50 Urine Blood Lg (Negative) 12/02/20 03:50 Urine Nitrite Neg (Negative) 12/02/20 03:50 Urine Bilirubin Neg (Negative) 12/02/20 03:50 Urine Urobilinogen < 2.0 mg/dL (<2.0) 12/02/20 03:50 Ur Leukocyte Esterase Lg (Negative) 12/02/20 03:50 Urine WBC (Auto) > 182.0 /HPF (0.0-6.0) H 12/02/20 03:50 Urine RBC (Auto) > 182.0 /HPF (0.0-6.0) 12/02/20 03:50 U Epithel Cells (Auto) 6.0 /HPF (0-13.0) 12/02/20 03:50 Urine Bacteria (Auto) 1+ /HPF (Negative) 12/02/20 03:50 Urine WBC Clumps 3+ /HPF 12/02/20 03:50 Phenytoin 12.9 ug/mL (10.0-20.0) 12/07/20 04:52 Coronavirus (PCR) Negative (Negative) 12/05/20 Unknown Blood Type O POSITIVE 12/02/20 02:05 Antibody Screen Negative 12/02/20 02:05 Crossmatch See Detail 12/02/20 02:05 Microbiology: Microbiology 12/07/20 11:08 Peripheral/Venous Blood Culture - Preliminary NO GROWTH AFTER 48 HOURS 12/07/20 11:08 Peripheral/Venous Blood Culture - Preliminary NO GROWTH AFTER 48 HOURS Mcclure/IV: Voiding Method Indwelling Catheter Active Medications - Current Medications Current Medications: Generic Name Dose Route Start Last Admin Trade Name Freq PRN Reason Stop Dose Admin Acetaminophen 650 mg 12/02/20 05:24 12/09/20 05:37 Acetaminophen 325 Mg Tab PO 650 mg Q4H PRN Administration Pain MILD(1-3)/Fever >100.5/SMALLS Albuterol 2.5 mg 12/02/20 05:24 12/03/20 15:11 Albuterol 2.5 Mg/3 Ml Nebu IH 2.5 mg Q4HRT PRN Administration Shortness Of Breath Lipase/Protease/Amylase 1 each 12/03/20 10:22 Lipase 10,500/Protease 25,000/Amylase 43,750 (Units) Dr Blount FEEDTUBE PRN PRN For Clogged Feeding Tube Atorvastatin Calcium 40 mg 12/02/20 10:00 12/09/20 09:57 Atorvastatin 40 Mg Tab PO 40 mg DAILY ADOLFO Administration Citalopram Hydrobromide 20 mg 12/02/20 10:00 12/09/20 09:57 Citalopram 20 Mg Tab PO 20 mg DAILY ADOLFO Administration Dextrose 50 ml 12/02/20 11:18 Dextrose 50% In Water (25gm) 50 Ml Syringe IV Q30MIN PRN Hypoglycemia Protocol Docusate Sodium 100 mg 12/04/20 10:00 12/09/20 21:10 Docusate Sodium 100 Mg/10 Ml Oral Liqd FEEDTUBE 100 mg BID ADOLFO Administration Famotidine 20 mg 12/04/20 10:00 12/09/20 09:58 Famotidine 20 Mg Tab PO 20 mg DAILY ADOLFO Administration Phenytoin 100 mg/ Sodium 102 mls @ 204 mls/hr 12/07/20 14:00 12/09/20 21:09 Chloride IV 204 mls/hr Q8HR ADOLFO Administration Meropenem 1,000 mg/ Sodium 100 mls @ 100 mls/hr 12/09/20 09:00 12/09/20 21:08 Chloride IV 100 mls/hr Q8HR ADOLFO Administration Protocol Sodium Chloride 1,000 mls @ 125 mls/hr 12/09/20 12:45 Nacl 0.9% 1000 Ml IV DIRECT ADOLFO Insulin Glargine 10 units 12/05/20 08:00 12/09/20 09:56 Insulin Glargine 100 Units/Ml SUB-Q 10 units QAMDIAB [facility] Administration Insulin Human Lispro 0 unit 12/04/20 00:00 12/09/20 17:54 Insulin Lispro 100 Unit/Ml SUB-Q 2 unit Q6HR ADOLFO Administration Protocol Metoclopramide HCl 10 mg 12/09/20 10:31 Metoclopramide 10 Mg/2 Ml Inj IV Q6H PRN Nausea And Vomiting Nystatin 500,000 unit 12/02/20 10:00 12/09/20 21:10 Nystatin 500,000 Unit/5 Ml Oral Liqd PO 500,000 unit QID ADOLFO Administration Ondansetron HCl 4 mg 12/02/20 05:24 12/05/20 22:37 Ondansetron 4 Mg/2 Ml Inj IV 4 mg Q8H PRN Administration Nausea And Vomiting Simple Syrup 15 ml 12/03/20 10:22 Simple Syrup 15 Ml FEEDTUBE PRN PRN Hypoglycemia Simple Syrup 30 ml 12/03/20 10:22 Simple Syrup 15 Ml FEEDTUBE PRN PRN Hypoglycemia Sodium Bicarbonate 325 mg 12/03/20 10:22 Sodium Bicarbonate 325 Mg Tab FEEDTUBE PRN PRN For Clogged Feeding Tube Sodium Chloride 10 ml 12/02/20 10:00 12/09/20 21:10 Sodium Chloride 0.9% 10 Ml Flush Syringe IV 10 ml BID ADOLFO Administration Sodium Chloride 10 ml 12/02/20 05:24 12/07/20 05:16 Sodium Chloride 0.9% 10 Ml Flush Syringe IV 10 ml PRN PRN Administration LINE FLUSH Nutrition/Malnutrition Assess - Dietary Evaluation Nutrition/Malnutrition Findings: Nutrition Notes Start: 12/03/20 11: 43 Freq: Status: Active Protocol: Document 12/05/20 10:18 OLVE (Rec: 12/05/20 10:20 [facility] [id number]) Nutrition Notes Initial or Follow up Brief Note Current Diet TF - Glucerna 1.2 at 45ml/hr Labs/Tests BG 339 Pertinent Medications Lantus (10 units) Subjective/Other Information Per RN, pt tolerating TF at goal rate. Per MONITOR CAR OPERATOR eval yesterday, pt at risk for aspiration and should remain on EN support. Nutrition Intervention Follow-Up By: 12/12/20 Additional Comments F/U: stable TF, wt
[2020-12-10] MEDS: PHENYTOIN 100 MG in SODIUM CHLORIDE 0.9% 100 ML IV SCH ×3 (09:19→21:00)
[2020-12-10] MEDS: MEROPENEM 1,000 MG in SODIUM CHLORIDE 0.9% 100 ML IV SCH ×3 (09:19→21:00)
[2020-12-10] MEDS: INSULIN GLARGINE 100 UNITS/ML SUB-Q SCH (09:58)
[2020-12-10] MEDS: NYSTATIN 500,000 UNIT/5 ML ORAL LIQD PO SCH ×4 (09:58→21:00)
[2020-12-10] MEDS: DOCUSATE SODIUM 100 MG/10 ML ORAL LIQD FEEDTUBE SCH ×2 (09:58→21:00)
[2020-12-10] MEDS: FAMOTIDINE 20 MG TAB PO SCH (09:58)
[2020-12-10] MEDS: CITALOPRAM 20 MG TAB PO SCH (09:58)
[2020-12-10] MEDS: MULTIVITAMIN / MINERAL ORAL LIQUID 15 ML PO SCH (09:58)
[2020-12-11] MEDS: PHENYTOIN 100 MG in SODIUM CHLORIDE 0.9% 100 ML IV SCH ×3 (05:14→22:10)
[2020-12-11] MEDS: MEROPENEM 1,000 MG in SODIUM CHLORIDE 0.9% 100 ML IV SCH ×3 (05:14→22:10)
--- NOTE | 2020-12-11 07:57 | Consultation ---
History of Present Illness - Reason for Consult Consult date: 12/11/20 - History of Present Illness 64-year-old female with PMH of dementia, CVA, left hemiplegia, DM, left AKA, dysphagia, hypokalemia, anemia, CKD 2, urine retention needing chronic indwelling Kerr catheter was brought to ED for evaluation of AMS and possible vaginal bleeding. Patient was noted to be in septic shock with BP 80/60 and pyuria and hematuria. Kerr catheter was exchanged in ER. Patient was administered IV fluid boluses with improvement of hypotension and started on antibiotics after cultures. According to ED notes patient was given Dilaudid as she was moaning. Indwelling Kerr shows pinkish urine. On inspection, no vaginal bleeding noted. Urine and blood cultures are negative. not oriented / WBC---22-17k CTAP--- bilat mild hydronephrosis tube feeds kerr - clear urine soft abd left AKA A/P Hydronephrosis nuc scan with lasix to eval obstruction Past History Past Medical History: diabetes, GERD, hypertension, stroke, other (Depression, dementia GERD and supple of) Medications and Allergies Allergies Allergy/AdvReac Type Severity Reaction Status Date / Time No Known Allergies Allergy Verified 12/02/20 16:58 Home Medications Medication Instructions Recorded Confirmed Last Taken Type Oxybutynin [Ditropan] 5 mg PO BID #60 tablet 09/28/19 12/02/20 Unknown Rx levoFLOXacin [Levaquin TAB] 500 mg PO QDAY #5 tablet 09/28/19 12/02/20 Unknown Rx Acetaminophen [Aphen] 325 mg PO Q4H PRN 07/21/20 12/02/20 Unknown History Aspirin [Adult Aspirin] 81 mg PO DAILY 07/21/20 12/02/20 Unknown History AtorvaSTATin [Lipitor] 40 mg PO DAILY 07/21/20 12/02/20 Unknown History Citalopram [Celexa] 20 mg PO DAILY 07/21/20 12/02/20 Unknown History Docusate Sodium [Colace CAP] 100 mg PO BID 07/21/20 12/02/20 Unknown History Insulin Aspart (Nf) [NovoLOG 100 0 unit SQ AC 07/21/20 12/02/20 Unknown History UNITS/ML VIAL] Insulin Glargine [Lantus VIAL] 20 units SQ BID 07/21/20 12/02/20 Unknown History Insulin Lispro [Admelog] 5 unit SQ ACHS 07/21/20 12/02/20 Unknown History Multivitamin [One-Daily 1 tab PO DAILY 07/21/20 12/02/20 Unknown History Multi-Vitamin] Norvasc 10 mg PO DAILY 07/21/20 12/02/20 Unknown History Nystatin [Nystatin SUSP] 100,000 ml PO QID 07/21/20 12/02/20 Unknown History Ondansetron HCl [Zofran] 4 mg PO Q8H 07/21/20 12/02/20 Unknown History Oxybutynin [Ditropan] 5 mg PO DAILY 07/21/20 12/02/20 Unknown History Pantoprazole [Protonix TAB] 40 mg PO QDAY 07/21/20 12/02/20 Unknown History Potassium 10 meq PO QAM 07/21/20 12/02/20 Unknown History Sennosides [Senna] 1 tab PO BID 07/21/20 12/02/20 Unknown History bisacodyL [Dulcolax suppos] 10 mg [place] DAILY 07/21/20 12/02/20 Unknown History cephALEXin [Keflex] 250 mg PO Q6HR #10 capsule 07/21/20 12/02/20 Unknown Rx diphenhydrAMINE [Benadryl CAP] 25 mg PO Q6H PRN 07/21/20 12/02/20 Unknown History megestroL [Megace] 40 mg PO DAILY #30 tablet 07/22/20 12/02/20 Unknown Rx Active Meds: Active Medications Acetaminophen (Acetaminophen 325 Mg Tab) 650 mg PO Q4H PRN PRN Reason: Pain MILD(1-3)/Fever >100.5/SMALLS Last Admin: 12/09/20 05:37 Dose: 650 mg Documented by: Albuterol (Albuterol 2.5 Mg/3 Ml Nebu) 2.5 mg IH Q4HRT PRN PRN Reason: Shortness Of Breath Last Admin: 12/03/20 15:11 Dose: 2.5 mg Documented by: Lipase/Protease/Amylase (Lipase 10,500/Protease 25,000/Amylase 43,750 (Units) Dr Blount) 1 each FEEDTUBE PRN PRN PRN Reason: For Clogged Feeding Tube Atorvastatin Calcium (Atorvastatin 40 Mg Tab) 40 mg PO DAILY [facility] Last Admin: 12/10/20 09:58 Dose: 40 mg Documented by: Citalopram Hydrobromide (Citalopram 20 Mg Tab) 20 mg PO DAILY [facility] Last Admin: 12/10/20 09:58 Dose: 20 mg Documented by: Dextrose (Dextrose 50% In Water (25gm) 50 Ml Syringe) 50 ml IV Q30MIN PRN; Protocol PRN Reason: Hypoglycemia Docusate Sodium (Docusate Sodium 100 Mg/10 Ml Oral Liqd) 100 mg FEEDTUBE BID [facility] Last Admin: 12/10/20 21:00 Dose: Not Given Documented by: Famotidine (Famotidine 20 Mg Tab) 20 mg PO DAILY [facility] Last Admin: 12/10/20 09:58 Dose: 20 mg Documented by: Phenytoin 100 mg/ Sodium (Chloride) 102 mls @ 204 mls/hr IV Q8HR [facility] Last Admin: 12/11/20 05:14 Dose: 204 mls/hr Documented by: Meropenem 1,000 mg/ Sodium (Chloride) 100 mls @ 100 mls/hr IV Q8HR [facility]; Protocol Last Admin: 12/11/20 05:14 Dose: 100 mls/hr Documented by: Sodium Chloride (Nacl 0.9% 1000 Ml) 1,000 mls @ 125 mls/hr IV DIRECT [facility] Insulin Glargine (Insulin Glargine 100 Units/Ml) 10 units SUB-Q QAMDIAB [facility] Last Admin: 12/10/20 09:58 Dose: 10 units Documented by: Insulin Human Lispro (Insulin Lispro 100 Unit/Ml) 0 unit SUB-Q Q6HR [facility]; Protocol Last Admin: 12/10/20 18:42 Dose: 2 unit Documented by: Metoclopramide HCl (Metoclopramide 10 Mg/2 Ml Inj) 10 mg IV Q6H PRN PRN Reason: Nausea And Vomiting Nystatin (Nystatin 500,000 Unit/5 Ml Oral Liqd) 500,000 unit PO QID [facility] Last Admin: 12/10/20 21:00 Dose: 500,000 unit Documented by: Ondansetron HCl (Ondansetron 4 Mg/2 Ml Inj) 4 mg IV Q8H PRN PRN Reason: Nausea And Vomiting Last Admin: 12/05/20 22:37 Dose: 4 mg Documented by: Simple Syrup (Simple Syrup 15 Ml) 15 ml FEEDTUBE PRN PRN PRN Reason: Hypoglycemia Simple Syrup (Simple Syrup 15 Ml) 30 ml FEEDTUBE PRN PRN PRN Reason: Hypoglycemia Sodium Bicarbonate (Sodium Bicarbonate 325 Mg Tab) 325 mg FEEDTUBE PRN PRN PRN Reason: For Clogged Feeding Tube Sodium Chloride (Sodium Chloride 0.9% 10 Ml Flush Syringe) 10 ml IV BID ADOLFO Last Admin: 12/10/20 21:00 Dose: 10 ml Documented by: Sodium Chloride (Sodium Chloride 0.9% 10 Ml Flush Syringe) 10 ml IV PRN PRN PRN Reason: LINE FLUSH Last Admin: 12/07/20 05:16 Dose: 10 ml Documented by: Exam - Constitutional Vitals: Temp Pulse Resp BP Pulse Ox 98.4 F 100 H 20 150/90 99 12/11/20 07:44 12/11/20 07:44 12/11/20 07:44 12/11/20 07:44 12/11/20 07:44 Results - Labs CBC & Chem 7: 12/10/20 04:50 12/10/20 04:50 Labs: Abnormal lab results 12/10/20 12/10/20 12/10/20 Range/Units 11:24 16:52 23:46 POC Glucose 238 H 225 H 161 H (70-105) mg/dL
--- NOTE | 2020-12-11 08:08 | Progress Note ---
Assessment and Plan Assessment and plan: 64-year-old female with PMH of dementia, CVA, left hemiplegia, DM, left AKA, dysphagia, hypokalemia, anemia, CKD 2, urine retention needing chronic indwelling Mcclure catheter was brought to ED for evaluation of AMS and possible vaginal bleeding. Patient was noted to be in septic shock with BP 80/60 and pyuria and hematuria. Mcclure catheter was exchanged in ED. Patient was administered IV fluid boluses with improvement of hypotension and started on antibiotics after cultures. Sepsis. Patient previously with septic shock. Bilateral pyelonephritis/complicated UTI. Toxic metabolic encephalopathy. Cecum pneumatosis. Resolved History of CVA, left hemiparesis, aphasic and dysphagia. (2008,2015) Left AKA 2016 New right-sided weakness. Acute kidney injury on CKD stage II. Resolved. Hypokalemia Diabetes mellitus type 2. Anemia 12/03/2020. Patient has now stable vital signs and hypertension resolved. Receiving normal saline 125 mill per hour. She spiked a fever of 100.6 today. Hemoglobin dropped to 6.8 and ordered PRBC transfusion. Hematuria actually resolved. No vaginal bleeding. Mental status improved, she is now awake awake but minimally verbalizes. She can occasionally give her name. She just mumbles. Not in acute distress. Large urine output and MAILE resolved. 12/04/2020. Shock state resolved. MAILE resolved. Mental status much improved. Follows commands but poorly verbal likely from dementia. Continue to avoid narcotics. Patient has a low-grade fever, leukocytosis , on cefepime, cultures pending. Discontinue normal saline. Started Glucerna tube feeds via NG tube, continue aspiration precautions. Ordered swallowing evaluation. Hemoglobin dropped from 7.8-6.8, possibly just dilutional. Hematuria resolved, no vaginal bleeding. Will transfuse PRBC. Consider urology consultation for evaluation of possible bladder tumor when more stable. Daughter reports significant cognitive decline since 07/2020 admission for UTI. Right-sided weakness is new according to daughter. Will order MRI brain when more stable. 12/05/2020. Patient is nonverbal and occasional tracking with eyes on my exam this morning. Baseline mental status per daughter can follow commands and able to communicate but with slow speech. Also, reports ability to feed herself. MRI brain ordered to rule out new CVA. Continue IV antibiotics for UTI. Await speech therapy evaluation for dysphagia. Continue NG tube for tube feedings. I d/w daughter POC [phone]. 12/06/2020. Brain MRI shows no acute findings only extensive chronic changes. Neurology consultation. Altered mentation may be secondary to toxic metabolic encephalopathy from sepsis/UTI. Continue IV antibiotics. Consider ID consultation. Acute kidney injury resolved. Still awaiting speech therapy evaluation 12/07/2020. Neurology evaluated the patient and recommends EEG to rule out subclinical seizures. Patient may need repeat MRI. Continue IV antibiotics for sepsis/UTI. Patient has underlying toxic metabolic encephalopathy as well. Blood cultures negative x5 days. Urine culture also negative. However, patient with significant fever since last night. Repeat blood cultures, check lactic acid and obtain ID consultation 12/08/2020. CT scan suggestive of bilateral acute pyelonephritis and bowel ischemia. Vancomycin added by ID. Appreciate ID help. Vascular surgery for bowel ischemia. Follow-up repeat blood cultures. Lactic acid level normal. 12/09/2020. Consult GI and surgery for presumed bowel ischemia and cecum pneumatosis per vascular surgery recommendation. Continue IV antibiotics per ID recommendations. Cefepime and vancomycin discontinued and meropenem started. CT of abdomen with bilateral pyelonephritis. Urology evaluation for urinary bladder mass once cecum pneumatosis and presumed bowel ischemia addressed. Nurse reports patient with vomiting this a.m. Hold tube feedings and change NG tube to LIS. Check KUB rule out ileus. Consider Reglan. 12/10/2020. Vascular surgery reports CTA of abdomen and pelvis showed no evidence of stenosis or embolic phenomenon to the visceral vessels. Continue IV antibiotics per ID recommendations. CT scan reveals bilateral hydroureter nephrosis and bilateral pyelonephritis. Urology consultation. CT scan does not show any evidence of ileus. 12/11/2020. Continue IV antibiotics per ID recommendations. Urology consulted for bilateral hydroureteronephrosis and bilateral pyelonephritis. Urine and blood cultures are negative. History Interval history: No new issues overnight. Hospitalist Physical - Constitutional Vitals: Temp Pulse Resp BP Pulse Ox 98.4 F 100 H 20 150/90 99 12/11/20 07:44 12/11/20 07:44 12/11/20 07:44 12/11/20 07:44 12/11/20 07:44 General appearance: Present: no acute distress, other (Nonverbal) - EENT Eyes: Present: PERRL, EOM intact ENT: hearing intact, clear oral mucosa, dentition normal - Neck Neck: Present: supple, normal ROM - Respiratory Respiratory effort: normal Respiratory: bilateral: CTA - Cardiovascular Rhythm: regular Heart Sounds: Present: S1 & S2. Absent: gallop, rub - Extremities Extremities: no ischemia, No edema, Full ROM - Abdominal General gastrointestinal: soft, non-tender, non-distended, normal bowel sounds - Integumentary Integumentary: Present: clear, warm, dry - Neurologic Neurologic: CNII-XII intact, moves all extremities Results - Labs CBC & Chem 7: 12/10/20 04:50 12/10/20 04:50 Labs: Laboratory Last Values WBC 17.0 K/mm3 (4.5-11.0) H 12/10/20 04:50 RBC 3.52 M/mm3 (3.65-5.03) L 12/10/20 04:50 Hgb 9.9 gm/dl (10.1-14.3) L 12/10/20 04:50 Hct 29.9 % (30.3-42.9) L 12/10/20 04:50 MCV 85 fl (79-97) 12/10/20 04:50 MCH 28 pg (28-32) 12/10/20 04:50 MCHC 33 % (30-34) 12/10/20 04:50 RDW 18.4 % (13.2-15.2) H 12/10/20 04:50 Plt Count 195 K/mm3 (140-440) 12/10/20 04:50 Lymph % (Auto) 23.8 % (13.4-35.0) 12/10/20 04:50 Conway % (Auto) 4.6 % (0.0-7.3) 12/10/20 04:50 Eos % (Auto) 5.2 % (0.0-4.3) H 12/10/20 04:50 Baso % (Auto) 0.8 % (0.0-1.8) 12/10/20 04:50 Lymph # (Auto) 4.0 K/mm3 (1.2-5.4) 12/10/20 04:50 Conway # (Auto) 0.8 K/mm3 (0.0-0.8) 12/10/20 04:50 Eos # (Auto) 0.9 K/mm3 (0.0-0.4) H 12/10/20 04:50 Baso # (Auto) 0.1 K/mm3 (0.0-0.1) 12/10/20 04:50 Add Manual Diff Complete 12/08/20 11:47 Total Counted 100 12/08/20 11:47 Seg Neutrophils % 65.6 % (40.0-70.0) 12/10/20 04:50 Seg Neuts % (Manual) 72.0 % (40.0-70.0) H 12/08/20 11:47 Lymphocytes % (Manual) 24.0 % (13.4-35.0) 12/08/20 11:47 Monocytes % (Manual) 4.0 % (0.0-7.3) 12/08/20 11:47 Nucleated RBC % Not Reportable 12/08/20 11:47 Seg Neutrophils # 11.1 K/mm3 (1.8-7.7) H 12/10/20 04:50 Seg Neutrophils # Man 16.1 K/mm3 (1.8-7.7) H 12/08/20 11:47 Band Neutrophils # 0.0 K/mm3 12/08/20 11:47 Lymphocytes # (Manual) 5.4 K/mm3 (1.2-5.4) 12/08/20 11:47 Abs React Lymphs (Man) 0.0 K/mm3 12/08/20 11:47 Monocytes # (Manual) 0.9 K/mm3 (0.0-0.8) H 12/08/20 11:47 Eosinophils # (Manual) 0.0 K/mm3 (0.0-0.4) 12/08/20 11:47 Basophils # (Manual) 0.0 K/mm3 (0.0-0.1) 12/08/20 11:47 Metamyelocytes # 0.0 K/mm3 12/08/20 11:47 Myelocytes # 0.0 K/mm3 12/08/20 11:47 Promyelocytes # 0.0 K/mm3 12/08/20 11:47 Blast Cells # 0.0 K/mm3 12/08/20 11:47 WBC Morphology Not Reportable 12/08/20 11:47 Hypersegmented Neuts Not Reportable 12/08/20 11:47 Hyposegmented Neuts Not Reportable 12/08/20 11:47 Hypogranular Neuts Not Reportable 12/08/20 11:47 Smudge Cells Not Reportable 12/08/20 11:47 Toxic Granulation Not Reportable 12/08/20 11:47 Toxic Vacuolation Not Reportable 12/08/20 11:47 Dohle Bodies Not Reportable 12/08/20 11:47 Pelger-Huet Anomaly Not Reportable 12/08/20 11:47 Israel Rods Not Reportable 12/08/20 11:47 Platelet Estimate Consistent w auto 12/08/20 11:47 Clumped Platelets Not Reportable 12/08/20 11:47 Plt Clumps, EDTA Not Reportable 12/08/20 11:47 Large Platelets Not Reportable 12/08/20 11:47 Giant Platelets Not Reportable 12/08/20 11:47 Platelet Satelliting Not Reportable 12/08/20 11:47 Plt Morphology Comment Not Reportable 12/08/20 11:47 RBC Morphology Not Reportable 12/08/20 11:47 Dimorphic RBCs Not Reportable 12/08/20 11:47 Polychromasia Not Reportable 12/08/20 11:47 Hypochromasia Not Reportable 12/08/20 11:47 Poikilocytosis Not Reportable 12/08/20 11:47 Anisocytosis 1+ 12/08/20 11:47 Microcytosis Not Reportable 12/08/20 11:47 Macrocytosis Not Reportable 12/08/20 11:47 Spherocytes Not Reportable 12/08/20 11:47 Pappenheimer Bodies Not Reportable 12/08/20 11:47 Sickle Cells Not Reportable 12/08/20 11:47 Target Cells Not Reportable 12/08/20 11:47 Tear Drop Cells Not Reportable 12/08/20 11:47 Ovalocytes Not Reportable 12/08/20 11:47 Stomatocytes 1+ 12/08/20 11:47 Helmet Cells Not Reportable 12/08/20 11:47 [place] Bodies Not Reportable 12/08/20 11:47 [place] Rings Not Reportable 12/08/20 11:47 Liborio Cells Not Reportable 12/08/20 11:47 Bite Cells Not Reportable 12/08/20 11:47 Crenated Cell Not Reportable 12/08/20 11:47 Elliptocytes Not Reportable 12/08/20 11:47 Acanthocytes (Spur) Not Reportable 12/08/20 11:47 Rouleaux Not Reportable 12/08/20 11:47 Hemoglobin C Crystals Not Reportable 12/08/20 11:47 Schistocytes Not Reportable 12/08/20 11:47 Malaria parasites Not Reportable 12/08/20 11:47 Hamlet Bodies Not Reportable 12/08/20 11:47 Hem Pathologist Commnt No 12/08/20 11:47 PT 15.3 Sec. (12.2-14.9) H 12/02/20 02:53 INR 1.16 (0.87-1.13) H 12/02/20 02:53 APTT 37.7 Sec. (24.2-36.6) H 12/02/20 02:53 Sodium 141 mmol/L (137-145) 12/10/20 04:50 Potassium 4.3 mmol/L (3.6-5.0) 12/10/20 04:50 Chloride 103.3 mmol/L (98-107) 12/10/20 04:50 Carbon Dioxide 29 mmol/L (22-30) 12/10/20 04:50 Anion Gap 13 mmol/L 12/10/20 04:50 BUN 43 mg/dL (7-17) H 12/10/20 04:50 Creatinine 0.9 mg/dL (0.6-1.2) 12/10/20 04:50 Estimated GFR > 60 ml/min 12/10/20 04:50 BUN/Creatinine Ratio 48 % 12/10/20 04:50 Glucose 192 mg/dL (65-100) H 12/10/20 04:50 POC Glucose 161 mg/dL (70-105) H 12/10/20 23:46 Hemoglobin A1c 7.4 % (4-6) H 12/02/20 Unknown Lactic Acid 1.70 mmol/L (0.7-2.0) 12/08/20 11:47 Calcium 8.5 mg/dL (8.4-10.2) 12/10/20 04:50 Magnesium 1.50 mg/dL (1.7-2.3) L 12/04/20 09:51 Total Bilirubin 0.20 mg/dL (0.1-1.2) 12/05/20 05:04 AST 15 units/L (5-40) 12/05/20 05:04 ALT 7 units/L (7-56) 12/05/20 05:04 Alkaline Phosphatase 112 units/L (35-129) 12/05/20 05:04 C-Reactive Protein 1.30 mg/dL (0.00-1.30) 12/07/20 17:04 Total Protein 8.4 g/dL (6.3-8.2) H 12/05/20 05:04 Albumin 2.8 g/dL (3.9-5) L 12/05/20 05:04 Albumin/Globulin Ratio 0.5 % 12/05/20 05:04 Procalcitonin 0.27 ng/mL (<0.15) 12/09/20 12:37 Urine Color Yellow (Yellow) 12/02/20 03:50 Urine Turbidity Turbid (Clear) 12/02/20 03:50 Urine pH 6.0 (5.0-7.0) 12/02/20 03:50 Ur Specific Jamul 1.008 (1.003-1.030) 12/02/20 03:50 Urine Protein 100 mg/dl mg/dL (Negative) 12/02/20 03:50 Urine Glucose (UA) Neg mg/dL (Negative) 12/02/20 03:50 Urine Ketones Neg mg/dL (Negative) 12/02/20 03:50 Urine Blood Lg (Negative) 12/02/20 03:50 Urine Nitrite Neg (Negative) 12/02/20 03:50 Urine Bilirubin Neg (Negative) 12/02/20 03:50 Urine Urobilinogen < 2.0 mg/dL (<2.0) 12/02/20 03:50 Ur Leukocyte Esterase Lg (Negative) 12/02/20 03:50 Urine WBC (Auto) > 182.0 /HPF (0.0-6.0) H 12/02/20 03:50 Urine RBC (Auto) > 182.0 /HPF (0.0-6.0) 12/02/20 03:50 U Epithel Cells (Auto) 6.0 /HPF (0-13.0) 12/02/20 03:50 Urine Bacteria (Auto) 1+ /HPF (Negative) 12/02/20 03:50 Urine WBC Clumps 3+ /HPF 12/02/20 03:50 Phenytoin 12.9 ug/mL (10.0-20.0) 12/07/20 04:52 Coronavirus (PCR) Negative (Negative) 12/05/20 Unknown Blood Type O POSITIVE 12/02/20 02:05 Antibody Screen Negative 12/02/20 02:05 Crossmatch See Detail 12/02/20 02:05 Microbiology: Microbiology 12/07/20 11:08 Peripheral/Venous Blood Culture - Preliminary NO GROWTH AFTER 72 HOURS 12/07/20 11:08 Peripheral/Venous Blood Culture - Preliminary NO GROWTH AFTER 72 HOURS Mcclure/IV: Voiding Method Indwelling Catheter Active Medications - Current Medications Current Medications: Generic Name Dose Route Start Last Admin Trade Name Freq PRN Reason Stop Dose Admin Acetaminophen 650 mg 12/02/20 05:24 12/09/20 05:37 Acetaminophen 325 Mg Tab PO 650 mg Q4H PRN Administration Pain MILD(1-3)/Fever >100.5/SMALLS Albuterol 2.5 mg 12/02/20 05:24 12/03/20 15:11 Albuterol 2.5 Mg/3 Ml Nebu IH 2.5 mg Q4HRT PRN Administration Shortness Of Breath Lipase/Protease/Amylase 1 each 12/03/20 10:22 Lipase 10,500/Protease 25,000/Amylase 43,750 (Units) Dr Blount FEEDTUBE PRN PRN For Clogged Feeding Tube Atorvastatin Calcium 40 mg 12/02/20 10:00 12/10/20 09:58 Atorvastatin 40 Mg Tab PO 40 mg DAILY ADOLFO Administration Citalopram Hydrobromide 20 mg 12/02/20 10:00 12/10/20 09:58 Citalopram 20 Mg Tab PO 20 mg DAILY ADOLFO Administration Dextrose 50 ml 12/02/20 11:18 Dextrose 50% In Water (25gm) 50 Ml Syringe IV Q30MIN PRN Hypoglycemia Protocol Docusate Sodium 100 mg 12/04/20 10:00 12/10/20 21:00 Docusate Sodium 100 Mg/10 Ml Oral Liqd FEEDTUBE Not Given BID ADOLFO Famotidine 20 mg 12/04/20 10:00 12/10/20 09:58 Famotidine 20 Mg Tab PO 20 mg DAILY ADOLFO Administration Phenytoin 100 mg/ Sodium 102 mls @ 204 mls/hr 12/07/20 14:00 12/11/20 05:14 Chloride IV 204 mls/hr Q8HR ADOLFO Administration Meropenem 1,000 mg/ Sodium 100 mls @ 100 mls/hr 12/09/20 09:00 12/11/20 05:14 Chloride IV 100 mls/hr Q8HR ADOLFO Administration Protocol Sodium Chloride 1,000 mls @ 125 mls/hr 12/09/20 12:45 Nacl 0.9% 1000 Ml IV DIRECT ADOLFO Insulin Glargine 10 units 12/05/20 08:00 12/10/20 09:58 Insulin Glargine 100 Units/Ml SUB-Q 10 units QAMDIAB [facility] Administration Insulin Human Lispro 0 unit 12/04/20 00:00 12/10/20 18:42 Insulin Lispro 100 Unit/Ml SUB-Q 2 unit Q6HR [facility] Administration Protocol Metoclopramide HCl 10 mg 12/09/20 10:31 Metoclopramide 10 Mg/2 Ml Inj IV Q6H PRN Nausea And Vomiting Nystatin 500,000 unit 12/02/20 10:00 12/10/20 21:00 Nystatin 500,000 Unit/5 Ml Oral Liqd PO 500,000 unit QID ADOLFO Administration Ondansetron HCl 4 mg 12/02/20 05:24 12/05/20 22:37 Ondansetron 4 Mg/2 Ml Inj IV 4 mg Q8H PRN Administration Nausea And Vomiting Simple Syrup 15 ml 12/03/20 10:22 Simple Syrup 15 Ml FEEDTUBE PRN PRN Hypoglycemia Simple Syrup 30 ml 12/03/20 10:22 Simple Syrup 15 Ml FEEDTUBE PRN PRN Hypoglycemia Sodium Bicarbonate 325 mg 12/03/20 10:22 Sodium Bicarbonate 325 Mg Tab FEEDTUBE PRN PRN For Clogged Feeding Tube Sodium Chloride 10 ml 12/02/20 10:00 12/10/20 21:00 Sodium Chloride 0.9% 10 Ml Flush Syringe IV 10 ml BID ADOLFO Administration Sodium Chloride 10 ml 12/02/20 05:24 12/07/20 05:16 Sodium Chloride 0.9% 10 Ml Flush Syringe IV 10 ml PRN PRN Administration LINE FLUSH Nutrition/Malnutrition Assess - Dietary Evaluation Nutrition/Malnutrition Findings: Nutrition Notes Start: 12/03/20 11:43 Freq: Status: Active Protocol: Document 12/05/20 10:18 LOVE (Rec: 12/05/20 10:20 LOVE [email or web address]) Nutrition Notes Initial or Follow up Brief Note Current Diet TF - Glucerna 1.2 at 45ml/hr Labs/Tests BG 339 Pertinent Medications Lantus (10 units) Subjective/Other Information Per RN, pt tolerating TF at goal rate. Per SPOUT POSITIONER eval yesterday, pt at risk for aspiration and should remain on EN support. Nutrition Intervention Follow-Up By: 12/12/20 Additional Comments F/U: stable TF, wt
[2020-12-11] MEDS: INSULIN LISPRO 100 UNIT/ML SUB-Q SCH ×3 (09:46→17:41)
[2020-12-11] MEDS: MULTIVITAMIN / MINERAL ORAL LIQUID 15 ML PO SCH (10:30)
[2020-12-11] MEDS: NYSTATIN 500,000 UNIT/5 ML ORAL LIQD PO SCH ×4 (10:30→22:10)
[2020-12-11] MEDS: FAMOTIDINE 20 MG TAB PO SCH (10:30)
[2020-12-11] MEDS: DOCUSATE SODIUM 100 MG/10 ML ORAL LIQD FEEDTUBE SCH ×2 (10:30→22:10)
[2020-12-11] MEDS: INSULIN GLARGINE 100 UNITS/ML SUB-Q SCH (10:30)
[2020-12-11] MEDS: CITALOPRAM 20 MG TAB PO SCH (10:30)
--- NOTE | 2020-12-11 12:36 | Progress Note ---
Assessment and Plan Cultures: Blood culture 12/01/2020 no growth Blood culture 12/07/2020 no growth Urine cultures 12/04/2020 <10,000 colonies Assessment: 65-year-old female with history of hypertension, previous CVA, diabetes mellitus, dementia, chronic outlet obstruction with bilateral hydroureteronephrosis, previous UTI, uterine fibroids, s/p left AKA, admitted on 12/01/2020 secondary to be found hot, hypotensive and tachycardic: #Sepsis: with leukocytosis and fever. Etiology likely complicated UTI +/- bowel ischemia +/- pneumonia. CRP 1.3. 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 Was evaluated by vascular, improved on follow-up imaging #Complicated UTI: History of chronic outlet obstruction with previous bilateral hydroureteral nephrosis, previous UTI due to Klebsiella in July 2020. Initial urinalysis with 182 WBCs and large leukocyte esterase. CT of the pelvis with po sterior urinary bladder mass. Urine culture taken 3 days after admission with <10,000 mixed colonies. On cefepime IV for 6 days not responding. Mcclure catheter placed on admission. CT abdomen with bilateral pyelonephritis. Was evaluated by urology, nuclear Lasix scan pending. #Acute kidney injury: Creatinine improving. Renally adjust antibiotics. #Encephalopathy: Likely toxic metabolic due to sepsis. Noted new right-sided weakness. Brain MRI with extensive chronic changes. Recommendations: Continue IV meropenem for 7 days, day 3 today F/U NM lasix scan Abby Flores MD, FACP [facility] ([facility]) O: [phone] F: [phone] Subjective Date of service: 12/11/20 Interval history: Afebrile. Nonverbal. Has NG tube with tube feeds ongoing. Objective - Exam Narrative Exam: Physical Exam: Constitutional: Nonverbal Head, Ears, Nose: Normocephalic, atraumatic. External ears, nose normal. NG tube present Eyes: Conjunctivae/corneas clear. No icterus. No ptosis. Neck: Supple, no meningeal signs Cardiovascular: S1, S2 normal. Respiratory: Good air entry, clear to auscultation bilaterally GI: Soft, non-tender; bowel sounds normal. No peritoneal signs. Mcclure present Musculoskeletal: Right AKA Skin: No rash or abscess Hem/Lymphatic: No palpable cervical or supraclavicular nodes. No lymphangitis Psych: No agitation Neurological: Awake, nonverbal - Constitutional Vitals: Vital Signs Temp Pulse Resp BP Pulse Ox 98.8 F 98 H 22 124/75 98 12/11/20 11:27 12/11/20 11:27 12/11/20 11:27 12/11/20 11:27 12/11/20 11:27 Temperature -Last 24 Hours Temperature 98.8 F Temperature 98.4 F Temperature 98.4 F Temperature 100.0 F Temperature 98.6 F - Labs CBC & Chem 7: 12/10/20 04:50 12/10/20 04:50 Labs: Abnormal lab results 12/10/20 12/10/20 12/11/20 Range/Units 16:52 23:46 11:37 POC Glucose 225 H 161 H 208 H (70-105) mg/dL
[2020-12-11] MEDS ORDERED: FUROSEMIDE 20 MG/2 ML INJ IV ONE (15:00)
--- NOTE | 2020-12-11 15:02 | Nuclear Medicine Report ---
KIDNEY IMAGING MORPHOLOGY WITH VASCULAR FLOW AND FUNCTION, SINGLE STUDY WITH LASIX HISTORY: Hydronephrosis, UTI COMPARISON: Noncontrast CT abdomen and pelvis 12/09/2020 TECHNIQUE: Following IV administration of [id number], sequential dynamic images of the kidneys were obtained in the posterior projection for 30 minutes. Following IV administration of Lasix, additiona l images were acquired for 20 minutes. Time activity whole kidney curves were analyzed. RADIOPHARMACEUTICAL: 5.2 mCi of [id number] MEDICATION: Lasix 20 mg iv FINDINGS: There is homogeneous distribution of the radiopharmaceutical within the renal cortex of each kidney. The right kidney is similar in size as the left kidney. DIFFERENTIAL FUNCTION: Right: 52% Left: 48% RIGHT: [id number] activity: 6 minutes, normal Ureter: No significantly abnormal activity. Normal caliber. Post-Lasix imaging: No significant abnormality and urinary excretion. LEFT: [id number] activity: 4 minutes, normal Ureter: No significantly abnormal activity. Normal caliber. Post-Lasix imaging: No significant abnormality in urinary excretion. Additional Findings: None. IMPRESSION: No significant abnormality or urinary obstruction identified. Split function measures 52% right kidney and 40% left kidney. Signer Name: David Arita Jr, MD Signed: 12/11/2020 2:58 PM Workstation Name: [id number]
[2020-12-12] MEDS: INSULIN LISPRO 100 UNIT/ML SUB-Q SCH ×4 (00:18→18:36)
[2020-12-12] MEDS: PHENYTOIN 100 MG in SODIUM CHLORIDE 0.9% 100 ML IV SCH ×3 (06:38→21:12)
[2020-12-12] MEDS: MEROPENEM 1,000 MG in SODIUM CHLORIDE 0.9% 100 ML IV SCH ×3 (06:38→21:13)
[2020-12-12 06:51] LABS: Basophils # (Auto) 0.1 K/mm3 (0.0-0.1); Basophils % (Auto) 0.8 % (0.0-1.8); Eosinophils # (Auto) 0.5 K/mm3 (0.0-0.4); Eosinophils % (Auto) 3.7 % (0.0-4.3); Hematocrit 28.4 % (30.3-42.9); Hemoglobin 9.4 gm/dl (10.1-14.3); Lymphocytes # (Auto) 3.3 K/mm3 (1.2-5.4); Lymphocytes % (Auto) 24.2 % (13.4-35.0); Mean Corpuscular HGB Conc 33 % (30-34); Mean Corpuscular Volume 86 fl (79-97); Monocytes # (Auto) 0.6 K/mm3 (0.0-0.8); Monocytes % (Auto) 4.1 % (0.0-7.3); Platelet Count 237 K/mm3 (140-440); Red Blood Count 3.31 M/mm3 (3.65-5.03); Red Cell Distribution Width 18.3 % (13.2-15.2)
[2020-12-12 07:09] LABS: Blood Urea Nitrogen 28 mg/dL (7-17); Calcium 8.1 mg/dL (8.4-10.2); Hemolysis Index 32
[2020-12-12 07:10] LABS: BUN/Creatinine Ratio 40
[2020-12-12] MEDS: DOCUSATE SODIUM 100 MG/10 ML ORAL LIQD FEEDTUBE SCH ×2 (11:02→21:12)
[2020-12-12] MEDS: MULTIVITAMIN / MINERAL ORAL LIQUID 15 ML PO SCH (11:02)
[2020-12-12] MEDS: CITALOPRAM 20 MG TAB PO SCH (11:03)
[2020-12-12] MEDS: FAMOTIDINE 20 MG TAB PO SCH (11:03)
[2020-12-12] MEDS: INSULIN GLARGINE 100 UNITS/ML SUB-Q SCH (11:04)
--- NOTE | 2020-12-12 12:29 | Progress Note ---
Assessment and Plan Assessment and plan: 64-year-old female with PMH of dementia, CVA, left hemiplegia, DM, left AKA, dysphagia, hypokalemia, anemia, CKD 2, urine retention needing chronic indwelling Mcclure catheter was brought to ED for evaluation of AMS and possible vaginal bleeding. Patient was noted to be in septic shock with BP 80/60 and pyuria and hematuria. Mcclure catheter was exchanged in ED. Patient was administered IV fluid boluses with improvement of hypotension and started on antibiotics after cultures. Sepsis. Patient previously with septic shock. Bilateral pyelonephritis/complicated UTI. Toxic metabolic encephalopathy. Cecum pneumatosis. Resolved History of CVA, left hemiparesis, aphasic and dysphagia. (2008,2015) Left AKA 2016 New right-sided weakness. Acute kidney injury on CKD stage II. Resolved. Hypokalemia Diabetes mellitus type 2. Anemia 12/03/2020. Patient has now stable vital signs and hypertension resolved. Receiving normal saline 125 mill per hour. She spiked a fever of 100.6 today. Hemoglobin dropped to 6.8 and ordered PRBC transfusion. Hematuria actually resolved. No vaginal bleeding. Mental status improved, she is now awake awake but minimally verbalizes. She can occasionally give her name. She just mumbles. Not in acute distress. Large urine output and MAILE resolved. 12/04/2020. Shock state resolved. MAILE resolved. Mental status much improved. Follows commands but poorly verbal likely from dementia. Continue to avoid narcotics. Patient has a low-grade fever, leukocytosis , on cefepime, cultures pending. Discontinue normal saline. Started Glucerna tube feeds via NG tube, continue aspiration precautions. Ordered swallowing evaluation. Hemoglobin dropped from 7.8-6.8, possibly just dilutional. Hematuria resolved, no vaginal bleeding. Will transfuse PRBC. Consider urology consultation for evaluation of possible bladder tumor when more stable. Daughter reports significant cognitive decline since 07/2020 admission for UTI. Right-sided weakness is new according to daughter. Will order MRI brain when more stable. 12/05/2020. Patient is nonverbal and occasional tracking with eyes on my exam this morning. Baseline mental status per daughter can follow commands and able to communicate but with slow speech. Also, reports ability to feed herself. MRI brain ordered to rule out new CVA. Continue IV antibiotics for UTI. Await speech therapy evaluation for dysphagia. Continue NG tube for tube feedings. I d/w daughter POC [phone]. 12/06/2020. Brain MRI shows no acute findings only extensive chronic changes. Neurology consultation. Altered mentation may be secondary to toxic metabolic encephalopathy from sepsis/UTI. Continue IV antibiotics. Consider ID consultation. Acute kidney injury resolved. Still awaiting speech therapy evaluation 12/07/2020. Neurology evaluated the patient and recommends EEG to rule out subclinical seizures. Patient may need repeat MRI. Continue IV antibiotics for sepsis/UTI. Patient has underlying toxic metabolic encephalopathy as well. Blood cultures negative x5 days. Urine culture also negative. However, patient with significant fever since last night. Repeat blood cultures, check lactic acid and obtain ID consultation 12/08/2020. CT scan suggestive of bilateral acute pyelonephritis and bowel ischemia. Vancomycin added by ID. Appreciate ID help. Vascular surgery for bowel ischemia. Follow-up repeat blood cultures. Lactic acid level normal. 12/09/2020. Consult GI and surgery for presumed bowel ischemia and cecum pneumatosis per vascular surgery recommendation. Continue IV antibiotics per ID recommendations. Cefepime and vancomycin discontinued and meropenem started. CT of abdomen with bilateral pyelonephritis. Urology evaluation for urinary bladder mass once cecum pneumatosis and presumed bowel ischemia addressed. Nurse reports patient with vomiting this a.m. Hold tube feedings and change NG tube to LIS. Check KUB rule out ileus. Consider Reglan. 12/10/2020. Vascular surgery reports CTA of abdomen and pelvis showed no evidence of stenosis or embolic phenomenon to the visceral vessels. Continue IV antibiotics per ID recommendations. CT scan reveals bilateral hydroureter nephrosis and bilateral pyelonephritis. Urology consultation. CT scan does not show any evidence of ileus. 12/11/2020. Continue IV antibiotics per ID recommendations. Urology consulted for bilateral hydroureteronephrosis and bilateral pyelonephritis. Urine and blood cultures are negative. 12/12/2020 Patient with sepsis, bilateral pyelonephritis, complicated UTI. Cont inue Merrem as per ID. Urology consulted. She is being seen by Dr. Caban History Interval history: Patient is non-verbal, cannot give history Hospitalist Physical - Physical exam Narrative exam: Gen: Not in acute distress, awake,alert, HEENT: Normocephalic, atraumatic Neck : supple, no JVD Heart:S1 and S2 reg, no murmurs, rubs or gallop Lungs:clear to auscultation bilaterally Abd: Soft , non tender, non distended, normal bowel sounds Ext: No edema, no clubbing, no cyanosis, left AKA Neuro: Awake, non-verbal - Constitutional Vitals: Temp Pulse Resp BP Pulse Ox 98.1 F 91 H 20 147/85 93 12/12/20 07:32 12/12/20 07:32 12/12/20 07:32 12/12/20 07:32 12/12/20 07:32 General appearance: Present: no acute distress, other (Nonverbal) Results - Labs CBC & Chem 7: 12/12/20 05:55 12/12/20 05:55 Labs: Laboratory Last Values WBC 13.6 K/mm3 (4.5-11.0) H 12/12/20 05:55 RBC 3.31 M/mm3 (3.65-5.03) L 12/12/20 05:55 Hgb 9.4 gm/dl (10.1-14.3) L 12/12/20 05:55 Hct 28.4 % (30.3-42.9) L 12/12/20 05:55 MCV 86 fl (79-97) 12/12/20 05:55 MCH 28 pg (28-32) 12/12/20 05:55 MCHC 33 % (30-34) 12/12/20 05:55 RDW 18.3 % (13.2-15.2) H 12/12/20 05:55 Plt Count 237 K/mm3 (140-440) 12/12/20 05:55 Lymph % (Auto) 24.2 % (13.4-35.0) 12/12/20 05:55 Burt % (Auto) 4.1 % (0.0-7.3) 12/12/20 05:55 Eos % (Auto) 3.7 % (0.0-4.3) 12/12/20 05:55 Baso % (Auto) 0.8 % (0.0-1.8) 12/12/20 05:55 Lymph # (Auto) 3.3 K/mm3 (1.2-5.4) 12/12/20 05:55 Burt # (Auto) 0.6 K/mm3 (0.0-0.8) 12/12/20 05:55 Eos # (Auto) 0.5 K/mm3 (0.0-0.4) H 12/12/20 05:55 Baso # (Auto) 0.1 K/mm3 (0.0-0.1) 12/12/20 05:55 Add Manual Diff Complete 12/08/20 11:47 Total Counted 100 12/08/20 11:47 Seg Neutrophils % 67.2 % (40.0-70.0) 12/12/20 05:55 Seg Neuts % (Manual) 72.0 % (40.0-70.0) H 12/08/20 11:47 Lymphocytes % (Manual) 24.0 % (13.4-35.0) 12/08/20 11:47 Monocytes % (Manual) 4.0 % (0.0-7.3) 12/08/20 11:47 Nucleated RBC % Not Reportable 12/08/20 11:47 Seg Neutrophils # 9.2 K/mm3 (1.8-7.7) H 12/12/20 05:55 Seg Neutrophils # Man 16.1 K/mm3 (1.8-7.7) H 12/08/20 11:47 Band Neutrophils # 0.0 K/mm3 12/08/20 11:47 Lymphocytes # (Manual) 5.4 K/mm3 (1.2-5.4) 12/08/20 11:47 Abs React Lymphs (Man) 0.0 K/mm3 12/08/20 11:47 Monocytes # (Manual) 0.9 K/mm3 (0.0-0.8) H 12/08/20 11:47 Eosinophils # (Manual) 0.0 K/mm3 (0.0-0.4) 12/08/20 11:47 Basophils # (Manual) 0.0 K/mm3 (0.0-0.1) 12/08/20 11:47 Metamyelocytes # 0.0 K/mm3 12/08/20 11:47 Myelocytes # 0.0 K/mm3 12/08/20 11:47 Promyelocytes # 0.0 K/mm3 12/08/20 11:47 Blast Cells # 0.0 K/mm3 12/08/20 11:47 WBC Morphology Not Reportable 12/08/20 11:47 Hypersegmented Neuts Not Reportable 12/08/20 11:47 Hyposegmented Neuts Not Reportable 12/08/20 11:47 Hypogranular Neuts Not Reportable 12/08/20 11:47 Smudge Cells Not Reportable 12/08/20 11:47 Toxic Granulation Not Reportable 12/08/20 11:47 Toxic Vacuolation Not Reportable 12/08/20 11:47 Dohle Bodies Not Reportable 12/08/20 11:47 Pelger-Huet Anomaly Not Reportable 12/08/20 11:47 Israel Rods Not Reportable 12/08/20 11:47 Platelet Estimate Consistent w auto 12/08/20 11:47 Clumped Platelets Not Reportable 12/08/20 11:47 Plt Clumps, EDTA Not Reportable 12/08/20 11:47 Large Platelets Not Reportable 12/08/20 11:47 Giant Platelets Not Reportable 12/08/20 11:47 Platelet Satelliting Not Reportable 12/08/20 11:47 Plt Morphology Comment Not Reportable 12/08/20 11:47 RBC Morphology Not Reportable 12/08/20 11:47 Dimorphic RBCs Not Reportable 12/08/20 11:47 Polychromasia Not Reportable 12/08/20 11:47 Hypochromasia Not Reportable 12/08/20 11:47 Poikilocytosis Not Reportable 12/08/20 11:47 Anisocytosis 1+ 12/08/20 11:47 Microcytosis Not Reportable 12/08/20 11:47 Macrocytosis Not Reportable 12/08/20 11:47 Spherocytes Not Reportable 12/08/20 11:47 Pappenheimer Bodies Not Reportable 12/08/20 11:47 Sickle Cells Not Reportable 12/08/20 11:47 Target Cells Not Reportable 12/08/20 11:47 Tear Drop Cells Not Reportable 12/08/20 11:47 Ovalocytes Not Reportable 12/08/20 11:47 Stomatocytes 1+ 12/08/20 11:47 Helmet Cells Not Reportable 12/08/20 11:47 Cespedes-Golva Bodies Not Reportable 12/08/20 11:47 [place] Rings Not Reportable 12/08/20 11:47 [place] Cells Not Reportable 12/08/20 11:47 Bite Cells Not Reportable 12/08/20 11:47 Crenated Cell Not Reportable 12/08/20 11:47 Elliptocytes Not Reportable 12/08/20 11:47 Acanthocytes (Spur) Not Reportable 12/08/20 11:47 Rouleaux Not Reportable 12/08/20 11:47 Hemoglobin C Crystals Not Reportable 12/08/20 11:47 Schistocytes Not Reportable 12/08/20 11:47 Malaria parasites Not Reportable 12/08/20 11:47 Hamlet Bodies Not Reportable 12/08/20 11:47 Hem Pathologist Commnt No 12/08/20 11:47 PT 15.3 Sec. (12.2-14.9) H 12/02/20 02:53 INR 1.16 (0.87-1.13) H 12/02/20 02:53 APTT 37.7 Sec. (24.2-36.6) H 12/02/20 02:53 Sodium 138 mmol/L (137-145) 12/12/20 05:55 Potassium 4.4 mmol/L (3.6-5.0) 12/12/20 05:55 Chloride 102.4 mmol/L (98-107) 12/12/20 05:55 Carbon Dioxide 26 mmol/L (22-30) 12/12/20 05:55 Anion Gap 14 mmol/L 12/12/20 05:55 BUN 28 mg/dL (7-17) H 12/12/20 05:55 Creatinine 0.7 mg/dL (0.6-1.2) 12/12/20 05:55 Estimated GFR > 60 ml/min 12/12/20 05:55 BUN/Creatinine Ratio 40 % 12/12/20 05:55 Glucose 164 mg/dL (65-100) H 12/12/20 05:55 POC Glucose 193 mg/dL (70-105) H 12/12/20 12:18 Hemoglobin A1c 7.4 % (4-6) H 12/02/20 Unknown Lactic Acid 1.70 mmol/L (0.7-2.0) 12/08/20 11:47 Calcium 8.1 mg/dL (8.4-10.2) L 12/12/20 05:55 Magnesium 1.50 mg/dL (1.7-2.3) L 12/04/20 09:51 Total Bilirubin 0.20 mg/dL (0.1-1.2) 12/05/20 05:04 AST 15 units/L (5-40) 12/05/20 05:04 ALT 7 units/L (7-56) 12/05/20 05:04 Alkaline Phosphatase 112 units/L (35-129) 12/05/20 05:04 C-Reactive Protein 1.30 mg/dL (0.00-1.30) 12/07/20 17:04 Total Protein 8.4 g/dL (6.3-8.2) H 12/05/20 05:04 Albumin 2.8 g/dL (3.9-5) L 12/05/20 05:04 Albumin/Globulin Ratio 0.5 % 12/05/20 05:04 Procalcitonin 0.27 ng/mL (<0.15) 12/09/20 12:37 Urine Color Yellow (Yellow) 12/02/20 03:50 Urine Turbidity Turbid (Clear) 12/02/20 03:50 Urine pH 6.0 (5.0-7.0) 12/02/20 03:50 Ur Specific [place] 1.008 (1.003-1.030) 12/02/20 03:50 Urine Protein 100 mg/dl mg/dL (Negative) 12/02/20 03:50 Urine Glucose (UA) Neg mg/dL (Negative) 12/02/20 03:50 Urine Ketones Neg mg/dL (Negative) 12/02/20 03:50 Urine Blood Lg (Negative) 12/02/20 03:50 Urine Nitrite Neg (Negative) 12/02/20 03:50 Urine Bilirubin Neg (Negative) 12/02/20 03:50 Urine Urobilinogen < 2.0 mg/dL (<2.0) 12/02/20 03:50 Ur Leukocyte Esterase Lg (Negative) 12/02/20 03:50 Urine WBC (Auto) > 182.0 /HPF (0.0-6.0) H 12/02/20 03:50 Urine RBC (Auto) > 182.0 /HPF (0.0-6.0) 12/02/20 03:50 U Epithel Cells (Auto) 6.0 /HPF (0-13.0) 12/02/20 03:50 Urine Bacteria (Auto) 1+ /HPF (Negative) 12/02/20 03:50 Urine WBC Clumps 3+ /HPF 12/02/20 03:50 Phenytoin 12.9 ug/mL (10.0-20.0) 12/07/20 04:52 Coronavirus (PCR) Negative (Negative) 12/05/20 Unknown Blood Type O POSITIVE 12/02/20 02:05 Antibody Screen Negative 12/02/20 02:05 Crossmatch See Detail 12/02/20 02:05 Microbiology: Microbiology 12/07/20 11:08 Peripheral/Venous Blood Culture - Final NO GROWTH AFTER 5 DAYS 12/07/20 11:08 Peripheral/Venous Blood Culture - Final NO GROWTH AFTER 5 DAYS Mcclure/IV: Voiding Method Indwelling Catheter Active Medications - Current Medications Current Medications: Generic Name Dose Route Start Last Admin Trade Name Freq PRN Reason Stop Dose Admin Acetaminophen 650 mg 12/02/20 05:24 12/09/20 05:37 Acetaminophen 325 Mg Tab PO 650 mg Q4H PRN Administration Pain MILD(1-3)/Fever >100.5/SMALLS Albuterol 2.5 mg 12/02/20 05:24 12/03/20 15:11 Albuterol 2.5 Mg/3 Ml Nebu IH 2.5 mg Q4HRT PRN Administration Shortness Of Breath Lipase/Protease/Amylase 1 each 12/03/20 10:22 Lipase 10,500/Protease 25,000/Amylase 43,750 (Units) Dr Blount FEEDTUBE PRN PRN For Clogged Feeding Tube Atorvastatin Calcium 40 mg 12/02/20 10:00 12/12/20 11:03 Atorvastatin 40 Mg Tab PO 40 mg DAILY ADOLFO Administration Citalopram Hydrobromide 20 mg 12/02/20 10:00 12/12/20 11:03 Citalopram 20 Mg Tab PO 20 mg DAILY ADOLFO Administration Dextrose 50 ml 12/02/20 11:18 Dextrose 50% In Water (25gm) 50 Ml Syringe IV Q30MIN PRN Hypoglycemia Protocol Docusate Sodium 100 mg 12/04/20 10:00 12/12/20 11:02 Docusate Sodium 100 Mg/10 Ml Oral Liqd FEEDTUBE 100 mg BID ADOLFO Administration Famotidine 20 mg 12/04/20 10:00 12/12/20 11:03 Famotidine 20 Mg Tab PO 20 mg DAILY ADOLFO Administration Phenytoin 100 mg/ Sodium 102 mls @ 204 mls/hr 12/07/20 14:00 12/12/20 06:38 Chloride IV 204 mls/hr Q8HR ADOLFO Administration Meropenem 1,000 mg/ Sodium 100 mls @ 100 mls/hr 12/09/20 09:00 12/12/20 06:38 Chloride IV 12/15/20 22:59 100 mls/hr Q8HR ADOLFO Administration Protocol Sodium Chloride 1,000 mls @ 125 mls/hr 12/09/20 12:45 Nacl 0.9% 1000 Ml IV DIRECT ADOLFO Insulin Glargine 10 units 12/05/20 08:00 12/12/20 11:04 Insulin Glargine 100 Units/Ml SUB-Q 10 units QAMDIAB ADOLFO Administration Insulin Human Lispro 0 unit 12/04/20 00:00 12/12/20 06:38 Insulin Lispro 100 Unit/Ml SUB-Q Not Given Q6HR [facility] Protocol Metoclopramide HCl 10 mg 12/09/20 10:31 Metoclopramide 10 Mg/2 Ml Inj IV Q6H PRN Nausea And Vomiting Ondansetron HCl 4 mg 12/02/20 05:24 12/05/20 22:37 Ondansetron 4 Mg/2 Ml Inj IV 4 mg Q8H PRN Administration Nausea And Vomiting Simple Syrup 15 ml 12/03/20 10:22 Simple Syrup 15 Ml FEEDTUBE PRN PRN Hypoglycemia Simple Syrup 30 ml 12/03/20 10:22 Simple Syrup 15 Ml FEEDTUBE PRN PRN Hypoglycemia Sodium Bicarbonate 325 mg 12/03/20 10:22 Sodium Bicarbonate 325 Mg Tab FEEDTUBE PRN PRN For Clogged Feeding Tube Sodium Chloride 10 ml 12/02/20 10:00 12/12/20 11:06 Sodium Chloride 0.9% 10 Ml Flush Syringe IV 10 ml BID ADOLFO Administration Sodium Chloride 10 ml 12/02/20 05:24 12/07/20 05:16 Sodium Chloride 0.9% 10 Ml Flush Syringe IV 10 ml PRN PRN Administration LINE FLUSH Nutrition/Malnutrition Assess - Dietary Evaluation Nutrition/Malnutrition Findings: Nutrition Notes Start: 12/03/20 11:43 Freq: Status: Active Protocol: Document 12/05/20 10:18 LOVE (Rec: 12/05/20 10:20 [email or web address] [id number]) Nutrition Notes Initial or Follow up Brief Note Current Diet TF - Glucerna 1.2 at 45ml/hr Labs/Tests BG 339 Pertinent Medications Lantus (10 units) Subjective/Other Information Per RN, pt tolerating TF at goal rate. Per [employer] eval yesterday, pt at risk for aspiration and should remain on EN support. Nutrition Intervention Follow-Up By: 12/12/20 Additional Comments F/U: stable TF, wt
--- NOTE | 2020-12-12 13:07 | Progress Note ---
Assessment and Plan Cultures: Blood culture 12/01/2020 no growth Blood culture 12/07/2020 no growth Urine cultures 12/04/2020 <10,000 colonies Assessment: 65-year-old female with history of hypertension, previous CVA, diabetes mellitus, dementia, chronic outlet obstruction with bilateral hydroureteronephrosis, previous UTI, uterine fibroids, s/p left AKA, admitted on 12/01/2020 secondary to be found hot, hypotensive and tachycardic: #Sepsis: with leukocytosis and fever. Etiology likely complicated UTI +/- bowel ischemia +/- pneumonia. CRP 1.3. 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 Was evaluated by vascular, improved on follow-up imaging #Complicated UTI: History of chronic outlet obstruction with previous bilateral hydroureteral nephrosis, previous UTI due to Klebsiella in July 2020. Initial urinalysis with 182 WBCs and large leukocyte esterase. CT of the pelvis with posterior urinary bladder mass. Urine culture taken 3 days after admission with <10,000 mixed colonies. On cefepime IV for 6 days not responding. Mcclure catheter placed on admission. CT abdomen with bilateral pyelonephritis. Was evaluated by urology, NM Lasix scan without significant abnormality or urinary obstruction. #Acute kidney injury: Creatinine improving. Renally adjust antibiotics. NM Las ix scan without significant abnormality or urinary obstruction. #Encephalopathy: Likely toxic metabolic due to sepsis. Noted new right-sided weakness. Brain MRI with extensive chronic changes. Recommendations: Continue IV meropenem for 7 days, day 4 today recheck CBC in AM Abby Flores MD, FACP [facility] ([facility] O: [phone] F: [phone] Subjective Date of service: 12/12/20 Interval history: Afebrile. Nonverbal. Has NG tube with tube feeds ongoing. Objective - Exam Narrative Exam: Physical Exam: Constitutional: Nonverbal Head, Ears, Nose: Normocephalic, atraumatic. External ears, nose normal. NG tube present Eyes: Conjunctivae/corneas clear. No icterus. No ptosis. Neck: Supple, no meningeal signs Cardiovascular: S1, S2 normal. Respiratory: Good air entry, clear to auscultation bilaterally GI: Soft, non-tender; bowel sounds normal. No peritoneal signs. Mcclure present Musculoskeletal: Right AKA Skin: No rash or abscess Hem/Lymphatic: No palpable cervical or supraclavicular nodes. No lymphangitis Psych: No agitation Neurological: Awake, nonverbal - Constitutional Vitals: Vital Signs Temp Pulse Resp BP Pulse Ox 98.1 F 91 H 20 147/85 93 12/12/20 07:32 12/12/20 07:32 12/12/20 07:32 12/12/20 07:32 12/12/20 07:32 Temperature -Last 24 Hours Temperature 98.1 F Temperature 97.9 F Temperature 98.0 F Temperature 98.3 F Temperature 98.9 F - Labs CBC & Chem 7: 12/12/20 05:55 12/12/20 05:55 Labs: Abnormal lab results 12/11/20 12/11/20 12/12/20 Range/Units 16:46 23:38 05:48 WBC (4.5-11.0) K/mm3 RBC (3.65-5.03) M/mm3 Hgb (10.1-14.3) gm/dl Hct (30.3-42.9) % RDW (13.2-15.2) % Eos # (Auto) (0.0-0.4) K/mm3 Seg Neutrophils # (1.8-7.7) K/mm3 BUN (7-17) mg/dL Glucose (65-100) mg/dL POC Glucose 198 H 135 H 168 H (70-105) mg/dL Calcium (8.4-10.2) mg/dL 12/12/20 12/12/20 12/12/20 Range/Units 05:55 05:55 09:21 WBC 13.6 H (4.5-11.0) K/mm3 RBC 3.31 L (3.65-5.03) M/mm3 Hgb 9.4 L (10.1-14.3) gm/dl Hct 28.4 L (30.3-42.9) % RDW 18.3 H (13.2-15.2) % Eos # (Auto) 0.5 H (0.0-0.4) K/mm3 Seg Neutrophils # 9.2 H (1.8-7.7) K/mm3 BUN 28 H (7-17) mg/dL Glucose 164 H (65-100) mg/dL POC Glucose 175 H (70-105) mg/dL Calcium 8.1 L (8.4-10.2) mg/dL 12/12/20 Range/Units 12:18 WBC (4.5-11.0) K/mm3 RBC (3.65-5.03) M/mm3 Hgb (10.1-14.3) gm/dl Hct (30.3-42.9) % RDW (13.2-15.2) % Eos # (Auto) (0.0-0.4) K/mm3 Seg Neutrophils # (1.8-7.7) K/mm3 BUN (7-17) mg/dL Glucose (65-100) mg/dL POC Glucose 193 H (70-105) mg/dL Calcium (8.4-10.2) mg/dL
[2020-12-12] MEDS: ACETAMINOPHEN 325 MG TAB PO PRN (18:35)
[2020-12-13] MEDS: INSULIN LISPRO 100 UNIT/ML SUB-Q SCH ×4 (00:10→19:11)
[2020-12-13] MEDS: MEROPENEM 1,000 MG in SODIUM CHLORIDE 0.9% 100 ML IV SCH ×3 (05:26→21:04)
[2020-12-13] MEDS: PHENYTOIN 100 MG in SODIUM CHLORIDE 0.9% 100 ML IV SCH ×3 (05:26→21:04)
[2020-12-13 06:31] LABS: Basophils # (Auto) 0.1 K/mm3 (0.0-0.1); Basophils % (Auto) 0.6 % (0.0-1.8); Eosinophils # (Auto) 0.4 K/mm3 (0.0-0.4); Eosinophils % (Auto) 2.7 % (0.0-4.3); Hematocrit 29.3 % (30.3-42.9); Hemoglobin 9.7 gm/dl (10.1-14.3); Lymphocytes # (Auto) 2.5 K/mm3 (1.2-5.4); Lymphocytes % (Auto) 17.2 % (13.4-35.0); Mean Corpuscular HGB Conc 33 % (30-34); Mean Corpuscular Volume 85 fl (79-97); Monocytes # (Auto) 0.7 K/mm3 (0.0-0.8); Monocytes % (Auto) 4.9 % (0.0-7.3); Platelet Count 283 K/mm3 (140-440); Red Blood Count 3.43 M/mm3 (3.65-5.03); Red Cell Distribution Width 17.9 % (13.2-15.2)
--- NOTE | 2020-12-13 08:52 | Progress Note ---
Subjective Date of service: 12/13/20 Interval history: 64-year-old female with PMH of dementia, CVA, left hemiplegia, DM, left AKA, dysphagia, hypokalemia, anemia, CKD 2, urine retention needing chronic indwelling Kerr catheter was brought to ED for evaluation of AMS and possible vaginal bleeding. Patient was noted to be in septic shock with BP 80/60 and pyuria and hematuria. Kerr catheter was exchanged in ER. Patient was administered IV fluid boluses with improvement of hypotension and started on antibiotics after cultures. According to ED notes patient was given Dilaudid as she was moaning. Indwelling Kerr shows pinkish urine. On inspection, no vaginal bleeding noted. Urine and blood cultures are negative. nuc scan with lasix -- no obstruction not oriented / WBC---22-17k CTAP--- bilat mild hydronephrosis tube feeds kerr - clear urine soft abd left AKA A/P Hydronephrosis no surgical intervention needed will sign off Objective - Constitutional Vitals: Vital Signs - 12hr 12/12/20 12/12/20 12/13/20 22:00 23:03 03:25 Temperature 97.5 F L 98.8 F Pulse Rate 93 H 101 H Respiratory 18 20 Rate Blood Pressure 152/93 137/88 O2 Sat by Pulse 98 96 97 Oximetry 12/13/20 07:22 Temperature 98.3 F Pulse Rate 98 H Respiratory 18 Rate Blood Pressure 115/79 O2 Sat by Pulse 98 Oximetry - Labs CBC & Chem 7: 12/13/20 04:53 12/12/20 05:55 Labs: Abnormal lab results 12/12/20 12/12/20 12/12/20 Range/Units 09:21 12:18 16:52 WBC (4.5-11.0) K/mm3 RBC (3.65-5.03) M/mm3 Hgb (10.1-14.3) gm/dl Hct (30.3-42.9) % RDW (13.2-15.2) % Seg Neutrophils % (40.0-70.0) % Seg Neutrophils # (1.8-7.7) K/mm3 POC Glucose 175 H 193 H 190 H (70-105) mg/dL 12/12/20 12/13/20 12/13/20 Range/Units 23:09 04:53 04:59 WBC 14.7 H (4.5-11.0) K/mm3 RBC 3.43 L (3.65-5.03) M/mm3 Hgb 9.7 L (10.1-14.3) gm/dl Hct 29.3 L (30.3-42.9) % RDW 17.9 H (13.2-15.2) % Seg Neutrophils % 74.6 H (40.0-70.0) % Seg Neutrophils # 10.9 H (1.8-7.7) K/mm3 POC Glucose 161 H 211 H (70-105) mg/dL Medications & Allergies - Medications Allergies/Adverse Reactions: Allergies No Known Allergies Allergy (Verified 12/02/20 16:58) Home Medications: Home Medications Medication Instructions Recorded Confirmed Last Taken Type Oxybutynin [Ditropan] 5 mg PO BID #60 tablet 09/28/19 12/02/20 Unknown Rx levoFLOXacin [Levaquin TAB] 500 mg PO QDAY #5 tablet 09/28/19 12/02/20 Unknown Rx Acetaminophen [Aphen] 325 mg PO Q4H PRN 07/21/20 12/02/20 Unknown History Aspirin [Adult Aspirin] 81 mg PO DAILY 07/21/20 12/02/20 Unknown History AtorvaSTATin [Lipitor] 40 mg PO DAILY 07/21/20 12/02/20 Unknown History Citalopram [Celexa] 20 mg PO DAILY 07/21/20 12/02/20 Unknown History Docusate Sodium [Colace CAP] 100 mg PO BID 07/21/20 12/02/20 Unknown History Insulin Aspart (Nf) [NovoLOG 100 0 unit SQ AC 07/21/20 12/02/20 Unknown History UNITS/ML VIAL] Insulin Glargine [Lantus VIAL] 20 units SQ BID 07/21/20 12/02/20 Unknown History Insulin Lispro [Admelog] 5 unit SQ ACHS 07/21/20 12/02/20 Unknown History Multivitamin [One-Daily 1 tab PO DAILY 07/21/20 12/02/20 Unknown History Multi-Vitamin] Norvasc 10 mg PO DAILY 07/21/20 12/02/20 Unknown History Nystatin [Nystatin SUSP] 100,000 ml PO QID 07/21/20 12/02/20 Unknown History Ondansetron HCl [Zofran] 4 mg PO Q8H 07/21/20 12/02/20 Unknown History Oxybutynin [Ditropan] 5 mg PO DAILY 07/21/20 12/02/20 Unknown History Pantoprazole [Protonix TAB] 40 mg PO QDAY 07/21/20 12/02/20 Unknown History Potassium 10 meq PO QAM 07/21/20 12/02/20 Unknown History Sennosides [Senna] 1 tab PO BID 07/21/20 12/02/20 Unknown History bisacodyL [Dulcolax suppos] 10 mg MS DAILY 07/21/20 12/02/20 Unknown History cephALEXin [Keflex] 250 mg PO Q6HR #10 capsule 07/21/20 12/02/20 Unknown Rx diphenhydrAMINE [Benadryl CAP] 25 mg PO Q6H PRN 07/21/20 12/02/20 Unknown History megestroL [Megace] 40 mg PO DAILY #30 tablet 07/22/20 12/02/20 Unknown Rx Active Medications: Generic Name Dose Route Start Last Admin Trade Name Freq PRN Reason Stop Dose Admin Acetaminophen 650 mg 12/02/20 05:24 12/12/20 18:35 Acetaminophen 325 Mg Tab PO 650 mg Q4H PRN Administration Pain MILD(1-3)/Fever >100.5/SMALLS Albuterol 2.5 mg 12/02/20 05:24 12/03/20 15:11 Albuterol 2.5 Mg/3 Ml Nebu IH 2.5 mg Q4HRT PRN Administration Shortness Of Breath Lipase/Protease/Amylase 1 each 12/03/20 10:22 Lipase 10,500/Protease 25,000/Amylase 43,750 (Units) Dr Blount FEEDTUBE PRN PRN For Clogged Feeding Tube Atorvastatin Calcium 40 mg 12/02/20 10:00 12/12/20 11:03 Atorvastatin 40 Mg Tab PO 40 mg DAILY ADOLFO Administration Citalopram Hydrobromide 20 mg 12/02/20 10:00 12/12/20 11:03 Citalopram 20 Mg Tab PO 20 mg DAILY ADOLFO Administration Dextrose 50 ml 12/02/20 11:18 Dextrose 50% In Water (25gm) 50 Ml Syringe IV Q30MIN PRN Hypoglycemia Protocol Docusate Sodium 100 mg 12/04/20 10:00 12/12/20 21:12 Docusate Sodium 100 Mg/10 Ml Oral Liqd FEEDTUBE 100 mg BID ADOLFO Administration Famotidine 20 mg 12/04/20 10:00 12/12/20 11:03 Famotidine 20 Mg Tab PO 20 mg DAILY ADOLFO Administration Phenytoin 100 mg/ Sodium 102 mls @ 204 mls/hr 12/07/20 14:00 12/13/20 05:26 Chloride IV 204 mls/hr Q8HR ADOLFO Administration Meropenem 1,000 mg/ Sodium 100 mls @ 100 mls/hr 12/09/20 09:00 12/13/20 05:26 Chloride IV 12/15/20 22:59 100 mls/hr Q8HR ADOLFO Administration Protocol Sodium Chloride 1,000 mls @ 125 mls/hr 12/09/20 12:45 Nacl 0.9% 1000 Ml IV DIRECT ADOLFO Insulin Glargine 10 units 12/05/20 08:00 12/12/20 11:04 Insulin Glargine 100 Units/Ml SUB-Q 10 units QAMDIAB ADOLFO Administration Insulin Human Lispro 0 unit 12/04/20 00:00 12/13/20 05:27 Insulin Lispro 100 Unit/Ml SUB-Q 2 unit Q6HR ADOLFO Administration Protocol Metoclopramide HCl 10 mg 12/09/20 10:31 12/12/20 18:36 Metoclopramide 10 Mg/2 Ml Inj IV 10 mg Q6H PRN Administration Nausea And Vomiting Ondansetron HCl 4 mg 12/02/20 05:24 12/05/20 22:37 Ondansetron 4 Mg/2 Ml Inj IV 4 mg Q8H PRN Administration Nausea And Vomiting Simple Syrup 15 ml 12/03/20 10:22 Simple Syrup 15 Ml FEEDTUBE PRN PRN Hypoglycemia Simple Syrup 30 ml 12/03/20 10:22 Simple Syrup 15 Ml FEEDTUBE PRN PRN Hypoglycemia Sodium Bicarbonate 325 mg 12/03/20 10:22 Sodium Bicarbonate 325 Mg Tab FEEDTUBE PRN PRN For Clogged Feeding Tube Sodium Chloride 10 ml 12/02/20 10:00 12/12/20 21:13 Sodium Chloride 0.9% 10 Ml Flush Syringe IV 10 ml BID ADOLFO Administration Sodium Chloride 10 ml 12/02/20 05:24 12/12/20 18:37 Sodium Chloride 0.9% 10 Ml Flush Syringe IV 10 ml PRN PRN Administration LINE FLUSH
--- NOTE | 2020-12-13 10:09 | XRay Report ---
ABDOMEN 1 VIEW 12/13/2020 9:50 AM INDICATION / CLINICAL INFORMATION: tube placement. COMPARISON: 12/09/2020 FINDINGS: TUBES / LINES: Nasogastric tube tip projects the level the distal stomach. BOWEL GAS PATTERN: No significant abnormality. FREE AIR / EXTRALUMINAL GAS: None. ADDITIONAL FINDINGS: No significant additional findings. IMPRESSION: 1. Esophagogastric tube in expected position. Signer Name: Mikhail Sellers MD Signed: 12/13/2020 10:05 AM Workstation Name: [id number]
--- NOTE | 2020-12-13 11:27 | Progress Note ---
Assessment and Plan Assessment and plan: 64-year-old female with PMH of dementia, CVA, left hemiplegia, DM, left AKA, dysphagia, hypokalemia, anemia, CKD 2, urine retention needing chronic indwelling Mcclure catheter was brought to ED for evaluation of AMS and possible vaginal bleeding. Patient was noted to be in septic shock with BP 80/60 and pyuria and hematuria. Mcclure catheter was exchanged in ED. Patient was administered IV fluid boluses with improvement of hypotension and started on antibiotics after cultures. Sepsis. Patient previously with septic shock. Bilateral pyelonephritis/complicated UTI. Toxic metabolic encephalopathy. Cecum pneumatosis. Resolved History of CVA, left hemiparesis, aphasic and dysphagia. (2008,2015) Left AKA 2016 New right-sided weakness. Acute kidney injury on CKD stage II. Resolved. Hypokalemia Diabetes mellitus type 2. Anemia 12/03/2020. Patient has now stable vital signs and hypertension resolved. Receiving normal saline 125 mill per hour. She spiked a fever of 100.6 today. Hemoglobin dropped to 6.8 and ordered PRBC transfusion. Hematuria actually resolved. No vaginal bleeding. Mental status improved, she is now awake awake but minimally verbalizes. She can occasionally give her name. She just mumbles. Not in acute distress. Large urine output and MAILE resolved. 12/04/2020. Shock state resolved. MAILE resolved. Mental status much improved. Follows commands but poorly verbal likely from dementia. Continue to avoid narcotics. Patient has a low-grade fever, leukocytosis , on cefepime, cultures pending. Discontinue normal saline. Started Glucerna tube feeds via NG tube, continue aspiration precautions. Ordered swallowing evaluation. Hemoglobin dropped from 7.8-6.8, possibly just dilutional. Hematuria resolved, no vaginal bleeding. Will transfuse PRBC. Consider urology consultation for evaluation of possible bladder tumor when more stable. Daughter reports significant cognitive decline since 07/2020 admission for UTI. Right-sided weakness is new according to daughter. Will order MRI brain when more stable. 12/05/2020. Patient is nonverbal and occasional tracking with eyes on my exam this morning. Baseline mental status per daughter can follow commands and able to communicate but with slow speech. Also, reports ability to feed herself. MRI brain ordered to rule out new CVA. Continue IV antibiotics for UTI. Await speech therapy evaluation for dysphagia. Continue NG tube for tube feedings. I d/w daughter POC [phone]. 12/06/2020. Brain MRI shows no acute findings only extensive chronic changes. Neurology consultation. Altered mentation may be secondary to toxic metabolic encephalopathy from sepsis/UTI. Continue IV antibiotics. Consider ID consultation. Acute kidney injury resolved. Still awaiting speech therapy evaluation 12/07/2020. Neurology evaluated the patient and recommends EEG to rule out subclinical seizures. Patient may need repeat MRI. Continue IV antibiotics for sepsis/UTI. Patient has underlying toxic metabolic encephalopathy as well. Blood cultures negative x5 days. Urine culture also negative. However, patient with significant fever since last night. Repeat blood cultures, check lactic acid and obtain ID consultation 12/08/2020. CT scan suggestive of bilateral acute pyelonephritis and bowel ischemia. Vancomycin added by ID. Appreciate ID help. Vascular surgery for bowel ischemia. Follow-up repeat blood cultures. Lactic acid level normal. 12/09/2020. Consult GI and surgery for presumed bowel ischemia and cecum pneumatosis per vascular surgery recommendation. Continue IV antibiotics per ID recommendations. Cefepime and vancomycin discontinued and meropenem started. CT of abdomen with bilateral pyelonephritis. Urology evaluation for urinary bladder mass once cecum pneumatosis and presumed bowel ischemia addressed. Nurse reports patient with vomiting this a.m. Hold tube feedings and change NG tube to LIS. Check KUB rule out ileus. Consider Reglan. 12/10/2020. Vascular surgery reports CTA of abdomen and pelvis showed no evidence of stenosis or embolic phenomenon to the visceral vessels. Continue IV antibiotics per ID recommendations. CT scan reveals bilateral hydroureter nephrosis and bilateral pyelonephritis. Urology consultation. CT scan does not show any evidence of ileus. 12/11/2020. Continue IV antibiotics per ID recommendations. Urology consulted for bilateral hydroureteronephrosis and bilateral pyelonephritis. Urine and blood cultures are negative. 12/12/2020 Patient with sepsis, bilateral pyelonephritis, complicated UTI. Cont inue Merrem as per ID. Urology consulted. She is being seen by Dr. Caban. 12/13/2020 Patient with sepsis, bilateral pyelonephritis, complicated UTI. Patient still on Merrem. Hgb 9.7 today. History Interval history: Patient is non-verbal, cannot give history Hospitalist Physical - Physical exam Narrative exam: Gen: Not in acute distress, awake,alert, HEENT: Normocephalic, atraumatic Neck : supple, no JVD Heart:S1 and S2 reg, no murmurs, rubs or gallop Lungs:clear to auscultation bilaterally Abd: Soft , non tender, non distended, normal bowel sounds Ext: No edema, no clubbing, no cyanosis, left AKA Neuro: Awake, non-verbal - Constitutional Vitals: Temp Pulse Resp BP Pulse Ox 98.3 F 98 H 18 115/79 98 12/13/20 07:22 12/13/20 07:22 12/13/20 07:22 12/13/20 07:22 12/13/20 07:22 General appearance: Present: no acute distress, other (Nonverbal) Results - Labs CBC & Chem 7: 12/13/20 04:53 12/12/20 05:55 Labs: Laboratory Last Values WBC 14.7 K/mm3 (4.5-11.0) H 12/13/20 04:53 RBC 3.43 M/mm3 (3.65-5.03) L 12/13/20 04:53 Hgb 9.7 gm/dl (10.1-14.3) L 12/13/20 04:53 Hct 29.3 % (30.3-42.9) L 12/13/20 04:53 MCV 85 fl (79-97) 12/13/20 04:53 MCH 28 pg (28-32) 12/13/20 04:53 MCHC 33 % (30-34) 12/13/20 04:53 RDW 17.9 % (13.2-15.2) H 12/13/20 04:53 Plt Count 283 K/mm3 (140-440) 12/13/20 04:53 Lymph % (Auto) 17.2 % (13.4-35.0) 12/13/20 04:53 [place] % (Auto) 4.9 % (0.0-7.3) 12/13/20 04:53 Eos % (Auto) 2.7 % (0.0-4.3) 12/13/20 04:53 Baso % (Auto) 0.6 % (0.0-1.8) 12/13/20 04:53 Lymph # (Auto) 2.5 K/mm3 (1.2-5.4) 12/13/20 04:53 [place] # (Auto) 0.7 K/mm3 (0.0-0.8) 12/13/20 04:53 Eos # (Auto) 0.4 K/mm3 (0.0-0.4) 12/13/20 04:53 Baso # (Auto) 0.1 K/mm3 (0.0-0.1) 12/13/20 04:53 Add Manual Diff Complete 12/08/20 11:47 Total Counted 100 12/08/20 11:47 Seg Neutrophils % 74.6 % (40.0-70.0) H 12/13/20 04:53 Seg Neuts % (Manual) 72.0 % (40.0-70.0) H 12/08/20 11:47 Lymphocytes % (Manual) 24.0 % (13.4-35.0) 12/08/20 11:47 Monocytes % (Manual) 4.0 % (0.0-7.3) 12/08/20 11:47 Nucleated RBC % Not Reportable 12/08/20 11:47 Seg Neutrophils # 10.9 K/mm3 (1.8-7.7) H 12/13/20 04:53 Seg Neutrophils # Man 16.1 K/mm3 (1.8-7.7) H 12/08/20 11:47 Band Neutrophils # 0.0 K/mm3 12/08/20 11:47 Lymphocytes # (Manual) 5.4 K/mm3 (1.2-5.4) 12/08/20 11:47 Abs React Lymphs (Man) 0.0 K/mm3 12/08/20 11:47 Monocytes # (Manual) 0.9 K/mm3 (0.0-0.8) H 12/08/20 11:47 Eosinophils # (Manual) 0.0 K/mm3 (0.0-0.4) 12/08/20 11:47 Basophils # (Manual) 0.0 K/mm3 (0.0-0.1) 12/08/20 11:47 Metamyelocytes # 0.0 K/mm3 12/08/20 11:47 Myelocytes # 0.0 K/mm3 12/08/20 11:47 Promyelocytes # 0.0 K/mm3 12/08/20 11:47 Blast Cells # 0.0 K/mm3 12/08/20 11:47 WBC Morphology Not Reportable 12/08/20 11:47 Hypersegmented Neuts Not Reportable 12/08/20 11:47 Hyposegmented Neuts Not Reportable 12/08/20 11:47 Hypogranular Neuts Not Reportable 12/08/20 11:47 Smudge Cells Not Reportable 12/08/20 11:47 Toxic Granulation Not Reportable 12/08/20 11:47 Toxic Vacuolation Not Reportable 12/08/20 11:47 Dohle Bodies Not Reportable 12/08/20 11:47 Pelger-Huet Anomaly Not Reportable 12/08/20 11:47 [place] Rods Not Reportable 12/08/20 11:47 Platelet Estimate Consistent w auto 12/08/20 11:47 Clumped Platelets Not Reportable 12/08/20 11:47 Plt Clumps, EDTA Not Reportable 12/08/20 11:47 Large Platelets Not Reportable 12/08/20 11:47 Giant Platelets Not Reportable 12/08/20 11:47 Platelet Satelliting Not Reportable 12/08/20 11:47 Plt Morphology Comment Not Reportable 12/08/20 11:47 RBC Morphology Not Reportable 12/08/20 11:47 Dimorphic RBCs Not Reportable 12/08/20 11:47 Polychromasia Not Reportable 12/08/20 11:47 Hypochromasia Not Reportable 12/08/20 11:47 Poikilocytosis Not Reportable 12/08/20 11:47 Anisocytosis 1+ 12/08/20 11:47 Microcytosis Not Reportable 12/08/20 11:47 Macrocytosis Not Reportable 12/08/20 11:47 Spherocytes Not Reportable 12/08/20 11:47 Pappenheimer Bodies Not Reportable 12/08/20 11:47 Sickle Cells Not Reportable 12/08/20 11:47 Target Cells Not Reportable 12/08/20 11:47 Tear Drop Cells Not Reportable 12/08/20 11:47 Ovalocytes Not Reportable 12/08/20 11:47 Stomatocytes 1+ 12/08/20 11:47 Helmet Cells Not Reportable 12/08/20 11:47 [place] Bodies Not Reportable 12/08/20 11:47 [place] Rings Not Reportable 12/08/20 11:47 [place] Cells Not Reportable 12/08/20 11:47 Bite Cells Not Reportable 12/08/20 11:47 Crenated Cell Not Reportable 12/08/20 11:47 Elliptocytes Not Reportable 12/08/20 11:47 Acanthocytes (Spur) Not Reportable 12/08/20 11:47 Rouleaux Not Reportable 12/08/20 11:47 Hemoglobin C Crystals Not Reportable 12/08/20 11:47 Schistocytes Not Reportable 12/08/20 11:47 Malaria parasites Not Reportable 12/08/20 11:47 [place] Bodies Not Reportable 12/08/20 11:47 Hem Pathologist Commnt No 12/08/20 11:47 PT 15.3 Sec. (12.2-14.9) H 12/02/20 02:53 INR 1.16 (0.87-1.13) H 12/02/20 02:53 APTT 37.7 Sec. (24.2-36.6) H 12/02/20 02:53 Sodium 138 mmol/L (137-145) 12/12/20 05:55 Potassium 4.4 mmol/L (3.6-5.0) 12/12/20 05:55 Chloride 102.4 mmol/L (98-107) 12/12/20 05:55 Carbon Dioxide 26 mmol/L (22-30) 12/12/20 05:55 Anion Gap 14 mmol/L 12/12/20 05:55 BUN 28 mg/dL (7-17) H 12/12/20 05:55 Creatinine 0.7 mg/dL (0.6-1.2) 12/12/20 05:55 Estimated GFR > 60 ml/min 12/12/20 05:55 BUN/Creatinine Ratio 40 % 12/12/20 05:55 Glucose 164 mg/dL (65-100) H 12/12/20 05:55 POC Glucose 211 mg/dL (70-105) H 12/13/20 04:59 Hemoglobin A1c 7.4 % (4-6) H 12/02/20 Unknown Lactic Acid 1.70 mmol/L (0.7-2.0) 12/08/20 11:47 Calcium 8.1 mg/dL (8.4-10.2) L 12/12/20 05:55 Magnesium 1.50 mg/dL (1.7-2.3) L 12/04/20 09:51 Total Bilirubin 0.20 mg/dL (0.1-1.2) 12/05/20 05:04 AST 15 units/L (5-40) 12/05/20 05:04 ALT 7 units/L (7-56) 12/05/20 05:04 Alkaline Phosphatase 112 units/L (35-129) 12/05/20 05:04 C-Reactive Protein 1.30 mg/dL (0.00-1.30) 12/07/20 17:04 Total Protein 8.4 g/dL (6.3-8.2) H 12/05/20 05:04 Albumin 2.8 g/dL (3.9-5) L 12/05/20 05:04 Albumin/Globulin Ratio 0.5 % 12/05/20 05:04 Procalcitonin 0.27 ng/mL (<0.15) 12/09/20 12:37 Urine Color Yellow (Yellow) 12/02/20 03:50 Urine Turbidity Turbid (Clear) 12/02/20 03:50 Urine pH 6.0 (5.0-7.0) 12/02/20 03:50 Ur Specific [place] 1.008 (1.003-1.030) 12/02/20 03:50 Urine Protein 100 mg/dl mg/dL (Negative) 12/02/20 03:50 Urine Glucose (UA) Neg mg/dL (Negative) 12/02/20 03:50 Urine Ketones Neg mg/dL (Negative) 12/02/20 03:50 Urine Blood Lg (Negative) 12/02/20 03:50 Urine Nitrite Neg (Negative) 12/02/20 03:50 Urine Bilirubin Neg (Negative) 12/02/20 03:50 Urine Urobilinogen < 2.0 mg/dL (<2.0) 12/02/20 03:50 Ur Leukocyte Esterase Lg (Negative) 12/02/20 03:50 Urine WBC (Auto) > 182.0 /HPF (0.0-6.0) H 12/02/20 03:50 Urine RBC (Auto) > 182.0 /HPF (0.0-6.0) 12/02/20 03:50 U Epithel Cells (Auto) 6.0 /HPF (0-13.0) 12/02/20 03:50 Urine Bacteria (Auto) 1+ /HPF (Negative) 12/02/20 03:50 Urine WBC Clumps 3+ /HPF 12/02/20 03:50 Phenytoin 12.9 ug/mL (10.0-20.0) 12/07/20 04:52 Coronavirus (PCR) Negative (Negative) 12/05/20 Unknown Blood Type O POSITIVE 12/02/20 02:05 Antibody Screen Negative 12/02/20 02:05 Crossmatch See Detail 12/02/20 02:05 Microbiology: Microbiology 12/07/20 11:08 Peripheral/Venous Blood Culture - Final NO GROWTH AFTER 5 DAYS 12/07/20 11:08 Peripheral/Venous Blood Culture - Final NO GROWTH AFTER 5 DAYS Mcclure/IV: Voiding Method Indwelling Catheter Active Medications - Current Medications Current Medications: Generic Name Dose Route Start Last Admin Trade Name Freq PRN Reason Stop Dose Admin Acetaminophen 650 mg 12/02/20 05:24 12/12/20 18:35 Acetaminophen 325 Mg Tab PO 650 mg Q4H PRN Administration Pain MILD(1-3)/Fever >100.5/SMALLS Albuterol 2.5 mg 12/02/20 05:24 12/03/20 15:11 Albuterol 2.5 Mg/3 Ml Nebu IH 2.5 mg Q4HRT PRN Administration Shortness Of Breath Lipase/Protease/Amylase 1 each 12/03/20 10:22 Lipase 10,500/Protease 25,000/Amylase 43,750 (Units) Dr Blount FEEDTUBE PRN PRN For Clogged Feeding Tube Atorvastatin Calcium 40 mg 12/02/20 10:00 12/12/20 11:03 Atorvastatin 40 Mg Tab PO 40 mg DAILY ADOLFO Administration Citalopram Hydrobromide 20 mg 12/02/20 10:00 12/12/20 11:03 Citalopram 20 Mg Tab PO 20 mg DAILY ADOLFO Administration Dextrose 50 ml 12/02/20 11:18 Dextrose 50% In Water (25gm) 50 Ml Syringe IV Q30MIN PRN Hypoglycemia Protocol Docusate Sodium 100 mg 12/04/20 10:00 12/12/20 21:12 Docusate Sodium 100 Mg/10 Ml Oral Liqd FEEDTUBE 100 mg BID ADOLFO Administration Famotidine 20 mg 12/04/20 10:00 12/12/20 11:03 Famotidine 20 Mg Tab PO 20 mg DAILY ADOLFO Administration Phenytoin 100 mg/ Sodium 102 mls @ 204 mls/hr 12/07/20 14:00 12/13/20 05:26 Chloride IV 204 mls/hr Q8HR ADOLFO Administration Meropenem 1,000 mg/ Sodium 100 mls @ 100 mls/hr 12/09/20 09:00 12/13/20 05:26 Chloride IV 12/15/20 22:59 100 mls/hr Q8HR ADOLFO Administration Protocol Sodium Chloride 1,000 mls @ 125 mls/hr 12/09/20 12:45 Nacl 0.9% 1000 Ml IV DIRECT ADOLFO Insulin Glargine 10 units 12/05/20 08:00 12/12/20 11:04 Insulin Glargine 100 Units/Ml SUB-Q 10 units QAMDIAB ADOLFO Administration Insulin Human Lispro 0 unit 12/04/20 00:00 12/13/20 05:27 Insulin Lispro 100 Unit/Ml SUB-Q 2 unit Q6HR ADOLFO Administration Protocol Metoclopramide HCl 10 mg 12/09/20 10:31 12/12/20 18:36 Metoclopramide 10 Mg/2 Ml Inj IV 10 mg Q6H PRN Administration Nausea And Vomiting Ondansetron HCl 4 mg 12/02/20 05:24 12/05/20 22:37 Ondansetron 4 Mg/2 Ml Inj IV 4 mg Q8H PRN Administration Nausea And Vomiting Simple Syrup 15 ml 12/03/20 10:22 Simple Syrup 15 Ml FEEDTUBE PRN PRN Hypoglycemia Simple Syrup 30 ml 12/03/20 10:22 Simple Syrup 15 Ml FEEDTUBE PRN PRN Hypoglycemia Sodium Bicarbonate 325 mg 12/03/20 10:22 Sodium Bicarbonate 325 Mg Tab FEEDTUBE PRN PRN For Clogged Feeding Tube Sodium Chloride 10 ml 12/02/20 10:00 12/12/20 21:13 Sodium Chloride 0.9% 10 Ml Flush Syringe IV 10 ml BID ADOLFO Administration Sodium Chloride 10 ml 12/02/20 05:24 12/12/20 18:37 Sodium Chloride 0.9% 10 Ml Flush Syringe IV 10 ml PRN PRN Administration LINE FLUSH Nutrition/Malnutrition Assess - Dietary Evaluation Nutrition/Malnutrition Findings: Nutrition Notes Start: 12/03/20 11:43 Freq: Status: Active Protocol: Document 12/12/20 15:07 CW (Rec: 12/12/20 15:12 CW [id number]) Nutrition Notes Initial or Follow up Reassessment Current Diagnosis Diabetes,Sepsis,Hypertension, Stroke Other Pertinent Diagnosis Hypotension, UTI, ARF, Vaginal bleeding, Dementia, Dysphagia , (L) AKA Current Diet TF - Glucerna 1.2 at 45ml/hr Labs/Tests BUN 28 BG 164 Pertinent Medications Humalog, Lantus Colace Height 5 ft Weight 55.6 kg [place] Body Weight (kg) 45.45 BMI 23.9 Weight change and time frame AdjBW for (L) AKA: 65.2kg Adj BMI for (L) AKA: 28 Weight Status Appropriate Subjective/Other Information TF continues to run at 45 ml/ hr. Pt in nonverbal. Weight moderately stable at this time . Some fluid seeping from mouth noted. Continue upright position to prevent aspiration . Consider holding TF if fluid becomes copious. Percent of energy/protein needs met: 100%/100% Burn Absent Trauma Absent Difficulty In Swallowing Current % PO Negligible Minimum of two criteria No physical signs of malnutrition #1 Nutrition Diagnosis Inadequate oral intake Diagnosis Progress(for reassessment Continues documentation) Is patient on ventilator? No Is Patient Ambulatory and/or Out of Bed No REE-([facility]-confined to bed) [phone] Calculation Used for Recommendations [facility] Additional Notes Pro needs 1-1.2g/k-70g/ day Fluid needs 1ml/kcal Nutrition Intervention Nutrition Support: Glucerna 1.2 at 45ml/hr with 75ml water flush q4h. Protein (gm) 65 Carbohydrates (gm) 124 Fat (gm) 65 Fluid (mL) 869 Fiber (gm) 17 Goal #1 TF tolerance Goal #2 TF to meet at least 75% energy and pro needs Anticipated Discharge Needs: Glucerna 1.2 at 45ml/hr with 75ml water flush q4h. Follow-Up By: 12/15/20 Additional Comments F/U stable TF
--- NOTE | 2020-12-13 12:03 | Progress Note ---
Assessment and Plan Cultures: Blood culture 12/01/2020 no growth Blood culture 12/07/2020 no growth Urine culture 12/04/2020 <10,000 colonies Assessment: 65-year-old female with history of hypertension, previous CVA, diabetes mellitus, dementia, chronic outlet obstruction with bilateral hydroureteronephrosis, previous UTI, uterine fibroids, s/p left AKA, admitted on 12/01/2020 secondary to be found hot, hypotensive and tachycardic: #Sepsis: with leukocytosis and fever. Etiology likely complicated UTI +/- bowel ischemia +/- pneumonia. CRP 1.3. 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 Was evaluated by vascular, improved on follow-up imaging #Complicated UTI: History of chronic outlet obstruction with previous bilateral hydroureteral nephrosis, previous UTI due to Klebsiella in July 2020. Initial urinalysis with 182 WBCs and large leukocyte esterase. CT of the pelvis with posterior urinary bladder mass. Urine culture taken 3 days after admission with <10,000 mixed colonies. On cefepime IV for 6 days not responding. Mcclure catheter placed on admission. CT abdomen with bilateral pyelonephritis. Was evaluated by urology, NM Lasix scan without significant abnormality or urinary obstruction. #Acute kidney injury: Creatinine improved. Renally adjust antibiotics. NM Lasix scan without significant abnormality or urinary obstruction. #Encephalopathy: Likely toxic metabolic due to sepsis on background of dementia. Brain MRI with extensive chronic changes. Recommendations: -Continue IV meropenem for 7 days, day 5 today Abby Flores MD, FACP [facility] ([facility] O: [phone] F: [phone] Subjective Date of service: 12/13/20 Interval history: Afebrile. Nonverbal. Has NG tube. No distress Objective - Exam Narrative Exam: Physical Exam: Constitutional: Nonverbal Head, Ears, Nose: Normocephalic, atraumatic. External ears, nose normal. NG t ube + Eyes: Conjunctivae/corneas clear. No icterus. No ptosis. Neck: Supple, no meningeal signs Cardiovascular: S1, S2 normal. Respiratory: Good air entry, clear to auscultation bilaterally GI: Soft, non-tender; bowel sounds normal. No peritoneal signs. Mcclure + Musculoskeletal: L AKA Skin: No rash or abscess Hem/Lymphatic: No palpable cervical or supraclavicular nodes. No lymphangitis Psych: No agitation Neurological: Awake, nonverbal - Constitutional Vitals: Vital Signs Temp Pulse Resp BP Pulse Ox 98.3 F 98 H 18 115/79 98 12/13/20 07:22 12/13/20 07:22 12/13/20 07:22 12/13/20 07:22 12/13/20 07:22 Temperature -Last 24 Hours Temperature 98.3 F Temperature 98.8 F Temperature 97.5 F Temperature 98.4 F Temperature 98.2 F - Labs CBC & Chem 7: 12/13/20 04:53 12/12/20 05:55 Labs: Abnormal lab results 12/12/20 12/12/20 12/12/20 Range/Units 12:18 16:52 23:09 WBC (4.5-11.0) K/mm3 RBC (3.65-5.03) M/mm3 Hgb (10.1-14.3) gm/dl Hct (30.3-42.9) % RDW (13.2-15.2) % Seg Neutrophils % (40.0-70.0) % Seg Neutrophils # (1.8-7.7) K/mm3 POC Glucose 193 H 190 H 161 H (70-105) mg/dL 12/13/20 12/13/20 12/13/20 Range/Units 04:53 04:59 11:23 WBC 14.7 H (4.5-11.0) K/mm3 RBC 3.43 L (3.65-5.03) M/mm3 Hgb 9.7 L (10.1-14.3) gm/dl Hct 29.3 L (30.3-42.9) % RDW 17.9 H (13.2-15.2) % Seg Neutrophils % 74.6 H (40.0-70.0) % Seg Neutrophils # 10.9 H (1.8-7.7) K/mm3 POC Glucose 211 H 142 H (70-105) mg/dL
[2020-12-13] MEDS: INSULIN GLARGINE 100 UNITS/ML SUB-Q SCH (14:25)
[2020-12-13] MEDS: MULTIVITAMIN / MINERAL ORAL LIQUID 15 ML PO SCH (14:26)
[2020-12-13] MEDS: FAMOTIDINE 20 MG TAB PO SCH (14:26)
[2020-12-13] MEDS: DOCUSATE SODIUM 100 MG/10 ML ORAL LIQD FEEDTUBE SCH ×2 (14:27→21:05)
[2020-12-13] MEDS: CITALOPRAM 20 MG TAB PO SCH (14:27)
[2020-12-13] MEDS: ACETAMINOPHEN 325 MG TAB PO PRN (21:02)
[2020-12-14] MEDS: MEROPENEM 1,000 MG in SODIUM CHLORIDE 0.9% 100 ML IV SCH ×4 (04:42→23:44)
[2020-12-14] MEDS: PHENYTOIN 100 MG in SODIUM CHLORIDE 0.9% 100 ML IV SCH ×4 (04:42→23:44)
[2020-12-14 06:41] LABS: Hematocrit 29.1 % (30.3-42.9); Hemoglobin 9.6 gm/dl (10.1-14.3); Mean Corpuscular HGB Conc 33 % (30-34); Mean Corpuscular Volume 85 fl (79-97); Platelet Count 340 K/mm3 (140-440); Red Blood Count 3.42 M/mm3 (3.65-5.03); Red Cell Distribution Width 17.6 % (13.2-15.2)
[2020-12-14 06:55] LABS: Blood Urea Nitrogen 17 mg/dL (7-17); Calcium 9.1 mg/dL (8.4-10.2); Hemolysis Index 4
[2020-12-14] MEDS: INSULIN LISPRO 100 UNIT/ML SUB-Q SCH ×4 (07:00→18:29)
[2020-12-14 07:19] LABS: BUN/Creatinine Ratio 28
[2020-12-14] MEDS: INSULIN GLARGINE 100 UNITS/ML SUB-Q SCH (09:04)
[2020-12-14] MEDS: FAMOTIDINE 20 MG TAB PO SCH (11:55)
[2020-12-14] MEDS: DOCUSATE SODIUM 100 MG/10 ML ORAL LIQD FEEDTUBE SCH ×2 (11:55→23:43)
[2020-12-14] MEDS: CITALOPRAM 20 MG TAB PO SCH (11:55)
[2020-12-14] MEDS: MULTIVITAMIN / MINERAL ORAL LIQUID 15 ML PO SCH (11:55)
--- NOTE | 2020-12-14 12:02 | Progress Note ---
Assessment and Plan Cultures: Blood culture 12/01/2020 no growth Blood culture 12/07/2020 no growth Urine culture 12/04/2020 <10,000 colonies Assessment: 65-year-old female with history of hypertension, previous CVA, diabetes mellitus, dementia, chronic outlet obstruction with bilateral hydroureteronephrosis, previous UTI, uterine fibroids, s/p left AKA, admitted on 12/01/2020 secondary to be found hot, hypotensive and tachycardic: #Sepsis: with leukocytosis and fever. Etiology likely complicated UTI +/- bowel ischemia +/- pneumonia. CRP 1.3. 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 Was evaluated by vascular, improved on follow-up imaging. #Complicated UTI: History of chronic outlet obstruction with previous bilateral hydroureteral nephrosis, previous UTI due to Klebsiella in July 2020. Initial urinalysis with 182 WBCs and large leukocyte esterase. CT of the pelvis with posterior urinary bladder mass. Urine culture taken 3 days after admission with <10,000 mixed colonies. On cefepime IV for 6 days not responding. Mcclure catheter placed on admission. CT abdomen with bilateral pyelonephritis. Was evaluated by urology, NM Lasix scan without significant abnormality or urinary obstruction. #Acute kidney injury: Creatinine improved. Renally adjust antibiotics. NM Lasix scan without significant abnormality or urinary obstruction. #Encephalopathy: Likely toxic metabolic due to sepsis on background of dementia. Brain MRI with extensive chronic changes. Recommendations: -Continue IV meropenem for 7 days, day 6 today ID will sign off. Please call with questions. Abby Flores MD, FACP [facility] ([facility] O: [phone] F: [phone] Subjective Date of service: 12/14/20 Interval history: Afebrile. awake, but non verbal. Has NG tube. No distress Objective - Exam Narrative Exam: Physical Exam: Constitutional: Nonverbal Head, Ears, Nose: Normocephalic, atraumatic. External ears, nose normal. NG tube + Eyes: Conjunctivae/corneas clear. No icterus. No ptosis. Neck: Supple, no meningeal signs Cardiovascular: S1, S2 normal. Respiratory: Good air entry, clear to auscultation bilaterally GI: Soft, non-tender; bowel sounds normal. No peritoneal signs. Mcclure + Musculoskeletal: L AKA Skin: No rash or abscess Hem/Lymphatic: No palpable cervical or supraclavicular nodes. No lymphangitis Psych: No agitation Neurological: Awake, nonverbal - Constitutional Vitals: Vital Signs Temp Pulse Resp BP Pulse Ox 97.7 F 99 H 20 129/90 93 12/14/20 10:43 12/14/20 10:43 12/14/20 10:43 12/14/20 10:43 12/14/20 10:43 Temperature -Last 24 Hours Temperature 97.7 F Temperature 97.9 F Temperature 98.4 F Temperature 98.2 F Temperature 98.2 F - Labs CBC & Chem 7: 12/14/20 04:31 12/14/20 04:31 Labs: Abnormal lab results 12/13/20 12/13/20 12/14/20 Range/Units 15:37 23:30 04:31 WBC 11.9 H (4.5-11.0) K/mm3 RBC 3.42 L (3.65-5.03) M/mm3 Hgb 9.6 L (10.1-14.3) gm/dl Hct 29.1 L (30.3-42.9) % RDW 17.6 H (13.2-15.2) % Chloride (98-107) mmol/L Carbon Dioxide (22-30) mmol/L POC Glucose 157 H 123 H (70-105) mg/dL 12/14/20 12/14/20 Range/Units 04:31 05:24 WBC (4.5-11.0) K/mm3 RBC (3.65-5.03) M/mm3 Hgb (10.1-14.3) gm/dl Hct (30.3-42.9) % RDW (13.2-15.2) % Chloride 97.9 L (98-107) mmol/L Carbon Dioxide 32 H (22-30) mmol/L POC Glucose 120 H (70-105) mg/dL
--- NOTE | 2020-12-14 13:52 | Progress Note ---
Assessment and Plan Assessment and plan: 64-year-old female with PMH of dementia, CVA, left hemiplegia, DM, left AKA, dysphagia, hypokalemia, anemia, CKD 2, urine retention needing chronic indwelling Mcclure catheter was brought to ED for evaluation of AMS and possible vaginal bleeding. Patient was noted to be in septic shock with BP 80/60 and pyuria and hematuria. Mcclure catheter was exchanged in ED. Patient was administered IV fluid boluses with improvement of hypotension and started on antibiotics after cultures. Sepsis. Patient previously with septic shock. Bilateral pyelonephritis/complicated UTI. Toxic metabolic encephalopathy. Cecum pneumatosis. Resolved History of CVA, left hemiparesis, aphasic and dysphagia. (2008,2015) Left AKA 2016 New right-sided weakness. Acute kidney injury on CKD stage II. Resolved. Hypokalemia Diabetes mellitus type 2. Anemia 12/03/2020. Patient has now stable vital signs and hypertension resolved. Receiving normal saline 125 mill per hour. She spiked a fever of 100.6 today. Hemoglobin dropped to 6.8 and ordered PRBC transfusion. Hematuria actually resolved. No vaginal bleeding. Mental status improved, she is now awake awake but minimally verbalizes. She can occasionally give her name. She just mumbles. Not in acute distress. Large urine output and MAILE resolved. 12/04/2020. Shock state resolved. MAILE resolved. Mental status much improved. Follows commands but poorly verbal likely from dementia. Continue to avoid narcotics. Patient has a low-grade fever, leukocytosis , on cefepime, cultures pending. Discontinue normal saline. Started Glucerna tube feeds via NG tube, continue aspiration precautions. Ordered swallowing evaluation. Hemoglobin dropped from 7.8-6.8, possibly just dilutional. Hematuria resolved, no vaginal bleeding. Will transfuse PRBC. Consider urology consultation for evaluation of possible bladder tumor when more stable. Daughter reports significant cognitive decline since 07/2020 admission for UTI. Right-sided weakness is new according to daughter. Will order MRI brain when more stable. 12/05/2020. Patient is nonverbal and occasional tracking with eyes on my exam this morning. Baseline mental status per daughter can follow commands and able to communicate but with slow speech. Also, reports ability to feed herself. MRI brain ordered to rule out new CVA. Continue IV antibiotics for UTI. Await speech therapy evaluation for dysphagia. Continue NG tube for tube feedings. I d/w daughter POC [phone]. 12/06/2020. Brain MRI shows no acute findings only extensive chronic changes. Neurology consultation. Altered mentation may be secondary to toxic metabolic encephalopathy from sepsis/UTI. Continue IV antibiotics. Consider ID consultation. Acute kidney injury resolved. Still awaiting speech therapy evaluation 12/07/2020. Neurology evaluated the patient and recommends EEG to rule out subclinical seizures. Patient may need repeat MRI. Continue IV antibiotics for sepsis/UTI. Patient has underlying toxic metabolic encephalopathy as well. Blood cultures negative x5 days. Urine culture also negative. However, patient with significant fever since last night. Repeat blood cultures, check lactic acid and obtain ID consultation 12/08/2020. CT scan suggestive of bilateral acute pyelonephritis and bowel ischemia. Vancomycin added by ID. Appreciate ID help. Vascular surgery for bowel ischemia. Follow-up repeat blood cultures. Lactic acid level normal. 12/09/2020. Consult GI and surgery for presumed bowel ischemia and cecum pneumatosis per vascular surgery recommendation. Continue IV antibiotics per ID recommendations. Cefepime and vancomycin discontinued and meropenem started. CT of abdomen with bilateral pyelonephritis. Urology evaluation for urinary bladder mass once cecum pneumatosis and presumed bowel ischemia addressed. Nurse reports patient with vomiting this a.m. Hold tube feedings and change NG tube to LIS. Check KUB rule out ileus. Consider Reglan. 12/10/2020. Vascular surgery reports CTA of abdomen and pelvis showed no evidence of stenosis or embolic phenomenon to the visceral vessels. Continue IV antibiotics per ID recommendations. CT scan reveals bilateral hydroureter nephrosis and bilateral pyelonephritis. Urology consultation. CT scan does not show any evidence of ileus. 12/11/2020. Continue IV antibiotics per ID recommendations. Urology consulted for bilateral hydroureteronephrosis and bilateral pyelonephritis. Urine and blood cultures are negative. 12/12/2020 Patient with sepsis, bilateral pyelonephritis, complicated UTI. Cont inue Merrem as per ID. Urology consulted. She is being seen by Dr. Caban. 12/13/2020 Patient with sepsis, bilateral pyelonephritis, complicated UTI. Patient still on Merrem. Hgb 9.7 today. 12/14/2020 patient with sepsis, bilateral pyelonephritis due to complicated UTI. She had previous strokes with left sided weakness. Now has right sided weakness but MRI did not confirm acute stroke. I discussed with 2 daughters, Joan and Vidal yesterday. They are very concerned. Will re-consult Neurology to re- evaluate. She is on Merrem to complete tomorrow. I also discussed with Joan again today. History Interval history: Patient is non-verbal, cannot give history Hospitalist Physical - Physical exam Narrative exam: Gen: Not in acute distress, awake, HEENT: Normocephalic, atraumatic Neck : supple, no JVD Heart:S1 and S2 reg, no murmurs, rubs or gallop Lungs:clear to auscultation bilaterally Abd: Soft , non tender, non distended, normal bowel sounds Ext: No edema, no clubbing, no cyanosis, left AKA Neuro: Awake, non-verbal, weakness all ext, - Constitutional Vitals: Temp Pulse Resp BP Pulse Ox 97.7 F 99 H 20 129/90 93 12/14/20 10:43 12/14/20 10:43 12/14/20 10:43 12/14/20 10:43 12/14/20 10:43 General appearance: Present: no acute distress, other (Nonverbal) Results - Labs CBC & Chem 7: 12/14/20 04:31 12/14/20 04:31 Labs: Laboratory Last Values WBC 11.9 K/mm3 (4.5-11.0) H 12/14/20 04:31 RBC 3.42 M/mm3 (3.65-5.03) L 12/14/20 04:31 Hgb 9.6 gm/dl (10.1-14.3) L 12/14/20 04:31 Hct 29.1 % (30.3-42.9) L 12/14/20 04:31 MCV 85 fl (79-97) 12/14/20 04:31 MCH 28 pg (28-32) 12/14/20 04:31 MCHC 33 % (30-34) 12/14/20 04:31 RDW 17.6 % (13.2-15.2) H 12/14/20 04:31 Plt Count 340 K/mm3 (140-440) 12/14/20 04:31 Lymph % (Auto) 17.2 % (13.4-35.0) 12/13/20 04:53 [place] % (Auto) 4.9 % (0.0-7.3) 12/13/20 04:53 Eos % (Auto) 2.7 % (0.0-4.3) 12/13/20 04:53 Baso % (Auto) 0.6 % (0.0-1.8) 12/13/20 04:53 Lymph # (Auto) 2.5 K/mm3 (1.2-5.4) 12/13/20 04:53 [place] # (Auto) 0.7 K/mm3 (0.0-0.8) 12/13/20 04:53 Eos # (Auto) 0.4 K/mm3 (0.0-0.4) 12/13/20 04:53 Baso # (Auto) 0.1 K/mm3 (0.0-0.1) 12/13/20 04:53 Add Manual Diff Complete 12/08/20 11:47 Total Counted 100 12/08/20 11:47 Seg Neutrophils % 74.6 % (40.0-70.0) H 12/13/20 04:53 Seg Neuts % (Manual) 72.0 % (40.0-70.0) H 12/08/20 11:47 Lymphocytes % (Manual) 24.0 % (13.4-35.0) 12/08/20 11:47 Monocytes % (Manual) 4.0 % (0.0-7.3) 12/08/20 11:47 Nucleated RBC % Not Reportable 12/08/20 11:47 Seg Neutrophils # 10.9 K/mm3 (1.8-7.7) H 12/13/20 04:53 Seg Neutrophils # Man 16.1 K/mm3 (1.8-7.7) H 12/08/20 11:47 Band Neutrophils # 0.0 K/mm3 12/08/20 11:47 Lymphocytes # (Manual) 5.4 K/mm3 (1.2-5.4) 12/08/20 11:47 Abs React Lymphs (Man) 0.0 K/mm3 12/08/20 11:47 Monocytes # (Manual) 0.9 K/mm3 (0.0-0.8) H 12/08/20 11:47 Eosinophils # (Manual) 0.0 K/mm3 (0.0-0.4) 12/08/20 11:47 Basophils # (Manual) 0.0 K/mm3 (0.0-0.1) 12/08/20 11:47 Metamyelocytes # 0.0 K/mm3 12/08/20 11:47 Myelocytes # 0.0 K/mm3 12/08/20 11:47 Promyelocytes # 0.0 K/mm3 12/08/20 11:47 Blast Cells # 0.0 K/mm3 12/08/20 11:47 WBC Morphology Not Reportable 12/08/20 11:47 Hypersegmented Neuts Not Reportable 12/08/20 11:47 Hyposegmented Neuts Not Reportable 12/08/20 11:47 Hypogranular Neuts Not Reportable 12/08/20 11:47 Smudge Cells Not Reportable 12/08/20 11:47 Toxic Granulation Not Reportable 12/08/20 11:47 Toxic Vacuolation Not Reportable 12/08/20 11:47 Dohle Bodies Not Reportable 12/08/20 11:47 Pelger-Huet Anomaly Not Reportable 12/08/20 11:47 [place] Rods Not Reportable 12/08/20 11:47 Platelet Estimate Consistent w auto 12/08/20 11:47 Clumped Platelets Not Reportable 12/08/20 11:47 Plt Clumps, EDTA Not Reportable 12/08/20 11:47 Large Platelets Not Reportable 12/08/20 11:47 Giant Platelets Not Reportable 12/08/20 11:47 Platelet Satelliting Not Reportable 12/08/20 11:47 Plt Morphology Comment Not Reportable 12/08/20 11:47 RBC Morphology Not Reportable 12/08/20 11:47 Dimorphic RBCs Not Reportable 12/08/20 11:47 Polychromasia Not Reportable 12/08/20 11:47 Hypochromasia Not Reportable 12/08/20 11:47 Poikilocytosis Not Reportable 12/08/20 11:47 Anisocytosis 1+ 12/08/20 11:47 Microcytosis Not Reportable 12/08/20 11:47 Macrocytosis Not Reportable 12/08/20 11:47 Spherocytes Not Reportable 12/08/20 11:47 Pappenheimer Bodies Not Reportable 12/08/20 11:47 Sickle Cells Not Reportable 12/08/20 11:47 Target Cells Not Reportable 12/08/20 11:47 Tear Drop Cells Not Reportable 12/08/20 11:47 Ovalocytes Not Reportable 12/08/20 11:47 Stomatocytes 1+ 12/08/20 11:47 Helmet Cells Not Reportable 12/08/20 11:47 [place] Bodies Not Reportable 12/08/20 11:47 [place] Rings Not Reportable 12/08/20 11:47 [place] Cells Not Reportable 12/08/20 11:47 Bite Cells Not Reportable 12/08/20 11:47 Crenated Cell Not Reportable 12/08/20 11:47 Elliptocytes Not Reportable 12/08/20 11:47 Acanthocytes (Spur) Not Reportable 12/08/20 11:47 Rouleaux Not Reportable 12/08/20 11:47 Hemoglobin C Crystals Not Reportable 12/08/20 11:47 Schistocytes Not Reportable 12/08/20 11:47 Malaria parasites Not Reportable 12/08/20 11:47 [place] Bodies Not Reportable 12/08/20 11:47 Hem Pathologist Commnt No 12/08/20 11:47 PT 15.3 Sec. (12.2-14.9) H 12/02/20 02:53 INR 1.16 (0.87-1.13) H 12/02/20 02:53 APTT 37.7 Sec. (24.2-36.6) H 12/02/20 02:53 Sodium 138 mmol/L (137-145) 12/14/20 04:31 Potassium 4.2 mmol/L (3.6-5.0) 12/14/20 04:31 Chloride 97.9 mmol/L (98-107) L 12/14/20 04:31 Carbon Dioxide 32 mmol/L (22-30) H 12/14/20 04:31 Anion Gap 12 mmol/L 12/14/20 04:31 BUN 17 mg/dL (7-17) 12/14/20 04:31 Creatinine 0.6 mg/dL (0.6-1.2) 12/14/20 04:31 Estimated GFR > 60 ml/min 12/14/20 04:31 BUN/Creatinine Ratio 28 % 12/14/20 04:31 Glucose 97 mg/dL (65-100) 12/14/20 04:31 POC Glucose 173 mg/dL (70-105) H 12/14/20 12:16 Hemoglobin A1c 7.4 % (4-6) H 12/02/20 Unknown Lactic Acid 1.70 mmol/L (0.7-2.0) 12/08/20 11:47 Calcium 9.1 mg/dL (8.4-10.2) 12/14/20 04:31 Magnesium 1.50 mg/dL (1.7-2.3) L 12/04/20 09:51 Total Bilirubin 0.20 mg/dL (0.1-1.2) 12/05/20 05:04 AST 15 units/L (5-40) 12/05/20 05:04 ALT 7 units/L (7-56) 12/05/20 05:04 Alkaline Phosphatase 112 units/L (35-129) 12/05/20 05:04 C-Reactive Protein 1.30 mg/dL (0.00-1.30) 12/07/20 17:04 Total Protein 8.4 g/dL (6.3-8.2) H 12/05/20 05:04 Albumin 2.8 g/dL (3.9-5) L 12/05/20 05:04 Albumin/Globulin Ratio 0.5 % 12/05/20 05:04 Procalcitonin 0.27 ng/mL (<0.15) 12/09/20 12:37 Urine Color Yellow (Yellow) 12/02/20 03:50 Urine Turbidity Turbid (Clear) 12/02/20 03:50 Urine pH 6.0 (5.0-7.0) 12/02/20 03:50 Ur Specific [place] 1.008 (1.003-1.030) 12/02/20 03:50 Urine Protein 100 mg/dl mg/dL (Negative) 12/02/20 03:50 Urine Glucose (UA) Neg mg/dL (Negative) 12/02/20 03:50 Urine Ketones Neg mg/dL (Negative) 12/02/20 03:50 Urine Blood Lg (Negative) 12/02/20 03:50 Urine Nitrite Neg (Negative) 12/02/20 03:50 Urine Bilirubin Neg (Negative) 12/02/20 03:50 Urine Urobilinogen < 2.0 mg/dL (<2.0) 12/02/20 03:50 Ur Leukocyte Esterase Lg (Negative) 12/02/20 03:50 Urine WBC (Auto) > 182.0 /HPF (0.0-6.0) H 12/02/20 03:50 Urine RBC (Auto) > 182.0 /HPF (0.0-6.0) 12/02/20 03:50 U Epithel Cells (Auto) 6.0 /HPF (0-13.0) 12/02/20 03:50 Urine Bacteria (Auto) 1+ /HPF (Negative) 12/02/20 03:50 Urine WBC Clumps 3+ /HPF 12/02/20 03:50 Phenytoin 12.9 ug/mL (10.0-20.0) 12/07/20 04:52 Coronavirus (PCR) Negative (Negative) 12/05/20 Unknown Blood Type O POSITIVE 12/02/20 02:05 Antibody Screen Negative 12/02/20 02:05 Crossmatch See Detail 12/02/20 02:05 Mcclure/IV: Voiding Method Indwelling Catheter Active Medications - Current Medications Current Medications: Generic Name Dose Route Start Last Admin Trade Name Freq PRN Reason Stop Dose Admin Acetaminophen 650 mg 12/02/20 05:24 12/13/20 21:02 Acetaminophen 325 Mg Tab PO 650 mg Q4H PRN Administration Pain MILD(1-3)/Fever >100.5/SMALLS Albuterol 2.5 mg 12/02/20 05:24 12/03/20 15:11 Albuterol 2.5 Mg/3 Ml Nebu IH 2.5 mg Q4HRT PRN Administration Shortness Of Breath Lipase/Protease/Amylase 1 each 12/03/20 10:22 Lipase 10,500/Protease 25,000/Amylase 43,750 (Units) Dr Blount FEEDTUBE PRN PRN For Clogged Feeding Tube Atorvastatin Calcium 40 mg 12/02/20 10:00 12/14/20 11:55 Atorvastatin 40 Mg Tab PO 40 mg DAILY ADOLFO Administration Citalopram Hydrobromide 20 mg 12/02/20 10:00 12/14/20 11:55 Citalopram 20 Mg Tab PO 20 mg DAILY ADOLFO Administration Dextrose 50 ml 12/02/20 11:18 Dextrose 50% In Water (25gm) 50 Ml Syringe IV Q30MIN PRN Hypoglycemia Protocol Docusate Sodium 100 mg 12/04/20 10:00 12/14/20 11:55 Docusate Sodium 100 Mg/10 Ml Oral Liqd FEEDTUBE 100 mg BID ADOLFO Administration Famotidine 20 mg 12/04/20 10:00 12/14/20 11:55 Famotidine 20 Mg Tab PO 20 mg DAILY ADOLFO Administration Phenytoin 100 mg/ Sodium 102 mls @ 204 mls/hr 12/07/20 14:00 12/14/20 06:59 Chloride IV Not Given Q8HR ADOLFO Meropenem 1,000 mg/ Sodium 100 mls @ 100 mls/hr 12/09/20 09:00 12/14/20 07:00 Chloride IV 12/15/20 22:59 Not Given Q8HR [facility] Protocol Insulin Glargine 10 units 12/05/20 08:00 12/14/20 09:04 Insulin Glargine 100 Units/Ml SUB-Q 10 units QAMDIAB ADOLFO Administration Insulin Human Lispro 0 unit 12/04/20 00:00 12/14/20 07:00 Insulin Lispro 100 Unit/Ml SUB-Q Not Given Q6HR [facility] Protocol Metoclopramide HCl 10 mg 12/09/20 10:31 12/12/20 18:36 Metoclopramide 10 Mg/2 Ml Inj IV 10 mg Q6H PRN Administration Nausea And Vomiting Ondansetron HCl 4 mg 12/02/20 05:24 12/05/20 22:37 Ondansetron 4 Mg/2 Ml Inj IV 4 mg Q8H PRN Administration Nausea And Vomiting Simple Syrup 15 ml 12/03/20 10:22 Simple Syrup 15 Ml FEEDTUBE PRN PRN Hypoglycemia Simple Syrup 30 ml 12/03/20 10:22 Simple Syrup 15 Ml FEEDTUBE PRN PRN Hypoglycemia Sodium Bicarbonate 325 mg 12/03/20 10:22 Sodium Bicarbonate 325 Mg Tab FEEDTUBE PRN PRN For Clogged Feeding Tube Sodium Chloride 10 ml 12/02/20 10:00 12/13/20 21:05 Sodium Chloride 0.9% 10 Ml Flush Syringe IV 10 ml BID ADOLFO Administration Sodium Chloride 10 ml 12/02/20 05:24 12/14/20 04:46 Sodium Chloride 0.9% 10 Ml Flush Syringe IV 10 ml PRN PRN Administration LINE FLUSH Nutrition/Malnutrition Assess - Dietary Evaluation Nutrition/Malnutrition Findings: Nutrition Notes Start: 12/03/20 11:43 Freq: Status: Active Protocol: Document 12/12/20 15:07 CW (Rec: 12/12/20 15:12 CW [id number]) Nutrition Notes Initial or Follow up Reassessment Current Diagnosis Diabetes,Sepsis,Hypertension, Stroke Other Pertinent Diagnosis Hypotension, UTI, ARF, Vaginal bleeding, Dementia, Dysphagia , (L) AKA Current Diet TF - Glucerna 1.2 at 45ml/hr Labs/Tests BUN 28 BG 164 Pertinent Medications Humalog, Lantus Colace Height 5 ft Weight 55.6 kg [place] Body Weight (kg) 45.45 BMI 23.9 Weight change and time frame AdjBW for (L) AKA: 65.2kg Adj BMI for (L) AKA: 28 Weight Status Appropriate Subjective/Other Information TF continues to run at 45 ml/ hr. Pt in nonverbal. Weight moderately stable at this time . Some fluid seeping from mouth noted. Continue upright position to prevent aspiration . Consider holding TF if fluid becomes copious. Percent of energy/protein needs met: 100%/100% Burn Absent Trauma Absent Difficulty In Swallowing Current % PO Negligible Minimum of two criteria No physical signs of malnutrition #1 Nutrition Diagnosis Inadequate oral intake Diagnosis Progress(for reassessment Continues documentation) Is patient on ventilator? No Is Patient Ambulatory and/or Out of Bed No REE-([facility]-confined to bed) [phone] Calculation Used for Recommendations [facility] Additional Notes Pro needs 1-1.2g/k-70g/ day Fluid needs 1ml/kcal Nutrition Intervention Nutrition Support: Glucerna 1.2 at 45ml/hr with 75ml water flush q4h. Protein (gm) 65 Carbohydrates (gm) 124 Fat (gm) 65 Fluid (mL) 869 Fiber (gm) 17 Goal #1 TF tolerance Goal #2 TF to meet at least 75% energy and pro needs Anticipated Discharge Needs: Glucerna 1.2 at 45ml/hr with 75ml water flush q4h. Follow-Up By: 12/15/20 Additional Comments F/U stable TF
--- NOTE | 2020-12-14 14:50 | Progress Note ---
Subjective Date of service: 12/14/20 Interval history: This is a follow up visit , reviewed prior Neurology Consult ,Reviewed MRI Brain 12/05 - no acute abnormality, EEG did not find any report. Impression :/ 1. Encephalopathy ( multifactorial - my concerns is that patient is on Dilantin . 2. Check Level. 3. Needs a EEG 4. Need to find reason for Dilantin ? either been on supervisor intermediates versus new . 5. Follow up with questions . Dr. Carmella CASTELLANOS Objective - Vital Sign Vital Signs - 12hr 12/14/20 12/14/20 03:20 10:43 Temperature 97.9 F 97.7 F Pulse Rate 89 99 H Respiratory 14 20 Rate Blood Pressure 142/88 Blood Pressure 129/90 [Left] O2 Sat by Pulse 98 93 Oximetry - Laboratory Findings CBC and BMP: 12/14/20 04:31 12/14/20 04:31 Abnormal Lab Findings: Abnormal Labs 12/01/20 12/01/20 12/02/20 22:52 22:52 01:30 WBC 13.8 H RBC 2.90 L Hgb 7.8 L Hct 24.0 L MCH 27 L RDW 19.0 H Lymph % (Auto) 12.2 L Eos % (Auto) Mcdonough # (Auto) 0.9 H Eos # (Auto) Baso # (Auto) Seg Neutrophils % 80.8 H Seg Neuts % (Manual) Seg Neutrophils # 11.1 H Seg Neutrophils # Man Monocytes # (Manual) PT INR APTT Sodium 135 L Potassium Chloride Carbon Dioxide BUN 38 H Creatinine 2.0 H Glucose 196 H POC Glucose Hemoglobin A1c Lactic Acid 0.60 L Calcium 7.8 L Magnesium ALT < 5 L Total Protein Albumin 3.0 L Urine WBC (Auto) Crossmatch 12/02/20 12/02/20 12/02/20 02:05 02:53 03:50 WBC RBC Hgb Hct MCH RDW Lymph % (Auto) Eos % (Auto) Mcdonough # (Auto) Eos # (Auto) Baso # (Auto) Seg Neutrophils % Seg Neuts % (Manual) Seg Neutrophils # Seg Neutrophils # Man Monocytes # (Manual) PT 15.3 H INR 1.16 H APTT 37.7 H Sodium Potassium Chloride Carbon Dioxide BUN Creatinine Glucose POC Glucose Hemoglobin A1c Lactic Acid Calcium Magnesium ALT Total Protein Albumin Urine WBC (Auto) > 182.0 H Crossmatch See Detail 12/02/20 12/02/20 12/02/20 09:49 12:47 17:10 WBC RBC Hgb Hct MCH RDW Lymph % (Auto) Eos % (Auto) Mcdonough # (Auto) Eos # (Auto) Baso # (Auto) Seg Neutrophils % Seg Neuts % (Manual) Seg Neutrophils # Seg Neutrophils # Man Monocytes # (Manual) PT INR APTT Sodium Potassium Chloride Carbon Dioxide BUN Creatinine Glucose POC Glucose 175 H 155 H 147 H Hemoglobin A1c Lactic Acid Calcium Magnesium ALT Total Protein Albumin Urine WBC (Auto) Crossmatch 12/02/20 12/02/20 12/03/20 21:29 Unknown 07:15 WBC 15.5 H RBC 2.50 L Hgb 6.8 L Hct 20.8 L MCH 27 L RDW 19.5 H Lymph % (Auto) Eos % (Auto) Mcdonough # (Auto) 1.0 H Eos # (Auto) Baso # (Auto) Seg Neutrophils % 76.5 H Seg Neuts % (Manual) Seg Neutrophils # 11.9 H Seg Neutrophils # Man Monocytes # (Manual) PT INR APTT Sodium Potassium Chloride Carbon Dioxide BUN Creatinine Glucose POC Glucose 121 H Hemoglobin A1c 7.4 H Lactic Acid Calcium Magnesium ALT Total Protein Albumin Urine WBC (Auto) Crossmatch 12/03/20 12/03/20 12/03/20 07:15 16:51 23:52 WBC RBC Hgb Hct MCH RDW Lymph % (Auto) Eos % (Auto) Mcd[place]ough # (Auto) Eos # (Auto) Baso # (Auto) Seg Neutrophils % Seg Neuts % (Manual) Seg Neutrophils # Seg Neutrophils # Man Monocytes # (Manual) PT INR APTT Sodium Potassium 3.1 L Chloride 109.5 H Carbon Dioxide BUN Creatinine Glucose POC Glucose 119 H 163 H Hemoglobin A1c Lactic Acid Calcium Magnesium ALT Total Protein Albumin Urine WBC (Auto) Crossmatch 12/04/20 12/04/20 12/04/20 05:43 09:51 09:51 WBC 15.9 H RBC Hgb Hct MCH 27 L RDW 18.4 H Lymph % (Auto) Eos % (Auto) Mcd[place]ough # (Auto) Eos # (Auto) Baso # (Auto) 0.2 H Seg Neutrophils % Seg Neuts % (Manual) Seg Neutrophils # 11.1 H Seg Neutrophils # Man Monocytes # (Manual) PT INR APTT Sodium Potassium Chloride Carbon Dioxide BUN Creatinine Glucose 242 H POC Glucose 200 H Hemoglobin A1c Lactic Acid Calcium Magnesium 1.50 L ALT 6 L Total Protein Albumin 2.8 L Urine WBC (Auto) Crossmatch 12/04/20 12/04/20 12/05/20 11:30 17:35 00:07 WBC RBC Hgb Hct MCH RDW Lymph % (Auto) Eos % (Auto) Mcd[place]ough # (Auto) Eos # (Auto) Baso # (Auto) Seg Neutrophils % Seg Neuts % (Manual) Seg Neutrophils # Seg Neutrophils # Man Monocytes # (Manual) PT INR APTT Sodium Potassium Chloride Carbon Dioxide BUN Creatinine Glucose POC Glucose 236 H 282 H 287 H Hemoglobin A1c Lactic Acid Calcium Magnesium ALT Total Protein Albumin Urine WBC (Auto) Crossmatch 12/05/20 12/05/20 12/05/20 05:04 05:04 05:10 WBC 12.2 H RBC Hgb Hct MCH RDW 17.9 H Lymph % (Auto) Eos % (Auto) Mcdonough # (Auto) Eos # (Auto) Baso # (Auto) Seg Neutrophils % 75.9 H Seg Neuts % (Manual) Seg Neutrophils # 9.3 H Seg Neutrophils # Man Monocytes # (Manual) PT INR APTT Sodium Potassium Chloride Carbon Dioxide BUN Creatinine Glucose 339 H POC Glucose 309 H Hemoglobin A1c Lactic Acid Calcium Magnesium ALT Total Protein 8.4 H Albumin 2.8 L Urine WBC (Auto) Crossmatch 12/05/20 12/05/20 12/06/20 10:57 16:42 00:32 WBC RBC Hgb Hct MCH RDW Lymph % (Auto) Eos % (Auto) Mcd[place]ough # (Auto) Eos # (Auto) Baso # (Auto) Seg Neutrophils % Seg Neuts % (Manual) Seg Neutrophils # Seg Neutrophils # Man Monocytes # (Manual) PT INR APTT Sodium Potassium Chloride Carbon Dioxide BUN Creatinine Glucose POC Glucose 297 H 302 H 330 H Hemoglobin A1c Lactic Acid Calcium Magnesium ALT Total Protein Albumin Urine WBC (Auto) Crossmatch 12/06/20 12/06/20 12/06/20 06:29 11:21 15:35 WBC RBC Hgb Hct MCH RDW Lymph % (Auto) Eos % (Auto) Mcd[place]ough # (Auto) Eos # (Auto) Baso # (Auto) Seg Neutrophils % Seg Neuts % (Manual) Seg Neutrophils # Seg Neutrophils # Man Monocytes # (Manual) PT INR APTT Sodium Potassium Chloride Carbon Dioxide BUN Creatinine Glucose POC Glucose 340 H 325 H 352 H Hemoglobin A1c Lactic Acid Calcium Magnesium ALT Total Protein Albumin Urine WBC (Auto) Crossmatch 12/06/20 12/07/20 12/07/20 20:40 06:07 11:54 WBC RBC Hgb Hct MCH RDW Lymph % (Auto) Eos % (Auto) Mcd[place]ough # (Auto) Eos # (Auto) Baso # (Auto) Seg Neutrophils % Seg Neuts % (Manual) Seg Neutrophils # Seg Neutrophils # Man Monocytes # (Manual) PT INR APTT Sodium Potassium Chloride Carbon Dioxide BUN Creatinine Glucose POC Glucose 297 H 325 H 253 H Hemoglobin A1c Lactic Acid Calcium Magnesium ALT Total Protein Albumin Urine WBC (Auto) Crossmatch 12/07/20 12/08/20 12/08/20 17:14 00:02 06:02 WBC RBC Hgb Hct MCH RDW Lymph % (Auto) Eos % (Auto) Mcd[place]ough # (Auto) Eos # (Auto) Baso # (Auto) Seg Neutrophils % Seg Neuts % (Manual) Seg Neutrophils # Seg Neutrophils # Man Monocytes # (Manual) PT INR APTT Sodium Potassium Chloride Carbon Dioxide BUN Creatinine Glucose POC Glucose 332 H 353 H 336 H Hemoglobin A1c Lactic Acid Calcium Magnesium ALT Total Protein Albumin Urine WBC (Auto) Crossmatch 12/08/20 12/08/20 12/08/20 11:47 11:47 17:00 WBC 22.4 H RBC Hgb Hct MCH RDW 18.9 H Lymph % (Auto) Eos % (Auto) Mcdonough # (Auto) Eos # (Auto) Baso # (Auto) Seg Neutrophils % Seg Neuts % (Manual) 72.0 H Seg Neutrophils # Seg Neutrophils # Man 16.1 H Monocytes # (Manual) 0.9 H PT INR APTT Sodium Potassium Chloride Carbon Dioxide BUN 41 H Creatinine Glucose 329 H POC Glucose 286 H Hemoglobin A1c Lactic Acid Calcium 8.0 L Magnesium ALT Total Protein Albumin Urine WBC (Auto) Crossmatch 12/08/20 12/09/20 12/09/20 23:32 04:14 06:36 WBC RBC Hgb Hct MCH RDW Lymph % (Auto) Eos % (Auto) [place]cd[place] # (Auto) Eos # (Auto) Baso # (Auto) Seg Neutrophils % Seg Neuts % (Manual) Seg Neutrophils # Seg Neutrophils # Man Monocytes # (Manual) PT INR APTT Sodium Potassium Chloride Carbon Dioxide BUN 50 H Creatinine Glucose 324 H POC Glucose 276 H 342 H Hemoglobin A1c Lactic Acid Calcium Magnesium ALT Total Protein Albumin Urine WBC (Auto) Crossmatch 12/09/20 12/09/20 12/09/20 11:00 15:41 23:43 WBC RBC Hgb Hct MCH RDW Lymph % (Auto) Eos % (Auto) Mcd[place] # (Auto) Eos # (Auto) Baso # (Auto) Seg Neutrophils % Seg Neuts % (Manual) Seg Neutrophils # Seg Neutrophils # Man Monocytes # (Manual) PT INR APTT Sodium Potassium Chloride Carbon Dioxide BUN Creatinine Glucose POC Glucose 292 H 239 H 178 H Hemoglobin A1c Lactic Acid Calcium Magnesium ALT Total Protein Albumin Urine WBC (Auto) Crossmatch 12/10/20 12/10/20 12/10/20 04:50 04:50 06:01 WBC 17.0 H RBC 3.52 L Hgb 9.9 L Hct 29.9 L MCH RDW 18.4 H Lymph % (Auto) Eos % (Auto) 5.2 H Mcd[place]ough # (Auto) Eos # (Auto) 0.9 H Baso # (Auto) Seg Neutrophils % Seg Neuts % (Manual) Seg Neutrophils # 11.1 H Seg Neutrophils # Man Monocytes # (Manual) PT INR APTT Sodium Potassium Chloride Carbon Dioxide BUN 43 H Creatinine Glucose 192 H POC Glucose 200 H Hemoglobin A1c Lactic Acid Calcium Magnesium ALT Total Protein Albumin Urine WBC (Auto) Crossmatch 12/10/20 12/10/20 12/10/20 11:24 16:52 23:46 WBC RBC Hgb Hct MCH RDW Lymph % (Auto) Eos % (Auto) Mcd[place]ough # (Auto) Eos # (Auto) Baso # (Auto) Seg Neutrophils % Seg Neuts % (Manual) Seg Neutrophils # Seg Neutrophils # Man Monocytes # (Manual) PT INR APTT Sodium Potassium Chloride Carbon Dioxide BUN Creatinine Glucose POC Glucose 238 H 225 H 161 H Hemoglobin A1c Lactic Acid Calcium Magnesium ALT Total Protein Albumin Urine WBC (Auto) Crossmatch 12/11/20 12/11/20 12/11/20 11:37 16:46 23:38 WBC RBC Hgb Hct MCH RDW Lymph % (Auto) Eos % (Auto) Mcd[place]ough # (Auto) Eos # (Auto) Baso # (Auto) Seg Neutrophils % Seg Neuts % (Manual) Seg Neutrophils # Seg Neutrophils # Man Monocytes # (Manual) PT INR APTT Sodium Potassium Chloride Carbon Dioxide BUN Creatinine Glucose POC Glucose 208 H 198 H 135 H Hemoglobin A1c Lactic Acid Calcium Magnesium ALT Total Protein Albumin Urine WBC (Auto) Crossmatch 12/12/20 12/12/20 12/12/20 05:48 05:55 05:55 WBC 13.6 H RBC 3.31 L Hgb 9.4 L Hct 28.4 L MCH RDW 18.3 H Lymph % (Auto) Eos % (Auto) Mcdonough # (Auto) Eos # (Auto) 0.5 H Baso # (Auto) Seg Neutrophils % Seg Neuts % (Manual) Seg Neutrophils # 9.2 H Seg Neutrophils # Man Monocytes # (Manual) PT INR APTT Sodium Potassium Chloride Carbon Dioxide BUN 28 H Creatinine Glucose 164 H POC Glucose 168 H Hemoglobin A1c Lactic Acid Calcium 8.1 L Magnesium ALT Total Protein Albumin Urine WBC (Auto) Crossmatch 12/12/20 12/12/20 12/12/20 09:21 12:18 16:52 WBC RBC Hgb Hct MCH RDW Lymph % (Auto) Eos % (Auto) [place]cd[place] # (Auto) Eos # (Auto) Baso # (Auto) Seg Neutrophils % Seg Neuts % (Manual) Seg Neutrophils # Seg Neutrophils # Man Monocytes # (Manual) PT INR APTT Sodium Potassium Chloride Carbon Dioxide BUN Creatinine Glucose POC Glucose 175 H 193 H 190 H Hemoglobin A1c Lactic Acid Calcium Magnesium ALT Total Protein Albumin Urine WBC (Auto) Crossmatch 12/12/20 12/13/20 12/13/20 23:09 04:53 04:59 WBC 14.7 H RBC 3.43 L Hgb 9.7 L Hct 29.3 L MCH RDW 17.9 H Lymph % (Auto) Eos % (Auto) [place]cd[place]ough # (Auto) Eos # (Auto) Baso # (Auto) Seg Neutrophils % 74.6 H Seg Neuts % (Manual) Seg Neutrophils # 10.9 H Seg Neutrophils # Man Monocytes # (Manual) PT INR APTT Sodium Potassium Chloride Carbon Dioxide BUN Creatinine Glucose POC Glucose 161 H 211 H Hemoglobin A1c Lactic Acid Calcium Magnesium ALT Total Protein Albumin Urine WBC (Auto) Crossmatch 12/13/20 12/13/20 12/13/20 11:23 15:37 23:30 WBC RBC Hgb Hct MCH RDW Lymph % (Auto) Eos % (Auto) [place]cd[place] # (Auto) Eos # (Auto) Baso # (Auto) Seg Neutrophils % Seg Neuts % (Manual) Seg Neutrophils # Seg Neutrophils # Man Monocytes # (Manual) PT INR APTT Sodium Potassium Chloride Carbon Dioxide BUN Creatinine Glucose POC Glucose 142 H 157 H 123 H Hemoglobin A1c Lactic Acid Calcium Magnesium ALT Total Protein Albumin Urine WBC (Auto) Crossmatch 12/14/20 12/14/20 12/14/20 04:31 04:31 05:24 WBC 11.9 H RBC 3.42 L Hgb 9.6 L Hct 29.1 L MCH RDW 17.6 H Lymph % (Auto) Eos % (Auto) [place]cd[place] # (Auto) Eos # (Auto) Baso # (Auto) Seg Neutrophils % Seg Neuts % (Manual) Seg Neutrophils # Seg Neutrophils # Man Monocytes # (Manual) PT INR APTT Sodium Potassium Chloride 97.9 L Carbon Dioxide 32 H BUN Creatinine Glucose POC Glucose 120 H Hemoglobin A1c Lactic Acid Calcium Magnesium ALT Total Protein Albumin Urine WBC (Auto) Crossmatch 12/14/20 12:16 WBC RBC Hgb Hct MCH RDW Lymph % (Auto) Eos % (Auto) [place] # (Auto) Eos # (Auto) Baso # (Auto) Seg Neutrophils % Seg Neuts % (Manual) Seg Neutrophils # Seg Neutrophils # Man Monocytes # (Manual) PT INR APTT Sodium Potassium Chloride Carbon Dioxide BUN Creatinine Glucose POC Glucose 173 H Hemoglobin A1c Lactic Acid Calcium Magnesium ALT Total Protein Albumin Urine WBC (Auto) Crossmatch
[2020-12-15] MEDS: MEROPENEM 1,000 MG in SODIUM CHLORIDE 0.9% 100 ML IV SCH ×3 (05:24→21:18)
[2020-12-15] MEDS: PHENYTOIN 100 MG in SODIUM CHLORIDE 0.9% 100 ML IV SCH ×2 (05:25→13:47)
[2020-12-15] MEDS: ACETAMINOPHEN 325 MG TAB PO PRN (06:28)
[2020-12-15] MEDS: INSULIN LISPRO 100 UNIT/ML SUB-Q SCH ×4 (07:37→18:47)
[2020-12-15] MEDS: CITALOPRAM 20 MG TAB PO SCH (09:47)
[2020-12-15] MEDS: DOCUSATE SODIUM 100 MG/10 ML ORAL LIQD FEEDTUBE SCH ×2 (09:47→21:17)
[2020-12-15] MEDS: INSULIN GLARGINE 100 UNITS/ML SUB-Q SCH (09:47)
[2020-12-15] MEDS: FAMOTIDINE 20 MG TAB PO SCH (09:48)
[2020-12-15] MEDS: MULTIVITAMIN / MINERAL ORAL LIQUID 15 ML PO SCH (09:48)
--- NOTE | 2020-12-15 14:52 | Progress Note ---
Assessment and Plan Assessment and plan: 64-year-old female with PMH of dementia, CVA, left hemiplegia, DM, left AKA, dysphagia, hypokalemia, anemia, CKD 2, urine retention needing chronic indwelling Mcclure catheter was brought to ED for evaluation of AMS and possible vaginal bleeding. Patient was noted to be in septic shock with BP 80/60 and pyuria and hematuria. Mcclure catheter was exchanged in ED. Patient was administered IV fluid boluses with improvement of hypotension and started on antibiotics after cultures. Sepsis. Patient previously with septic shock. Bilateral pyelonephritis/complicated UTI. Toxic metabolic encephalopathy. Cecum pneumatosis. Resolved History of CVA, left hemiparesis, aphasic and dysphagia. (2008,2015) Left AKA 2016 New right-sided weakness. Acute kidney injury on CKD stage II. Resolved. Hypokalemia Diabetes mellitus type 2. Anemia 12/03/2020. Patient has now stable vital signs and hypertension resolved. Receiving normal saline 125 mill per hour. She spiked a fever of 100.6 today. Hemoglobin dropped to 6.8 and ordered PRBC transfusion. Hematuria actually resolved. No vaginal bleeding. Mental status improved, she is now awake awake but minimally verbalizes. She can occasionally give her name. She just mumbles. Not in acute distress. Large urine output and MAILE resolved. 12/04/2020. Shock state resolved. MAILE resolved. Mental status much improved. Follows commands but poorly verbal likely from dementia. Continue to avoid narcotics. Patient has a low-grade fever, leukocytosis , on cefepime, cultures pending. Discontinue normal saline. Started Glucerna tube feeds via NG tube, continue aspiration precautions. Ordered swallowing evaluation. Hemoglobin dropped from 7.8-6.8, possibly just dilutional. Hematuria resolved, no vaginal bleeding. Will transfuse PRBC. Consider urology consultation for evaluation of possible bladder tumor when more stable. Daughter reports significant cognitive decline since 07/2020 admission for UTI. Right-sided weakness is new according to daughter. Will order MRI brain when more stable. 12/05/2020. Patient is nonverbal and occasional tracking with eyes on my exam this morning. Baseline mental status per daughter can follow commands and able to communicate but with slow speech. Also, reports ability to feed herself. MRI brain ordered to rule out new CVA. Continue IV antibiotics for UTI. Await speech therapy evaluation for dysphagia. Continue NG tube for tube feedings. I d/w daughter POC [phone]. 12/06/2020. Brain MRI shows no acute findings only extensive chronic changes. Neurology consultation. Altered mentation may be secondary to toxic metabolic encephalopathy from sepsis/UTI. Continue IV antibiotics. Consider ID consultation. Acute kidney injury resolved. Still awaiting speech therapy evaluation 12/07/2020. Neurology evaluated the patient and recommends EEG to rule out subclinical seizures. Patient may need repeat MRI. Continue IV antibiotics for sepsis/UTI. Patient has underlying toxic metabolic encephalopathy as well. Blood cultures negative x5 days. Urine culture also negative. However, patient with significant fever since last night. Repeat blood cultures, check lactic acid and obtain ID consultation 12/08/2020. CT scan suggestive of bilateral acute pyelonephritis and bowel ischemia. Vancomycin added by ID. Appreciate ID help. Vascular surgery for bowel ischemia. Follow-up repeat blood cultures. Lactic acid level normal. 12/09/2020. Consult GI and surgery for presumed bowel ischemia and cecum pneumatosis per vascular surgery recommendation. Continue IV antibiotics per ID recommendations. Cefepime and vancomycin discontinued and meropenem started. CT of abdomen with bilateral pyelonephritis. Urology evaluation for urinary bladder mass once cecum pneumatosis and presumed bowel ischemia addressed. Nurse reports patient with vomiting this a.m. Hold tube feedings and change NG tube to LIS. Check KUB rule out ileus. Consider Reglan. 12/10/2020. Vascular surgery reports CTA of abdomen and pelvis showed no evidence of stenosis or embolic phenomenon to the visceral vessels. Continue IV antibiotics per ID recommendations. CT scan reveals bilateral hydroureter nephrosis and bilateral pyelonephritis. Urology consultation. CT scan does not show any evidence of ileus. 12/11/2020. Continue IV antibiotics per ID recommendations. Urology consulted for bilateral hydroureteronephrosis and bilateral pyelonephritis. Urine and blood cultures are negative. 12/12/2020 Patient with sepsis, bilateral pyelonephritis, complicated UTI. Cont inue Merrem as per ID. Urology consulted. She is being seen by Dr. Caban. 12/13/2020 Patient with sepsis, bilateral pyelonephritis, complicated UTI. Patient still on Merrem. Hgb 9.7 today. 12/14/2020 patient with sepsis, bilateral pyelonephritis due to complicated UTI. She had previous strokes with left sided weakness. Now has right sided weakness but MRI did not confirm acute stroke. I discussed with 2 daughters, Joan and Vidal yesterday. They are very concerned. Will re-consult Neurology to re- evaluate. She is on Merrem to complete tomorrow. I also discussed with Joan again today. 12/15/2020 Patient with sepsis, bilateral pyelonephritis due to complicated UTI. She had previous strokes with left sided weakness. Now has right sided weakness but MRI did not confirm acute stroke. Re-consulted Neurology and he ordered EEG. Patient has dysphagia, failed swallow eval . I called and discussed with daughter Joan about need for PEG tube . She will let me no later today. History Interval history: Patient is non-verbal, cannot give history Failed swallow test today Hospitalist Physical - Physical exam Narrative exam: Gen: Not in acute distress, awake, HEENT: Normocephalic, atraumatic Neck : supple, no JVD Heart:S1 and S2 reg, no murmurs, rubs or gallop Lungs:clear to auscultation bilaterally Abd: Soft , non tender, non distended, normal bowel sounds Ext: No edema, no clubbing, no cyanosis, left AKA Neuro: Awake, non-verbal, weakness all ext, - Constitutional Vitals: Temp Pulse Resp BP Pulse Ox 97.0 F L 98 H 18 136/82 18 L 12/15/20 08:17 12/15/20 08:17 12/15/20 08:17 12/15/20 08:17 12/15/20 10:00 General appearance: Present: no acute distress, other (Nonverbal) Results - Labs CBC & Chem 7: 12/14/20 04:31 12/14/20 04:31 Labs: Laboratory Last Values WBC 11.9 K/mm3 (4.5-11.0) H 12/14/20 04:31 RBC 3.42 M/mm3 (3.65-5.03) L 12/14/20 04:31 Hgb 9.6 gm/dl (10.1-14.3) L 12/14/20 04:31 Hct 29.1 % (30.3-42.9) L 12/14/20 04:31 MCV 85 fl (79-97) 12/14/20 04:31 MCH 28 pg (28-32) 12/14/20 04:31 MCHC 33 % (30-34) 12/14/20 04:31 RDW 17.6 % (13.2-15.2) H 12/14/20 04:31 Plt Count 340 K/mm3 (140-440) 12/14/20 04:31 Lymph % (Auto) 17.2 % (13.4-35.0) 12/13/20 04:53 [place] % (Auto) 4.9 % (0.0-7.3) 12/13/20 04:53 Eos % (Auto) 2.7 % (0.0-4.3) 12/13/20 04:53 Baso % (Auto) 0.6 % (0.0-1.8) 12/13/20 04:53 Lymph # (Auto) 2.5 K/mm3 (1.2-5.4) 12/13/20 04:53 [place] # (Auto) 0.7 K/mm3 (0.0-0.8) 12/13/20 04:53 Eos # (Auto) 0.4 K/mm3 (0.0-0.4) 12/13/20 04:53 Baso # (Auto) 0.1 K/mm3 (0.0-0.1) 12/13/20 04:53 Add Manual Diff Complete 12/08/20 11:47 Total Counted 100 12/08/20 11:47 Seg Neutrophils % 74.6 % (40.0-70.0) H 12/13/20 04:53 Seg Neuts % (Manual) 72.0 % (40.0-70.0) H 12/08/20 11:47 Lymphocytes % (Manual) 24.0 % (13.4-35.0) 12/08/20 11:47 Monocytes % (Manual) 4.0 % (0.0-7.3) 12/08/20 11:47 Nucleated RBC % Not Reportable 12/08/20 11:47 Seg Neutrophils # 10.9 K/mm3 (1.8-7.7) H 12/13/20 04:53 Seg Neutrophils # Man 16.1 K/mm3 (1.8-7.7) H 12/08/20 11:47 Band Neutrophils # 0.0 K/mm3 12/08/20 11:47 Lymphocytes # (Manual) 5.4 K/mm3 (1.2-5.4) 12/08/20 11:47 Abs React Lymphs (Man) 0.0 K/mm3 12/08/20 11:47 Monocytes # (Manual) 0.9 K/mm3 (0.0-0.8) H 12/08/20 11:47 Eosinophils # (Manual) 0.0 K/mm3 (0.0-0.4) 12/08/20 11:47 Basophils # (Manual) 0.0 K/mm3 (0.0-0.1) 12/08/20 11:47 Metamyelocytes # 0.0 K/mm3 12/08/20 11:47 Myelocytes # 0.0 K/mm3 12/08/20 11:47 Promyelocytes # 0.0 K/mm3 12/08/20 11:47 Blast Cells # 0.0 K/mm3 12/08/20 11:47 WBC Morphology Not Reportable 12/08/20 11:47 Hypersegmented Neuts Not Reportable 12/08/20 11:47 Hyposegmented Neuts Not Reportable 12/08/20 11:47 Hypogranular Neuts Not Reportable 12/08/20 11:47 Smudge Cells Not Reportable 12/08/20 11:47 Toxic Granulation Not Reportable 12/08/20 11:47 Toxic Vacuolation Not Reportable 12/08/20 11:47 Dohle Bodies Not Reportable 12/08/20 11:47 Pelger-Huet Anomaly Not Reportable 12/08/20 11:47 [place] Rods Not Reportable 12/08/20 11:47 Platelet Estimate Consistent w auto 12/08/20 11:47 Clumped Platelets Not Reportable 12/08/20 11:47 Plt Clumps, EDTA Not Reportable 12/08/20 11:47 Large Platelets Not Reportable 12/08/20 11:47 Giant Platelets Not Reportable 12/08/20 11:47 Platelet Satelliting Not Reportable 12/08/20 11:47 Plt Morphology Comment Not Reportable 12/08/20 11:47 RBC Morphology Not Reportable 12/08/20 11:47 Dimorphic RBCs Not Reportable 12/08/20 11:47 Polychromasia Not Reportable 12/08/20 11:47 Hypochromasia Not Reportable 12/08/20 11:47 Poikilocytosis Not Reportable 12/08/20 11:47 Anisocytosis 1+ 12/08/20 11:47 Microcytosis Not Reportable 12/08/20 11:47 Macrocytosis Not Reportable 12/08/20 11:47 Spherocytes Not Reportable 12/08/20 11:47 Pappenheimer Bodies Not Reportable 12/08/20 11:47 Sickle Cells Not Reportable 12/08/20 11:47 Target Cells Not Reportable 12/08/20 11:47 Tear Drop Cells Not Reportable 12/08/20 11:47 Ovalocytes Not Reportable 12/08/20 11:47 Stomatocytes 1+ 12/08/20 11:47 Helmet Cells Not Reportable 12/08/20 11:47 Cespedes-[place] Bodies Not Reportable 12/08/20 11:47 [place] Rings Not Reportable 12/08/20 11:47 [place] Cells Not Reportable 12/08/20 11:47 Bite Cells Not Reportable 12/08/20 11:47 Crenated Cell Not Reportable 12/08/20 11:47 Elliptocytes Not Reportable 12/08/20 11:47 Acanthocytes (Spur) Not Reportable 12/08/20 11:47 Rouleaux Not Reportable 12/08/20 11:47 Hemoglobin C Crystals Not Reportable 12/08/20 11:47 Schistocytes Not Reportable 12/08/20 11:47 Malaria parasites Not Reportable 12/08/20 11:47 [place] Bodies Not Reportable 12/08/20 11:47 Hem Pathologist Commnt No 12/08/20 11:47 PT 15.3 Sec. (12.2-14.9) H 12/02/20 02:53 INR 1.16 (0.87-1.13) H 12/02/20 02:53 APTT 37.7 Sec. (24.2-36.6) H 12/02/20 02:53 Sodium 138 mmol/L (137-145) 12/14/20 04:31 Potassium 4.2 mmol/L (3.6-5.0) 12/14/20 04:31 Chloride 97.9 mmol/L (98-107) L 12/14/20 04:31 Carbon Dioxide 32 mmol/L (22-30) H 12/14/20 04:31 Anion Gap 12 mmol/L 12/14/20 04:31 BUN 17 mg/dL (7-17) 12/14/20 04:31 Creatinine 0.6 mg/dL (0.6-1.2) 12/14/20 04:31 Estimated GFR > 60 ml/min 12/14/20 04:31 BUN/Creatinine Ratio 28 % 12/14/20 04:31 Glucose 97 mg/dL (65-100) 12/14/20 04:31 POC Glucose 187 mg/dL (70-105) H 12/15/20 12:56 Hemoglobin A1c 7.4 % (4-6) H 12/02/20 Unknown Lactic Acid 1.70 mmol/L (0.7-2.0) 12/08/20 11:47 Calcium 9.1 mg/dL (8.4-10.2) 12/14/20 04:31 Magnesium 1.50 mg/dL (1.7-2.3) L 12/04/20 09:51 Total Bilirubin 0.20 mg/dL (0.1-1.2) 12/05/20 05:04 AST 15 units/L (5-40) 12/05/20 05:04 ALT 7 units/L (7-56) 12/05/20 05:04 Alkaline Phosphatase 112 units/L (35-129) 12/05/20 05:04 C-Reactive Protein 1.30 mg/dL (0.00-1.30) 12/07/20 17:04 Total Protein 8.4 g/dL (6.3-8.2) H 12/05/20 05:04 Albumin 2.8 g/dL (3.9-5) L 12/05/20 05:04 Albumin/Globulin Ratio 0.5 % 12/05/20 05:04 Procalcitonin 0.27 ng/mL (<0.15) 12/09/20 12:37 Urine Color Yellow (Yellow) 12/02/20 03:50 Urine Turbidity Turbid (Clear) 12/02/20 03:50 Urine pH 6.0 (5.0-7.0) 12/02/20 03:50 Ur Specific [place] 1.008 (1.003-1.030) 12/02/20 03:50 Urine Protein 100 mg/dl mg/dL (Negative) 12/02/20 03:50 Urine Glucose (UA) Neg mg/dL (Negative) 12/02/20 03:50 Urine Ketones Neg mg/dL (Negative) 12/02/20 03:50 Urine Blood Lg (Negative) 12/02/20 03:50 Urine Nitrite Neg (Negative) 12/02/20 03:50 Urine Bilirubin Neg (Negative) 12/02/20 03:50 Urine Urobilinogen < 2.0 mg/dL (<2.0) 12/02/20 03:50 Ur Leukocyte Esterase Lg (Negative) 12/02/20 03:50 Urine WBC (Auto) > 182.0 /HPF (0.0-6.0) H 12/02/20 03:50 Urine RBC (Auto) > 182.0 /HPF (0.0-6.0) 12/02/20 03:50 U Epithel Cells (Auto) 6.0 /HPF (0-13.0) 12/02/20 03:50 Urine Bacteria (Auto) 1+ /HPF (Negative) 12/02/20 03:50 Urine WBC Clumps 3+ /HPF 12/02/20 03:50 Phenytoin 9.8 ug/mL (10.0-20.0) L 12/14/20 15:44 Coronavirus (PCR) Negative (Negative) 12/05/20 Unknown Blood Type O POSITIVE 12/02/20 02:05 Antibody Screen Negative 12/02/20 02:05 Crossmatch See Detail 12/02/20 02:05 Mcclure/IV: Voiding Method Indwelling Catheter Active Medications - Current Medications Current Medications: Generic Name Dose Route Start Last Admin Trade Name Freq PRN Reason Stop Dose Admin Acetaminophen 650 mg 12/02/20 05:24 12/15/20 06:28 Acetaminophen 325 Mg Tab PO 650 mg Q4H PRN Administration Pain MILD(1-3)/Fever >100.5/SMALLS Albuterol 2.5 mg 12/02/20 05:24 12/03/20 15:11 Albuterol 2.5 Mg/3 Ml Nebu IH 2.5 mg Q4HRT PRN Administration Shortness Of Breath Lipase/Protease/Amylase 1 each 12/03/20 10:22 Lipase 10,500/Protease 25,000/Amylase 43,750 (Units) Dr Blount FEEDTUBE PRN PRN For Clogged Feeding Tube Atorvastatin Calcium 40 mg 12/02/20 10:00 12/15/20 09:47 Atorvastatin 40 Mg Tab PO 40 mg DAILY ADOLFO Administration Citalopram Hydrobromide 20 mg 12/02/20 10:00 12/15/20 09:47 Citalopram 20 Mg Tab PO 20 mg DAILY ADOLFO Administration Dextrose 50 ml 12/02/20 11:18 Dextrose 50% In Water (25gm) 50 Ml Syringe IV Q30MIN PRN Hypoglycemia Protocol Docusate Sodium 100 mg 12/04/20 10:00 12/15/20 09:47 Docusate Sodium 100 Mg/10 Ml Oral Liqd FEEDTUBE 100 mg BID ADOLFO Administration Famotidine 20 mg 12/04/20 10:00 12/15/20 09:48 Famotidine 20 Mg Tab PO 20 mg DAILY ADOLFO Administration Phenytoin 100 mg/ Sodium 102 mls @ 204 mls/hr 12/07/20 14:00 12/15/20 13:47 Chloride IV 204 mls/hr Q8HR ADOLFO Administration Meropenem 1,000 mg/ Sodium 100 mls @ 100 mls/hr 12/09/20 09:00 12/15/20 13:47 Chloride IV 12/15/20 22:59 100 mls/hr Q8HR ADOLFO Administration Protocol Insulin Glargine 10 units 12/05/20 08:00 12/15/20 09:47 Insulin Glargine 100 Units/Ml SUB-Q 10 units QAMDIAB ADOLFO Administration Insulin Human Lispro 0 unit 12/04/20 00:00 12/15/20 13:09 Insulin Lispro 100 Unit/Ml SUB-Q 1 unit Q6HR ADOLFO Administration Protocol Metoclopramide HCl 10 mg 12/09/20 10:31 12/12/20 18:36 Metoclopramide 10 Mg/2 Ml Inj IV 10 mg Q6H PRN Administration Nausea And Vomiting Ondansetron HCl 4 mg 12/02/20 05:24 12/05/20 22:37 Ondansetron 4 Mg/2 Ml Inj IV 4 mg Q8H PRN Administration Nausea And Vomiting Simple Syrup 15 ml 12/03/20 10:22 Simple Syrup 15 Ml FEEDTUBE PRN PRN Hypoglycemia Simple Syrup 30 ml 12/03/20 10:22 Simple Syrup 15 Ml FEEDTUBE PRN PRN Hypoglycemia Sodium Bicarbonate 325 mg 12/03/20 10:22 Sodium Bicarbonate 325 Mg Tab FEEDTUBE PRN PRN For Clogged Feeding Tube Sodium Chloride 10 ml 12/02/20 10:00 12/15/20 09:49 Sodium Chloride 0.9% 10 Ml Flush Syringe IV 10 ml BID ADOLFO Administration Sodium Chloride 10 ml 12/02/20 05:24 12/14/20 04:46 Sodium Chloride 0.9% 10 Ml Flush Syringe IV 10 ml PRN PRN Administration LINE FLUSH Nutrition/Malnutrition Assess - Dietary Evaluation Nutrition/Malnutrition Findings: Nutrition Notes Start: 12/03/20 11:43 Freq: Status: Active Protocol: Document 12/15/20 13:53 (Rec: 12/15/20 14:00 [id number]) Nutrition Notes Initial or Follow up Reassessment Current Diagnosis Diabetes,Sepsis,Hypertension, Stroke Other Pertinent Diagnosis Hypotension, UTI, ARF, Vaginal bleeding, Dementia, Dysphagia , (L) AKA Current Diet TF - Glucerna 1.2 at 45ml/hr Labs/Tests reviewed Pertinent Medications reviewed Height 5 ft Weight 56.7 kg [place] Body Weight (kg) 45.45 BMI 24.4 Weight Status Appropriate Subjective/Other Information TF continues to run at 45 ml/ hr and pt tolerating. TF was never reordered, however, pt receiving. FILM LOADER recommends NPO. Percent of energy/protein needs met: 100%/100% Burn Absent Trauma Absent Difficulty In Swallowing Current % PO Negligible Minimum of two criteria No physical signs of malnutrition #1 Nutrition Diagnosis Inadequate oral intake Diagnosis Progress(for reassessment Continues documentation) Is patient on ventilator? No Is Patient Ambulatory and/or Out of Bed No REE-([place]-St. Jeor-confined to bed) [phone] Calculation Used for Recommendations [facility] Additional Notes Pro needs 1-1.2g/k-70g/ day Fluid needs 1ml/kcal Nutrition Intervention Nutrition Support: Glucerna 1.2 at 45ml/hr with 75ml water flush q4h. Kcal 1,296 Protein (gm) 65 Carbohydrates (gm) 124 Fat (gm) 65 Fluid (mL) 869 Fiber (gm) 17 Goal #1 FU for intakes and ONS tolerance Goal #2 TF to meet at least 75% energy and pro needs Anticipated Discharge Needs: Glucerna 1.2 at 45ml/hr with 75ml water flush q4h. Follow-Up By: 12/22/20 Additional Comments F/U stable TF
--- NOTE | 2020-12-15 16:08 | Progress Note ---
Subjective Date of service: 12/15/20 Interval history: Following up on the Dilantin Level 9.8 - I have reviewed the chart and have not found that patient was on Dilantin Prior to Dilantin . 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 I will be glad to follow up with the patient in office in 1-2 weeks upon discharge . It appears Dr. Fregoso placed the patient on Dilantin , would discontinue and start Keppra 125 mg BID , call with questions at [phone] Carmella CASTELLANOS Objective - Vital Sign Vital Signs - 12hr 12/15/20 12/15/20 12/15/20 05:47 08:17 10:00 Temperature 97.7 F 97.0 F L Pulse Rate 93 H 98 H Respiratory 18 18 Rate Blood Pressure 142/81 Blood Pressure 136/82 [Left] O2 Sat by Pulse 97 97 18 L Oximetry - Laboratory Findings CBC and BMP: 12/14/20 04:31 12/14/20 04:31 Abnormal Lab Findings: Abnormal Labs 12/01/20 12/01/20 12/02/20 22:52 22:52 01:30 WBC 13.8 H RBC 2.90 L Hgb 7.8 L Hct 24.0 L MCH 27 L RDW 19.0 H Lymph % (Auto) 12.2 L Eos % (Auto) Grand # (Auto) 0.9 H Eos # (Auto) Baso # (Auto) Seg Neutrophils % 80.8 H Seg Neuts % (Manual) Seg Neutrophils # 11.1 H Seg Neutrophils # Man Monocytes # (Manual) PT INR APTT Sodium 135 L Potassium Chloride Carbon Dioxide BUN 38 H Creatinine 2.0 H Glucose 196 H POC Glucose Hemoglobin A1c Lactic Acid 0.60 L Calcium 7.8 L Magnesium ALT < 5 L Total Protein Albumin 3.0 L Urine WBC (Auto) Phenytoin Crossmatch 12/02/20 12/02/20 12/02/20 02:05 02:53 03:50 WBC RBC Hgb Hct MCH RDW Lymph % (Auto) Eos % (Auto) Grand # (Auto) Eos # (Auto) Baso # (Auto) Seg Neutrophils % Seg Neuts % (Manual) Seg Neutrophils # Seg Neutrophils # Man Monocytes # (Manual) PT 15.3 H INR 1.16 H APTT 37.7 H Sodium Potassium Chloride Carbon Dioxide BUN Creatinine Glucose POC Glucose Hemoglobin A1c Lactic Acid Calcium Magnesium ALT Total Protein Albumin Urine WBC (Auto) > 182.0 H Phenytoin Crossmatch See Detail 12/02/20 12/02/20 12/02/20 09:49 12:47 17:10 WBC RBC Hgb Hct MCH RDW Lymph % (Auto) Eos % (Auto) Grand # (Auto) Eos # (Auto) Baso # (Auto) Seg Neutrophils % Seg Neuts % (Manual) Seg Neutrophils # Seg Neutrophils # Man Monocytes # (Manual) PT INR APTT Sodium Potassium Chloride Carbon Dioxide BUN Creatinine Glucose POC Glucose 175 H 155 H 147 H Hemoglobin A1c Lactic Acid Calcium Magnesium ALT Total Protein Albumin Urine WBC (Auto) Phenytoin Crossmatch 12/02/20 12/02/20 12/03/20 21:29 Unknown 07:15 WBC 15.5 H RBC 2.50 L Hgb 6.8 L Hct 20.8 L MCH 27 L RDW 19.5 H Lymph % (Auto) Eos % (Auto) Grand # (Auto) 1.0 H Eos # (Auto) Baso # (Auto) Seg Neutrophils % 76.5 H Seg Neuts % (Manual) Seg Neutrophils # 11.9 H Seg Neutrophils # Man Monocytes # (Manual) PT INR APTT Sodium Potassium Chloride Carbon Dioxide BUN Creatinine Glucose POC Glucose 121 H Hemoglobin A1c 7.4 H Lactic Acid Calcium Magnesium ALT Total Protein Albumin Urine WBC (Auto) Phenytoin Crossmatch 12/03/20 12/03/20 12/03/20 07:15 16:51 23:52 WBC RBC Hgb Hct MCH RDW Lymph % (Auto) Eos % (Auto) Grand # (Auto) Eos # (Auto) Baso # (Auto) Seg Neutrophils % Seg Neuts % (Manual) Seg Neutrophils # Seg Neutrophils # Man Monocytes # (Manual) PT INR APTT Sodium Potassium 3.1 L Chloride 109.5 H Carbon Dioxide BUN Creatinine Glucose POC Glucose 119 H 163 H Hemoglobin A1c Lactic Acid Calcium Magnesium ALT Total Protein Albumin Urine WBC (Auto) Phenytoin Crossmatch 12/04/20 12/04/20 12/04/20 05:43 09:51 09:51 WBC 15.9 H RBC Hgb Hct MCH 27 L RDW 18.4 H Lymph % (Auto) Eos % (Auto) Grand # (Auto) Eos # (Auto) Baso # (Auto) 0.2 H Seg Neutrophils % Seg Neuts % (Manual) Seg Neutrophils # 11.1 H Seg Neutrophils # Man Monocytes # (Manual) PT INR APTT Sodium Potassium Chloride Carbon Dioxide BUN Creatinine Glucose 242 H POC Glucose 200 H Hemoglobin A1c Lactic Acid Calcium Magnesium 1.50 L ALT 6 L Total Protein Albumin 2.8 L Urine WBC (Auto) Phenytoin Crossmatch 12/04/20 12/04/20 12/05/20 11:30 17:35 00:07 WBC RBC Hgb Hct MCH RDW Lymph % (Auto) Eos % (Auto) Grand # (Auto) Eos # (Auto) Baso # (Auto) Seg Neutrophils % Seg Neuts % (Manual) Seg Neutrophils # Seg Neutrophils # Man Monocytes # (Manual) PT INR APTT Sodium Potassium Chloride Carbon Dioxide BUN Creatinine Glucose POC Glucose 236 H 282 H 287 H Hemoglobin A1c Lactic Acid Calcium Magnesium ALT Total Protein Albumin Urine WBC (Auto) Phenytoin Crossmatch 12/05/20 12/05/20 12/05/20 05:04 05:04 05:10 WBC 12.2 H RBC Hgb Hct MCH RDW 17.9 H Lymph % (Auto) Eos % (Auto) Grand # (Auto) Eos # (Auto) Baso # (Auto) Seg Neutrophils % 75.9 H Seg Neuts % (Manual) Seg Neutrophils # 9.3 H Seg Neutrophils # Man Monocytes # (Manual) PT INR APTT Sodium Potassium Chloride Carbon Dioxide BUN Creatinine Glucose 339 H POC Glucose 309 H Hemoglobin A1c Lactic Acid Calcium Magnesium ALT Total Protein 8.4 H Albumin 2.8 L Urine WBC (Auto) Phenytoin Crossmatch 12/05/20 12/05/20 12/06/20 10:57 16:42 00:32 WBC RBC Hgb Hct MCH RDW Lymph % (Auto) Eos % (Auto) Grand # (Auto) Eos # (Auto) Baso # (Auto) Seg Neutrophils % Seg Neuts % (Manual) Seg Neutrophils # Seg Neutrophils # Man Monocytes # (Manual) PT INR APTT Sodium Potassium Chloride Carbon Dioxide BUN Creatinine Glucose POC Glucose 297 H 302 H 330 H Hemoglobin A1c Lactic Acid Calcium Magnesium ALT Total Protein Albumin Urine WBC (Auto) Phenytoin Crossmatch 12/06/20 12/06/20 12/06/20 06:29 11:21 15:35 WBC RBC Hgb Hct MCH RDW Lymph % (Auto) Eos % (Auto) Grand # (Auto) Eos # (Auto) Baso # (Auto) Seg Neutrophils % Seg Neuts % (Manual) Seg Neutrophils # Seg Neutrophils # Man Monocytes # (Manual) PT INR APTT Sodium Potassium Chloride Carbon Dioxide BUN Creatinine Glucose POC Glucose 340 H 325 H 352 H Hemoglobin A1c Lactic Acid Calcium Magnesium ALT Total Protein Albumin Urine WBC (Auto) Phenytoin Crossmatch 12/06/20 12/07/20 12/07/20 20:40 06:07 11:54 WBC RBC Hgb Hct MCH RDW Lymph % (Auto) Eos % (Auto) Grand # (Auto) Eos # (Auto) Baso # (Auto) Seg Neutrophils % Seg Neuts % (Manual) Seg Neutrophils # Seg Neutrophils # Man Monocytes # (Manual) PT INR APTT Sodium Potassium Chloride Carbon Dioxide BUN Creatinine Glucose POC Glucose 297 H 325 H 253 H Hemoglobin A1c Lactic Acid Calcium Magnesium ALT Total Protein Albumin Urine WBC (Auto) Phenytoin Crossmatch 12/07/20 12/08/20 12/08/20 17:14 00:02 06:02 WBC RBC Hgb Hct MCH RDW Lymph % (Auto) Eos % (Auto) Grand # (Auto) Eos # (Auto) Baso # (Auto) Seg Neutrophils % Seg Neuts % (Manual) Seg Neutrophils # Seg Neutrophils # Man Monocytes # (Manual) PT INR APTT Sodium Potassium Chloride Carbon Dioxide BUN Creatinine Glucose POC Glucose 332 H 353 H 336 H Hemoglobin A1c Lactic Acid Calcium Magnesium ALT Total Protein Albumin Urine WBC (Auto) Phenytoin Crossmatch 12/08/20 12/08/20 12/08/20 11:47 11:47 17:00 WBC 22.4 H RBC Hgb Hct MCH RDW 18.9 H Lymph % (Auto) Eos % (Auto) Grand # (Auto) Eos # (Auto) Baso # (Auto) Seg Neutrophils % Seg Neuts % (Manual) 72.0 H Seg Neutrophils # Seg Neutrophils # Man 16.1 H Monocytes # (Manual) 0.9 H PT INR APTT Sodium Potassium Chloride Carbon Dioxide BUN 41 H Creatinine Glucose 329 H POC Glucose 286 H Hemoglobin A1c Lactic Acid Calcium 8.0 L Magnesium ALT Total Protein Albumin Urine WBC (Auto) Phenytoin Crossmatch 12/08/20 12/09/20 12/09/20 23:32 04:14 06:36 WBC RBC Hgb Hct MCH RDW Lymph % (Auto) Eos % (Auto) Grand # (Auto) Eos # (Auto) Baso # (Auto) Seg Neutrophils % Seg Neuts % (Manual) Seg Neutrophils # Seg Neutrophils # Man Monocytes # (Manual) PT INR APTT Sodium Potassium Chloride Carbon Dioxide BUN 50 H Creatinine Glucose 324 H POC Glucose 276 H 342 H Hemoglobin A1c Lactic Acid Calcium Magnesium ALT Total Protein Albumin Urine WBC (Auto) Phenytoin Crossmatch 12/09/20 12/09/20 12/09/20 11:00 15:41 23:43 WBC RBC Hgb Hct MCH RDW Lymph % (Auto) Eos % (Auto) Grand # (Auto) Eos # (Auto) Baso # (Auto) Seg Neutrophils % Seg Neuts % (Manual) Seg Neutrophils # Seg Neutrophils # Man Monocytes # (Manual) PT INR APTT Sodium Potassium Chloride Carbon Dioxide BUN Creatinine Glucose POC Glucose 292 H 239 H 178 H Hemoglobin A1c Lactic Acid Calcium Magnesium ALT Total Protein Albumin Urine WBC (Auto) Phenytoin Crossmatch 12/10/20 12/10/20 12/10/20 04:50 04:50 06:01 WBC 17.0 H RBC 3.52 L Hgb 9.9 L Hct 29.9 L MCH RDW 18.4 H Lymph % (Auto) Eos % (Auto) 5.2 H Grand # (Auto) Eos # (Auto) 0.9 H Baso # (Auto) Seg Neutrophils % Seg Neuts % (Manual) Seg Neutrophils # 11.1 H Seg Neutrophils # Man Monocytes # (Manual) PT INR APTT Sodium Potassium Chloride Carbon Dioxide BUN 43 H Creatinine Glucose 192 H POC Glucose 200 H Hemoglobin A1c Lactic Acid Calcium Magnesium ALT Total Protein Albumin Urine WBC (Auto) Phenytoin Crossmatch 12/10/20 12/10/20 12/10/20 11:24 16:52 23:46 WBC RBC Hgb Hct MCH RDW Lymph % (Auto) Eos % (Auto) Grand # (Auto) Eos # (Auto) Baso # (Auto) Seg Neutrophils % Seg Neuts % (Manual) Seg Neutrophils # Seg Neutrophils # Man Monocytes # (Manual) PT INR APTT Sodium Potassium Chloride Carbon Dioxide BUN Creatinine Glucose POC Glucose 238 H 225 H 161 H Hemoglobin A1c Lactic Acid Calcium Magnesium ALT Total Protein Albumin Urine WBC (Auto) Phenytoin Crossmatch 12/11/20 12/11/20 12/11/20 11:37 16:46 23:38 WBC RBC Hgb Hct MCH RDW Lymph % (Auto) Eos % (Auto) Grand # (Auto) Eos # (Auto) Baso # (Auto) Seg Neutrophils % Seg Neuts % (Manual) Seg Neutrophils # Seg Neutrophils # Man Monocytes # (Manual) PT INR APTT Sodium Potassium Chloride Carbon Dioxide BUN Creatinine Glucose POC Glucose 208 H 198 H 135 H Hemoglobin A1c Lactic Acid Calcium Magnesium ALT Total Protein Albumin Urine WBC (Auto) Phenytoin Crossmatch 12/12/20 12/12/20 12/12/20 05:48 05:55 05:55 WBC 13.6 H RBC 3.31 L Hgb 9.4 L Hct 28.4 L MCH RDW 18.3 H Lymph % (Auto) Eos % (Auto) Grand # (Auto) Eos # (Auto) 0.5 H Baso # (Auto) Seg Neutrophils % Seg Neuts % (Manual) Seg Neutrophils # 9.2 H Seg Neutrophils # Man Monocytes # (Manual) PT INR APTT Sodium Potassium Chloride Carbon Dioxide BUN 28 H Creatinine Glucose 164 H POC Glucose 168 H Hemoglobin A1c Lactic Acid Calcium 8.1 L Magnesium ALT Total Protein Albumin Urine WBC (Auto) Phenytoin Crossmatch 12/12/20 12/12/20 12/12/20 09:21 12:18 16:52 WBC RBC Hgb Hct MCH RDW Lymph % (Auto) Eos % (Auto) Grand # (Auto) Eos # (Auto) Baso # (Auto) Seg Neutrophils % Seg Neuts % (Manual) Seg Neutrophils # Seg Neutrophils # Man Monocytes # (Manual) PT INR APTT Sodium Potassium Chloride Carbon Dioxide BUN Creatinine Glucose POC Glucose 175 H 193 H 190 H Hemoglobin A1c Lactic Acid Calcium Magnesium ALT Total Protein Albumin Urine WBC (Auto) Phenytoin Crossmatch 12/12/20 12/13/20 12/13/20 23:09 04:53 04:59 WBC 14.7 H RBC 3.43 L Hgb 9.7 L Hct 29.3 L MCH RDW 17.9 H Lymph % (Auto) Eos % (Auto) Grand # (Auto) Eos # (Auto) Baso # (Auto) Seg Neutrophils % 74.6 H Seg Neuts % (Manual) Seg Neutrophils # 10.9 H Seg Neutrophils # Man Monocytes # (Manual) PT INR APTT Sodium Potassium Chloride Carbon Dioxide BUN Creatinine Glucose POC Glucose 161 H 211 H Hemoglobin A1c Lactic Acid Calcium Magnesium ALT Total Protein Albumin Urine WBC (Auto) Phenytoin Crossmatch 12/13/20 12/13/20 12/13/20 11:23 15:37 23:30 WBC RBC Hgb Hct MCH RDW Lymph % (Auto) Eos % (Auto) Grand # (Auto) Eos # (Auto) Baso # (Auto) Seg Neutrophils % Seg Neuts % (Manual) Seg Neutrophils # Seg Neutrophils # Man Monocytes # (Manual) PT INR APTT Sodium Potassium Chloride Carbon Dioxide BUN Creatinine Glucose POC Glucose 142 H 157 H 123 H Hemoglobin A1c Lactic Acid Calcium Magnesium ALT Total Protein Albumin Urine WBC (Auto) Phenytoin Crossmatch 12/14/20 12/14/20 12/14/20 04:31 04:31 05:24 WBC 11.9 H RBC 3.42 L Hgb 9.6 L Hct 29.1 L MCH RDW 17.6 H Lymph % (Auto) Eos % (Auto) Grand # (Auto) Eos # (Auto) Baso # (Auto) Seg Neutrophils % Seg Neuts % (Manual) Seg Neutrophils # Seg Neutrophils # Man Monocytes # (Manual) PT INR APTT Sodium Potassium Chloride 97.9 L Carbon Dioxide 32 H BUN Creatinine Glucose POC Glucose 120 H Hemoglobin A1c Lactic Acid Calcium Magnesium ALT Total Protein Albumin Urine WBC (Auto) Phenytoin Crossmatch 12/14/20 12/14/20 12/14/20 12:16 15:44 17:14 WBC RBC Hgb Hct MCH RDW Lymph % (Auto) Eos % (Auto) Grand # (Auto) Eos # (Auto) Baso # (Auto) Seg Neutrophils % Seg Neuts % (Manual) Seg Neutrophils # Seg Neutrophils # Man Monocytes # (Manual) PT INR APTT Sodium Potassium Chloride Carbon Dioxide BUN Creatinine Glucose POC Glucose 173 H 159 H Hemoglobin A1c Lactic Acid Calcium Magnesium ALT Total Protein Albumin Urine WBC (Auto) Phenytoin 9.8 L Crossmatch 12/15/20 12/15/20 12/15/20 00:47 05:48 12:56 WBC RBC Hgb Hct MCH RDW Lymph % (Auto) Eos % (Auto) Grand # (Auto) Eos # (Auto) Baso # (Auto) Seg Neutrophils % Seg Neuts % (Manual) Seg Neutrophils # Seg Neutrophils # Man Monocytes # (Manual) PT INR APTT Sodium Potassium Chloride Carbon Dioxide BUN Creatinine Glucose POC Glucose 166 H 167 H 187 H Hemoglobin A1c Lactic Acid Calcium Magnesium ALT Total Protein Albumin Urine WBC (Auto) Phenytoin Crossmatch
[2020-12-15] MEDS ORDERED: levETIRAcetam 500 MG/5 ML ORAL LIQD PO ONE (21:00)
[2020-12-16] MEDS: INSULIN LISPRO 100 UNIT/ML SUB-Q SCH ×4 (05:26→18:02)
--- NOTE | 2020-12-16 08:18 | Progress Note ---
Assessment and Plan Assessment and plan: 64-year-old female with PMH of dementia, CVA, left hemiplegia, DM, left AKA, dysphagia, hypokalemia, anemia, CKD 2, urine retention needing chronic indwelling Mcclure catheter was brought to ED for evaluation of AMS and possible vaginal bleeding. Patient was noted to be in septic shock with BP 80/60 and pyuria and hematuria. Mcclure catheter was exchanged in ED. Patient was administered IV fluid boluses with improvement of hypotension and started on antibiotics after cultures. Sepsis. Patient previously with septic shock. Bilateral pyelonephritis/complicated UTI. Toxic metabolic encephalopathy. Cecum pneumatosis. Resolved History of CVA, left hemiparesis, aphasic and dysphagia. (2008,2015) Left AKA 2016 New right-sided weakness. Acute kidney injury on CKD stage II. Resolved. Hypokalemia Diabetes mellitus type 2. Anemia 12/03/2020. Patient has now stable vital signs and hypertension resolved. Receiving normal saline 125 mill per hour. She spiked a fever of 100.6 today. Hemoglobin dropped to 6.8 and ordered PRBC transfusion. Hematuria actually resolved. No vaginal bleeding. Mental status improved, she is now awake awake but minimally verbalizes. She can occasionally give her name. She just mumbles. Not in acute distress. Large urine output and MAILE resolved. 12/04/2020. Shock state resolved. MAILE resolved. Mental status much improved. Follows commands but poorly verbal likely from dementia. Continue to avoid narcotics. Patient has a low-grade fever, leukocytosis , on cefepime, cultures pending. Discontinue normal saline. Started Glucerna tube feeds via NG tube, continue aspiration precautions. Ordered swallowing evaluation. Hemoglobin dropped from 7.8-6.8, possibly just dilutional. Hematuria resolved, no vaginal bleeding. Will transfuse PRBC. Consider urology consultation for evaluation of possible bladder tumor when more stable. Daughter reports significant cognitive decline since 07/2020 admission for UTI. Right-sided weakness is new according to daughter. Will order MRI brain when more stable. 12/05/2020. Patient is nonverbal and occasional tracking with eyes on my exam this morning. Baseline mental status per daughter can follow commands and able to communicate but with slow speech. Also, reports ability to feed herself. MRI brain ordered to rule out new CVA. Continue IV antibiotics for UTI. Await speech therapy evaluation for dysphagia. Continue NG tube for tube feedings. I d/w daughter POC [phone]. 12/06/2020. Brain MRI shows no acute findings only extensive chronic changes. Neurology consultation. Altered mentation may be secondary to toxic metabolic encephalopathy from sepsis/UTI. Continue IV antibiotics. Consider ID consultation. Acute kidney injury resolved. Still awaiting speech therapy evaluation 12/07/2020. Neurology evaluated the patient and recommends EEG to rule out subclinical seizures. Patient may need repeat MRI. Continue IV antibiotics for sepsis/UTI. Patient has underlying toxic metabolic encephalopathy as well. Blood cultures negative x5 days. Urine culture also negative. However, patient with significant fever since last night. Repeat blood cultures, check lactic acid and obtain ID consultation 12/08/2020. CT scan suggestive of bilateral acute pyelonephritis and bowel ischemia. Vancomycin added by ID. Appreciate ID help. Vascular surgery for bowel ischemia. Follow-up repeat blood cultures. Lactic acid level normal. 12/09/2020. Consult GI and surgery for presumed bowel ischemia and cecum pneumatosis per vascular surgery recommendation. Continue IV antibiotics per ID recommendations. Cefepime and vancomycin discontinued and meropenem started. CT of abdomen with bilateral pyelonephritis. Urology evaluation for urinary bladder mass once cecum pneumatosis and presumed bowel ischemia addressed. Nurse reports patient with vomiting this a.m. Hold tube feedings and change NG tube to LIS. Check KUB rule out ileus. Consider Reglan. 12/10/2020. Vascular surgery reports CTA of abdomen and pelvis showed no evidence of stenosis or embolic phenomenon to the visceral vessels. Continue IV antibiotics per ID recommendations. CT scan reveals bilateral hydroureter nephrosis and bilateral pyelonephritis. Urology consultation. CT scan does not show any evidence of ileus. 12/11/2020. Continue IV antibiotics per ID recommendations. Urology consulted for bilateral hydroureteronephrosis and bilateral pyelonephritis. Urine and blood cultures are negative. 12/12/2020 Patient with sepsis, bilateral pyelonephritis, complicated UTI. Cont inue Merrem as per ID. Urology consulted. She is being seen by Dr. Caban. 12/13/2020 Patient with sepsis, bilateral pyelonephritis, complicated UTI. Patient still on Merrem. Hgb 9.7 today. 12/14/2020 patient with sepsis, bilateral pyelonephritis due to complicated UTI. She had previous strokes with left sided weakness. Now has right sided weakness but MRI did not confirm acute stroke. I discussed with 2 daughters, Joan and Vidal yesterday. They are very concerned. Will re-consult Neurology to re- evaluate. She is on Merrem to complete tomorrow. I also discussed with Joan again today. 12/15/2020 Patient with sepsis, bilateral pyelonephritis due to complicated UTI. She had previous strokes with left sided weakness. Now has right sided weakness but MRI did not confirm acute stroke. Re-consulted Neurology and he ordered EEG. Patient has dysphagia, failed swallow eval . I called and discussed with daughter Joan about need for PEG tube . She will let me no later today. 12/16/20 Patient with sepsis, bilateral pyelonephritis due to complicated UTI. She had previous strokes with left sided weakness. Now has right sided weakness but MRI did not confirm acute stroke. EEG ordered by Neurology. Daughter agrees to PEG tube, GI consulted History Interval history: Patient is non-verbal, cannot give history Failed swallow test 12/16 Family agrees to PEG tube placement Hospitalist Physical - Physical exam Narrative exam: Gen: Not in acute distress, awake, NG tube HEENT: Normocephalic, atraumatic Neck : supple, no JVD Heart:S1 and S2 reg, no murmurs, rubs or gallop Lungs:clear to auscultation bilaterally Abd: Soft , non tender, non distended, normal bowel sounds Ext: No edema, no clubbing, no cyanosis, left AKA Neuro: Awake, non-verbal, weakness all ext, - Constitutional Vitals: Temp Pulse Resp BP Pulse Ox 97.6 F 94 H 20 133/75 100 12/16/20 05:26 12/16/20 05:26 12/16/20 05:26 12/16/20 05:26 12/16/20 05:26 General appearance: Present: no acute distress, other (Nonverbal) Results - Labs CBC & Chem 7: 12/14/20 04:31 12/14/20 04:31 Labs: Laboratory Last Values WBC 11.9 K/mm3 (4.5-11.0) H 12/14/20 04:31 RBC 3.42 M/mm3 (3.65-5.03) L 12/14/20 04:31 Hgb 9.6 gm/dl (10.1-14.3) L 12/14/20 04:31 Hct 29.1 % (30.3-42.9) L 12/14/20 04:31 MCV 85 fl (79-97) 12/14/20 04:31 MCH 28 pg (28-32) 12/14/20 04:31 MCHC 33 % (30-34) 12/14/20 04:31 RDW 17.6 % (13.2-15.2) H 12/14/20 04:31 Plt Count 340 K/mm3 (140-440) 12/14/20 04:31 Lymph % (Auto) 17.2 % (13.4-35.0) 12/13/20 04:53 [place] % (Auto) 4.9 % (0.0-7.3) 12/13/20 04:53 Eos % (Auto) 2.7 % (0.0-4.3) 12/13/20 04:53 Baso % (Auto) 0.6 % (0.0-1.8) 12/13/20 04:53 Lymph # (Auto) 2.5 K/mm3 (1.2-5.4) 12/13/20 04:53 [place] # (Auto) 0.7 K/mm3 (0.0-0.8) 12/13/20 04:53 Eos # (Auto) 0.4 K/mm3 (0.0-0.4) 12/13/20 04:53 Baso # (Auto) 0.1 K/mm3 (0.0-0.1) 12/13/20 04:53 Add Manual Diff Complete 12/08/20 11:47 Total Counted 100 12/08/20 11:47 Seg Neutrophils % 74.6 % (40.0-70.0) H 12/13/20 04:53 Seg Neuts % (Manual) 72.0 % (40.0-70.0) H 12/08/20 11:47 Lymphocytes % (Manual) 24.0 % (13.4-35.0) 12/08/20 11:47 Monocytes % (Manual) 4.0 % (0.0-7.3) 12/08/20 11:47 Nucleated RBC % Not Reportable 12/08/20 11:47 Seg Neutrophils # 10.9 K/mm3 (1.8-7.7) H 12/13/20 04:53 Seg Neutrophils # Man 16.1 K/mm3 (1.8-7.7) H 12/08/20 11:47 Band Neutrophils # 0.0 K/mm3 12/08/20 11:47 Lymphocytes # (Manual) 5.4 K/mm3 (1.2-5.4) 12/08/20 11:47 Abs React Lymphs (Man) 0.0 K/mm3 12/08/20 11:47 Monocytes # (Manual) 0.9 K/mm3 (0.0-0.8) H 12/08/20 11:47 Eosinophils # (Manual) 0.0 K/mm3 (0.0-0.4) 12/08/20 11:47 Basophils # (Manual) 0.0 K/mm3 (0.0-0.1) 12/08/20 11:47 Metamyelocytes # 0.0 K/mm3 12/08/20 11:47 Myelocytes # 0.0 K/mm3 12/08/20 11:47 Promyelocytes # 0.0 K/mm3 12/08/20 11:47 Blast Cells # 0.0 K/mm3 12/08/20 11:47 WBC Morphology Not Reportable 12/08/20 11:47 Hypersegmented Neuts Not Reportable 12/08/20 11:47 Hyposegmented Neuts Not Reportable 12/08/20 11:47 Hypogranular Neuts Not Reportable 12/08/20 11:47 Smudge Cells Not Reportable 12/08/20 11:47 Toxic Granulation Not Reportable 12/08/20 11:47 Toxic Vacuolation Not Reportable 12/08/20 11:47 Dohle Bodies Not Reportable 12/08/20 11:47 Pelger-Huet Anomaly Not Reportable 12/08/20 11:47 [place] Rods Not Reportable 12/08/20 11:47 Platelet Estimate Consistent w auto 12/08/20 11:47 Clumped Platelets Not Reportable 12/08/20 11:47 Plt Clumps, EDTA Not Reportable 12/08/20 11:47 Large Platelets Not Reportable 12/08/20 11:47 Giant Platelets Not Reportable 12/08/20 11:47 Platelet Satelliting Not Reportable 12/08/20 11:47 Plt Morphology Comment Not Reportable 12/08/20 11:47 RBC Morphology Not Reportable 12/08/20 11:47 Dimorphic RBCs Not Reportable 12/08/20 11:47 Polychromasia Not Reportable 12/08/20 11:47 Hypochromasia Not Reportable 12/08/20 11:47 Poikilocytosis Not Reportable 12/08/20 11:47 Anisocytosis 1+ 12/08/20 11:47 Microcytosis Not Reportable 12/08/20 11:47 Macrocytosis Not Reportable 12/08/20 11:47 Spherocytes Not Reportable 12/08/20 11:47 Pappenheimer Bodies Not Reportable 12/08/20 11:47 Sickle Cells Not Reportable 12/08/20 11:47 Target Cells Not Reportable 12/08/20 11:47 Tear Drop Cells Not Reportable 12/08/20 11:47 Ovalocytes Not Reportable 12/08/20 11:47 Stomatocytes 1+ 12/08/20 11:47 Helmet Cells Not Reportable 12/08/20 11:47 [place] Bodies Not Reportable 12/08/20 11:47 [place] Rings Not Reportable 12/08/20 11:47 [place] Cells Not Reportable 12/08/20 11:47 Bite Cells Not Reportable 12/08/20 11:47 Crenated Cell Not Reportable 12/08/20 11:47 Elliptocytes Not Reportable 12/08/20 11:47 Acanthocytes (Spur) Not Reportable 12/08/20 11:47 Rouleaux Not Reportable 12/08/20 11:47 Hemoglobin C Crystals Not Reportable 12/08/20 11:47 Schistocytes Not Reportable 12/08/20 11:47 Malaria parasites Not Reportable 12/08/20 11:47 [place] Bodies Not Reportable 12/08/20 11:47 Hem Pathologist Commnt No 12/08/20 11:47 PT 15.3 Sec. (12.2-14.9) H 12/02/20 02:53 INR 1.16 (0.87-1.13) H 12/02/20 02:53 APTT 37.7 Sec. (24.2-36.6) H 12/02/20 02:53 Sodium 138 mmol/L (137-145) 12/14/20 04:31 Potassium 4.2 mmol/L (3.6-5.0) 12/14/20 04:31 Chloride 97.9 mmol/L (98-107) L 12/14/20 04:31 Carbon Dioxide 32 mmol/L (22-30) H 12/14/20 04:31 Anion Gap 12 mmol/L 12/14/20 04:31 BUN 17 mg/dL (7-17) 12/14/20 04:31 Creatinine 0.6 mg/dL (0.6-1.2) 12/14/20 04:31 Estimated GFR > 60 ml/min 12/14/20 04:31 BUN/Creatinine Ratio 28 % 12/14/20 04:31 Glucose 97 mg/dL (65-100) 12/14/20 04:31 POC Glucose 143 mg/dL (70-105) H 12/16/20 05:23 Hemoglobin A1c 7.4 % (4-6) H 12/02/20 Unknown Lactic Acid 1.70 mmol/L (0.7-2.0) 12/08/20 11:47 Calcium 9.1 mg/dL (8.4-10.2) 12/14/20 04:31 Magnesium 1.50 mg/dL (1.7-2.3) L 12/04/20 09:51 Total Bilirubin 0.20 mg/dL (0.1-1.2) 12/05/20 05:04 AST 15 units/L (5-40) 12/05/20 05:04 ALT 7 units/L (7-56) 12/05/20 05:04 Alkaline Phosphatase 112 units/L (35-129) 12/05/20 05:04 C-Reactive Protein 1.30 mg/dL (0.00-1.30) 12/07/20 17:04 Total Protein 8.4 g/dL (6.3-8.2) H 12/05/20 05:04 Albumin 2.8 g/dL (3.9-5) L 12/05/20 05:04 Albumin/Globulin Ratio 0.5 % 12/05/20 05:04 Procalcitonin 0.27 ng/mL (<0.15) 12/09/20 12:37 Urine Color Yellow (Yellow) 12/02/20 03:50 Urine Turbidity Turbid (Clear) 12/02/20 03:50 Urine pH 6.0 (5.0-7.0) 12/02/20 03:50 Ur Specific [place] 1.008 (1.003-1.030) 12/02/20 03:50 Urine Protein 100 mg/dl mg/dL (Negative) 12/02/20 03:50 Urine Glucose (UA) Neg mg/dL (Negative) 12/02/20 03:50 Urine Ketones Neg mg/dL (Negative) 12/02/20 03:50 Urine Blood Lg (Negative) 12/02/20 03:50 Urine Nitrite Neg (Negative) 12/02/20 03:50 Urine Bilirubin Neg (Negative) 12/02/20 03:50 Urine Urobilinogen < 2.0 mg/dL (<2.0) 12/02/20 03:50 Ur Leukocyte Esterase Lg (Negative) 12/02/20 03:50 Urine WBC (Auto) > 182.0 /HPF (0.0-6.0) H 12/02/20 03:50 Urine RBC (Auto) > 182.0 /HPF (0.0-6.0) 12/02/20 03:50 U Epithel Cells (Auto) 6.0 /HPF (0-13.0) 12/02/20 03:50 Urine Bacteria (Auto) 1+ /HPF (Negative) 12/02/20 03:50 Urine WBC Clumps 3+ /HPF 12/02/20 03:50 Phenytoin 9.8 ug/mL (10.0-20.0) L 12/14/20 15:44 Coronavirus (PCR) Negative (Negative) 12/05/20 Unknown Blood Type O POSITIVE 12/02/20 02:05 Antibody Screen Negative 12/02/20 02:05 Crossmatch See Detail 12/02/20 02:05 Mcclure/IV: Voiding Method Indwelling Catheter Active Medications - Current Medications Current Medications: Generic Name Dose Route Start Last Admin Trade Name Freq PRN Reason Stop Dose Admin Acetaminophen 650 mg 12/02/20 05:24 12/15/20 06:28 Acetaminophen 325 Mg Tab PO 650 mg Q4H PRN Administration Pain MILD(1-3)/Fever >100.5/SMALLS Albuterol 2.5 mg 12/02/20 05:24 12/03/20 15:11 Albuterol 2.5 Mg/3 Ml Nebu IH 2.5 mg Q4HRT PRN Administration Shortness Of Breath Lipase/Protease/Amylase 1 each 12/03/20 10:22 Lipase 10,500/Protease 25,000/Amylase 43,750 (Units) Dr Blount FEEDTUBE PRN PRN For Clogged Feeding Tube Atorvastatin Calcium 40 mg 12/02/20 10:00 12/15/20 09:47 Atorvastatin 40 Mg Tab PO 40 mg DAILY ADOLFO Administration Citalopram Hydrobromide 20 mg 12/02/20 10:00 12/15/20 09:47 Citalopram 20 Mg Tab PO 20 mg DAILY ADOLFO Administration Dextrose 50 ml 12/02/20 11:18 Dextrose 50% In Water (25gm) 50 Ml Syringe IV Q30MIN PRN Hypoglycemia Protocol Docusate Sodium 100 mg 12/04/20 10:00 12/15/20 21:17 Docusate Sodium 100 Mg/10 Ml Oral Liqd FEEDTUBE 100 mg BID ADOLFO Administration Famotidine 20 mg 12/04/20 10:00 12/15/20 09:48 Famotidine 20 Mg Tab PO 20 mg DAILY ADOLFO Administration Insulin Glargine 10 units 12/05/20 08:00 12/15/20 09:47 Insulin Glargine 100 Units/Ml SUB-Q 10 units QAMDIAB ADOLFO Administration Insulin Human Lispro 0 unit 12/04/20 00:00 12/16/20 05:26 Insulin Lispro 100 Unit/Ml SUB-Q Not Given Q6HR [facility] Protocol Metoclopramide HCl 10 mg 12/09/20 10:31 12/12/20 18:36 Metoclopramide 10 Mg/2 Ml Inj IV 10 mg Q6H PRN Administration Nausea And Vomiting Ondansetron HCl 4 mg 12/02/20 05:24 12/05/20 22:37 Ondansetron 4 Mg/2 Ml Inj IV 4 mg Q8H PRN Administration Nausea And Vomiting Simple Syrup 15 ml 12/03/20 10:22 Simple Syrup 15 Ml FEEDTUBE PRN PRN Hypoglycemia Simple Syrup 30 ml 12/03/20 10:22 Simple Syrup 15 Ml FEEDTUBE PRN PRN Hypoglycemia Sodium Bicarbonate 325 mg 12/03/20 10:22 Sodium Bicarbonate 325 Mg Tab FEEDTUBE PRN PRN For Clogged Feeding Tube Sodium Chloride 10 ml 12/02/20 10:00 12/15/20 21:17 Sodium Chloride 0.9% 10 Ml Flush Syringe IV 10 ml BID ADOLFO Administration Sodium Chloride 10 ml 12/02/20 05:24 12/14/20 04:46 Sodium Chloride 0.9% 10 Ml Flush Syringe IV 10 ml PRN PRN Administration LINE FLUSH Nutrition/Malnutrition Assess - Dietary Evaluation Nutrition/Malnutrition Findings: Nutrition Notes Start: 12/03/20 11:43 Freq: Status: Active Protocol: Document 12/15/20 13:53 MK (Rec: 12/15/20 14:00 [id number]) Nutrition Notes Initial or Follow up Reassessment Current Diagnosis Diabetes,Sepsis,Hypertension, Stroke Other Pertinent Diagnosis Hypotension, UTI, ARF, Vaginal bleeding, Dementia, Dysphagia , (L) AKA Current Diet TF - Glucerna 1.2 at 45ml/hr Labs/Tests reviewed Pertinent Medications reviewed Height 5 ft Weight 56.7 kg [place] Body Weight (kg) 45.45 BMI 24.4 Weight Status Appropriate Subjective/Other Information TF continues to run at 45 ml/ hr and pt tolerating. TF was never reordered, however, pt receiving. SENIOR UI UX DEVELOPER recommends NPO. Percent of energy/protein needs met: 100%/100% Burn Absent Trauma Absent Difficulty In Swallowing Current % PO Negligible Minimum of two criteria No physical signs of malnutrition #1 Nutrition Diagnosis Inadequate oral intake Diagnosis Progress(for reassessment Continues documentation) Is patient on ventilator? No Is Patient Ambulatory and/or Out of Bed No REE-([facility]-confined to bed) 1245.756 Calculation Used for Recommendations [facility] Additional Notes Pro needs 1-1.2g/k-70g/ day Fluid needs 1ml/kcal Nutrition Intervention Nutrition Support: Glucerna 1.2 at 45ml/hr with 75ml water flush q4h. Kcal 1,296 Protein (gm) 65 Carbohydrates (gm) 124 Fat (gm) 65 Fluid (mL) 869 Fiber (gm) 17 Goal #1 FU for intakes and ONS tolerance Goal #2 TF to meet at least 75% energy and pro needs Anticipated Discharge Needs: Glucerna 1.2 at 45ml/hr with 75ml water flush q4h. Follow-Up By: 12/22/20 Additional Comments F/U stable TF
[2020-12-16] MEDS: INSULIN GLARGINE 100 UNITS/ML SUB-Q SCH (09:22)
[2020-12-16] MEDS: DOCUSATE SODIUM 100 MG/10 ML ORAL LIQD FEEDTUBE SCH ×2 (09:22→21:15)
[2020-12-16] MEDS: MULTIVITAMIN / MINERAL ORAL LIQUID 15 ML PO SCH (09:22)
[2020-12-16] MEDS: CITALOPRAM 20 MG TAB PO SCH (09:23)
[2020-12-16] MEDS: FAMOTIDINE 20 MG TAB PO SCH (09:23)
[2020-12-17] MEDS: INSULIN LISPRO 100 UNIT/ML SUB-Q SCH ×4 (00:40→18:14)
[2020-12-17 06:33] LABS: Hematocrit 29.5 % (30.3-42.9); Hemoglobin 9.8 gm/dl (10.1-14.3); Mean Corpuscular HGB Conc 33 % (30-34); Mean Corpuscular Volume 86 fl (79-97); Platelet Count 494 K/mm3 (140-440); Red Blood Count 3.42 M/mm3 (3.65-5.03); Red Cell Distribution Width 18.3 % (13.2-15.2)
[2020-12-17 06:51] LABS: Blood Urea Nitrogen 19 mg/dL (7-17); Calcium 9.3 mg/dL (8.4-10.2); Hemolysis Index 13
[2020-12-17 06:59] LABS: BUN/Creatinine Ratio 32
--- NOTE | 2020-12-17 08:16 | Progress Note ---
Assessment and Plan Assessment and plan: 64-year-old female with PMH of dementia, CVA, left hemiplegia, DM, left AKA, dysphagia, hypokalemia, anemia, CKD 2, urine retention needing chronic indwelling Mcclure catheter was brought to ED for evaluation of AMS and possible vaginal bleeding. Patient was noted to be in septic shock with BP 80/60 and pyuria and hematuria. Mcclure catheter was exchanged in ED. Patient was administered IV fluid boluses with improvement of hypotension and started on antibiotics after cultures. Sepsis. Patient previously with septic shock. Bilateral pyelonephritis/complicated UTI. Toxic metabolic encephalopathy. Cecum pneumatosis. Resolved History of CVA, left hemiparesis, aphasic and dysphagia. (2008,2015) Left AKA 2016 New right-sided weakness. Acute kidney injury on CKD stage II. Resolved. Hypokalemia Diabetes mellitus type 2. Anemia 12/03/2020. Patient has now stable vital signs and hypertension resolved. Receiving normal saline 125 mill per hour. She spiked a fever of 100.6 today. Hemoglobin dropped to 6.8 and ordered PRBC transfusion. Hematuria actually resolved. No vaginal bleeding. Mental status improved, she is now awake awake but minimally verbalizes. She can occasionally give her name. She just mumbles. Not in acute distress. Large urine output and MAILE resolved. 12/04/2020. Shock state resolved. MAILE resolved. Mental status much improved. Follows commands but poorly verbal likely from dementia. Continue to avoid narcotics. Patient has a low-grade fever, leukocytosis , on cefepime, cultures pending. Discontinue normal saline. Started Glucerna tube feeds via NG tube, continue aspiration precautions. Ordered swallowing evaluation. Hemoglobin dropped from 7.8-6.8, possibly just dilutional. Hematuria resolved, no vaginal bleeding. Will transfuse PRBC. Consider urology consultation for evaluation of possible bladder tumor when more stable. Daughter reports significant cognitive decline since 07/2020 admission for UTI. Right-sided weakness is new according to daughter. Will order MRI brain when more stable. 12/05/2020. Patient is nonverbal and occasional tracking with eyes on my exam this morning. Baseline mental status per daughter can follow commands and able to communicate but with slow speech. Also, reports ability to feed herself. MRI brain ordered to rule out new CVA. Continue IV antibiotics for UTI. Await speech therapy evaluation for dysphagia. Continue NG tube for tube feedings. I d/w daughter POC [phone]. 12/06/2020. Brain MRI shows no acute findings only extensive chronic changes. Neurology consultation. Altered mentation may be secondary to toxic metabolic encephalopathy from sepsis/UTI. Continue IV antibiotics. Consider ID consultation. Acute kidney injury resolved. Still awaiting speech therapy evaluation 12/07/2020. Neurology evaluated the patient and recommends EEG to rule out subclinical seizures. Patient may need repeat MRI. Continue IV antibiotics for sepsis/UTI. Patient has underlying toxic metabolic encephalopathy as well. Blood cultures negative x5 days. Urine culture also negative. However, patient with significant fever since last night. Repeat blood cultures, check lactic acid and obtain ID consultation 12/08/2020. CT scan suggestive of bilateral acute pyelonephritis and bowel ischemia. Vancomycin added by ID. Appreciate ID help. Vascular surgery for bowel ischemia. Follow-up repeat blood cultures. Lactic acid level normal. 12/09/2020. Consult GI and surgery for presumed bowel ischemia and cecum pneumatosis per vascular surgery recommendation. Continue IV antibiotics per ID recommendations. Cefepime and vancomycin discontinued and meropenem started. CT of abdomen with bilateral pyelonephritis. Urology evaluation for urinary bladder mass once cecum pneumatosis and presumed bowel ischemia addressed. Nurse reports patient with vomiting this a.m. Hold tube feedings and change NG tube to LIS. Check KUB rule out ileus. Consider Reglan. 12/10/2020. Vascular surgery reports CTA of abdomen and pelvis showed no evidence of stenosis or embolic phenomenon to the visceral vessels. Continue IV antibiotics per ID recommendations. CT scan reveals bilateral hydroureter nephrosis and bilateral pyelonephritis. Urology consultation. CT scan does not show any evidence of ileus. 12/11/2020. Continue IV antibiotics per ID recommendations. Urology consulted for bilateral hydroureteronephrosis and bilateral pyelonephritis. Urine and blood cultures are negative. 12/12/2020 Patient with sepsis, bilateral pyelonephritis, complicated UTI. Cont inue Merrem as per ID. Urology consulted. She is being seen by Dr. Caban. 12/13/2020 Patient with sepsis, bilateral pyelonephritis, complicated UTI. Patient still on Merrem. Hgb 9.7 today. 12/14/2020 patient with sepsis, bilateral pyelonephritis due to complicated UTI. She had previous strokes with left sided weakness. Now has right sided weakness but MRI did not confirm acute stroke. I discussed with 2 daughters, Joan and Vidal yesterday. They are very concerned. Will re-consult Neurology to re- evaluate. She is on Merrem to complete tomorrow. I also discussed with Joan again today. 12/15/2020 Patient with sepsis, bilateral pyelonephritis due to complicated UTI. She had previous strokes with left sided weakness. Now has right sided weakness but MRI did not confirm acute stroke. Re-consulted Neurology and he ordered EEG. Patient has dysphagia, failed swallow eval . I called and discussed with daughter Joan about need for PEG tube . She will let me no later today. 12/16/20 Patient with sepsis, bilateral pyelonephritis due to complicated UTI. She had previous strokes with left sided weakness. Now has right sided weakness but MRI did not confirm acute stroke. EEG ordered by Neurology. Daughter agrees to PEG tube, GI consulted 12/17/20 Patient with sepsis, bilateral pyelonephritis due to complicated UTI. She had previous strokes with left sided weakness. Now has right sided weakness but MRI did not confirm acute stroke., patient was re-evaluated by neurology. EEG ordered. She has dysphagia, family agrees to PEG tube placement. GI consulted. Hopefully PEG tube will be placed tomorrow. History Interval history: Patient is non-verbal, cannot give history Failed swallow test 12/16 Family agrees to PEG tube placement Hospitalist Physical - Physical exam Narrative exam: Gen: Not in acute distress, awake, NG tube HEENT: Normocephalic, atraumatic Neck : supple, no JVD Heart:S1 and S2 reg, no murmurs, rubs or gallop Lungs:clear to auscultation bilaterally Abd: Soft , non tender, non distended, normal bowel sounds Ext: No edema, no clubbing, no cyanosis, left AKA Neuro: Awake, non-verbal, weakness all ext, - Constitutional Vitals: Temp Pulse Resp BP Pulse Ox 98.0 F 99 H 18 120/77 96 12/17/20 04:49 12/17/20 04:49 12/17/20 04:49 12/17/20 04:49 12/17/20 07:27 General appearance: Present: no acute distress, other (Nonverbal) Results - Labs CBC & Chem 7: 12/17/20 05:29 12/17/20 05:29 Labs: Laboratory Last Values WBC 13.2 K/mm3 (4.5-11.0) H 12/17/20 05:29 RBC 3.42 M/mm3 (3.65-5.03) L 12/17/20 05:29 Hgb 9.8 gm/dl (10.1-14.3) L 12/17/20 05:29 Hct 29.5 % (30.3-42.9) L 12/17/20 05:29 MCV 86 fl (79-97) 12/17/20 05:29 MCH 29 pg (28-32) 12/17/20 05:29 MCHC 33 % (30-34) 12/17/20 05:29 RDW 18.3 % (13.2-15.2) H 12/17/20 05:29 Plt Count 494 K/mm3 (140-440) H 12/17/20 05:29 Lymph % (Auto) 17.2 % (13.4-35.0) 12/13/20 04:53 [place] % (Auto) 4.9 % (0.0-7.3) 12/13/20 04:53 Eos % (Auto) 2.7 % (0.0-4.3) 12/13/20 04:53 Baso % (Auto) 0.6 % (0.0-1.8) 12/13/20 04:53 Lymph # (Auto) 2.5 K/mm3 (1.2-5.4) 12/13/20 04:53 [place] # (Auto) 0.7 K/mm3 (0.0-0.8) 12/13/20 04:53 Eos # (Auto) 0.4 K/mm3 (0.0-0.4) 12/13/20 04:53 Baso # (Auto) 0.1 K/mm3 (0.0-0.1) 12/13/20 04:53 Add Manual Diff Complete 12/08/20 11:47 Total Counted 100 12/08/20 11:47 Seg Neutrophils % 74.6 % (40.0-70.0) H 12/13/20 04:53 Seg Neuts % (Manual) 72.0 % (40.0-70.0) H 12/08/20 11:47 Lymphocytes % (Manual) 24.0 % (13.4-35.0) 12/08/20 11:47 Monocytes % (Manual) 4.0 % (0.0-7.3) 12/08/20 11:47 Nucleated RBC % Not Reportable 12/08/20 11:47 Seg Neutrophils # 10.9 K/mm3 (1.8-7.7) H 12/13/20 04:53 Seg Neutrophils # Man 16.1 K/mm3 (1.8-7.7) H 12/08/20 11:47 Band Neutrophils # 0.0 K/mm3 12/08/20 11:47 Lymphocytes # (Manual) 5.4 K/mm3 (1.2-5.4) 12/08/20 11:47 Abs React Lymphs (Man) 0.0 K/mm3 12/08/20 11:47 Monocytes # (Manual) 0.9 K/mm3 (0.0-0.8) H 12/08/20 11:47 Eosinophils # (Manual) 0.0 K/mm3 (0.0-0.4) 12/08/20 11:47 Basophils # (Manual) 0.0 K/mm3 (0.0-0.1) 12/08/20 11:47 Metamyelocytes # 0.0 K/mm3 12/08/20 11:47 Myelocytes # 0.0 K/mm3 12/08/20 11:47 Promyelocytes # 0.0 K/mm3 12/08/20 11:47 Blast Cells # 0.0 K/mm3 12/08/20 11:47 WBC Morphology Not Reportable 12/08/20 11:47 Hypersegmented Neuts Not Reportable 12/08/20 11:47 Hyposegmented Neuts Not Reportable 12/08/20 11:47 Hypogranular Neuts Not Reportable 12/08/20 11:47 Smudge Cells Not Reportable 12/08/20 11:47 Toxic Granulation Not Reportable 12/08/20 11:47 Toxic Vacuolation Not Reportable 12/08/20 11:47 Dohle Bodies Not Reportable 12/08/20 11:47 Pelger-Huet Anomaly Not Reportable 12/08/20 11:47 [place] Rods Not Reportable 12/08/20 11:47 Platelet Estimate Consistent w auto 12/08/20 11:47 Clumped Platelets Not Reportable 12/08/20 11:47 Plt Clumps, EDTA Not Reportable 12/08/20 11:47 Large Platelets Not Reportable 12/08/20 11:47 Giant Platelets Not Reportable 12/08/20 11:47 Platelet Satelliting Not Reportable 12/08/20 11:47 Plt Morphology Comment Not Reportable 12/08/20 11:47 RBC Morphology Not Reportable 12/08/20 11:47 Dimorphic RBCs Not Reportable 12/08/20 11:47 Polychromasia Not Reportable 12/08/20 11:47 Hypochromasia Not Reportable 12/08/20 11:47 Poikilocytosis Not Reportable 12/08/20 11:47 Anisocytosis 1+ 12/08/20 11:47 Microcytosis Not Reportable 12/08/20 11:47 Macrocytosis Not Reportable 12/08/20 11:47 Spherocytes Not Reportable 12/08/20 11:47 Pappenheimer Bodies Not Reportable 12/08/20 11:47 Sickle Cells Not Reportable 12/08/20 11:47 Target Cells Not Reportable 12/08/20 11:47 Tear Drop Cells Not Reportable 12/08/20 11:47 Ovalocytes Not Reportable 12/08/20 11:47 Stomatocytes 1+ 12/08/20 11:47 Helmet Cells Not Reportable 12/08/20 11:47 [place] Bodies Not Reportable 12/08/20 11:47 [place] Rings Not Reportable 12/08/20 11:47 [place] Cells Not Reportable 12/08/20 11:47 Bite Cells Not Reportable 12/08/20 11:47 Crenated Cell Not Reportable 12/08/20 11:47 Elliptocytes Not Reportable 12/08/20 11:47 Acanthocytes (Spur) Not Reportable 12/08/20 11:47 Rouleaux Not Reportable 12/08/20 11:47 Hemoglobin C Crystals Not Reportable 12/08/20 11:47 Schistocytes Not Reportable 12/08/20 11:47 Malaria parasites Not Reportable 12/08/20 11:47 [place] Bodies Not Reportable 12/08/20 11:47 Hem Pathologist Commnt No 12/08/20 11:47 PT 15.3 Sec. (12.2-14.9) H 12/02/20 02:53 INR 1.16 (0.87-1.13) H 12/02/20 02:53 APTT 37.7 Sec. (24.2-36.6) H 12/02/20 02:53 Sodium 137 mmol/L (137-145) 12/17/20 05:29 Potassium 4.3 mmol/L (3.6-5.0) 12/17/20 05:29 Chloride 99.5 mmol/L (98-107) 12/17/20 05:29 Carbon Dioxide 29 mmol/L (22-30) 12/17/20 05:29 Anion Gap 13 mmol/L 12/17/20 05:29 BUN 19 mg/dL (7-17) H 12/17/20 05:29 Creatinine 0.6 mg/dL (0.6-1.2) 12/17/20 05:29 Estimated GFR > 60 ml/min 12/17/20 05:29 BUN/Creatinine Ratio 32 % 12/17/20 05:29 Glucose 140 mg/dL (65-100) H 12/17/20 05:29 POC Glucose 159 mg/dL (70-105) H 12/16/20 20:55 Hemoglobin A1c 7.4 % (4-6) H 12/02/20 Unknown Lactic Acid 1.70 mmol/L (0.7-2.0) 12/08/20 11:47 Calcium 9.3 mg/dL (8.4-10.2) 12/17/20 05:29 Magnesium 1.50 mg/dL (1.7-2.3) L 12/04/20 09:51 Total Bilirubin 0.20 mg/dL (0.1-1.2) 12/05/20 05:04 AST 15 units/L (5-40) 12/05/20 05:04 ALT 7 units/L (7-56) 12/05/20 05:04 Alkaline Phosphatase 112 units/L (35-129) 12/05/20 05:04 C-Reactive Protein 1.30 mg/dL (0.00-1.30) 12/07/20 17:04 Total Protein 8.4 g/dL (6.3-8.2) H 12/05/20 05:04 Albumin 2.8 g/dL (3.9-5) L 12/05/20 05:04 Albumin/Globulin Ratio 0.5 % 12/05/20 05:04 Procalcitonin 0.27 ng/mL (<0.15) 12/09/20 12:37 Urine Color Yellow (Yellow) 12/02/20 03:50 Urine Turbidity Turbid (Clear) 12/02/20 03:50 Urine pH 6.0 (5.0-7.0) 12/02/20 03:50 Ur Specific [place] 1.008 (1.003-1.030) 12/02/20 03:50 Urine Protein 100 mg/dl mg/dL (Negative) 12/02/20 03:50 Urine Glucose (UA) Neg mg/dL (Negative) 12/02/20 03:50 Urine Ketones Neg mg/dL (Negative) 12/02/20 03:50 Urine Blood Lg (Negative) 12/02/20 03:50 Urine Nitrite Neg (Negative) 12/02/20 03:50 Urine Bilirubin Neg (Negative) 12/02/20 03:50 Urine Urobilinogen < 2.0 mg/dL (<2.0) 12/02/20 03:50 Ur Leukocyte Esterase Lg (Negative) 12/02/20 03:50 Urine WBC (Auto) > 182.0 /HPF (0.0-6.0) H 12/02/20 03:50 Urine RBC (Auto) > 182.0 /HPF (0.0-6.0) 12/02/20 03:50 U Epithel Cells (Auto) 6.0 /HPF (0-13.0) 12/02/20 03:50 Urine Bacteria (Auto) 1+ /HPF (Negative) 12/02/20 03:50 Urine WBC Clumps 3+ /HPF 12/02/20 03:50 Phenytoin 9.8 ug/mL (10.0-20.0) L 12/14/20 15:44 Coronavirus (PCR) Negative (Negative) 12/05/20 Unknown Blood Type O POSITIVE 12/02/20 02:05 Antibody Screen Negative 12/02/20 02:05 Crossmatch See Detail 12/02/20 02:05 Mcclure/IV: Voiding Method Indwelling Catheter Active Medications - Current Medications Current Medications: Generic Name Dose Route Start Last Admin Trade Name Freq PRN Reason Stop Dose Admin Acetaminophen 650 mg 12/02/20 05:24 12/15/20 06:28 Acetaminophen 325 Mg Tab PO 650 mg Q4H PRN Administration Pain MILD(1-3)/Fever >100.5/SMALLS Albuterol 2.5 mg 12/02/20 05:24 12/03/20 15:11 Albuterol 2.5 Mg/3 Ml Nebu IH 2.5 mg Q4HRT PRN Administration Shortness Of Breath Lipase/Protease/Amylase 1 each 12/03/20 10:22 Lipase 10,500/Protease 25,000/Amylase 43,750 (Units) Dr Blount FEEDTUBE PRN PRN For Clogged Feeding Tube Atorvastatin Calcium 40 mg 12/02/20 10:00 12/16/20 09:23 Atorvastatin 40 Mg Tab PO 40 mg DAILY ADOLFO Administration Citalopram Hydrobromide 20 mg 12/02/20 10:00 12/16/20 09:23 Citalopram 20 Mg Tab PO 20 mg DAILY ADOLFO Administration Dextrose 50 ml 12/02/20 11:18 Dextrose 50% In Water (25gm) 50 Ml Syringe IV Q30MIN PRN Hypoglycemia Protocol Docusate Sodium 100 mg 12/04/20 10:00 12/16/20 21:15 Docusate Sodium 100 Mg/10 Ml Oral Liqd FEEDTUBE 100 mg BID ADOLFO Administration Famotidine 20 mg 12/04/20 10:00 12/16/20 09:23 Famotidine 20 Mg Tab PO 20 mg DAILY ADOLFO Administration Insulin Glargine 10 units 12/05/20 08:00 12/16/20 09:22 Insulin Glargine 100 Units/Ml SUB-Q 10 units QAMDIAB ADOLFO Administration Insulin Human Lispro 0 unit 12/04/20 00:00 12/17/20 05:23 Insulin Lispro 100 Unit/Ml SUB-Q Not Given Q6HR ADOLFO Protocol Metoclopramide HCl 10 mg 12/09/20 10:31 12/12/20 18:36 Metoclopramide 10 Mg/2 Ml Inj IV 10 mg Q6H PRN Administration Nausea And Vomiting Ondansetron HCl 4 mg 12/02/20 05:24 12/05/20 22:37 Ondansetron 4 Mg/2 Ml Inj IV 4 mg Q8H PRN Administration Nausea And Vomiting Simple Syrup 15 ml 12/03/20 10:22 Simple Syrup 15 Ml FEEDTUBE PRN PRN Hypoglycemia Simple Syrup 30 ml 12/03/20 10:22 Simple Syrup 15 Ml FEEDTUBE PRN PRN Hypoglycemia Sodium Bicarbonate 325 mg 12/03/20 10:22 Sodium Bicarbonate 325 Mg Tab FEEDTUBE PRN PRN For Clogged Feeding Tube Sodium Chloride 10 ml 12/02/20 10:00 12/16/20 21:15 Sodium Chloride 0.9% 10 Ml Flush Syringe IV 10 ml BID ADOLFO Administration Sodium Chloride 10 ml 12/02/20 05:24 12/14/20 04:46 Sodium Chloride 0.9% 10 Ml Flush Syringe IV 10 ml PRN PRN Administration LINE FLUSH Nutrition/Malnutrition Assess - Dietary Evaluation Nutrition/Malnutrition Findings: Nutrition Notes Start: 12/03/20 11:43 Freq: Status: Active Protocol: Document 12/15/20 13:53 (Rec: 12/15/20 14:00 [email or web address]) Nutrition Notes Initial or Follow up Reassessment Current Diagnosis Diabetes,Sepsis,Hypertension, Stroke Other Pertinent Diagnosis Hypotension, UTI, ARF, Vaginal bleeding, Dementia, Dysphagia , (L) AKA Current Diet TF - Glucerna 1.2 at 45ml/hr Labs/Tests reviewed Pertinent Medications reviewed Height 5 ft Weight 56.7 kg [place] Body Weight (kg) 45.45 BMI 24.4 Weight Status Appropriate Subjective/Other Information TF continues to run at 45 ml/ hr and pt tolerating. TF was never reordered, however, pt receiving. [employer]PLICATION [employer]INEER recommends NPO. Percent of energy/protein needs met: 100%/100% Burn Absent Trauma Absent Difficulty In Swallowing Current % PO Negligible Minimum of two criteria No physical signs of malnutrition #1 Nutrition Diagnosis Inadequate oral intake Diagnosis Progress(for reassessment Continues documentation) Is patient on ventilator? No Is Patient Ambulatory and/or Out of Bed No REE-([facility]-confined to bed) [phone] Calculation Used for Recommendations [facility] Additional Notes Pro needs 1-1.2g/k-70g/ day Fluid needs 1ml/kcal Nutrition Intervention Nutrition Support: Glucerna 1.2 at 45ml/hr with 75ml water flush q4h. Kcal 1,296 Protein (gm) 65 Carbohydrates (gm) 124 Fat (gm) 65 Fluid (mL) 869 Fiber (gm) 17 Goal #1 FU for intakes and ONS tolerance Goal #2 TF to meet at least 75% energy and pro needs Anticipated Discharge Needs: Glucerna 1.2 at 45ml/hr with 75ml water flush q4h. Follow-Up By: 12/22/20 Additional Comments F/U stable TF
[2020-12-17] MEDS: INSULIN GLARGINE 100 UNITS/ML SUB-Q SCH (10:04)
[2020-12-17] MEDS: FAMOTIDINE 20 MG TAB PO SCH (10:04)
[2020-12-17] MEDS: MULTIVITAMIN / MINERAL ORAL LIQUID 15 ML PO SCH (10:04)
[2020-12-17] MEDS: DOCUSATE SODIUM 100 MG/10 ML ORAL LIQD FEEDTUBE SCH ×2 (10:04→22:17)
[2020-12-17] MEDS: CITALOPRAM 20 MG TAB PO SCH (10:04)
--- NOTE | 2020-12-17 10:05 | Gastroenterology Consultation ---
History of Present Illness - Reason for Consult Consult date: 12/17/20 PEG - History of Present Illness Patient is unable to provide a history therefore spoke with the patient's daughter at the number below Patient with worsening mental status unable to eat anymore failed swallow study Lina Nguyen [phone] Obtained/updated/reviewed patient's current medications Past History Past Medical History: diabetes, GERD, hypertension, stroke, other (Depression, dementia GERD and supple of) Past Surgical History: No surgical history Social history: no significant social history Family history: no significant family history Medications and Allergies Allergies Allergy/AdvReac Type Severity Reaction Status Date / Time No Known Allergies Allergy Verified 12/02/20 16:58 Home Medications Medication Instructions Recorded Confirmed Last Taken Type Oxybutynin [Ditropan] 5 mg PO BID #60 tablet 09/28/19 12/02/20 Unknown Rx levoFLOXacin [Levaquin TAB] 500 mg PO QDAY #5 tablet 09/28/19 12/02/20 Unknown Rx Acetaminophen [Aphen] 325 mg PO Q4H PRN 07/21/20 12/02/20 Unknown History Aspirin [Adult Aspirin] 81 mg PO DAILY 07/21/20 12/02/20 Unknown History AtorvaSTATin [Lipitor] 40 mg PO DAILY 07/21/20 12/02/20 Unknown History Citalopram [Celexa] 20 mg PO DAILY 07/21/20 12/02/20 Unknown History Docusate Sodium [Colace CAP] 100 mg PO BID 07/21/20 12/02/20 Unknown History Insulin Aspart (Nf) [NovoLOG 100 0 unit SQ AC 07/21/20 12/02/20 Unknown History UNITS/ML VIAL] Insulin Glargine [Lantus VIAL] 20 units SQ BID 07/21/20 12/02/20 Unknown History Insulin Lispro [Admelog] 5 unit SQ ACHS 07/21/20 12/02/20 Unknown History Multivitamin [One-Daily 1 tab PO DAILY 07/21/20 12/02/20 Unknown History Multi-Vitamin] Norvasc 10 mg PO DAILY 07/21/20 12/02/20 Unknown History Nystatin [Nystatin SUSP] 100,000 ml PO QID 07/21/20 12/02/20 Unknown History Ondansetron HCl [Zofran] 4 mg PO Q8H 07/21/20 12/02/20 Unknown History Oxybutynin [Ditropan] 5 mg PO DAILY 07/21/20 12/02/20 Unknown History Pantoprazole [Protonix TAB] 40 mg PO QDAY 07/21/20 12/02/20 Unknown History Potassium 10 meq PO QAM 07/21/20 12/02/20 Unknown History Sennosides [Senna] 1 tab PO BID 07/21/20 12/02/20 Unknown History bisacodyL [Dulcolax suppos] 10 mg [place] DAILY 07/21/20 12/02/20 Unknown History cephALEXin [Keflex] 250 mg PO Q6HR #10 capsule 07/21/20 12/02/20 Unknown Rx diphenhydrAMINE [Benadryl CAP] 25 mg PO Q6H PRN 07/21/20 12/02/20 Unknown History megestroL [Megace] 40 mg PO DAILY #30 tablet 07/22/20 12/02/20 Unknown Rx Active Meds: Active Medications Acetaminophen (Acetaminophen 325 Mg Tab) 650 mg PO Q4H PRN PRN Reason: Pain MILD(1-3)/Fever >100.5/SMALLS Last Admin: 12/15/20 06:28 Dose: 650 mg Documented by: Albuterol (Albuterol 2.5 Mg/3 Ml Nebu) 2.5 mg IH Q4HRT PRN PRN Reason: Shortness Of Breath Last Admin: 12/03/20 15:11 Dose: 2.5 mg Documented by: Lipase/Protease/Amylase (Lipase 10,500/Protease 25,000/Amylase 43,750 (Units) Dr Blount) 1 each FEEDTUBE PRN PRN PRN Reason: For Clogged Feeding Tube Atorvastatin Calcium (Atorvastatin 40 Mg Tab) 40 mg PO DAILY [facility] Last Admin: 12/16/20 09:23 Dose: 40 mg Documented by: Citalopram Hydrobromide (Citalopram 20 Mg Tab) 20 mg PO DAILY [facility] Last Admin: 12/16/20 09:23 Dose: 20 mg Documented by: Dextrose (Dextrose 50% In Water (25gm) 50 Ml Syringe) 50 ml IV Q30MIN PRN; Protocol PRN Reason: Hypoglycemia Docusate Sodium (Docusate Sodium 100 Mg/10 Ml Oral Liqd) 100 mg FEEDTUBE BID [facility] Last Admin: 12/16/20 21:15 Dose: 100 mg Documented by: Famotidine (Famotidine 20 Mg Tab) 20 mg PO DAILY [facility] Last Admin: 12/16/20 09:23 Dose: 20 mg Documented by: Insulin Glargine (Insulin Glargine 100 Units/Ml) 10 units SUB-Q QAMDIAB [facility] Last Admin: 12/16/20 09:22 Dose: 10 units Documented by: Insulin Human Lispro (Insulin Lispro 100 Unit/Ml) 0 unit SUB-Q Q6HR [facility]; Protocol Last Admin: 12/17/20 05:23 Dose: Not Given Documented by: Metoclopramide HCl (Metoclopramide 10 Mg/2 Ml Inj) 10 mg IV Q6H PRN PRN Reason: Nausea And Vomiting Last Admin: 12/12/20 18:36 Dose: 10 mg Documented by: Ondansetron HCl (Ondansetron 4 Mg/2 Ml Inj) 4 mg IV Q8H PRN PRN Reason: Nausea And Vomiting Last Admin: 12/05/20 22:37 Dose: 4 mg Documented by: Simple Syrup (Simple Syrup 15 Ml) 15 ml FEEDTUBE PRN PRN PRN Reason: Hypoglycemia Simple Syrup (Simple Syrup 15 Ml) 30 ml FEEDTUBE PRN PRN PRN Reason: Hypoglycemia Sodium Bicarbonate (Sodium Bicarbonate 325 Mg Tab) 325 mg FEEDTUBE PRN PRN PRN Reason: For Clogged Feeding Tube Sodium Chloride (Sodium Chloride 0.9% 10 Ml Flush Syringe) 10 ml IV BID [facility] Last Admin: 12/16/20 21:15 Dose: 10 ml Documented by: Sodium Chloride (Sodium Chloride 0.9% 10 Ml Flush Syringe) 10 ml IV PRN PRN PRN Reason: LINE FLUSH Last Admin: 12/14/20 04:46 Dose: 10 ml Documented by: Review of Systems - Review of Systems ROS unobtainable: due to mental status Exam - Constitutional Vital Signs: Temp Pulse Resp BP Pulse Ox 99.1 F 103 H 20 136/82 91 12/17/20 08:02 12/17/20 08:02 12/17/20 08:02 12/17/20 08:02 12/17/20 08:02 General appearance: other (Mild contractures) - Respiratory Respiratory effort: normal - Cardiovascular Rhythm: regular - Gastrointestinal General gastrointestinal: Present: soft, non-tender - Musculoskeletal Musculoskeletal: other (Contractures) - Neurologic Neurological: other (Not able to talk in order to be able to assess) - Psychiatric Psychiatric: other (Opens eyes when I talk does not respond) - Labs CBC & Chem 7: 12/17/20 05:29 12/17/20 05:29 Lab Results: Laboratory Results - last 24 hr 12/16/20 12/16/20 12/16/20 11:59 17:46 20:55 WBC RBC Hgb Hct MCV MCH MCHC RDW Plt Count Sodium Potassium Chloride Carbon Dioxide Anion Gap BUN Creatinine Estimated GFR BUN/Creatinine Ratio Glucose POC Glucose 164 H 150 H 159 H Calcium 12/17/20 12/17/20 05:29 05:29 WBC 13.2 H RBC 3.42 L Hgb 9.8 L Hct 29.5 L MCV 86 MCH 29 MCHC 33 RDW 18.3 H Plt Count 494 H Sodium 137 Potassium 4.3 Chloride 99.5 Carbon Dioxide 29 Anion Gap 13 BUN 19 H Creatinine 0.6 Estimated GFR > 60 BUN/Creatinine Ratio 32 Glucose 140 H POC Glucose Calcium 9.3 Assessment and Plan Spoke with daughter, reviewed risk benefits alternatives of PEG tube After thorough discussion daughter wishes to proceed with PEG tube. We will proceed with PEG tube tomorrow morning Please turn off tube feeds at 11 PM tonight - Patient Problems (1) Dysphagia Current Visit: Yes Status: Acute
[2020-12-18] MEDS: INSULIN LISPRO 100 UNIT/ML SUB-Q SCH ×4 (04:33→18:00)
[2020-12-18] MEDS ORDERED: WATER FOR IRRIG STERILE 1,000 ML BOTTLE ONE (07:30)
[2020-12-18] MEDS ORDERED: SODIUM CHLORIDE 0.9% 1000 ML 1,000 ML ONE (07:30)
[2020-12-18] MEDS ORDERED: WATER FOR IRRIG STERILE 250 ML BOTTLE IR ONE (07:30)
[2020-12-18] MEDS ORDERED: SODIUM CHLORIDE 0.9% 1000 ML 1,000 ML IV SCH (07:30)
[2020-12-18] MEDS ORDERED: LIDOCAINE MPF (2%) 20 MG/1 ML VIAL 5 ML ONE (07:30)
[2020-12-18] MEDS ORDERED: ceFAZolin/Water 2 GM/20 ML 2 GM/20 ML SYRINGE IV NR (08:00)
--- NOTE | 2020-12-18 08:00 | Anesthesia Consultation ---
Anesthesia Consult and Med Hx Date of service: 12/18/20 - Airway Anesthetic Teeth Evaluation: Poor ROM Head & Neck: Adequate Mental/Hyoid Distance: Adequate Mallampati Class: Class II Intubation Access Assessment: Good - Pulmonary Exam CTA: Yes - Cardiac Exam Cardiac Exam: RRR - Pre-Operative Health Status ASA Pre-Surgery Classification: ASA3 Proposed Anesthetic Plan: MAC (Pt non-verbal, phone concent obtained by daughter. ) - Pulmonary Hx Smoking: No Hx Asthma: No COPD: No Hx Pneumonia: No Hx Sleep Apnea: No - Cardiovascular System Hx Hypertension: Yes Hx Coronary Artery Disease: No Hx Heart Attack/AMI: No Hx Angina: No Hx Pacemaker: No Hx Heart Murmur: No - Central Nervous System CVA: Yes - Gastrointestinal Hx Ulcer: No - Endocrine Hx Renal Disease: No Hx End Stage Renal Disease: No Hx Cirrhosis: No Hx Liver Disease: No - Other Systems Hx Cancer: No
--- NOTE | 2020-12-18 08:01 | Anesthesia Day of Surgery ---
Anesthesia Day of Surgery - Day of Surgery Patient Examined: Yes Patient H&P Reviewed: Yes Patient is NPO: Yes
[2020-12-18] MEDS ORDERED: propofoL 200 MG/20 ML VIAL IV ONE (08:05)
[2020-12-18] MEDS ORDERED: MIDAZOLAM 2 MG/2 ML INJ ONE (08:09)
--- NOTE | 2020-12-18 08:33 | Operative Report ---
Operative Report Operative Report: DOS 12/18/20 ANTIBIOTICS: Ancef 2g IV times one dose SURGEON: Nate Orozco MD EGD WITH PEG TUBE PLACEMENT and biopsy REPORT PREOPERATIVE DIAGNOSIS and POSTOPERATIVE DIAGNOSIS: Dysphagia, anemia ESTIMATED BLOOD LOSS: minimal DESCRIPTION OF PROCEDURE: A high-resolution EGD scope was passed through the o ropharynx, esophagus, stomach, and second portion of duodenum. The scope was carefully withdrawn. Retroflexion was performed in the stomach. At the end of the procedure, the scope was cleaned using normal technique. Vital signs monitored continuously throughout. The stomach was transilluminated and an optimal position for the PEG tube was identified using the single poke method. The skin was infiltrated with local anesthesia and the needle and sheath were inserted through the abdomen into the stomach under direct visualization. The needle was removed and a guidewire was inserted through the sheath. The guidewire was grasped from above with a snare. It was removed completely and the PEG tube was secured to the guidewire. The guidewire and PEG tube were then pulled through the mouth and esophagus and snug to the abdominal wall. There was no evidence of bleeding. The Bolster was placed on the PEG site. SEDATION: Provided by Anesthesiology Services. COMPLICATIONS: None. FINDINGS: * No gross lesions in the entire examined duodenum * Hemorrhagic gastritis with adherent blood in the antrum and body no active bleeding seen however. Biopsies using cold forceps were taken to rule out H. Pylori infection. A total of 5 biopsies were taken, 2 from the antrum, 1 from the incisura, 2 from the body. * Z-line irregular at 37 cm from the incisors * Remainder of exam unremarkable RECOMMENDATIONS: The PEG may be used for medication and water flushes now. Tomorrow, if there are normal bowel sounds and no significant abdominal tenderness to palpation may start tube feeds Follow-up pathology results I am starting patient on pantoprazole 40 mg once daily to treat the hemorrhagic gastritis
--- NOTE | 2020-12-18 09:49 | Post Anesthesia Evaluation ---
- Post Anesthesia Evaluation Patient Participated: No Airway Patent: Yes Stable Respiratory Function: Yes Nausea/Vomiting: No Temp > 96.8F: Yes Pain Manageable: Yes Adequeate Hydration: Yes Anesthesia Complications: No
[2020-12-18] MEDS: INSULIN GLARGINE 100 UNITS/ML SUB-Q SCH (10:04)
[2020-12-18] MEDS: DOCUSATE SODIUM 100 MG/10 ML ORAL LIQD FEEDTUBE SCH ×2 (10:05→22:29)
[2020-12-18] MEDS: MULTIVITAMIN / MINERAL ORAL LIQUID 15 ML PO SCH (11:04)
[2020-12-18] MEDS: LANSOPRAZOLE 30 MG SOLUTAB FEEDTUBE SCH (11:04)
[2020-12-18] MEDS: CITALOPRAM 20 MG TAB PO SCH (11:04)
--- NOTE | 2020-12-18 11:47 | Progress Note ---
Assessment and Plan Assessment and plan: 64-year-old female with PMH of dementia, CVA, left hemiplegia, DM, left AKA, dysphagia, hypokalemia, anemia, CKD 2, urine retention needing chronic indwelling Mcclure catheter was brought to ED for evaluation of AMS and possible vaginal bleeding. Patient was noted to be in septic shock with BP 80/60 and pyuria and hematuria. Mcclure catheter was exchanged in ED. Patient was administered IV fluid boluses with improvement of hypotension and started on antibiotics after cultures. Sepsis. Patient previously with septic shock. Bilateral pyelonephritis/complicated UTI. Toxic metabolic encephalopathy. Cecum pneumatosis. Resolved History of CVA, left hemiparesis, aphasic and dysphagia. (2008,2015) Left AKA 2016 New right-sided weakness. MRI did not show new stroke Aphasia Dysphagia s/p PEG tube placed today Acute kidney injury on CKD stage II. Resolved. Hypokalemia Diabetes mellitus type 2. Anemia 12/03/2020. Patient has now stable vital signs and hypertension resolved. Receiving normal saline 125 mill per hour. She spiked a fever of 100.6 today. Hemoglobin dropped to 6.8 and ordered PRBC transfusion. Hematuria actually resolved. No vaginal bleeding. Mental status improved, she is now awake awake but minimally verbalizes. She can occasionally give her name. She just mumbles. Not in acute distress. Large urine output and MAILE resolved. 12/04/2020. Shock state resolved. MAILE resolved. Mental status much improved. Follows commands but poorly verbal likely from dementia. Continue to avoid narcotics. Patient has a low-grade fever, leukocytosis , on cefepime, cultures pending. Discontinue normal saline. Started Glucerna tube feeds via NG tube, continue aspiration precautions. Ordered swallowing evaluation. Hemoglobin dropped from 7.8-6.8, possibly just dilutional. Hematuria resolved, no vaginal bleeding. Will transfuse PRBC. Consider urology consultation for evaluation of possible bladder tumor when more stable. Daughter reports significant cognitive decline since 07/2020 admission for UTI. Right-sided weakness is new according to daughter. Will order MRI brain when more stable. 12/05/2020. Patient is nonverbal and occasional tracking with eyes on my exam this morning. Baseline mental status per daughter can follow commands and able to communicate but with slow speech. Also, reports ability to feed herself. MRI brain ordered to rule out new CVA. Continue IV antibiotics for UTI. Await speech therapy evaluation for dysphagia. Continue NG tube for tube feedings. I d/w daughter POC [phone]. 12/06/2020. Brain MRI shows no acute findings only extensive chronic changes. Neurology consultation. Altered mentation may be secondary to toxic metabolic encephalopathy from sepsis/UTI. Continue IV antibiotics. Consider ID co nsultation. Acute kidney injury resolved. Still awaiting speech therapy evaluation 12/07/2020. Neurology evaluated the patient and recommends EEG to rule out subclinical seizures. Patient may need repeat MRI. Continue IV antibiotics for sepsis/UTI. Patient has underlying toxic metabolic encephalopathy as well. Blood cultures negative x5 days. Urine culture also negative. However, patient with significant fever since last night. Repeat blood cultures, check lactic acid and obtain ID consultation 12/08/2020. CT scan suggestive of bilateral acute pyelonephritis and bowel ischemia. Vancomycin added by ID. Appreciate ID help. Vascular surgery for bowel ischemia. Follow-up repeat blood cultures. Lactic acid level normal. 12/09/2020. Consult GI and surgery for presumed bowel ischemia and cecum pneumatosis per vascular surgery recommendation. Continue IV antibiotics per ID recommendations. Cefepime and vancomycin discontinued and meropenem started. CT of abdomen with bilateral pyelonephritis. Urology evaluation for urinary bladder mass once cecum pneumatosis and presumed bowel ischemia addressed. Nurse reports patient with vomiting this a.m. Hold tube feedings and change NG tube to LIS. Check KUB rule out ileus. Consider Reglan. 12/10/2020. Vascular surgery reports CTA of abdomen and pelvis showed no evidence of stenosis or embolic phenomenon to the visceral vessels. Continue IV antibiotics per ID recommendations. CT scan reveals bilateral hydroureter neph rosis and bilateral pyelonephritis. Urology consultation. CT scan does not show any evidence of ileus. 12/11/2020. Continue IV antibiotics per ID recommendations. Urology consulted for bilateral hydroureteronephrosis and bilateral pyelonephritis. Urine and blood cultures are negative. 12/12/2020 Patient with sepsis, bilateral pyelonephritis, complicated UTI. Continue Merrem as per ID. Urology consulted. She is being seen by Dr. Caban. 12/13/2020 Patient with sepsis, bilateral pyelonephritis, complicated UTI. Patient still on Merrem. Hgb 9.7 today. 12/14/2020 patient with sepsis, bilateral pyelonephritis due to complicated UTI. She had previous strokes with left sided weakness. Now has right sided weakness but MRI did not confirm acute stroke. I discussed with 2 daughters, Joan and Vidal yesterday. They are very concerned. Will re-consult Neurology to re- evaluate. She is on Merrem to complete tomorrow. I also discussed with Joan again today. 12/15/2020 Patient with sepsis, bilateral pyelonephritis due to complicated UTI. She had previous strokes with left sided weakness. Now has right sided weakness but MRI did not confirm acute stroke. Re-consulted Neurology and he ordered EEG. Patient has dysphagia, failed swallow eval . I called and discussed with paulette frey Joan about need for PEG tube . She will let me no later today. 12/16/20 Patient with sepsis, bilateral pyelonephritis due to complicated UTI. She had previous strokes with left sided weakness. Now has right sided weakness but MRI did not confirm acute stroke. EEG ordered by Neurology. Daughter agrees to PEG tube, GI consulted 12/17/20 Patient with sepsis, bilateral pyelonephritis due to complicated UTI. She had previous strokes with left sided weakness. Now has right sided weakness but MRI did not confirm acute stroke., patient was re-evaluated by neurology. EEG ordered. She has dysphagia, family agrees to PEG tube placement. GI consulted. Hopefully PEG tube will be placed tomorrow. 12/18/20 Patient with sepsis, bilateral pyelonephritis due to complicated UTI. She had previous strokes with left sided weakness. Now has right sided weakness but MRI did not confirm acute stroke., Patient was re-evaluated by neurology. EEG ordered. She has dysphagia, family agrees to PEG tube placement. GI consulted. PEG tube placed today. Hemorrhagic gastritis seen, so put on Lansoprazole. To start feeding tomorrow. Likely dc to SNF in few days. Family had lots of questions about whether she had stroke or not, so I reconsulted Dr. Caceres today to review, follow up. History Interval history: Patient is non-verbal, cannot give history Failed swallow test 12/16 PEG tube placed today Hospitalist Physical - Physical exam Narrative exam: Gen: Not in acute distress, awake, NG tube HEENT: Normocephalic, atraumatic Neck : supple, no JVD Heart:S1 and S2 reg, no murmurs, rubs or gallop Lungs:clear to auscultation bilaterally Abd: Soft , non tender, non distended,PEG tube, normal bowel sounds Ext: No edema, no clubbing, no cyanosis, left AKA Neuro: Awake, non-verbal, weakness all ext, - Constitutional Vitals: Temp Pulse Resp BP Pulse Ox 98.7 F 97 H 20 124/74 97 12/18/20 09:01 12/18/20 09:01 12/18/20 09:01 12/18/20 09:01 12/18/20 09:01 General appearance: Present: no acute distress, other (Nonverbal) Results - Labs CBC & Chem 7: 12/17/20 05:29 12/17/20 05:29 Labs: Laboratory Last Values WBC 13.2 K/mm3 (4.5-11.0) H 12/17/20 05:29 RBC 3.42 M/mm3 (3.65-5.03) L 12/17/20 05:29 Hgb 9.8 gm/dl (10.1-14.3) L 12/17/20 05:29 Hct 29.5 % (30.3-42.9) L 12/17/20 05:29 MCV 86 fl (79-97) 12/17/20 05:29 MCH 29 pg (28-32) 12/17/20 05:29 MCHC 33 % (30-34) 12/17/20 05:29 RDW 18.3 % (13.2-15.2) H 12/17/20 05:29 Plt Count 494 K/mm3 (140-440) H 12/17/20 05:29 Lymph % (Auto) 17.2 % (13.4-35.0) 12/13/20 04:53 [place] % (Auto) 4.9 % (0.0-7.3) 12/13/20 04:53 Eos % (Auto) 2.7 % (0.0-4.3) 12/13/20 04:53 Baso % (Auto) 0.6 % (0.0-1.8) 12/13/20 04:53 Lymph # (Auto) 2.5 K/mm3 (1.2-5.4) 12/13/20 04:53 [place] # (Auto) 0.7 K/mm3 (0.0-0.8) 12/13/20 04:53 Eos # (Auto) 0.4 K/mm3 (0.0-0.4) 12/13/20 04:53 Baso # (Auto) 0.1 K/mm3 (0.0-0.1) 12/13/20 04:53 Add Manual Diff Complete 12/08/20 11:47 Total Counted 100 12/08/20 11:47 Seg Neutrophils % 74.6 % (40.0-70.0) H 12/13/20 04:53 Seg Neuts % (Manual) 72.0 % (40.0-70.0) H 12/08/20 11:47 Lymphocytes % (Manual) 24.0 % (13.4-35.0) 12/08/20 11:47 Monocytes % (Manual) 4.0 % (0.0-7.3) 12/08/20 11:47 Nucleated RBC % Not Reportable 12/08/20 11:47 Seg Neutrophils # 10.9 K/mm3 (1.8-7.7) H 12/13/20 04:53 Seg Neutrophils # Man 16.1 K/mm3 (1.8-7.7) H 12/08/20 11:47 Band Neutrophils # 0.0 K/mm3 12/08/20 11:47 Lymphocytes # (Manual) 5.4 K/mm3 (1.2-5.4) 12/08/20 11:47 Abs React Lymphs (Man) 0.0 K/mm3 12/08/20 11:47 Monocytes # (Manual) 0.9 K/mm3 (0.0-0.8) H 12/08/20 11:47 Eosinophils # (Manual) 0.0 K/mm3 (0.0-0.4) 12/08/20 11:47 Basophils # (Manual) 0.0 K/mm3 (0.0-0.1) 12/08/20 11:47 Metamyelocytes # 0.0 K/mm3 12/08/20 11:47 Myelocytes # 0.0 K/mm3 12/08/20 11:47 Promyelocytes # 0.0 K/mm3 12/08/20 11:47 Blast Cells # 0.0 K/mm3 12/08/20 11:47 WBC Morphology Not Reportable 12/08/20 11:47 Hypersegmented Neuts Not Reportable 12/08/20 11:47 Hyposegmented Neuts Not Reportable 12/08/20 11:47 Hypogranular Neuts Not Reportable 12/08/20 11:47 Smudge Cells Not Reportable 12/08/20 11:47 Toxic Granulation Not Reportable 12/08/20 11:47 Toxic Vacuolation Not Reportable 12/08/20 11:47 Dohle Bodies Not Reportable 12/08/20 11:47 Pelger-Huet Anomaly Not Reportable 12/08/20 11:47 Israel Rods Not Reportable 12/08/20 11:47 Platelet Estimate Consistent w auto 12/08/20 11:47 Clumped Platelets Not Reportable 12/08/20 11:47 Plt Clumps, EDTA Not Reportable 12/08/20 11:47 Large Platelets Not Reportable 12/08/20 11:47 Giant Platelets Not Reportable 12/08/20 11:47 Platelet Satelliting Not Reportable 12/08/20 11:47 Plt Morphology Comment Not Reportable 12/08/20 11:47 RBC Morphology Not Reportable 12/08/20 11:47 Dimorphic RBCs Not Reportable 12/08/20 11:47 Polychromasia Not Reportable 12/08/20 11:47 Hypochromasia Not Reportable 12/08/20 11:47 Poikilocytosis Not Reportable 12/08/20 11:47 Anisocytosis 1+ 12/08/20 11:47 Microcytosis Not Reportable 12/08/20 11:47 Macrocytosis Not Reportable 12/08/20 11:47 Spherocytes Not Reportable 12/08/20 11:47 Pappenheimer Bodies Not Reportable 12/08/20 11:47 Sickle Cells Not Reportable 12/08/20 11:47 Target Cells Not Reportable 12/08/20 11:47 Tear Drop Cells Not Reportable 12/08/20 11:47 Ovalocytes Not Reportable 12/08/20 11:47 Stomatocytes 1+ 12/08/20 11:47 Helmet Cells Not Reportable 12/08/20 11:47 Cespedes-Tetonia Bodies Not Reportable 12/08/20 11:47 [place] Rings Not Reportable 12/08/20 11:47 Liborio Cells Not Reportable 12/08/20 11:47 Bite Cells Not Reportable 12/08/20 11:47 Crenated Cell Not Reportable 12/08/20 11:47 Elliptocytes Not Reportable 12/08/20 11:47 Acanthocytes (Spur) Not Reportable 12/08/20 11:47 Rouleaux Not Reportable 12/08/20 11:47 Hemoglobin C Crystals Not Reportable 12/08/20 11:47 Schistocytes Not Reportable 12/08/20 11:47 Malaria parasites Not Reportable 12/08/20 11:47 [place]let Bodies Not Reportable 12/08/20 11:47 Hem Pathologist Commnt No 12/08/20 11:47 PT 15.3 Sec. (12.2-14.9) H 12/02/20 02:53 INR 1.16 (0.87-1.13) H 12/02/20 02:53 APTT 37.7 Sec. (24.2-36.6) H 12/02/20 02:53 Sodium 137 mmol/L (137-145) 12/17/20 05:29 Potassium 4.3 mmol/L (3.6-5.0) 12/17/20 05:29 Chloride 99.5 mmol/L (98-107) 12/17/20 05:29 Carbon Dioxide 29 mmol/L (22-30) 12/17/20 05:29 Anion Gap 13 mmol/L 12/17/20 05:29 BUN 19 mg/dL (7-17) H 12/17/20 05:29 Creatinine 0.6 mg/dL (0.6-1.2) 12/17/20 05:29 Estimated GFR > 60 ml/min 12/17/20 05:29 BUN/Creatinine Ratio 32 % 12/17/20 05:29 Glucose 140 mg/dL (65-100) H 12/17/20 05:29 POC Glucose 121 mg/dL (70-105) H 12/18/20 06:27 Hemoglobin A1c 7.4 % (4-6) H 12/02/20 Unknown Lactic Acid 1.70 mmol/L (0.7-2.0) 12/08/20 11:47 Calcium 9.3 mg/dL (8.4-10.2) 12/17/20 05:29 Magnesium 1.50 mg/dL (1.7-2.3) L 12/04/20 09:51 Total Bilirubin 0.20 mg/dL (0.1-1.2) 12/05/20 05:04 AST 15 units/L (5-40) 12/05/20 05:04 ALT 7 units/L (7-56) 12/05/20 05:04 Alkaline Phosphatase 112 units/L (35-129) 12/05/20 05:04 C-Reactive Protein 1.30 mg/dL (0.00-1.30) 12/07/20 17:04 Total Protein 8.4 g/dL (6.3-8.2) H 12/05/20 05:04 Albumin 2.8 g/dL (3.9-5) L 12/05/20 05:04 Albumin/Globulin Ratio 0.5 % 12/05/20 05:04 Procalcitonin 0.27 ng/mL (<0.15) 12/09/20 12:37 Urine Color Yellow (Yellow) 12/02/20 03:50 Urine Turbidity Turbid (Clear) 12/02/20 03:50 Urine pH 6.0 (5.0-7.0) 12/02/20 03:50 Ur Specific [place] 1.008 (1.003-1.030) 12/02/20 03:50 Urine Protein 100 mg/dl mg/dL (Negative) 12/02/20 03:50 Urine Glucose (UA) Neg mg/dL (Negative) 12/02/20 03:50 Urine Ketones Neg mg/dL (Negative) 12/02/20 03:50 Urine Blood Lg (Negative) 12/02/20 03:50 Urine Nitrite Neg (Negative) 12/02/20 03:50 Urine Bilirubin Neg (Negative) 12/02/20 03:50 Urine Urobilinogen < 2.0 mg/dL (<2.0) 12/02/20 03:50 Ur Leukocyte Esterase Lg (Negative) 12/02/20 03:50 Urine WBC (Auto) > 182.0 /HPF (0.0-6.0) H 12/02/20 03:50 Urine RBC (Auto) > 182.0 /HPF (0.0-6.0) 12/02/20 03:50 U Epithel Cells (Auto) 6.0 /HPF (0-13.0) 12/02/20 03:50 Urine Bacteria (Auto) 1+ /HPF (Negative) 12/02/20 03:50 Urine WBC Clumps 3+ /HPF 12/02/20 03:50 Phenytoin 9.8 ug/mL (10.0-20.0) L 12/14/20 15:44 Coronavirus (PCR) Negative (Negative) 12/05/20 Unknown Blood Type O POSITIVE 12/02/20 02:05 Antibody Screen Negative 12/02/20 02:05 Crossmatch See Detail 12/02/20 02:05 Mcclure/IV: Voiding Method External Female Catheter Active Medications - Current Medications Current Medications: Generic Name Dose Route Start Last Admin Trade Name Freq PRN Reason Stop Dose Admin Acetaminophen 650 mg 12/02/20 05:24 12/15/20 06:28 Acetaminophen 325 Mg Tab PO 650 mg Q4H PRN Administration Pain MILD(1-3)/Fever >100.5/SMALLS Albuterol 2.5 mg 12/02/20 05:24 12/03/20 15:11 Albuterol 2.5 Mg/3 Ml Nebu IH 2.5 mg Q4HRT PRN Administration Shortness Of Breath Lipase/Protease/Amylase 1 each 12/03/20 10:22 Lipase 10,500/Protease 25,000/Amylase 43,750 (Units) Dr Blount FEEDTUBE PRN PRN For Clogged Feeding Tube Atorvastatin Calcium 40 mg 12/02/20 10:00 12/18/20 11:04 Atorvastatin 40 Mg Tab PO 40 mg DAILY ADOLFO Administration Citalopram Hydrobromide 20 mg 12/02/20 10:00 12/18/20 11:04 Citalopram 20 Mg Tab PO 20 mg DAILY ADOLFO Administration Dextrose 50 ml 12/02/20 11:18 Dextrose 50% In Water (25gm) 50 Ml Syringe IV Q30MIN PRN Hypoglycemia Protocol Docusate Sodium 100 mg 12/04/20 10:00 12/18/20 10:05 Docusate Sodium 100 Mg/10 Ml Oral Liqd FEEDTUBE Not Given BID ADOLFO Sodium Chloride 1,000 mls @ 50 mls/hr 12/18/20 07:30 Nacl 0.9% 1000 Ml IV DIRECT ADOLFO Cefazolin Sodium 2 gm in 20 mls @ 80 mls/hr 12/18/20 08:00 Ancef/Sterile Water 2 Gm/20 Ml IV 12/18/20 20:00 PREOP NR Protocol Insulin Glargine 10 units 12/05/20 08:00 12/18/20 10:04 Insulin Glargine 100 Units/Ml SUB-Q Not Given QAMDIAB [facility] Insulin Human Lispro 0 unit 12/04/20 00:00 12/18/20 05:26 Insulin Lispro 100 Unit/Ml SUB-Q Not Given Q6HR [facility] Protocol Lansoprazole 30 mg 12/18/20 10:00 12/18/20 11:04 Lansoprazole 30 Mg Solutab FEEDTUBE 30 mg QDAY ADOLFO Administration Metoclopramide HCl 10 mg 12/09/20 10:31 12/12/20 18:36 Metoclopramide 10 Mg/2 Ml Inj IV 10 mg Q6H PRN Administration Nausea And Vomiting Ondansetron HCl 4 mg 12/02/20 05:24 12/05/20 22:37 Ondansetron 4 Mg/2 Ml Inj IV 4 mg Q8H PRN Administration Nausea And Vomiting Simple Syrup 15 ml 12/03/20 10:22 Simple Syrup 15 Ml FEEDTUBE PRN PRN Hypoglycemia Simple Syrup 30 ml 12/03/20 10:22 Simple Syrup 15 Ml FEEDTUBE PRN PRN Hypoglycemia Sodium Bicarbonate 325 mg 12/03/20 10:22 Sodium Bicarbonate 325 Mg Tab FEEDTUBE PRN PRN For Clogged Feeding Tube Sodium Chloride 10 ml 12/02/20 10:00 12/18/20 11:05 Sodium Chloride 0.9% 10 Ml Flush Syringe IV 10 ml BID ADOLFO Administration Sodium Chloride 10 ml 12/02/20 05:24 12/14/20 04:46 Sodium Chloride 0.9% 10 Ml Flush Syringe IV 10 ml PRN PRN Administration LINE FLUSH Nutrition/Malnutrition Assess - Dietary Evaluation Nutrition/Malnutrition Findings: Nutrition Notes Start: 12/03/20 11:43 Freq: Status: Active Protocol: Document 12/15/20 13:53 MK (Rec: 12/15/20 14:00 BASSEM [id number]) Nutrition Notes Initial or Follow up Reassessment Current Diagnosis Diabetes,Sepsis,Hypertension, Stroke Other Pertinent Diagnosis Hypotension, UTI, ARF, Vaginal bleeding, Dementia, Dysphagia , (L) AKA Current Diet TF - Glucerna 1.2 at 45ml/hr Labs/Tests reviewed Pertinent Medications reviewed Height 5 ft Weight 56.7 kg [place] Body Weight (kg) 45.45 BMI 24.4 Weight Status Appropriate Subjective/Other Information TF continues to run at 45 ml/ hr and pt tolerating. TF was never reordered, however, pt receiving. ENTEROSTOMAL THERAPY NURSE recommends NPO. Percent of energy/protein needs met: 100%/100% Burn Absent Trauma Absent Difficulty In Swallowing Current % PO Negligible Minimum of two criteria No physical signs of malnutrition #1 Nutrition Diagnosis Inadequate oral intake Diagnosis Progress(for reassessment Continues documentation) Is patient on ventilator? No Is Patient Ambulatory and/or Out of Bed No REE-([facility]-confined to bed) [phone] Calculation Used for Recommendations [facility] Additional Notes Pro needs 1-1.2g/k-70g/ day Fluid needs 1ml/kcal Nutrition Intervention Nutrition Support: Glucerna 1.2 at 45ml/hr with 75ml water flush q4h. Kcal 1,296 Protein (gm) 65 Carbohydrates (gm) 124 Fat (gm) 65 Fluid (mL) 869 Fiber (gm) 17 Goal #1 FU for intakes and ONS tolerance Goal #2 TF to meet at least 75% energy and pro needs Anticipated Discharge Needs: Glucerna 1.2 at 45ml/hr with 75ml water flush q4h. Follow-Up By: 12/22/20 Additional Comments F/U stable TF
--- NOTE | 2020-12-18 13:15 | Progress Note ---
Assessment and Plan Assessment and Plan Assessment and plan: #64-year-old female with PMH of dementia, CVA, left hemiplegia, DM, left AKA, dysphagia, hypokalemia, anemia, CKD 2, urine retention needing chronic indwellin g Mcclure catheter was brought to ED for evaluation of AMS and possible vaginal bleeding. Patient was noted to be in septic shock with BP 80/60 and pyuria and hematuria. Mcclure catheter was exchanged in ED. Patient was administered IV fluid boluses with improvement of hypotension and started on antibiotics after cultures. #Sepsis. Patient previously with septic shock. #Bilateral pyelonephritis/complicated UTI. #Toxic metabolic encephalopathy. #Cecum pneumatosis. Resolved #History of CVA, left hemiparesis, aphasic and dysphagia. (2008,2015) -she is with no speech out put not follow command not moving right side -MRI on 12/05 no acute event -EEG is pending -started on Keppra 125 mg bid #Left AKA 2015 #New right-sided weakness. -Might need to repeat MRI Acute kidney injury on CKD stage II. Resolved. Hypokalemia Diabetes mellitus type 2. Anemia Subjective Date of service: 12/18/20 Principal diagnosis: Hx of CVA and left side weakness ,preesnted with change in mentation Interval history: 12/03/2020. Patient has now stable vital signs and hypertension resolved. Receiving normal saline 125 mill per hour. She spiked a fever of 100.6 today. Hemoglobin dropped to 6.8 and ordered PRBC transfusion. Hematuria actually resolved. No vaginal bleeding. Mental status improved, she is now awake awake but minimally verbalizes. She can occasionally give her name. She just mumble s. Not in acute distress. Large urine output and MAILE resolved. 12/04/2020. Shock state resolved. MAILE resolved. Mental status much improved. Follows commands but poorly verbal likely from dementia. Continue to avoid narcotics. Patient has a low-grade fever, leukocytosis , on cefepime, cultures pending. Discontinue normal saline. Started Glucerna tube feeds via NG tube, continue aspiration precautions. Ordered swallowing evaluation. Hemoglobin dropped from 7.8-6.8, possibly just dilutional. Hematuria resolved, no vaginal bleeding. Will transfuse PRBC. Consider urology consultation for evaluation of possible bladder tumor when more stable. Daughter reports significant cognitive decline since 07/2020 admission for UTI. Right-sided weakness is new according to daughter. Will order MRI brain when more stable. 12/05/2020. Patient is nonverbal and occasional tracking with eyes on my exam this morning. Baseline mental status per daughter can follow commands and able to communicate but with slow speech. Also, reports ability to feed herself. MRI brain ordered to rule out new CVA. Continue IV antibiotics for UTI. Await speech therapy evaluation for dysphagia. Continue NG tube for tube feedings. I d/w daughter POC [phone]. 12/06/2020. Brain MRI shows no acute findings only extensive chronic changes. Neurology consultation. Altered mentation may be secondary to toxic metabolic encephalopathy from sepsis/UTI. Continue IV antibiotics. Consider ID consultation. Acute kidney injury resolved. Still awaiting speech therapy evaluation 12/07/2020. Neurology evaluated the patient and recommends EEG to rule out subclinical seizures. Patient may need repeat MRI. Continue IV antibiotics for sepsis/UTI. Patient has underlying toxic metabolic encephalopathy as well. Blood cultures negative x5 days. Urine culture also negative. However, patient with significant fever since last night. Repeat blood cultures, check lactic acid and obtain ID consultation 12/08/2020. CT scan suggestive of bilateral acute pyelonephritis and bowel ischemia. Vancomycin added by ID. Appreciate ID help. Vascular surgery for bowel ischemia. Follow-up repeat blood cultures. Lactic acid level normal. 12/09/2020. Consult GI and surgery for presumed bowel ischemia and cecum pneumatosis per vascular surgery recommendation. Continue IV antibiotics per ID recommendations. Cefepime and vancomycin discontinued and meropenem started. CT of abdomen with bilateral pyelonephritis. Urology evaluation for urinary bladder mass once cecum pneumatosis and presumed bowel ischemia addressed. Nurse reports patient with vomiting this a.m. Hold tube feedings and change NG tube to LIS. Check KUB rule out ileus. Consider Reglan. 12/10/2020. Vascular surgery reports CTA of abdomen and pelvis showed no evidence of stenosis or embolic phenomenon to the visceral vessels. Continue IV antibiotics per ID recommendations. CT scan reveals bilateral hydroureter nephrosis and bilateral pyelonephritis. Urology consultation. CT scan does not show any evidence of ileus. 12/11/2020. Continue IV antibiotics per ID recommendations. Urology consulted for bilateral hydroureteronephrosis and bilateral pyelonephritis. Urine and blood cultures are negative. 12/12/2020 Patient with sepsis, bilateral pyelonephritis, complicated UTI. Continue Merrem as per ID. Urology consulted. She is being seen by Dr. Caban. 12/13/2020 Patient with sepsis, bilateral pyelonephritis, complicated UTI. Patient still on Merrem. Hgb 9.7 today. 12/14/2020 patient with sepsis, bilateral pyelonephritis due to complicated UTI. She had previous strokes with left sided weakness. Now has right sided weakness but MRI did not confirm acute stroke. I discussed with 2 daughters, Joan and Vidal yesterday. They are very concerned. Will re-consult Neurology to re- evaluate. She is on Merrem to complete tomorrow. I also discussed with Joan again today. 12/15/2020 Patient with sepsis, bilateral pyelonephritis due to complicated UTI. She had previous strokes with left sided weakness. Now has right sided weakness but MRI did not confirm acute stroke. Re-consulted Neurology and he ordered EEG. Patient has dysphagia, failed swallow eval . I called and discussed with daughter Joan about need for PEG tube . She will let me no later today. 12/16/20 Patient with sepsis, bilateral pyelonephritis due to complicated UTI. She had previous strokes with left sided weakness. Now has right sided weakness but MRI did not confirm acute stroke. EEG ordered by Neurology. Daughter agrees to PEG tube, GI consulted 12/17/20 Patient with sepsis, bilateral pyelonephritis due to complicated UTI. She had previous strokes with left sided weakness. Now has right sided weakness but MRI did not confirm acute stroke., patient was re-evaluated by neurology. -EEG ordered. -She has dysphagia, family agrees to PEG tube placement. GI consulted. Interval history: Patient is non-verbal, cannot give history Failed swallow test 12/16 Family agrees to PEG tube placement Objective - Vital Sign Vital Signs - 12hr 12/18/20 12/18/20 12/18/20 05:51 07:41 08:32 Temperature 98.8 F 99 F 98.6 F Pulse Rate 100 H 104 H 95 H Respiratory 18 24 20 Rate Blood Pressure 137/83 138/73 Blood Pressure 121/71 [Left] O2 Sat by Pulse 100 94 98 Oximetry 12/18/20 12/18/20 08:45 09:01 Temperature 98.6 F 98.7 F Pulse Rate 95 H 97 H Respiratory 22 20 Rate Blood Pressure 120/69 124/74 Blood Pressure [Left] O2 Sat by Pulse 99 97 Oximetry - General Apperance Constitutional: comfortable - EENT EENT: PERRL, mucous membranes moist - Respiratory Respiratory: lungs clear, rhonchi - Cardiovascular Cardiovascular: normal S1, normal S2 Extremities: no peripheral edema bilat, no clubbing, cyanosis - Gastrointestinal Gastrointestinal: normoactive bowel sounds - Integumentary Integumentary: normal - Neurologic Cranial nerve examination: PERRL, other (left facial droop ,) Speech examination: other (no speech out put not follow command ) Detailed motor examination: other (left side weakness 1-2/5 with Left AKA , she does not move right side to command !!!) - Laboratory Findings CBC and BMP: 12/17/20 05:29 12/17/20 05:29 Abnormal Lab Findings: Abnormal Labs 12/01/20 12/01/20 12/02/20 22:52 22:52 01:30 WBC 13.8 H RBC 2.90 L Hgb 7.8 L Hct 24.0 L MCH 27 L RDW 19.0 H Plt Count Lymph % (Auto) 12.2 L Eos % (Auto) [place] # (Auto) 0.9 H Eos # (Auto) Baso # (Auto) Seg Neutrophils % 80.8 H Seg Neuts % (Manual) Seg Neutrophils # 11.1 H Seg Neutrophils # Man Monocytes # (Manual) PT INR APTT Sodium 135 L Potassium Chloride Carbon Dioxide BUN 38 H Creatinine 2.0 H Glucose 196 H POC Glucose Hemoglobin A1c Lactic Acid 0.60 L Calcium 7.8 L Magnesium ALT < 5 L Total Protein Albumin 3.0 L Urine WBC (Auto) Phenytoin Crossmatch 12/02/20 12/02/20 12/02/20 02:05 02:53 03:50 WBC RBC Hgb Hct MCH RDW Plt Count Lymph % (Auto) Eos % (Auto) [place] # (Auto) Eos # (Auto) Baso # (Auto) Seg Neutrophils % Seg Neuts % (Manual) Seg Neutrophils # Seg Neutrophils # Man Monocytes # (Manual) PT 15.3 H INR 1.16 H APTT 37.7 H Sodium Potassium Chloride Carbon Dioxide BUN Creatinine Glucose POC Glucose Hemoglobin A1c Lactic Acid Calcium Magnesium ALT Total Protein Albumin Urine WBC (Auto) > 182.0 H Phenytoin Crossmatch See Detail 12/02/20 12/02/20 12/02/20 09:49 12:47 17:10 WBC RBC Hgb Hct MCH RDW Plt Count Lymph % (Auto) Eos % (Auto) [place] # (Auto) Eos # (Auto) Baso # (Auto) Seg Neutrophils % Seg Neuts % (Manual) Seg Neutrophils # Seg Neutrophils # Man Monocytes # (Manual) PT INR APTT Sodium Potassium Chloride Carbon Dioxide BUN Creatinine Glucose POC Glucose 175 H 155 H 147 H Hemoglobin A1c Lactic Acid Calcium Magnesium ALT Total Protein Albumin Urine WBC (Auto) Phenytoin Crossmatch 12/02/20 12/02/20 12/03/20 21:29 Unknown 07:15 WBC 15.5 H RBC 2.50 L Hgb 6.8 L Hct 20.8 L MCH 27 L RDW 19.5 H Plt Count Lymph % (Auto) Eos % (Auto) [place] # (Auto) 1.0 H Eos # (Auto) Baso # (Auto) Seg Neutrophils % 76.5 H Seg Neuts % (Manual) Seg Neutrophils # 11.9 H Seg Neutrophils # Man Monocytes # (Manual) PT INR APTT Sodium Potassium Chloride Carbon Dioxide BUN Creatinine Glucose POC Glucose 121 H Hemoglobin A1c 7.4 H Lactic Acid Calcium Magnesium ALT Total Protein Albumin Urine WBC (Auto) Phenytoin Crossmatch 12/03/20 12/03/20 12/03/20 07:15 16:51 23:52 WBC RBC Hgb Hct MCH RDW Plt Count Lymph % (Auto) Eos % (Auto) [place] # (Auto) Eos # (Auto) Baso # (Auto) Seg Neutrophils % Seg Neuts % (Manual) Seg Neutrophils # Seg Neutrophils # Man Monocytes # (Manual) PT INR APTT Sodium Potassium 3.1 L Chloride 109.5 H Carbon Dioxide BUN Creatinine Glucose POC Glucose 119 H 163 H Hemoglobin A1c Lactic Acid Calcium Magnesium ALT Total Protein Albumin Urine WBC (Auto) Phenytoin Crossmatch 12/04/20 12/04/20 12/04/20 05:43 09:51 09:51 WBC 15.9 H RBC Hgb Hct MCH 27 L RDW 18.4 H Plt Count Lymph % (Auto) Eos % (Auto) [place] # (Auto) Eos # (Auto) Baso # (Auto) 0.2 H Seg Neutrophils % Seg Neuts % (Manual) Seg Neutrophils # 11.1 H Seg Neutrophils # Man Monocytes # (Manual) PT INR APTT Sodium Potassium Chloride Carbon Dioxide BUN Creatinine Glucose 242 H POC Glucose 200 H Hemoglobin A1c Lactic Acid Calcium Magnesium 1.50 L ALT 6 L Total Protein Albumin 2.8 L Urine WBC (Auto) Phenytoin Crossmatch 12/04/20 12/04/20 12/05/20 11:30 17:35 00:07 WBC RBC Hgb Hct MCH RDW Plt Count Lymph % (Auto) Eos % (Auto) [place] # (Auto) Eos # (Auto) Baso # (Auto) Seg Neutrophils % Seg Neuts % (Manual) Seg Neutrophils # Seg Neutrophils # Man Monocytes # (Manual) PT INR APTT Sodium Potassium Chloride Carbon Dioxide BUN Creatinine Glucose POC Glucose 236 H 282 H 287 H Hemoglobin A1c Lactic Acid Calcium Magnesium ALT Total Protein Albumin Urine WBC (Auto) Phenytoin Crossmatch 12/05/20 12/05/20 12/05/20 05:04 05:04 05:10 WBC 12.2 H RBC Hgb Hct MCH RDW 17.9 H Plt Count Lymph % (Auto) Eos % (Auto) [place] # (Auto) Eos # (Auto) Baso # (Auto) Seg Neutrophils % 75.9 H Seg Neuts % (Manual) Seg Neutrophils # 9.3 H Seg Neutrophils # Man Monocytes # (Manual) PT INR APTT Sodium Potassium Chloride Carbon Dioxide BUN Creatinine Glucose 339 H POC Glucose 309 H Hemoglobin A1c Lactic Acid Calcium Magnesium ALT Total Protein 8.4 H Albumin 2.8 L Urine WBC (Auto) Phenytoin Crossmatch 12/05/20 12/05/20 12/06/20 10:57 16:42 00:32 WBC RBC Hgb Hct MCH RDW Plt Count Lymph % (Auto) Eos % (Auto) [place] # (Auto) Eos # (Auto) Baso # (Auto) Seg Neutrophils % Seg Neuts % (Manual) Seg Neutrophils # Seg Neutrophils # Man Monocytes # (Manual) PT INR APTT Sodium Potassium Chloride Carbon Dioxide BUN Creatinine Glucose POC Glucose 297 H 302 H 330 H Hemoglobin A1c Lactic Acid Calcium Magnesium ALT Total Protein Albumin Urine WBC (Auto) Phenytoin Crossmatch 12/06/20 12/06/20 12/06/20 06:29 11:21 15:35 WBC RBC Hgb Hct MCH RDW Plt Count Lymph % (Auto) Eos % (Auto) [place] # (Auto) Eos # (Auto) Baso # (Auto) Seg Neutrophils % Seg Neuts % (Manual) Seg Neutrophils # Seg Neutrophils # Man Monocytes # (Manual) PT INR APTT Sodium Potassium Chloride Carbon Dioxide BUN Creatinine Glucose POC Glucose 340 H 325 H 352 H Hemoglobin A1c Lactic Acid Calcium Magnesium ALT Total Protein Albumin Urine WBC (Auto) Phenytoin Crossmatch 12/06/20 12/07/20 12/07/20 20:40 06:07 11:54 WBC RBC Hgb Hct MCH RDW Plt Count Lymph % (Auto) Eos % (Auto) [place] # (Auto) Eos # (Auto) Baso # (Auto) Seg Neutrophils % Seg Neuts % (Manual) Seg Neutrophils # Seg Neutrophils # Man Monocytes # (Manual) PT INR APTT Sodium Potassium Chloride Carbon Dioxide BUN Creatinine Glucose POC Glucose 297 H 325 H 253 H Hemoglobin A1c Lactic Acid Calcium Magnesium ALT Total Protein Albumin Urine WBC (Auto) Phenytoin Crossmatch 12/07/20 12/08/20 12/08/20 17:14 00:02 06:02 WBC RBC Hgb Hct MCH RDW Plt Count Lymph % (Auto) Eos % (Auto) [place] # (Auto) Eos # (Auto) Baso # (Auto) Seg Neutrophils % Seg Neuts % (Manual) Seg Neutrophils # Seg Neutrophils # Man Monocytes # (Manual) PT INR APTT Sodium Potassium Chloride Carbon Dioxide BUN Creatinine Glucose POC Glucose 332 H 353 H 336 H Hemoglobin A1c Lactic Acid Calcium Magnesium ALT Total Protein Albumin Urine WBC (Auto) Phenytoin Crossmatch 12/08/20 12/08/20 12/08/20 11:47 11:47 17:00 WBC 22.4 H RBC Hgb Hct MCH RDW 18.9 H Plt Count Lymph % (Auto) Eos % (Auto) [place] # (Auto) Eos # (Auto) Baso # (Auto) Seg Neutrophils % Seg Neuts % (Manual) 72.0 H Seg Neutrophils # Seg Neutrophils # Man 16.1 H Monocytes # (Manual) 0.9 H PT INR APTT Sodium Potassium Chloride Carbon Dioxide BUN 41 H Creatinine Glucose 329 H POC Glucose 286 H Hemoglobin A1c Lactic Acid Calcium 8.0 L Magnesium ALT Total Protein Albumin Urine WBC (Auto) Phenytoin Crossmatch 12/08/20 12/09/20 12/09/20 23:32 04:14 06:36 WBC RBC Hgb Hct MCH RDW Plt Count Lymph % (Auto) Eos % (Auto) [place] # (Auto) Eos # (Auto) Baso # (Auto) Seg Neutrophils % Seg Neuts % (Manual) Seg Neutrophils # Seg Neutrophils # Man Monocytes # (Manual) PT INR APTT Sodium Potassium Chloride Carbon Dioxide BUN 50 H Creatinine Glucose 324 H POC Glucose 276 H 342 H Hemoglobin A1c Lactic Acid Calcium Magnesium ALT Total Protein Albumin Urine WBC (Auto) Phenytoin Crossmatch 12/09/20 12/09/20 12/09/20 11:00 15:41 23:43 WBC RBC Hgb Hct MCH RDW Plt Count Lymph % (Auto) Eos % (Auto) [place] # (Auto) Eos # (Auto) Baso # (Auto) Seg Neutrophils % Seg Neuts % (Manual) Seg Neutrophils # Seg Neutrophils # Man Monocytes # (Manual) PT INR APTT Sodium Potassium Chloride Carbon Dioxide BUN Creatinine Glucose POC Glucose 292 H 239 H 178 H Hemoglobin A1c Lactic Acid Calcium Magnesium ALT Total Protein Albumin Urine WBC (Auto) Phenytoin Crossmatch 12/10/20 12/10/20 12/10/20 04:50 04:50 06:01 WBC 17.0 H RBC 3.52 L Hgb 9.9 L Hct 29.9 L MCH RDW 18.4 H Plt Count Lymph % (Auto) Eos % (Auto) 5.[address] [place] # (Auto) Eos # (Auto) 0.9 H Baso # (Auto) Seg Neutrophils % Seg Neuts % (Manual) Seg Neutrophils # 11.1 H Seg Neutrophils # Man Monocytes # (Manual) PT INR APTT Sodium Potassium Chloride Carbon Dioxide BUN 43 H Creatinine Glucose 192 H POC Glucose 200 H Hemoglobin A1c Lactic Acid Calcium Magnesium ALT Total Protein Albumin Urine WBC (Auto) Phenytoin Crossmatch 12/10/20 12/10/20 12/10/20 11:24 16:52 23:46 WBC RBC Hgb Hct MCH RDW Plt Count Lymph % (Auto) Eos % (Auto) [place] # (Auto) Eos # (Auto) Baso # (Auto) Seg Neutrophils % Seg Neuts % (Manual) Seg Neutrophils # Seg Neutrophils # Man Monocytes # (Manual) PT INR APTT Sodium Potassium Chloride Carbon Dioxide BUN Creatinine Glucose POC Glucose 238 H 225 H 161 H Hemoglobin A1c Lactic Acid Calcium Magnesium ALT Total Protein Albumin Urine WBC (Auto) Phenytoin Crossmatch 12/11/20 12/11/20 12/11/20 11:37 16:46 23:38 WBC RBC Hgb Hct MCH RDW Plt Count Lymph % (Auto) Eos % (Auto) [place] # (Auto) Eos # (Auto) Baso # (Auto) Seg Neutrophils % Seg Neuts % (Manual) Seg Neutrophils # Seg Neutrophils # Man Monocytes # (Manual) PT INR APTT Sodium Potassium Chloride Carbon Dioxide BUN Creatinine Glucose POC Glucose 208 H 198 H 135 H Hemoglobin A1c Lactic Acid Calcium Magnesium ALT Total Protein Albumin Urine WBC (Auto) Phenytoin Crossmatch 12/12/20 12/12/20 12/12/20 05:48 05:55 05:55 WBC 13.6 H RBC 3.31 L Hgb 9.4 L Hct 28.4 L MCH RDW 18.3 H Plt Count Lymph % (Auto) Eos % (Auto) [place] # (Auto) Eos # (Auto) 0.5 H Baso # (Auto) Seg Neutrophils % Seg Neuts % (Manual) Seg Neutrophils # 9.2 H Seg Neutrophils # Man Monocytes # (Manual) PT INR APTT Sodium Potassium Chloride Carbon Dioxide BUN 28 H Creatinine Glucose 164 H POC Glucose 168 H Hemoglobin A1c Lactic Acid Calcium 8.1 L Magnesium ALT Total Protein Albumin Urine WBC (Auto) Phenytoin Crossmatch 12/12/20 12/12/20 12/12/20 09:21 12:18 16:52 WBC RBC Hgb Hct MCH RDW Plt Count Lymph % (Auto) Eos % (Auto) [place] # (Auto) Eos # (Auto) Baso # (Auto) Seg Neutrophils % Seg Neuts % (Manual) Seg Neutrophils # Seg Neutrophils # Man Monocytes # (Manual) PT INR APTT Sodium Potassium Chloride Carbon Dioxide BUN Creatinine Glucose POC Glucose 175 H 193 H 190 H Hemoglobin A1c Lactic Acid Calcium Magnesium ALT Total Protein Albumin Urine WBC (Auto) Phenytoin Crossmatch 12/12/20 12/13/20 12/13/20 23:09 04:53 04:59 WBC 14.7 H RBC 3.43 L Hgb 9.7 L Hct 29.3 L MCH RDW 17.9 H Plt Count Lymph % (Auto) Eos % (Auto) [place] # (Auto) Eos # (Auto) Baso # (Auto) Seg Neutrophils % 74.6 H Seg Neuts % (Manual) Seg Neutrophils # 10.9 H Seg Neutrophils # Man Monocytes # (Manual) PT INR APTT Sodium Potassium Chloride Carbon Dioxide BUN Creatinine Glucose POC Glucose 161 H 211 H Hemoglobin A1c Lactic Acid Calcium Magnesium ALT Total Protein Albumin Urine WBC (Auto) Phenytoin Crossmatch 12/13/20 12/13/20 12/13/20 11:23 15:37 23:30 WBC RBC Hgb Hct MCH RDW Plt Count Lymph % (Auto) Eos % (Auto) [place] # (Auto) Eos # (Auto) Baso # (Auto) Seg Neutrophils % Seg Neuts % (Manual) Seg Neutrophils # Seg Neutrophils # Man Monocytes # (Manual) PT INR APTT Sodium Potassium Chloride Carbon Dioxide BUN Creatinine Glucose POC Glucose 142 H 157 H 123 H Hemoglobin A1c Lactic Acid Calcium Magnesium ALT Total Protein Albumin Urine WBC (Auto) Phenytoin Crossmatch 12/14/20 12/14/20 12/14/20 04:31 04:31 05:24 WBC 11.9 H RBC 3.42 L Hgb 9.6 L Hct 29.1 L MCH RDW 17.6 H Plt Count Lymph % (Auto) Eos % (Auto) [place] # (Auto) Eos # (Auto) Baso # (Auto) Seg Neutrophils % Seg Neuts % (Manual) Seg Neutrophils # Seg Neutrophils # Man Monocytes # (Manual) PT INR APTT Sodium Potassium Chloride 97.9 L Carbon Dioxide 32 H BUN Creatinine Glucose POC Glucose 120 H Hemoglobin A1c Lactic Acid Calcium Magnesium ALT Total Protein Albumin Urine WBC (Auto) Phenytoin Crossmatch 12/14/20 12/14/20 12/14/20 12:16 15:44 17:14 WBC RBC Hgb Hct MCH RDW Plt Count Lymph % (Auto) Eos % (Auto) [place] # (Auto) Eos # (Auto) Baso # (Auto) Seg Neutrophils % Seg Neuts % (Manual) Seg Neutrophils # Seg Neutrophils # Man Monocytes # (Manual) PT INR APTT Sodium Potassium Chloride Carbon Dioxide BUN Creatinine Glucose POC Glucose 173 H 159 H Hemoglobin A1c Lactic Acid Calcium Magnesium ALT Total Protein Albumin Urine WBC (Auto) Phenytoin 9.8 L Crossmatch 12/15/20 12/15/20 12/15/20 00:47 05:48 12:56 WBC RBC Hgb Hct MCH RDW Plt Count Lymph % (Auto) Eos % (Auto) [place] # (Auto) Eos # (Auto) Baso # (Auto) Seg Neutrophils % Seg Neuts % (Manual) Seg Neutrophils # Seg Neutrophils # Man Monocytes # (Manual) PT INR APTT Sodium Potassium Chloride Carbon Dioxide BUN Creatinine Glucose POC Glucose 166 H 167 H 187 H Hemoglobin A1c Lactic Acid Calcium Magnesium ALT Total Protein Albumin Urine WBC (Auto) Phenytoin Crossmatch 12/15/20 12/16/20 12/16/20 18:43 00:53 05:23 WBC RBC Hgb Hct MCH RDW Plt Count Lymph % (Auto) Eos % (Auto) [place] # (Auto) Eos # (Auto) Baso # (Auto) Seg Neutrophils % Seg Neuts % (Manual) Seg Neutrophils # Seg Neutrophils # Man Monocytes # (Manual) PT INR APTT Sodium Potassium Chloride Carbon Dioxide BUN Creatinine Glucose POC Glucose 170 H 154 H 143 H Hemoglobin A1c Lactic Acid Calcium Magnesium ALT Total Protein Albumin Urine WBC (Auto) Phenytoin Crossmatch 12/16/20 12/16/20 12/16/20 11:59 17:46 20:55 WBC RBC Hgb Hct MCH RDW Plt Count Lymph % (Auto) Eos % (Auto) [place] # (Auto) Eos # (Auto) Baso # (Auto) Seg Neutrophils % Seg Neuts % (Manual) Seg Neutrophils # Seg Neutrophils # Man Monocytes # (Manual) PT INR APTT Sodium Potassium Chloride Carbon Dioxide BUN Creatinine Glucose POC Glucose 164 H 150 H 159 H Hemoglobin A1c Lactic Acid Calcium Magnesium ALT Total Protein Albumin Urine WBC (Auto) Phenytoin Crossmatch 12/17/20 12/17/20 12/17/20 05:29 05:29 10:31 WBC 13.2 H RBC 3.42 L Hgb 9.8 L Hct 29.5 L MCH RDW 18.3 H Plt Count 494 H Lymph % (Auto) Eos % (Auto) [place] # (Auto) Eos # (Auto) Baso # (Auto) Seg Neutrophils % Seg Neuts % (Manual) Seg Neutrophils # Seg Neutrophils # Man Monocytes # (Manual) PT INR APTT Sodium Potassium Chloride Carbon Dioxide BUN 19 H Creatinine Glucose 140 H POC Glucose 192 H Hemoglobin A1c Lactic Acid Calcium Magnesium ALT Total Protein Albumin Urine WBC (Auto) Phenytoin Crossmatch 12/17/20 12/17/20 12/18/20 15:29 23:32 06:27 WBC RBC Hgb Hct MCH RDW Plt Count Lymph % (Auto) Eos % (Auto) [place] # (Auto) Eos # (Auto) Baso # (Auto) Seg Neutrophils % Seg Neuts % (Manual) Seg Neutrophils # Seg Neutrophils # Man Monocytes # (Manual) PT INR APTT Sodium Potassium Chloride Carbon Dioxide BUN Creatinine Glucose POC Glucose 177 H 173 H 121 H Hemoglobin A1c Lactic Acid Calcium Magnesium ALT Total Protein Albumin Urine WBC (Auto) Phenytoin Crossmatch 12/18/20 11:57 WBC RBC Hgb Hct MCH RDW Plt Count Lymph % (Auto) Eos % (Auto) [place] # (Auto) Eos # (Auto) Baso # (Auto) Seg Neutrophils % Seg Neuts % (Manual) Seg Neutrophils # Seg Neutrophils # Man Monocytes # (Manual) PT INR APTT Sodium Potassium Chloride Carbon Dioxide BUN Creatinine Glucose POC Glucose 156 H Hemoglobin A1c Lactic Acid Calcium Magnesium ALT Total Protein Albumin Urine WBC (Auto) Phenytoin Crossmatch
[2020-12-18] MEDS: ACETAMINOPHEN 325 MG TAB PO PRN (22:29)
[2020-12-19] MEDS: INSULIN LISPRO 100 UNIT/ML SUB-Q SCH ×3 (02:54→14:55)
[2020-12-19 05:55] LABS: Hematocrit 30.1 % (30.3-42.9); Mean Corpuscular HGB Conc 33 % (30-34); Mean Corpuscular Volume 86 fl (79-97); Platelet Count 517 K/mm3 (140-440); Red Blood Count 3.49 M/mm3 (3.65-5.03); Red Cell Distribution Width 18.7 % (13.2-15.2)
[2020-12-19 06:22] LABS: Blood Urea Nitrogen 19 mg/dL (7-17); Calcium 9.2 mg/dL (8.4-10.2); Hemolysis Index 47
[2020-12-19 06:23] LABS: BUN/Creatinine Ratio 32
--- NOTE | 2020-12-19 09:35 | Event Note ---
Date: 12/19/20 Patient off the floor I was unable to see her to assess PEG As long as good bowel sounds and no induration or erythema around the PEG site may use PEG for feeds
[2020-12-19] MEDS: MULTIVITAMIN / MINERAL ORAL LIQUID 15 ML PO SCH (10:13)
[2020-12-19] MEDS: DOCUSATE SODIUM 100 MG/10 ML ORAL LIQD FEEDTUBE SCH ×2 (10:13→22:36)
[2020-12-19] MEDS: CITALOPRAM 20 MG TAB PO SCH (10:13)
[2020-12-19] MEDS: LANSOPRAZOLE 30 MG SOLUTAB FEEDTUBE SCH (10:13)
[2020-12-19] MEDS: INSULIN GLARGINE 100 UNITS/ML SUB-Q SCH (10:37)
--- NOTE | 2020-12-19 11:30 | Magnetic Resonance Report ---
MRI BRAIN 12/19/2020 INDICATION / CLINICAL INFORMATION: CVA, AMS. TECHNIQUE: Multiplanar, multisequence MR images of the brain were obtained. COMPARISON: 12/05/2020 FINDINGS: BRAIN / INTRACRANIAL CONTENTS: Unenhanced MR images of the brain were obtained and compared to the pr ior exam from 12/05/2020. Overall, there is been no significant change. Again seen is prominent diffuse cerebral atrophy and extensive chronic migraines or pelvic change. Peace perimposed lacunar changes are present in the periventricular white matter as well as in the brainste m, most notably in the silvia. As on the prior exam, there is some evidence of T2 shine through artifact on the diffusion-weighted i mages located in the left side of the splenium of the corpus callosum and left paracentral silvia. There is no evidence of acute superimposed restricted diffusion or ischemic injury. There is no evide nce of hemorrhage or mass. There are no abnormal extra-axial fluid collections. EXTRACRANIAL: Unremarkable CRANIOCERVICAL JUNCTION: No significant abnormality. VASCULAR FLOW-VOIDS: No significant abnormality. IMPRESSION: Extensive chronic changes, with no evidence of acute abnormality. No significant change when compare d to 12/05/2020. Signer Name: Evans Escalante MD Signed: 12/19/2020 11:25 AM Workstation Name: [id number]
--- NOTE | 2020-12-19 12:39 | Progress Note ---
Assessment and Plan Assessment and Plan Assessment and plan: #64-year-old female with PMH of dementia, CVA, left hemiplegia, DM, left AKA, dysphagia, hypokalemia, anemia, CKD 2, urine retention needing chronic indwellin g Mcclure catheter was brought to ED for evaluation of AMS and possible vaginal bleeding. Patient was noted to be in septic shock with BP 80/60 and pyuria and hematuria. Mcclure catheter was exchanged in ED. Patient was administered IV fluid boluses with improvement of hypotension and started on antibiotics after cultures. #Sepsis. Patient previously with septic shock. #Bilateral pyelonephritis/complicated UTI. #Toxic metabolic encephalopathy. #Cecum pneumatosis. Resolved #History of CVA, left hemiparesis, aphasic and dysphagia. (2008,2015) -she is with no speech out put not follow command not moving right side -MRI on 12/05 no acute event-- repeat MRI showed significant white matter changes with no acute event is noted -EEG is pending -started on Keppra 125 mg bid #Left AKA 2015 #New right-sided weakness. -Repeat MRI brain is with no acute event . #Acute kidney injury on CKD stage II. Resolved. #Hypokalemia #Decubitus ulcer. Diabetes mellitus type 2. Anemia plan 1- no further action 2- over all prognosis is quarded to poor 3- multi infarct dementia. 4- eeg today will sign off Subjective Date of service: 12/19/20 Principal diagnosis: Hx of CVA and left side weakness ,preesnted with change in mentation and ri Interval history: bilteral weakness , no speech out put not follow command , Repeat MRI brain showed no acute event this is second MRI brain EEG scheduled for today Objective - Vital Sign Vital Signs - 12hr 12/19/20 12/19/20 03:36 08:10 Temperature 98.1 F 98.2 F Pulse Rate 101 H 105 H Respiratory 18 18 Rate Blood Pressure 123/69 110/56 O2 Sat by Pulse 97 94 Oximetry - General Apperance Constitutional: comfortable - EENT EENT: PERRL, mucous membranes moist - Respiratory Respiratory: chest non-tender, lungs clear, rhonchi - Cardiovascular Cardiovascular: regular rate, normal S1, normal S2 Extremities: no peripheral edema bilat, other (Left AKA) - Gastrointestinal Gastrointestinal: normoactive bowel sounds - Integumentary Integumentary: other (decubitus ulcer ) - Neurologic Cranial nerve examination: PERRL, EOMI, other (left facial droop , no clear speech out put but look at you when mention her name , not able to move bilateral side ) Detailed motor examination: other (bilateral weakness upper and lower with left facial droop and no speech output , not follow command ) - Laboratory Findings CBC and BMP: 12/19/20 04:07 12/19/20 04:07 Abnormal Lab Findings: Abnormal Labs 12/01/20 12/01/20 12/02/20 22:52 22:52 01:30 WBC 13.8 H RBC 2.90 L Hgb 7.8 L Hct 24.0 L MCH 27 L RDW 19.0 H Plt Count Lymph % (Auto) 12.2 L Eos % (Auto) Wolfe # (Auto) 0.9 H Eos # (Auto) Baso # (Auto) Seg Neutrophils % 80.8 H Seg Neuts % (Manual) Seg Neutrophils # 11.1 H Seg Neutrophils # Man Monocytes # (Manual) PT INR APTT Sodium 135 L Potassium Chloride Carbon Dioxide BUN 38 H Creatinine 2.0 H Glucose 196 H POC Glucose Hemoglobin A1c Lactic Acid 0.60 L Calcium 7.8 L Magnesium ALT < 5 L Total Protein Albumin 3.0 L Urine WBC (Auto) Phenytoin Crossmatch 12/02/20 12/02/20 12/02/20 02:05 02:53 03:50 WBC RBC Hgb Hct MCH RDW Plt Count Lymph % (Auto) Eos % (Auto) Wolfe # (Auto) Eos # (Auto) Baso # (Auto) Seg Neutrophils % Seg Neuts % (Manual) Seg Neutrophils # Seg Neutrophils # Man Monocytes # (Manual) PT 15.3 H INR 1.16 H APTT 37.7 H Sodium Potassium Chloride Carbon Dioxide BUN Creatinine Glucose POC Glucose Hemoglobin A1c Lactic Acid Calcium Magnesium ALT Total Protein Albumin Urine WBC (Auto) > 182.0 H Phenytoin Crossmatch See Detail 12/02/20 12/02/20 12/02/20 09:49 12:47 17:10 WBC RBC Hgb Hct MCH RDW Plt Count Lymph % (Auto) Eos % (Auto) Wolfe # (Auto) Eos # (Auto) Baso # (Auto) Seg Neutrophils % Seg Neuts % (Manual) Seg Neutrophils # Seg Neutrophils # Man Monocytes # (Manual) PT INR APTT Sodium Potassium Chloride Carbon Dioxide BUN Creatinine Glucose POC Glucose 175 H 155 H 147 H Hemoglobin A1c Lactic Acid Calcium Magnesium ALT Total Protein Albumin Urine WBC (Auto) Phenytoin Crossmatch 12/02/20 12/02/20 12/03/20 21:29 Unknown 07:15 WBC 15.5 H RBC 2.50 L Hgb 6.8 L Hct 20.8 L MCH 27 L RDW 19.5 H Plt Count Lymph % (Auto) Eos % (Auto) Wolfe # (Auto) 1.0 H Eos # (Auto) Baso # (Auto) Seg Neutrophils % 76.5 H Seg Neuts % (Manual) Seg Neutrophils # 11.9 H Seg Neutrophils # Man Monocytes # (Manual) PT INR APTT Sodium Potassium Chloride Carbon Dioxide BUN Creatinine Glucose POC Glucose 121 H Hemoglobin A1c 7.4 H Lactic Acid Calcium Magnesium ALT Total Protein Albumin Urine WBC (Auto) Phenytoin Crossmatch 12/03/20 12/03/20 12/03/20 07:15 16:51 23:52 WBC RBC Hgb Hct MCH RDW Plt Count Lymph % (Auto) Eos % (Auto) Wolfe # (Auto) Eos # (Auto) Baso # (Auto) Seg Neutrophils % Seg Neuts % (Manual) Seg Neutrophils # Seg Neutrophils # Man Monocytes # (Manual) PT INR APTT Sodium Potassium 3.1 L Chloride 109.5 H Carbon Dioxide BUN Creatinine Glucose POC Glucose 119 H 163 H Hemoglobin A1c Lactic Acid Calcium Magnesium ALT Total Protein Albumin Urine WBC (Auto) Phenytoin Crossmatch 12/04/20 12/04/20 12/04/20 05:43 09:51 09:51 WBC 15.9 H RBC Hgb Hct MCH 27 L RDW 18.4 H Plt Count Lymph % (Auto) Eos % (Auto) Wolfe # (Auto) Eos # (Auto) Baso # (Auto) 0.2 H Seg Neutrophils % Seg Neuts % (Manual) Seg Neutrophils # 11.1 H Seg Neutrophils # Man Monocytes # (Manual) PT INR APTT Sodium Potassium Chloride Carbon Dioxide BUN Creatinine Glucose 242 H POC Glucose 200 H Hemoglobin A1c Lactic Acid Calcium Magnesium 1.50 L ALT 6 L Total Protein Albumin 2.8 L Urine WBC (Auto) Phenytoin Crossmatch 12/04/20 12/04/20 12/05/20 11:30 17:35 00:07 WBC RBC Hgb Hct MCH RDW Plt Count Lymph % (Auto) Eos % (Auto) Wolfe # (Auto) Eos # (Auto) Baso # (Auto) Seg Neutrophils % Seg Neuts % (Manual) Seg Neutrophils # Seg Neutrophils # Man Monocytes # (Manual) PT INR APTT Sodium Potassium Chloride Carbon Dioxide BUN Creatinine Glucose POC Glucose 236 H 282 H 287 H Hemoglobin A1c Lactic Acid Calcium Magnesium ALT Total Protein Albumin Urine WBC (Auto) Phenytoin Crossmatch 12/05/20 12/05/20 12/05/20 05:04 05:04 05:10 WBC 12.2 H RBC Hgb Hct MCH RDW 17.9 H Plt Count Lymph % (Auto) Eos % (Auto) Wolfe # (Auto) Eos # (Auto) Baso # (Auto) Seg Neutrophils % 75.9 H Seg Neuts % (Manual) Seg Neutrophils # 9.3 H Seg Neutrophils # Man Monocytes # (Manual) PT INR APTT Sodium Potassium Chloride Carbon Dioxide BUN Creatinine Glucose 339 H POC Glucose 309 H Hemoglobin A1c Lactic Acid Calcium Magnesium ALT Total Protein 8.4 H Albumin 2.8 L Urine WBC (Auto) Phenytoin Crossmatch 12/05/20 12/05/20 12/06/20 10:57 16:42 00:32 WBC RBC Hgb Hct MCH RDW Plt Count Lymph % (Auto) Eos % (Auto) Wolfe # (Auto) Eos # (Auto) Baso # (Auto) Seg Neutrophils % Seg Neuts % (Manual) Seg Neutrophils # Seg Neutrophils # Man Monocytes # (Manual) PT INR APTT Sodium Potassium Chloride Carbon Dioxide BUN Creatinine Glucose POC Glucose 297 H 302 H 330 H Hemoglobin A1c Lactic Acid Calcium Magnesium ALT Total Protein Albumin Urine WBC (Auto) Phenytoin Crossmatch 12/06/20 12/06/20 12/06/20 06:29 11:21 15:35 WBC RBC Hgb Hct MCH RDW Plt Count Lymph % (Auto) Eos % (Auto) Wolfe # (Auto) Eos # (Auto) Baso # (Auto) Seg Neutrophils % Seg Neuts % (Manual) Seg Neutrophils # Seg Neutrophils # Man Monocytes # (Manual) PT INR APTT Sodium Potassium Chloride Carbon Dioxide BUN Creatinine Glucose POC Glucose 340 H 325 H 352 H Hemoglobin A1c Lactic Acid Calcium Magnesium ALT Total Protein Albumin Urine WBC (Auto) Phenytoin Crossmatch 12/06/20 12/07/20 12/07/20 20:40 06:07 11:54 WBC RBC Hgb Hct MCH RDW Plt Count Lymph % (Auto) Eos % (Auto) Wolfe # (Auto) Eos # (Auto) Baso # (Auto) Seg Neutrophils % Seg Neuts % (Manual) Seg Neutrophils # Seg Neutrophils # Man Monocytes # (Manual) PT INR APTT Sodium Potassium Chloride Carbon Dioxide BUN Creatinine Glucose POC Glucose 297 H 325 H 253 H Hemoglobin A1c Lactic Acid Calcium Magnesium ALT Total Protein Albumin Urine WBC (Auto) Phenytoin Crossmatch 12/07/20 12/08/20 12/08/20 17:14 00:02 06:02 WBC RBC Hgb Hct MCH RDW Plt Count Lymph % (Auto) Eos % (Auto) Wolfe # (Auto) Eos # (Auto) Baso # (Auto) Seg Neutrophils % Seg Neuts % (Manual) Seg Neutrophils # Seg Neutrophils # Man Monocytes # (Manual) PT INR APTT Sodium Potassium Chloride Carbon Dioxide BUN Creatinine Glucose POC Glucose 332 H 353 H 336 H Hemoglobin A1c Lactic Acid Calcium Magnesium ALT Total Protein Albumin Urine WBC (Auto) Phenytoin Crossmatch 12/08/20 12/08/20 12/08/20 11:47 11:47 17:00 WBC 22.4 H RBC Hgb Hct MCH RDW 18.9 H Plt Count Lymph % (Auto) Eos % (Auto) Wolfe # (Auto) Eos # (Auto) Baso # (Auto) Seg Neutrophils % Seg Neuts % (Manual) 72.0 H Seg Neutrophils # Seg Neutrophils # Man 16.1 H Monocytes # (Manual) 0.9 H PT INR APTT Sodium Potassium Chloride Carbon Dioxide BUN 41 H Creatinine Glucose 329 H POC Glucose 286 H Hemoglobin A1c Lactic Acid Calcium 8.0 L Magnesium ALT Total Protein Albumin Urine WBC (Auto) Phenytoin Crossmatch 12/08/20 12/09/20 12/09/20 23:32 04:14 06:36 WBC RBC Hgb Hct MCH RDW Plt Count Lymph % (Auto) Eos % (Auto) Wolfe # (Auto) Eos # (Auto) Baso # (Auto) Seg Neutrophils % Seg Neuts % (Manual) Seg Neutrophils # Seg Neutrophils # Man Monocytes # (Manual) PT INR APTT Sodium Potassium Chloride Carbon Dioxide BUN 50 H Creatinine Glucose 324 H POC Glucose 276 H 342 H Hemoglobin A1c Lactic Acid Calcium Magnesium ALT Total Protein Albumin Urine WBC (Auto) Phenytoin Crossmatch 0712/09/20 12/09/20 11:00 15:41 23:43 WBC RBC Hgb Hct MCH RDW Plt Count Lymph % (Auto) Eos % (Auto) Wolfe # (Auto) Eos # (Auto) Baso # (Auto) Seg Neutrophils % Seg Neuts % (Manual) Seg Neutrophils # Seg Neutrophils # Man Monocytes # (Manual) PT INR APTT Sodium Potassium Chloride Carbon Dioxide BUN Creatinine Glucose POC Glucose 292 H 239 H 178 H Hemoglobin A1c Lactic Acid Calcium Magnesium ALT Total Protein Albumin Urine WBC (Auto) Phenytoin Crossmatch 12/10/20 12/10/20 12/10/20 04:50 04:50 06:01 WBC 17.0 H RBC 3.52 L Hgb 9.9 L Hct 29.9 L MCH RDW 18.4 H Plt Count Lymph % (Auto) Eos % (Auto) 5.2 H Wolfe # (Auto) Eos # (Auto) 0.9 H Baso # (Auto) Seg Neutrophils % Seg Neuts % (Manual) Seg Neutrophils # 11.1 H Seg Neutrophils # Man Monocytes # (Manual) PT INR APTT Sodium Potassium Chloride Carbon Dioxide BUN 43 H Creatinine Glucose 192 H POC Glucose 200 H Hemoglobin A1c Lactic Acid Calcium Magnesium ALT Total Protein Albumin Urine WBC (Auto) Phenytoin Crossmatch 12/10/20 12/10/20 12/10/20 11:24 16:52 23:46 WBC RBC Hgb Hct MCH RDW Plt Count Lymph % (Auto) Eos % (Auto) Wolfe # (Auto) Eos # (Auto) Baso # (Auto) Seg Neutrophils % Seg Neuts % (Manual) Seg Neutrophils # Seg Neutrophils # Man Monocytes # (Manual) PT INR APTT Sodium Potassium Chloride Carbon Dioxide BUN Creatinine Glucose POC Glucose 238 H 225 H 161 H Hemoglobin A1c Lactic Acid Calcium Magnesium ALT Total Protein Albumin Urine WBC (Auto) Phenytoin Crossmatch 12/11/20 12/11/20 12/11/20 11:37 16:46 23:38 WBC RBC Hgb Hct MCH RDW Plt Count Lymph % (Auto) Eos % (Auto) Wolfe # (Auto) Eos # (Auto) Baso # (Auto) Seg Neutrophils % Seg Neuts % (Manual) Seg Neutrophils # Seg Neutrophils # Man Monocytes # (Manual) PT INR APTT Sodium Potassium Chloride Carbon Dioxide BUN Creatinine Glucose POC Glucose 208 H 198 H 135 H Hemoglobin A1c Lactic Acid Calcium Magnesium ALT Total Protein Albumin Urine WBC (Auto) Phenytoin Crossmatch 12/12/20 12/12/20 12/12/20 05:48 05:55 05:55 WBC 13.6 H RBC 3.31 L Hgb 9.4 L Hct 28.4 L MCH RDW 18.3 H Plt Count Lymph % (Auto) Eos % (Auto) Wolfe # (Auto) Eos # (Auto) 0.5 H Baso # (Auto) Seg Neutrophils % Seg Neuts % (Manual) Seg Neutrophils # 9.2 H Seg Neutrophils # Man Monocytes # (Manual) PT INR APTT Sodium Potassium Chloride Carbon Dioxide BUN 28 H Creatinine Glucose 164 H POC Glucose 168 H Hemoglobin A1c Lactic Acid Calcium 8.1 L Magnesium ALT Total Protein Albumin Urine WBC (Auto) Phenytoin Crossmatch 12/12/20 12/12/20 12/12/20 09:21 12:18 16:52 WBC RBC Hgb Hct MCH RDW Plt Count Lymph % (Auto) Eos % (Auto) Wolfe # (Auto) Eos # (Auto) Baso # (Auto) Seg Neutrophils % Seg Neuts % (Manual) Seg Neutrophils # Seg Neutrophils # Man Monocytes # (Manual) PT INR APTT Sodium Potassium Chloride Carbon Dioxide BUN Creatinine Glucose POC Glucose 175 H 193 H 190 H Hemoglobin A1c Lactic Acid Calcium Magnesium ALT Total Protein Albumin Urine WBC (Auto) Phenytoin Crossmatch 12/12/20 12/13/20 12/13/20 23:09 04:53 04:59 WBC 14.7 H RBC 3.43 L Hgb 9.7 L Hct 29.3 L MCH RDW 17.9 H Plt Count Lymph % (Auto) Eos % (Auto) Wolfe # (Auto) Eos # (Auto) Baso # (Auto) Seg Neutrophils % 74.6 H Seg Neuts % (Manual) Seg Neutrophils # 10.9 H Seg Neutrophils # Man Monocytes # (Manual) PT INR APTT Sodium Potassium Chloride Carbon Dioxide BUN Creatinine Glucose POC Glucose 161 H 211 H Hemoglobin A1c Lactic Acid Calcium Magnesium ALT Total Protein Albumin Urine WBC (Auto) Phenytoin Crossmatch 12/13/20 12/13/20 12/13/20 11:23 15:37 23:30 WBC RBC Hgb Hct MCH RDW Plt Count Lymph % (Auto) Eos % (Auto) Wolfe # (Auto) Eos # (Auto) Baso # (Auto) Seg Neutrophils % Seg Neuts % (Manual) Seg Neutrophils # Seg Neutrophils # Man Monocytes # (Manual) PT INR APTT Sodium Potassium Chloride Carbon Dioxide BUN Creatinine Glucose POC Glucose 142 H 157 H 123 H Hemoglobin A1c Lactic Acid Calcium Magnesium ALT Total Protein Albumin Urine WBC (Auto) Phenytoin Crossmatch 12/14/20 12/14/20 12/14/20 04:31 04:31 05:24 WBC 11.9 H RBC 3.42 L Hgb 9.6 L Hct 29.1 L MCH RDW 17.6 H Plt Count Lymph % (Auto) Eos % (Auto) Wolfe # (Auto) Eos # (Auto) Baso # (Auto) Seg Neutrophils % Seg Neuts % (Manual) Seg Neutrophils # Seg Neutrophils # Man Monocytes # (Manual) PT INR APTT Sodium Potassium Chloride 97.9 L Carbon Dioxide 32 H BUN Creatinine Glucose POC Glucose 120 H Hemoglobin A1c Lactic Acid Calcium Magnesium ALT Total Protein Albumin Urine WBC (Auto) Phenytoin Crossmatch 12/14/20 12/14/20 12/14/20 12:16 15:44 17:14 WBC RBC Hgb Hct MCH RDW Plt Count Lymph % (Auto) Eos % (Auto) Wolfe # (Auto) Eos # (Auto) Baso # (Auto) Seg Neutrophils % Seg Neuts % (Manual) Seg Neutrophils # Seg Neutrophils # Man Monocytes # (Manual) PT INR APTT Sodium Potassium Chloride Carbon Dioxide BUN Creatinine Glucose POC Glucose 173 H 159 H Hemoglobin A1c Lactic Acid Calcium Magnesium ALT Total Protein Albumin Urine WBC (Auto) Phenytoin 9.8 L Crossmatch 12/15/20 12/15/20 12/15/20 00:47 05:48 12:56 WBC RBC Hgb Hct MCH RDW Plt Count Lymph % (Auto) Eos % (Auto) Wolfe # (Auto) Eos # (Auto) Baso # (Auto) Seg Neutrophils % Seg Neuts % (Manual) Seg Neutrophils # Seg Neutrophils # Man Monocytes # (Manual) PT INR APTT Sodium Potassium Chloride Carbon Dioxide BUN Creatinine Glucose POC Glucose 166 H 167 H 187 H Hemoglobin A1c Lactic Acid Calcium Magnesium ALT Total Protein Albumin Urine WBC (Auto) Phenytoin Crossmatch 12/15/20 12/16/20 12/16/20 18:43 00:53 05:23 WBC RBC Hgb Hct MCH RDW Plt Count Lymph % (Auto) Eos % (Auto) Wolfe # (Auto) Eos # (Auto) Baso # (Auto) Seg Neutrophils % Seg Neuts % (Manual) Seg Neutrophils # Seg Neutrophils # Man Monocytes # (Manual) PT INR APTT Sodium Potassium Chloride Carbon Dioxide BUN Creatinine Glucose POC Glucose 170 H 154 H 143 H Hemoglobin A1c Lactic Acid Calcium Magnesium ALT Total Protein Albumin Urine WBC (Auto) Phenytoin Crossmatch 12/16/20 12/16/20 12/16/20 11:59 17:46 20:55 WBC RBC Hgb Hct MCH RDW Plt Count Lymph % (Auto) Eos % (Auto) Wolfe # (Auto) Eos # (Auto) Baso # (Auto) Seg Neutrophils % Seg Neuts % (Manual) Seg Neutrophils # Seg Neutrophils # Man Monocytes # (Manual) PT INR APTT Sodium Potassium Chloride Carbon Dioxide BUN Creatinine Glucose POC Glucose 164 H 150 H 159 H Hemoglobin A1c Lactic Acid Calcium Magnesium ALT Total Protein Albumin Urine WBC (Auto) Phenytoin Crossmatch 12/17/20 12/17/20 12/17/20 05:29 05:29 10:31 WBC 13.2 H RBC 3.42 L Hgb 9.8 L Hct 29.5 L MCH RDW 18.3 H Plt Count 494 H Lymph % (Auto) Eos % (Auto) Wolfe # (Auto) Eos # (Auto) Baso # (Auto) Seg Neutrophils % Seg Neuts % (Manual) Seg Neutrophils # Seg Neutrophils # Man Monocytes # (Manual) PT INR APTT Sodium Potassium Chloride Carbon Dioxide BUN 19 H Creatinine Glucose 140 H POC Glucose 192 H Hemoglobin A1c Lactic Acid Calcium Magnesium ALT Total Protein Albumin Urine WBC (Auto) Phenytoin Crossmatch 12/17/20 12/17/20 12/18/20 15:29 23:32 06:27 WBC RBC Hgb Hct MCH RDW Plt Count Lymph % (Auto) Eos % (Auto) Wolfe # (Auto) Eos # (Auto) Baso # (Auto) Seg Neutrophils % Seg Neuts % (Manual) Seg Neutrophils # Seg Neutrophils # Man Monocytes # (Manual) PT INR APTT Sodium Potassium Chloride Carbon Dioxide BUN Creatinine Glucose POC Glucose 177 H 173 H 121 H Hemoglobin A1c Lactic Acid Calcium Magnesium ALT Total Protein Albumin Urine WBC (Auto) Phenytoin Crossmatch 12/18/20 12/18/20 12/18/20 11:57 18:46 22:29 WBC RBC Hgb Hct MCH RDW Plt Count Lymph % (Auto) Eos % (Auto) Wolfe # (Auto) Eos # (Auto) Baso # (Auto) Seg Neutrophils % Seg Neuts % (Manual) Seg Neutrophils # Seg Neutrophils # Man Monocytes # (Manual) PT INR APTT Sodium Potassium Chloride Carbon Dioxide BUN Creatinine Glucose POC Glucose 156 H 136 H 125 H Hemoglobin A1c Lactic Acid Calcium Magnesium ALT Total Protein Albumin Urine WBC (Auto) Phenytoin Crossmatch 12/19/20 12/19/20 12/19/20 04:07 04:07 05:52 WBC 11.5 H RBC 3.49 L Hgb 10.0 L Hct 30.1 L MCH RDW 18.7 H Plt Count 517 H Lymph % (Auto) Eos % (Auto) Wolfe # (Auto) Eos # (Auto) Baso # (Auto) Seg Neutrophils % Seg Neuts % (Manual) Seg Neutrophils # Seg Neutrophils # Man Monocytes # (Manual) PT INR APTT Sodium Potassium Chloride Carbon Dioxide BUN 19 H Creatinine Glucose 102 H POC Glucose 124 H Hemoglobin A1c Lactic Acid Calcium Magnesium ALT Total Protein Albumin Urine WBC (Auto) Phenytoin Crossmatch 12/19/20 11:52 WBC RBC Hgb Hct MCH RDW Plt Count Lymph % (Auto) Eos % (Auto) Wolfe # (Auto) Eos # (Auto) Baso # (Auto) Seg Neutrophils % Seg Neuts % (Manual) Seg Neutrophils # Seg Neutrophils # Man Monocytes # (Manual) PT INR APTT Sodium Potassium Chloride Carbon Dioxide BUN Creatinine Glucose POC Glucose 142 H Hemoglobin A1c Lactic Acid Calcium Magnesium ALT Total Protein Albumin Urine WBC (Auto) Phenytoin Crossmatch
--- NOTE | 2020-12-19 13:09 | Post Anesthesia Evaluation ---
- Post Anesthesia Evaluation Patient Participated: No Airway Patent: Yes Stable Respiratory Function: Yes Nausea/Vomiting: No Temp > 96.8F: Yes Pain Manageable: Yes Adequeate Hydration: Yes Anesthesia Complications: No Block Receding Appropriately: Not Applicable Patient on Ventilator: No
--- NOTE | 2020-12-19 21:39 | Progress Note ---
Assessment and Plan - Patient Problems (1) Sepsis Current Visit: Yes Status: Resolved Qualifiers: Sepsis type: sepsis due to unspecified organism Sepsis acute organ dysfunction status: with acute organ dysfunction Severe sepsis acute organ dysfunction type: acute renal failure Acute renal failure type: unspecified Severe sepsis shock status: with septic shock Qualified Code(s): A41.9 - Sepsis, unspecified organism; R65.21 - Severe sepsis with septic shock; N17.9 - Acute kidney failure, unspecified Plan to address problem: Continue to monitor, continue supportive care. (2) Encephalopathy Current Visit: Yes Status: Acute Plan to address problem: Neuro check, seizure precautions, aspiration precautions, fall precautions, supportive care. (3) UTI (urinary tract infection) Current Visit: Yes Status: Resolved Qualifiers: Urinary tract infection type: acute cystitis Hematuria presence: with hematuria Qualified Code(s): N30.01 - Acute cystitis with hematuria Plan to address problem: Status post full course antibiotic therapy, supportive care. (4) Vascular dementia Current Visit: Yes Status: Acute Qualifiers: Dementia behavioral disturbance: without behavioral disturbance Qualified C ode(s): F01.50 - Vascular dementia without behavioral disturbance Plan to address problem: Verbal prompting, verbal redirection, benzodiazepine therapy as clinically indicated (5) Cerebral atherosclerosis Current Visit: Yes Status: Acute Plan to address problem: Supportive care, antiplatelet therapy, risk factor reduction. (6) DVT prophylaxis Current Visit: Yes Status: Acute Plan to address problem: SCD to bilateral lower extremities while in bed, prophylactic anticoagulation History Interval history: 65 YO Female HD #18 with Sepsis secondary to UTI, Debility, Cerebral Atherosclerosis, Vascular Dementia, MAILE with ATN. Patient is currently bedbound , nonambulatory. Patient is a palliative performance score 30% and requires 6/6 assistance with activities of daily living. Case management consulted. Patient is pending fdc facility placement. Patient medically optimized at this time. Awaiting placement. No reported nursing events overnight. Hospitalist Physical - Constitutional Vitals: Temp Pulse Resp BP Pulse Ox 98.1 F 110 H 18 158/63 97 12/19/20 11:53 12/19/20 11:53 12/19/20 11:53 12/19/20 11:53 12/19/20 11:53 General appearance: Present: no acute distress, cachectic, other (Nonverbal) - EENT Eyes: Present: PERRL ENT: hearing decreased - Neck Neck: Present: supple - Respiratory Respiratory effort: normal Respiratory: bilateral: diminished, rhonchi - Cardiovascular Rhythm: regular Heart Sounds: Present: S1 & S2 - Extremities Extremities: no ischemia Peripheral Pulses: within normal limits - Abdominal General gastrointestinal: soft, non-tender, non-distended - Integumentary Integumentary: Present: clear, dry - Psychiatric Psychiatric: no appropriate mood/affect, no intact judgment & insight, no memory intact - Neurologic Neurologic: no CNII-XII intact, focal deficits, no moves all extremities, no gait normal Results - Labs CBC & Chem 7: 12/19/20 04:07 12/19/20 04:07 Labs: Laboratory Last Values WBC 11.5 K/mm3 (4.5-11.0) H 12/19/20 04:07 RBC 3.49 M/mm3 (3.65-5.03) L 12/19/20 04:07 Hgb 10.0 gm/dl (10.1-14.3) L 12/19/20 04:07 Hct 30.1 % (30.3-42.9) L 12/19/20 04:07 MCV 86 fl (79-97) 12/19/20 04:07 MCH 29 pg (28-32) 12/19/20 04:07 MCHC 33 % (30-34) 12/19/20 04:07 RDW 18.7 % (13.2-15.2) H 12/19/20 04:07 Plt Count 517 K/mm3 (140-440) H 12/19/20 04:07 Lymph % (Auto) 17.2 % (13.4-35.0) 12/13/20 04:53 [place] % (Auto) 4.9 % (0.0-7.3) 12/13/20 04:53 Eos % (Auto) 2.7 % (0.0-4.3) 12/13/20 04:53 Baso % (Auto) 0.6 % (0.0-1.8) 12/13/20 04:53 Lymph # (Auto) 2.5 K/mm3 (1.2-5.4) 12/13/20 04:53 [place] # (Auto) 0.7 K/mm3 (0.0-0.8) 12/13/20 04:53 Eos # (Auto) 0.4 K/mm3 (0.0-0.4) 12/13/20 04:53 Baso # (Auto) 0.1 K/mm3 (0.0-0.1) 12/13/20 04:53 Add Manual Diff Complete 12/08/20 11:47 Total Counted 100 12/08/20 11:47 Seg Neutrophils % 74.6 % (40.0-70.0) H 12/13/20 04:53 Seg Neuts % (Manual) 72.0 % (40.0-70.0) H 12/08/20 11:47 Lymphocytes % (Manual) 24.0 % (13.4-35.0) 12/08/20 11:47 Monocytes % (Manual) 4.0 % (0.0-7.3) 12/08/20 11:47 Nucleated RBC % Not Reportable 12/08/20 11:47 Seg Neutrophils # 10.9 K/mm3 (1.8-7.7) H 12/13/20 04:53 Seg Neutrophils # Man 16.1 K/mm3 (1.8-7.7) H 12/08/20 11:47 Band Neutrophils # 0.0 K/mm3 12/08/20 11:47 Lymphocytes # (Manual) 5.4 K/mm3 (1.2-5.4) 12/08/20 11:47 Abs React Lymphs (Man) 0.0 K/mm3 12/08/20 11:47 Monocytes # (Manual) 0.9 K/mm3 (0.0-0.8) H 12/08/20 11:47 Eosinophils # (Manual) 0.0 K/mm3 (0.0-0.4) 12/08/20 11:47 Basophils # (Manual) 0.0 K/mm3 (0.0-0.1) 12/08/20 11:47 Metamyelocytes # 0.0 K/mm3 12/08/20 11:47 Myelocytes # 0.0 K/mm3 12/08/20 11:47 Promyelocytes # 0.0 K/mm3 12/08/20 11:47 Blast Cells # 0.0 K/mm3 12/08/20 11:47 WBC Morphology Not Reportable 12/08/20 11:47 Hypersegmented Neuts Not Reportable 12/08/20 11:47 Hyposegmented Neuts Not Reportable 12/08/20 11:47 Hypogranular Neuts Not Reportable 12/08/20 11:47 Smudge Cells Not Reportable 12/08/20 11:47 Toxic Granulation Not Reportable 12/08/20 11:47 Toxic Vacuolation Not Reportable 12/08/20 11:47 Dohle Bodies Not Reportable 12/08/20 11:47 Pelger-Huet Anomaly Not Reportable 12/08/20 11:47 [place] Rods Not Reportable 12/08/20 11:47 Platelet Estimate Consistent w auto 12/08/20 11:47 Clumped Platelets Not Reportable 12/08/20 11:47 Plt Clumps, EDTA Not Reportable 12/08/20 11:47 Large Platelets Not Reportable 12/08/20 11:47 Giant Platelets Not Reportable 12/08/20 11:47 Platelet Satelliting Not Reportable 12/08/20 11:47 Plt Morphology Comment Not Reportable 12/08/20 11:47 RBC Morphology Not Reportable 12/08/20 11:47 Dimorphic RBCs Not Reportable 12/08/20 11:47 Polychromasia Not Reportable 12/08/20 11:47 Hypochromasia Not Reportable 12/08/20 11:47 Poikilocytosis Not Reportable 12/08/20 11:47 Anisocytosis 1+ 12/08/20 11:47 Microcytosis Not Reportable 12/08/20 11:47 Macrocytosis Not Reportable 12/08/20 11:47 Spherocytes Not Reportable 12/08/20 11:47 Pappenheimer Bodies Not Reportable 12/08/20 11:47 Sickle Cells Not Reportable 12/08/20 11:47 Target Cells Not Reportable 12/08/20 11:47 Tear Drop Cells Not Reportable 12/08/20 11:47 Ovalocytes Not Reportable 12/08/20 11:47 Stomatocytes 1+ 12/08/20 11:47 Helmet Cells Not Reportable 12/08/20 11:47 [place] Bodies Not Reportable 12/08/20 11:47 [place] Rings Not Reportable 12/08/20 11:47 [place] Cells Not Reportable 12/08/20 11:47 Bite Cells Not Reportable 12/08/20 11:47 Crenated Cell Not Reportable 12/08/20 11:47 Elliptocytes Not Reportable 12/08/20 11:47 Acanthocytes (Spur) Not Reportable 12/08/20 11:47 Rouleaux Not Reportable 12/08/20 11:47 Hemoglobin C Crystals Not Reportable 12/08/20 11:47 Schistocytes Not Reportable 12/08/20 11:47 Malaria parasites Not Reportable 12/08/20 11:47 [place] Bodies Not Reportable 12/08/20 11:47 Hem Pathologist Commnt No 12/08/20 11:47 PT 15.3 Sec. (12.2-14.9) H 12/02/20 02:53 INR 1.16 (0.87-1.13) H 12/02/20 02:53 APTT 37.7 Sec. (24.2-36.6) H 12/02/20 02:53 Sodium 139 mmol/L (137-145) 12/19/20 04:07 Potassium 4.4 mmol/L (3.6-5.0) 12/19/20 04:07 Chloride 98.0 mmol/L (98-107) 12/19/20 04:07 Carbon Dioxide 30 mmol/L (22-30) 12/19/20 04:07 Anion Gap 15 mmol/L 12/19/20 04:07 BUN 19 mg/dL (7-17) H 12/19/20 04:07 Creatinine 0.6 mg/dL (0.6-1.2) 12/19/20 04:07 Estimated GFR > 60 ml/min 12/19/20 04:07 BUN/Creatinine Ratio 32 % 12/19/20 04:07 Glucose 102 mg/dL (65-100) H 12/19/20 04:07 POC Glucose 159 mg/dL (70-105) H 12/19/20 17:55 Hemoglobin A1c 7.4 % (4-6) H 12/02/20 Unknown Lactic Acid 1.70 mmol/L (0.7-2.0) 12/08/20 11:47 Calcium 9.2 mg/dL (8.4-10.2) 12/19/20 04:07 Magnesium 1.50 mg/dL (1.7-2.3) L 12/04/20 09:51 Total Bilirubin 0.20 mg/dL (0.1-1.2) 12/05/20 05:04 AST 15 units/L (5-40) 12/05/20 05:04 ALT 7 units/L (7-56) 12/05/20 05:04 Alkaline Phosphatase 112 units/L (35-129) 12/05/20 05:04 C-Reactive Protein 1.30 mg/dL (0.00-1.30) 12/07/20 17:04 Total Protein 8.4 g/dL (6.3-8.2) H 12/05/20 05:04 Albumin 2.8 g/dL (3.9-5) L 12/05/20 05:04 Albumin/Globulin Ratio 0.5 % 12/05/20 05:04 Procalcitonin 0.27 ng/mL (<0.15) 12/09/20 12:37 Urine Color Yellow (Yellow) 12/02/20 03:50 Urine Turbidity Turbid (Clear) 12/02/20 03:50 Urine pH 6.0 (5.0-7.0) 12/02/20 03:50 Ur Specific [place] 1.008 (1.003-1.030) 12/02/20 03:50 Urine Protein 100 mg/dl mg/dL (Negative) 12/02/20 03:50 Urine Glucose (UA) Neg mg/dL (Negative) 12/02/20 03:50 Urine Ketones Neg mg/dL (Negative) 12/02/20 03:50 Urine Blood Lg (Negative) 12/02/20 03:50 Urine Nitrite Neg (Negative) 12/02/20 03:50 Urine Bilirubin Neg (Negative) 12/02/20 03:50 Urine Urobilinogen < 2.0 mg/dL (<2.0) 12/02/20 03:50 Ur Leukocyte Esterase Lg (Negative) 12/02/20 03:50 Urine WBC (Auto) > 182.0 /HPF (0.0-6.0) H 12/02/20 03:50 Urine RBC (Auto) > 182.0 /HPF (0.0-6.0) 12/02/20 03:50 U Epithel Cells (Auto) 6.0 /HPF (0-13.0) 12/02/20 03:50 Urine Bacteria (Auto) 1+ /HPF (Negative) 12/02/20 03:50 Urine WBC Clumps 3+ /HPF 12/02/20 03:50 Phenytoin 9.8 ug/mL (10.0-20.0) L 12/14/20 15:44 Coronavirus (PCR) Negative (Negative) 12/05/20 Unknown Blood Type O POSITIVE 12/02/20 02:05 Antibody Screen Negative 12/02/20 02:05 Crossmatch See Detail 12/02/20 02:05 [place]cl[place]/IV: Voiding Method Indwelling Catheter Active Medications - Current Medications Current Medications: Generic Name Dose Route Start Last Admin Trade Name Freq PRN Reason Stop Dose Admin Acetaminophen 650 mg 12/02/20 05:24 12/18/20 22:29 Acetaminophen 325 Mg Tab PO 650 mg Q4H PRN Administration Pain MILD(1-3)/Fever >100.5/SMALLS Albuterol 2.5 mg 12/02/20 05:24 12/03/20 15:11 Albuterol 2.5 Mg/3 Ml Nebu IH 2.5 mg Q4HRT PRN Administration Shortness Of Breath Lipase/Protease/Amylase 1 each 12/03/20 10:22 Lipase 10,500/Protease 25,000/Amylase 43,750 (Units) Dr Blount FEEDTSHANTA PRN PRN For Clogged Feeding Tube Atorvastatin Calcium 40 mg 12/02/20 10:00 12/19/20 10:13 Atorvastatin 40 Mg Tab PO 40 mg DAILY ADOLFO Administration Citalopram Hydrobromide 20 mg 12/02/20 10:00 12/19/20 10:13 Citalopram 20 Mg Tab PO 20 mg DAILY ADOLFO Administration Dextrose 50 ml 12/02/20 11:18 Dextrose 50% In Water (25gm) 50 Ml Syringe IV Q30MIN PRN Hypoglycemia Protocol Docusate Sodium 100 mg 12/04/20 10:00 12/19/20 10:13 Docusate Sodium 100 Mg/10 Ml Oral Liqd FEEDTUBE 100 mg BID ADOLFO Administration Sodium Chloride 1,000 mls @ 50 mls/hr 12/18/20 07:30 Nacl 0.9% 1000 Ml IV DIRECT ADOLFO Insulin Glargine 10 units 12/05/20 08:00 12/19/20 10:37 Insulin Glargine 100 Units/Ml SUB-Q Not Given QAMDIAB PENDING SALE TO [facility] Insulin Human Lispro 0 unit 12/04/20 00:00 12/19/20 14:55 Insulin Lispro 100 Unit/Ml SUB-Q Not Given Q6HR PENDING SALE TO [facility] Protocol Lansoprazole 30 mg 12/18/20 10:00 12/19/20 10:13 Lansoprazole 30 Mg Solutab FEEDTUBE 30 mg QDAY ADOLFO Administration Metoclopramide HCl 10 mg 12/09/20 10:31 12/12/20 18:36 Metoclopramide 10 Mg/2 Ml Inj IV 10 mg Q6H PRN Administration Nausea And Vomiting Ondansetron HCl 4 mg 12/02/20 05:24 12/05/20 22:37 Ondansetron 4 Mg/2 Ml Inj IV 4 mg Q8H PRN Administration Nausea And Vomiting Simple Syrup 15 ml 12/03/20 10:22 Simple Syrup 15 Ml FEEDTUBE PRN PRN Hypoglycemia Simple Syrup 30 ml 12/03/20 10:22 Simple Syrup 15 Ml FEEDTUBE PRN PRN Hypoglycemia Sodium Bicarbonate 325 mg 12/03/20 10:22 Sodium Bicarbonate 325 Mg Tab FEEDTUBE PRN PRN For Clogged Feeding Tube Sodium Chloride 10 ml 12/02/20 05:24 12/14/20 04:46 Sodium Chloride 0.9% 10 Ml Flush Syringe IV 10 ml PRN PRN Administration LINE FLUSH Nutrition/Malnutrition Assess - Dietary Evaluation Nutrition/Malnutrition Findings: Nutrition Notes Start: 12/03/20 11:43 Freq: Status: Active Protocol: Document 12/15/20 13:53 (Rec: 12/15/20 14:00 [email or web address]) Nutrition Notes Initial or Follow up Reassessment Current Diagnosis Diabetes,Sepsis,Hypertension, Stroke Other Pertinent Diagnosis Hypotension, UTI, ARF, Vaginal bleeding, Dementia, Dysphagia , (L) AKA Current Diet TF - Glucerna 1.2 at 45ml/hr Labs/Tests reviewed Pertinent Medications reviewed Height 5 ft Weight 56.7 kg [place] Body Weight (kg) 45.45 BMI 24.4 Weight Status Appropriate Subjective/Other Information TF continues to run at 45 ml/ hr and pt tolerating. TF was never reordered, however, pt receiving. [employer] recommends NPO. Percent of energy/protein needs met: 100%/100% Burn Absent Trauma Absent Difficulty In Swallowing Current % PO Negligible Minimum of two criteria No physical signs of malnutrition #1 Nutrition Diagnosis Inadequate oral intake Diagnosis Progress(for reassessment Continues documentation) Is patient on ventilator? No Is Patient Ambulatory and/or Out of Bed No REE-([facility]-confined to bed) 1245.756 Calculation Used for Recommendations [facility] Additional Notes Pro needs 1-1.2g/k-70g/ day Fluid needs 1ml/kcal Nutrition Intervention Nutrition Support: Glucerna 1.2 at 45ml/hr with 75ml water flush q4h. Kcal 1,296 Protein (gm) 65 Carbohydrates (gm) 124 Fat (gm) 65 Fluid (mL) 869 Fiber (gm) 17 Goal #1 FU for intakes and ONS tolerance Goal #2 TF to meet at least 75% energy and pro needs Anticipated Discharge Needs: Glucerna 1.2 at 45ml/hr with 75ml water flush q4h. Follow-Up By: 12/22/20 Additional Comments F/U stable TF
[2020-12-19] MEDS: ACETAMINOPHEN 325 MG TAB PO PRN (22:37)
[2020-12-20] MEDS: INSULIN LISPRO 100 UNIT/ML SUB-Q SCH ×3 (01:44→10:22)
--- NOTE | 2020-12-20 09:47 | Gastroenterology Progress Note ---
Assessment and Plan PEG in good position no sign of infection/leak, may continue to use, GI will sign off - Patient Problems (1) Dysphagia Current Visit: Yes Status: Acute Subjective Date of service: 12/20/20 Principal diagnosis: Hx of CVA and left side weakness ,preesnted with change in mentation and ri Interval history: Patient unable to speak when I asked her questions Objective - Constitutional Vitals: Temp Pulse Resp BP Pulse Ox 98.9 F 100 H 20 122/66 98 12/20/20 05:31 12/20/20 05:31 12/20/20 05:31 12/20/20 05:31 12/19/20 22:00 - Respiratory Respiratory effort: normal - Gastrointestinal General gastrointestinal: Present: soft, other (G-tube in place, no surrounding edema erythema or induration. Bumper in place with about 5mm give (so not too tight)) - Labs CBC & Chem 7: 12/19/20 04:07 12/19/20 04:07 Labs: Laboratory Results - last 24 hr 12/19/20 12/19/20 12/20/20 11:52 17:55 00:29 POC Glucose 142 H 159 H 192 H 12/20/20 06:37 POC Glucose 207 H
[2020-12-20] MEDS: CITALOPRAM 20 MG TAB PO SCH (10:01)
[2020-12-20] MEDS: LANSOPRAZOLE 30 MG SOLUTAB FEEDTUBE SCH (10:01)
[2020-12-20] MEDS: DOCUSATE SODIUM 100 MG/10 ML ORAL LIQD FEEDTUBE SCH ×2 (10:02→21:43)
[2020-12-20] MEDS: MULTIVITAMIN / MINERAL ORAL LIQUID 15 ML PO SCH (10:02)
[2020-12-20] MEDS: INSULIN GLARGINE 100 UNITS/ML SUB-Q SCH (10:22)
--- NOTE | 2020-12-20 17:31 | Progress Note ---
Assessment and Plan - Patient Problems (1) Sepsis Current Visit: Yes Status: Resolved Qualifiers: Sepsis type: sepsis due to unspecified organism Sepsis acute organ dysfunction status: with acute organ dysfunction Severe sepsis acute organ dysfunction type: acute renal failure Acute renal failure type: unspecified Severe sepsis shock status: with septic shock Qualified Code(s): A41.9 - Sepsis, unspecified organism; R65.21 - Severe sepsis with septic shock; N17.9 - Acute kidney failure, unspecified Plan to address problem: Continue to monitor, continue supportive care. (2) Encephalopathy Current Visit: Yes Status: Acute Plan to address problem: Neuro check, seizure precautions, aspiration precautions, fall precautions, supportive care. (3) UTI (urinary tract infection) Current Visit: Yes Status: Resolved Qualifiers: Urinary tract infection type: acute cystitis Hematuria presence: with hematuria Qualified Code(s): N30.01 - Acute cystitis with hematuria Plan to address problem: Status post full course antibiotic therapy, supportive care. (4) Vascular dementia Current Visit: Yes Status: Acute Qualifiers: Dementia behavioral disturbance: without behavioral disturbance Qualified C ode(s): F01.50 - Vascular dementia without behavioral disturbance Plan to address problem: Verbal prompting, verbal redirection, benzodiazepine therapy as clinically indicated (5) Cerebral atherosclerosis Current Visit: Yes Status: Acute Plan to address problem: Supportive care, antiplatelet therapy, risk factor reduction. (6) DVT prophylaxis Current Visit: Yes Status: Acute Plan to address problem: SCD to bilateral lower extremities while in bed, prophylactic anticoagulation History Interval history: 65 YO Female HD #19 with Sepsis secondary to UTI, Debility, Cerebral Atherosclerosis, Vascular Dementia, MAILE with ATN. Patient is currently bedbound , nonambulatory. Patient is a palliative performance score 30% and requires 6/6 assistance with activities of daily living. Case management consulted. Patient is pending alf facility placement. Patient medically optimized at this time. Awaiting placement. No reported nursing events overnight. Hospitalist Physical - Constitutional Vitals: Temp Pulse Resp BP Pulse Ox 98.9 F 109 H 20 122/66 98 12/20/20 05:31 12/20/20 10:00 12/20/20 10:00 12/20/20 05:31 12/20/20 10:00 General appearance: Present: no acute distress, cachectic, other (Nonverbal) - EENT Eyes: Present: PERRL ENT: hearing decreased - Neck Neck: Present: supple - Respiratory Respiratory: bilateral: diminished - Cardiovascular Rhythm: regular Heart Sounds: Present: S1 & S2 - Extremities Extremities: no ischemia Peripheral Pulses: within normal limits - Abdominal General gastrointestinal: soft, non-tender, non-distended - Integumentary Integumentary: Present: clear, erythema - Psychiatric Psychiatric: no appropriate mood/affect, no intact judgment & insight, no memory intact - Neurologic Neurologic: no CNII-XII intact, focal deficits, no moves all extremities, no gait normal Results - Labs CBC & Chem 7: 12/19/20 04:07 12/19/20 04:07 Labs: Laboratory Last Values WBC 11.5 K/mm3 (4.5-11.0) H 12/19/20 04:07 RBC 3.49 M/mm3 (3.65-5.03) L 12/19/20 04:07 Hgb 10.0 gm/dl (10.1-14.3) L 12/19/20 04:07 Hct 30.1 % (30.3-42.9) L 12/19/20 04:07 MCV 86 fl (79-97) 12/19/20 04:07 MCH 29 pg (28-32) 12/19/20 04:07 MCHC 33 % (30-34) 12/19/20 04:07 RDW 18.7 % (13.2-15.2) H 12/19/20 04:07 Plt Count 517 K/mm3 (140-440) H 12/19/20 04:07 Lymph % (Auto) 17.2 % (13.4-35.0) 12/13/20 04:53 [place] % (Auto) 4.9 % (0.0-7.3) 12/13/20 04:53 Eos % (Auto) 2.7 % (0.0-4.3) 12/13/20 04:53 Baso % (Auto) 0.6 % (0.0-1.8) 12/13/20 04:53 Lymph # (Auto) 2.5 K/mm3 (1.2-5.4) 12/13/20 04:53 [place] # (Auto) 0.7 K/mm3 (0.0-0.8) 12/13/20 04:53 Eos # (Auto) 0.4 K/mm3 (0.0-0.4) 12/13/20 04:53 Baso # (Auto) 0.1 K/mm3 (0.0-0.1) 12/13/20 04:53 Add Manual Diff Complete 12/08/20 11:47 Total Counted 100 12/08/20 11:47 Seg Neutrophils % 74.6 % (40.0-70.0) H 12/13/20 04:53 Seg Neuts % (Manual) 72.0 % (40.0-70.0) H 12/08/20 11:47 Lymphocytes % (Manual) 24.0 % (13.4-35.0) 12/08/20 11:47 Monocytes % (Manual) 4.0 % (0.0-7.3) 12/08/20 11:47 Nucleated RBC % Not Reportable 12/08/20 11:47 Seg Neutrophils # 10.9 K/mm3 (1.8-7.7) H 12/13/20 04:53 Seg Neutrophils # Man 16.1 K/mm3 (1.8-7.7) H 12/08/20 11:47 Band Neutrophils # 0.0 K/mm3 12/08/20 11:47 Lymphocytes # (Manual) 5.4 K/mm3 (1.2-5.4) 12/08/20 11:47 Abs React Lymphs (Man) 0.0 K/mm3 12/08/20 11:47 Monocytes # (Manual) 0.9 K/mm3 (0.0-0.8) H 12/08/20 11:47 Eosinophils # (Manual) 0.0 K/mm3 (0.0-0.4) 12/08/20 11:47 Basophils # (Manual) 0.0 K/mm3 (0.0-0.1) 12/08/20 11:47 Metamyelocytes # 0.0 K/mm3 12/08/20 11:47 Myelocytes # 0.0 K/mm3 12/08/20 11:47 Promyelocytes # 0.0 K/mm3 12/08/20 11:47 Blast Cells # 0.0 K/mm3 12/08/20 11:47 WBC Morphology Not Reportable 12/08/20 11:47 Hypersegmented Neuts Not Reportable 12/08/20 11:47 Hyposegmented Neuts Not Reportable 12/08/20 11:47 Hypogranular Neuts Not Reportable 12/08/20 11:47 Smudge Cells Not Reportable 12/08/20 11:47 Toxic Granulation Not Reportable 12/08/20 11:47 Toxic Vacuolation Not Reportable 12/08/20 11:47 Dohle Bodies Not Reportable 12/08/20 11:47 Pelger-Huet Anomaly Not Reportable 12/08/20 11:47 Israel Rods Not Reportable 12/08/20 11:47 Platelet Estimate Consistent w auto 12/08/20 11:47 Clumped Platelets Not Reportable 12/08/20 11:47 Plt Clumps, EDTA Not Reportable 12/08/20 11:47 Large Platelets Not Reportable 12/08/20 11:47 Giant Platelets Not Reportable 12/08/20 11:47 Platelet Satelliting Not Reportable 12/08/20 11:47 Plt Morphology Comment Not Reportable 12/08/20 11:47 RBC Morphology Not Reportable 12/08/20 11:47 Dimorphic RBCs Not Reportable 12/08/20 11:47 Polychromasia Not Reportable 12/08/20 11:47 Hypochromasia Not Reportable 12/08/20 11:47 Poikilocytosis Not Reportable 12/08/20 11:47 Anisocytosis 1+ 12/08/20 11:47 Microcytosis Not Reportable 12/08/20 11:47 Macrocytosis Not Reportable 12/08/20 11:47 Spherocytes Not Reportable 12/08/20 11:47 Pappenheimer Bodies Not Reportable 12/08/20 11:47 Sickle Cells Not Reportable 12/08/20 11:47 Target Cells Not Reportable 12/08/20 11:47 Tear Drop Cells Not Reportable 12/08/20 11:47 Ovalocytes Not Reportable 12/08/20 11:47 Stomatocytes 1+ 12/08/20 11:47 Helmet Cells Not Reportable 12/08/20 11:47 Cespedes-Central Bodies Not Reportable 12/08/20 11:47 [place] Rings Not Reportable 12/08/20 11:47 Liboiro Cells Not Reportable 12/08/20 11:47 Bite Cells Not Reportable 12/08/20 11:47 Crenated Cell Not Reportable 12/08/20 11:47 Elliptocytes Not Reportable 12/08/20 11:47 Acanthocytes (Spur) Not Reportable 12/08/20 11:47 Rouleaux Not Reportable 12/08/20 11:47 Hemoglobin C Crystals Not Reportable 12/08/20 11:47 Schistocytes Not Reportable 12/08/20 11:47 Malaria parasites Not Reportable 12/08/20 11:47 Hamlet Bodies Not Reportable 12/08/20 11:47 Hem Pathologist Commnt No 12/08/20 11:47 PT 15.3 Sec. (12.2-14.9) H 12/02/20 02:53 INR 1.16 (0.87-1.13) H 12/02/20 02:53 APTT 37.7 Sec. (24.2-36.6) H 12/02/20 02:53 Sodium 139 mmol/L (137-145) 12/19/20 04:07 Potassium 4.4 mmol/L (3.6-5.0) 12/19/20 04:07 Chloride 98.0 mmol/L (98-107) 12/19/20 04:07 Carbon Dioxide 30 mmol/L (22-30) 12/19/20 04:07 Anion Gap 15 mmol/L 12/19/20 04:07 BUN 19 mg/dL (7-17) H 12/19/20 04:07 Creatinine 0.6 mg/dL (0.6-1.2) 12/19/20 04:07 Estimated GFR > 60 ml/min 12/19/20 04:07 BUN/Creatinine Ratio 32 % 12/19/20 04:07 Glucose 102 mg/dL (65-100) H 12/19/20 04:07 POC Glucose 175 mg/dL (70-105) H 12/20/20 16:07 Hemoglobin A1c 7.4 % (4-6) H 12/02/20 Unknown Lactic Acid 1.70 mmol/L (0.7-2.0) 12/08/20 11:47 Calcium 9.2 mg/dL (8.4-10.2) 12/19/20 04:07 Magnesium 1.50 mg/dL (1.7-2.3) L 12/04/20 09:51 Total Bilirubin 0.20 mg/dL (0.1-1.2) 12/05/20 05:04 AST 15 units/L (5-40) 12/05/20 05:04 ALT 7 units/L (7-56) 12/05/20 05:04 Alkaline Phosphatase 112 units/L (35-129) 12/05/20 05:04 C-Reactive Protein 1.30 mg/dL (0.00-1.30) 12/07/20 17:04 Total Protein 8.4 g/dL (6.3-8.2) H 12/05/20 05:04 Albumin 2.8 g/dL (3.9-5) L 12/05/20 05:04 Albumin/Globulin Ratio 0.5 % 12/05/20 05:04 Procalcitonin 0.27 ng/mL (<0.15) 12/09/20 12:37 Urine Color Yellow (Yellow) 12/02/20 03:50 Urine Turbidity Turbid (Clear) 12/02/20 03:50 Urine pH 6.0 (5.0-7.0) 12/02/20 03:50 Ur Specific [place] 1.008 (1.003-1.030) 12/02/20 03:50 Urine Protein 100 mg/dl mg/dL (Negative) 12/02/20 03:50 Urine Glucose (UA) Neg mg/dL (Negative) 12/02/20 03:50 Urine Ketones Neg mg/dL (Negative) 12/02/20 03:50 Urine Blood Lg (Negative) 12/02/20 03:50 Urine Nitrite Neg (Negative) 12/02/20 03:50 Urine Bilirubin Neg (Negative) 12/02/20 03:50 Urine Urobilinogen < 2.0 mg/dL (<2.0) 12/02/20 03:50 Ur Leukocyte Esterase Lg (Negative) 12/02/20 03:50 Urine WBC (Auto) > 182.0 /HPF (0.0-6.0) H 12/02/20 03:50 Urine RBC (Auto) > 182.0 /HPF (0.0-6.0) 12/02/20 03:50 U Epithel Cells (Auto) 6.0 /HPF (0-13.0) 12/02/20 03:50 Urine Bacteria (Auto) 1+ /HPF (Negative) 12/02/20 03:50 Urine WBC Clumps 3+ /HPF 12/02/20 03:50 Phenytoin 9.8 ug/mL (10.0-20.0) L 12/14/20 15:44 Coronavirus (PCR) Negative (Negative) 12/05/20 Unknown Blood Type O POSITIVE 12/02/20 02:05 Antibody Screen Negative 12/02/20 02:05 Crossmatch See Detail 12/02/20 02:05 Mcclure/IV: Voiding Method Indwelling Catheter Active Medications - Current Medications Current Medications: Generic Name Dose Route Start Last Admin Trade Name Freq PRN Reason Stop Dose Admin Acetaminophen 650 mg 12/02/20 05:24 12/19/20 22:37 Acetaminophen 325 Mg Tab PO 650 mg Q4H PRN Administration Pain MILD(1-3)/Fever >100.5/SMALLS Albuterol 2.5 mg 12/02/20 05:24 12/03/20 15:11 Albuterol 2.5 Mg/3 Ml Nebu IH 2.5 mg Q4HRT PRN Administration Shortness Of Breath Lipase/Protease/Amylase 1 each 12/03/20 10:22 Lipase 10,500/Protease 25,000/Amylase 43,750 (Units) Dr Blount FEEDTUBE PRN PRN For Clogged Feeding Tube Atorvastatin Calcium 40 mg 12/02/20 10:00 12/20/20 10:01 Atorvastatin 40 Mg Tab PO 40 mg DAILY ADOLFO Administration Citalopram Hydrobromide 20 mg 12/02/20 10:00 12/20/20 10:01 Citalopram 20 Mg Tab PO 20 mg DAILY ADOLFO Administration Dextrose 50 ml 12/02/20 11:18 Dextrose 50% In Water (25gm) 50 Ml Syringe IV Q30MIN PRN Hypoglycemia Protocol Docusate Sodium 100 mg 12/04/20 10:00 12/20/20 10:02 Docusate Sodium 100 Mg/10 Ml Oral Liqd FEEDTUBE Not Given BID ADOLFO Sodium Chloride 1,000 mls @ 50 mls/hr 12/18/20 07:30 12/20/20 16:27 Nacl 0.9% 1000 Ml IV 50 mls/hr DIRECT ADOLFO Administration Insulin Glargine 10 units 12/05/20 08:00 12/20/20 10:22 Insulin Glargine 100 Units/Ml SUB-Q 10 units QAMDIAB ADOLFO Administration Insulin Human Lispro 0 unit 12/04/20 00:00 12/20/20 10:22 Insulin Lispro 100 Unit/Ml SUB-Q 2 unit Q6HR ADOLFO Administration Protocol Lansoprazole 30 mg 12/18/20 10:00 12/20/20 10:01 Lansoprazole 30 Mg Solutab FEEDTUBE 30 mg QDAY ADOLFO Administration Metoclopramide HCl 10 mg 12/09/20 10:31 12/12/20 18:36 Metoclopramide 10 Mg/2 Ml Inj IV 10 mg Q6H PRN Administration Nausea And Vomiting Ondansetron HCl 4 mg 12/02/20 05:24 12/05/20 22:37 Ondansetron 4 Mg/2 Ml Inj IV 4 mg Q8H PRN Administration Nausea And Vomiting Simple Syrup 15 ml 12/03/20 10:22 Simple Syrup 15 Ml FEEDTUBE PRN PRN Hypoglycemia Simple Syrup 30 ml 12/03/20 10:22 Simple Syrup 15 Ml FEEDTUBE PRN PRN Hypoglycemia Sodium Bicarbonate 325 mg 12/03/20 10:22 Sodium Bicarbonate 325 Mg Tab FEEDTUBE PRN PRN For Clogged Feeding Tube Sodium Chloride 10 ml 12/02/20 05:24 12/14/20 04:46 Sodium Chloride 0.9% 10 Ml Flush Syringe IV 10 ml PRN PRN Administration LINE FLUSH Nutrition/Malnutrition Assess - Dietary Evaluation Nutrition/Malnutrition Findings: Nutrition Notes Start: 12/03/20 11:43 Freq: Status: Active Protocol: Document 12/15/20 13:53 (Rec: 12/15/20 14:00 [id number]) Nutrition Notes Initial or Follow up Reassessment Current Diagnosis Diabetes,Sepsis,Hypertension, Stroke Other Pertinent Diagnosis Hypotension, UTI, ARF, Vaginal bleeding, Dementia, Dysphagia , (L) AKA Current Diet TF - Glucerna 1.2 at 45ml/hr Labs/Tests reviewed Pertinent Medications reviewed Height 5 ft Weight 56.7 kg [place] Body Weight (kg) 45.45 BMI 24.4 Weight Status Appropriate Subjective/Other Information TF continues to run at 45 ml/ hr and pt tolerating. TF was never reordered, however, pt receiving. [employer] recommends NPO. Percent of energy/protein needs met: 100%/100% Burn Absent Trauma Absent Difficulty In Swallowing Current % PO Negligible Minimum of two criteria No physical signs of malnutrition #1 Nutrition Diagnosis Inadequate oral intake Diagnosis Progress(for reassessment Continues documentation) Is patient on ventilator? No Is Patient Ambulatory and/or Out of Bed No REE-([facility]-confined to bed) 1245.756 Calculation Used for Recommendations [facility] Additional Notes Pro needs 1-1.2g/k-70g/ day Fluid needs 1ml/kcal Nutrition Intervention Nutrition Support: Glucerna 1.2 at 45ml/hr with 75ml water flush q4h. Kcal 1,296 Protein (gm) 65 Carbohydrates (gm) 124 Fat (gm) 65 Fluid (mL) 869 Fiber (gm) 17 Goal #1 FU for intakes and ONS tolerance Goal #2 TF to meet at least 75% energy and pro needs Anticipated Discharge Needs: Glucerna 1.2 at 45ml/hr with 75ml water flush q4h. Follow-Up By: 12/22/20 Additional Comments F/U stable TF
[2020-12-21] MEDS: INSULIN LISPRO 100 UNIT/ML SUB-Q SCH ×4 (00:12→17:50)
[2020-12-21] MEDS: MULTIVITAMIN / MINERAL ORAL LIQUID 15 ML PO SCH (10:23)
[2020-12-21] MEDS: CITALOPRAM 20 MG TAB PO SCH (10:28)
[2020-12-21] MEDS: DOCUSATE SODIUM 100 MG/10 ML ORAL LIQD FEEDTUBE SCH ×2 (10:58→21:33)
[2020-12-21] MEDS: LANSOPRAZOLE 30 MG SOLUTAB FEEDTUBE SCH (10:59)
[2020-12-21] MEDS: INSULIN GLARGINE 100 UNITS/ML SUB-Q SCH (11:00)
[2020-12-21 19:34] VITALS: BP 143/66
== END 2020-12-21 22:30 | DRG 871 ==
LOC: ED 22:10 → IMCU 12-02 02:06 → 4A 12-05 06:23
PROVIDERS: ADMIT Hospitalist; ATTEND Internal Medicine
PROC: 30233N1 Transfusion of Nonautologous Red Blood Cells into Peripheral Vein, Percutaneous Approach (ICD-10-PCS; 2020-12-03)
PROC: 0DH63UZ Insertion of Feeding Device into Stomach, Percutaneous Approach (ICD-10-PCS; principal; 2020-12-18)
PROC: 0DB68ZX Excision of Stomach, Via Natural or Artificial Opening Endoscopic, Diagnostic (ICD-10-PCS; 2020-12-18)
DX: A41.9 Sepsis, unspecified organism (principal); R65.21 Severe sepsis with septic shock; G92 Toxic encephalopathy; N17.0 Acute kidney failure with tubular necrosis; N13.6 Pyonephrosis; G81.94 Hemiplegia, unspecified affecting left nondominant side; Z79.4 Long term (current) use of insulin; E87.6 Hypokalemia; N18.2 Chronic kidney disease, stage 2 (mild); D64.9 Anemia, unspecified; I12.9 Hypertensive chronic kidney disease with stage 1 through stage 4 chronic kidney disease, or unspecified chronic kidney disease; Z20.822 Contact with and (suspected) exposure to COVID-19; E11.22 Type 2 diabetes mellitus with diabetic chronic kidney disease; F01.50 Vascular dementia, unspecified severity, without behavioral disturbance, psychotic disturbance, mood disturbance, and anxiety; R13.10 Dysphagia, unspecified; N93.9 Abnormal uterine and vaginal bleeding, unspecified; K21.9 Gastro-esophageal reflux disease without esophagitis; F32.9 Major depressive disorder, single episode, unspecified; K63.89 Other specified diseases of intestine; Z79.899 Other long term (current) drug therapy; Z89.612 Acquired absence of left leg above knee; Z79.82 Long term (current) use of aspirin
CPT/HCPCS: 36415; 70551; 71045; 71250; 74018; 74174; 74176; 76856; 78708; 80048; 80053; 80185; 81001; 82140; 82962; 83036; 83735; 84145; 85007; 85018; 85025; 85027; 85610; 85730; 86140; 86850; 86900; 86901; 86920; 87040; 87086; 88305; 88342; 94640; 95819; 96374; 96375; G0378; A9270-GY; A9562; J0692; J1165; J1170; J1815; J1940; J2185; J2250; J2405; J2704; J2765; J3370; J3475; J3480; J7030; P9016; Q2009; Q9967; U0003